=== PATIENT | female | born 1950 | race Caucasian/White ===

== ENCOUNTER 2018-12-19 16:59 | Inpatient (IN) | payer MEDICARE, OTHER ==
[~2018-12-19] VITALS: Ht 152.4 cm; Wt 93.9 kg
[~2018-12-19 16:59] MED LIST: DIGOXIN; DIGOXIN250 MCG PO; FUROSEMIDE; FUROSEMIDE40 MG PO; GLIPIZIDE; GLIPIZIDE ER2.5 MG PO; GLUCOPHAGE; LEVEMIR100 UNIT/1 SQ; METFORMIN HCL500 MG PO; PAROXETINE; PAROXETINE HCL20 MG PO; PROTONIX; SIMVASTATIN; SIMVASTATIN40 MG PO; TOPROL; VERAPAMIL; VERAPAMIL ER120 MG PO
[2018-12-19] MEDS ORDERED: VECURONIUM BROMIDE FOR INJ 20 MG VIAL ONE (17:02)
[2018-12-19] MEDS ORDERED: WATER STERILE 10 ML VIAL ONE (17:02)
[2018-12-19] MEDS ORDERED: ETOMIDATE 2 MG/ML 10 ML INJ IV ONE (17:02)
--- OUTSIDE RECORDS SUMMARY | 2018-12-19 17:04 | XMS REPORT | Summary of Care ---
Author Author [facility] Organization [facility] Address Unknown Phone Unavailable Encounter HQ Derik(JOSHUA) [id number] Date(s): 11/08/16 - 11/26/16 [facility] [address] [place] [address]- [phone] Discharge Disposition: Home or Self Care Attending Physician: Ministerio Howell DO Admitting Physician: Ministerio Howell DO Vital Signs 1 2 3 Most recent to oldest [Reference Range]: 157.48 cm (11/08/16 5:46 PM) 152.4 cm (11/08/16 12:36 PM) Height 94.176 kg (11/21/16 4:56 AM) 99.091 kg (11/20/16 5:08 AM) 98.636 kg (11/18/16 6:14 AM) Current Weight 98.2 DegF (11/26/16 4:11 PM) 98.7 DegF (11/26/16 11:20 AM) 98.5 DegF (11/26/16 8:43 AM) Temperature Oral [96.4-99.1 DegF] 152/75 mmHg *HI* (11/26/16 4:11 PM) 132/64 mmHg (11/26/16 11:20 AM) 165/78 mmHg 1 *HI* (11/26/16 8:43 AM) Blood Pressure [90-140/60-90 mmHg] 18 BRMIN (11/26/16 4:11 PM) 18 BRMIN (11/26/16 11:20 AM) 18 BRMIN (11/26/16 8:43 AM) Respiratory Rate [14-20 BRMIN] 81 bpm (11/26/16 4:11 PM) 80 bpm (11/26/16 11:20 AM) 69 bpm (11/26/16 8:43 AM) Peripheral Pulse Rate [60-100 bpm] 95 kg (11/08/16 5:46 PM) 95.455 kg (11/08/16 12:36 PM) Weight 38.31 m2 (11/08/16 5:46 PM) 41.1 m2 (11/08/16 12:36 PM) Body Mass Index 1Result Comment: notified nurse Problem List Condition Effective Dates Status Health Status Informant CHF - Congestive Resolved heart failure(Confirmed) COPD(Confirmed) Active Diabetes Active mellitus(Confirmed) Diabetes(Confirmed) Resolved HTN Resolved (hypertension)(Confi rmed) Hypertension(Confirm Active ed) MRSA(Confirmed)1, 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 Allergies, Adverse Reactions, Alerts Substance Reaction Severity Status nkda Active Medications albuterol-ipratropium 2.5-0.5 mg inhalation solution 3 mL, Route: NEB, Drug Form: SOLN, Dosing Weight 95.455, kg, ONCE, STAT, Start d ate: 11/08/16 13:33:00 CDT, Stop date: 11/08/16 13:33:00 CDT Start Date: 11/08/16 Stop Date: 11/08/16 Status: Completed albuterol-ipratropium 2.5-0.5 mg inhalation solution 3 ml, Route: NEB, Dosing Weight 95, kg, PRN, PRN Respiratory Protocol, Start robb e: 11/08/16 17:51:00 CDT, Duration: 30 day, Stop date: 12/08/16 17:50:00 CDT Start Date: 11/08/16 Stop Date: 11/08/16 Status: Deleted Benadryl 25 mg, 1 tab, Route: PO, Drug form: TAB, QID, Dosing Weight 95, kg, PRN Allergic reaction, Start date: 11/22/16 15:39:00 CDT, Duration: 30 day, Stop date: 12/22 15:38:00 CDT Start Date: 11/22/16 Stop Date: 11/26/16 Status: Discontinued budesonide 0.5 mg, 2 mL, Route: NEB, Drug form: SUSP, RBID, Dosing Weight 95.455, kg, Start date: 11/08/16 17:40:00 CDT, Duration: 30 day, Stop date: 12/08/16 8:00:00 CDT Notes: (Same As: Pulmicort) Start Date: 11/08/16 Stop Date: 11/26/16 Status: Discontinued budesonide 0.5 mg/2 mL inhalation suspension 0.5 mg=2 mL, NEB, RBID, # 120 mL, 0 Refill(s) Start Date: 11/26/16 Status: Ordered cefTRIAXone + sodium chloride 0.9% INJ 100 mL 2 gm, Route: IVPB, [id number], Dosing Weight 95, kg, Start date: 11/10/16 14:00:00 CDT, Duration: 30 day, Stop date: 12/09/16 14:00:00 CDT Notes: (Same As: Rocephin).Use with 100 mL NS and infuse over 30 min MEDICA TION WASTE Product Size: 2000 mgProduct Wasted: ___ mg Start Date: 11/10/16 Stop Date: 11/18/16 Status: Discontinued cefTRIAXone + sodium chloride 0.9% INJ 100 mL 1 gm, Route: IVPB, ONCE, Dosing Weight 95.455, kg, Priority: STAT, Start date: 0 11/08/16 15:42:00 CDT, Stop date: 11/08/16 15:42:00 CDT Notes: (Same As: Rocephin).Use with 100 mL NS and infuse over 30 min MEDICA TION WASTE Product Size: 1000 mgProduct Wasted: ___ mg Start Date: 11/08/16 Stop Date: 11/08/16 Status: Deleted cefTRIAXone + sodium chloride 0.9% INJ 100 mL 1 gm, Route: IVPB, [id number], Dosing Weight 95.455, kg, Start date: 11/08/16 18:00 :00 CDT, Duration: 30 day, Stop date: 12/07/16 18:00:00 CDT Notes: (Same As: Rocephin).Use with 100 mL NS and infuse over 30 min MEDICA TION WASTE Product Size: 1000 mgProduct Wasted: ___ mg Start Date: 11/08/16 Stop Date: 11/10/16 Status: Discontinued Compazine 5 mg, 1 tab, Route: PO, Drug form: TAB, TID, Dosing Weight 95, kg, PRN Hiccups, Start date: 11/16/16 11:27:00 CDT, Duration: 30 day, Stop date: 12/16/16 11:26:0 0 CDT Notes: (Same as: Compazine) Start Date: 11/16/16 Stop Date: 11/26/16 Status: Discontinued d50 syringe 1 amp, Route: IV, Dosing Weight 95.455, kg, ONCE, Start date: 11/08/16 14:29:00 CDT, Stop date: 11/08/16 14:29:00 CDT Start Date: 11/08/16 Stop Date: 11/08/16 Status: Completed D5NS 1,000 mL 1,000 mL, Rate: 75 ml/hr, Infuse over: 13.3 hr, Route: IV, Dosing Weight 95.455 kg, Total Volume: 1,000, Start date: 11/08/16 14:37:00 CDT, Duration: 30 day, St op date: 12/08/16 14:36:00 CDT Start Date: 11/08/16 Stop Date: 11/09/16 Status: Discontinued Dextrose 50% Syringe 12.5 gm, 25 mL, Route: IVP, Drug Form: INJ, Dosing Weight 95, kg, PRN, PRN Blood Glucose Results, Start date: 11/09/16 9:17:00 CDT, Duration: 30 day, Stop date: 12/09/16 9:16:00 CDT Start Date: 11/09/16 Stop Date: 11/26/16 Status: Discontinued Dextrose 50% Syringe 25 gm, 50 mL, Route: IVP, Drug Form: INJ, Dosing Weight 95, kg, PRN, PRN Blood G lucose Results, Start date: 11/09/16 9:17:00 CDT, Duration: 30 day, Stop date: 0 12/09/16 9:16:00 CDT Start Date: 11/09/16 Stop Date: 11/26/16 Status: Discontinued Dextrose 50% Syringe 12.5 gm, 25 mL, Route: IVP, Drug Form: INJ, Dosing Weight 95.455, kg, PRN, PRN B lood Glucose Results, Start date: 11/08/16 17:25:00 CDT, Duration: 30 day, Stop date: 12/08/16 17:24:00 CDT Start Date: 11/08/16 Stop Date: 11/09/16 Status: Discontinued Dextrose 50% Syringe 25 gm, 50 mL, Route: IVP, Drug Form: INJ, Dosing Weight 95.455, kg, PRN, PRN Blo od Glucose Results, Start date: 11/08/16 17:25:00 CDT, Duration: 30 day, Stop da te: 12/08/16 17:24:00 CDT Start Date: 11/08/16 Stop Date: 11/09/16 Status: Discontinued digoxin immune HELADIO 2,000 microgram, Route: IVPB, ONCE, Dosing Weight 95.455, kg, Start date: 15:27:00 CDT, Stop date: 11/08/16 15:27:00 CDT Start Date: 11/08/16 Stop Date: 11/08/16 Status: Discontinued digoxin immune HELADIO + sodium chloride 0.9% INJ 200 mL 200 mg, Route: IVPB, Drug form: INJ, ONCE, Dosing Weight 95.455, kg, Start date: 11/08/16 15:33:00 CDT, Stop date: 11/08/16 15:33:00 CDT Notes: (Same as:Digifab) Start Date: 11/08/16 Stop Date: 11/08/16 Status: Completed docusate sodium 100 mg oral capsule 100 mg, 1 cap, Route: PO, Drug form: CAP, BID, Dosing Weight 95, kg, Start date: 11/19/16 9:00:00 CDT, Duration: 30 day, Stop date: 12/18/16 17:00:00 CDT Notes: (Same as: Colace) (Do Not Crush) Start Date: 11/19/16 Stop Date: 11/26/16 Status: Discontinued Dulcolax Laxative 10 mg, 1 supp, Route: FL, Drug form: SUPP, ONCE, Dosing Weight 95, kg, PRN as ne eded for constipation, Start date: 11/24/16 14:05:00 CDT Notes: (Same As: Dulcolax, Bisco-Lax) Start Date: 11/24/16 Stop Date: 11/26/16 Status: Discontinued DuoNeb inhalation solution 3 ml, Route: NEB, Drug Form: SOLN, Dosing Weight 95.455, kg, PRN, PRN Respirator y Protocol, Start date: 11/08/16 17:40:00 CDT, Duration: 30 day, Stop date: 11/19 17:39:00 CDT Notes: (Same as: Duoneb) Start Date: 11/08/16 Stop Date: 11/26/16 Status: Discontinued famotidine 20 mg, 1 tab, Route: PO, Drug form: TAB, Daily, Dosing Weight 95, kg, PRN Heartb urn, Start date: 11/09/16 10:55:00 CDT, Duration: 30 day, Stop date: 12/09/16 10 :54:00 CDT Notes: (Same as: Pepcid) Start Date: 11/09/16 Stop Date: 11/26/16 Status: Discontinued fentaNYL (ANES) Route: IV, Drug form: INJ, ONCE, Stop date: 11/22/16 8:52:00 CDT Start Date: 11/22/16 Stop Date: 11/22/16 Status: Completed glucagon 1 mg, Route: IM, Drug form: PDR/INJ, PRN, Dosing Weight 95, kg, PRN Blood Glucos e Results, Start date: 11/09/16 9:17:00 CDT, Duration: 30 day, Stop date: 9:16:00 CDT Start Date: 11/09/16 Stop Date: 11/26/16 Status: Discontinued glucagon 1 mg, Route: IM, Drug form: PDR/INJ, PRN, Dosing Weight 95.455, kg, PRN Blood Gl ucose Results, Start date: 11/08/16 17:25:00 CDT, Duration: 30 day, Stop date: 0 12/08/16 17:24:00 CDT Start Date: 11/08/16 Stop Date: 11/09/16 Status: Discontinued GoLYTELY 4,000 ml, Route: PO, Drug Form: PDR/REC, Dosing Weight 95, kg, ONCE, Start date: 11/24/16 14:05:00 CDT, Duration: 1 doses or times, Stop date: 11/24/16 14:05:00 CDT Notes: (polyethylene glycol electrolyte solution 4 Liter bottle) (Same as: Christophe العراقي) Start Date: 11/24/16 Stop Date: 11/24/16 Status: Completed heparin 5,000 unit, 1 mL, Route: SUB-Q, Drug form: INJ, Q8H, Dosing Weight 95.455, kg, S tart date: 11/09/16 0:00:00 CDT, Duration: 30 day, Stop date: 12/08/16 16:00:00 CDT Notes: porcine heparin Start Date: 11/09/16 Stop Date: 11/10/16 Status: Discontinued insulin aspart 4 unit, 0.04 mL, Route: SUB-Q, Drug form: SOLN, Bedtime, Dosing Weight 95, kg, P RN Blood Glucose Results, Start date: 11/09/16 9:17:00 CDT, Duration: 30 day, St op date: 12/09/16 9:16:00 CDT Notes: Roll in palms of hands gently; Do not shake vigorously. (Same as: Arnaud Peñaloza)"single patient use only"WASTE: F/P - Black; E - Municipal Trash Bin Stable f or 28 days at room temperature.Expires in days from Date Start Date: 11/09/16 Stop Date: 11/26/16 Status: Discontinued insulin aspart 2 unit, 0.02 mL, Route: SUB-Q, Drug form: SOLN, TID-Before Meals, Dosing Weight 95, kg, PRN Blood Glucose Results, Start date: 11/09/16 9:17:00 CDT, Duration: 3 0 day, Stop date: 12/09/16 9:16:00 CDT Notes: Roll in palms of hands gently; Do not shake vigorously. (Same as: Arnaud Peñaloza)"single patient use only"WASTE: F/P - Black; E - Municipal Trash Bin Stable f or 28 days at room temperature.Expires in days from Date Start Date: 11/09/16 Stop Date: 11/13/16 Status: Discontinued insulin aspart 4 unit, 0.04 mL, Route: SUB-Q, Drug form: SOLN, TID-Before Meals, Dosing Weight 95, kg, PRN Blood Glucose Results, Start date: 11/09/16 9:17:00 CDT, Duration: 3 0 day, Stop date: 12/09/16 9:16:00 CDT Notes: Roll in palms of hands gently; Do not shake vigorously. (Same as: NovoBENIGNO Peñaloza)"single patient use only"WASTE: F/P - Black; E - Municipal Trash Bin Stable f or 28 days at room temperature.Expires in days from Date Start Date: 11/09/16 Stop Date: 11/13/16 Status: Discontinued insulin aspart 6 unit, 0.06 mL, Route: SUB-Q, Drug form: SOLN, TID-Before Meals, Dosing Weight 95, kg, PRN Blood Glucose Results, Start date: 11/09/16 9:17:00 CDT, Duration: 3 0 day, Stop date: 12/09/16 9:16:00 CDT Notes: Roll in palms of hands gently; Do not shake vigorously. (Same as: NovoBENIGNO Peñaloza)"single patient use only"WASTE: F/P - Black; E - Municipal Trash Bin Stable f or 28 days at room temperature.Expires in days from Date Start Date: 11/09/16 Stop Date: 11/13/16 Status: Discontinued insulin aspart 8 unit, 0.08 mL, Route: SUB-Q, Drug form: SOLN, TID-Before Meals, Dosing Weight 95, kg, PRN Blood Glucose Results, Start date: 11/09/16 9:17:00 CDT, Duration: 3 0 day, Stop date: 12/09/16 9:16:00 CDT Notes: Roll in palms of hands gently; Do not shake vigorously. (Same as: Arnaud Peñaloza)"single patient use only"WASTE: F/P - Black; E - Municipal Trash Bin Stable f or 28 days at room temperature.Expires in days from Date Start Date: 11/09/16 Stop Date: 11/13/16 Status: Discontinued insulin aspart 10 unit, 0.1 mL, Route: SUB-Q, Drug form: SOLN, TID-Before Meals, Dosing Weight 95, kg, PRN Blood Glucose Results, Start date: 11/09/16 9:17:00 CDT, Duration: 3 0 day, Stop date: 12/09/16 9:16:00 CDT Notes: Roll in palms of hands gently; Do not shake vigorously. (Same as: Arnaud Peñaloza)"single patient use only"WASTE: F/P - Black; E - Municipal Trash Bin Stable f or 28 days at room temperature.Expires in days from Date Start Date: 11/09/16 Stop Date: 11/13/16 Status: Discontinued insulin aspart 1 unit, 0.01 mL, Route: SUB-Q, Drug form: SOLN, Bedtime, Dosing Weight 95, kg, P RN Blood Glucose Results, Start date: 11/09/16 9:17:00 CDT, Duration: 30 day, St op date: 12/09/16 9:16:00 CDT Notes: Roll in palms of hands gently; Do not shake vigorously. (Same as: Arnaud Peñaloza)"single patient use only"WASTE: F/P - Black; E - Municipal Trash Bin Stable f or 28 days at room temperature.Expires in days from Date Start Date: 11/09/16 Stop Date: 11/26/16 Status: Discontinued insulin aspart 2 unit, 0.02 mL, Route: SUB-Q, Drug form: SOLN, Bedtime, Dosing Weight 95, kg, P RN Blood Glucose Results, Start date: 11/09/16 9:17:00 CDT, Duration: 30 day, St op date: 12/09/16 9:16:00 CDT Notes: Roll in palms of hands gently; Do not shake vigorously. (Same as: Arnaud Peñaloza)"single patient use only"WASTE: F/P - Black; E - Municipal Trash Bin Stable f or 28 days at room temperature.Expires in days from Date Start Date: 11/09/16 Stop Date: 11/26/16 Status: Discontinued insulin aspart 3 unit, 0.03 mL, Route: SUB-Q, Drug form: SOLN, Bedtime, Dosing Weight 95, kg, P RN Blood Glucose Results, Start date: 11/09/16 9:17:00 CDT, Duration: 30 day, St op date: 12/09/16 9:16:00 CDT Notes: Roll in palms of hands gently; Do not shake vigorously. (Same as: Arnaud Peñaloza)"single patient use only"WASTE: F/P - Black; E - Municipal Trash Bin Stable f or 28 days at room temperature.Expires in days from Date Start Date: 11/09/16 Stop Date: 11/26/16 Status: Discontinued insulin aspart 2 unit, 0.02 mL, Route: SUB-Q, Drug form: SOLN, TID-Before Meals, Dosing Weight 95.455, kg, PRN Blood Glucose Results, Start date: 11/08/16 17:25:00 CDT, Durati on: 30 day, Stop date: 12/08/16 17:24:00 CDT Notes: Roll in palms of hands gently; Do not shake vigorously. (Same as: Arnaud Peñaloza)"single patient use only"WASTE: F/P - Black; E - Municipal Trash Bin Stable f or 28 days at room temperature.Expires in days from Date Start Date: 11/08/16 Stop Date: 11/09/16 Status: Discontinued insulin aspart 5 unit, 0.05 mL, Route: SUB-Q, Drug form: SOLN, TID-Before Meals, Dosing Weight 95.455, kg, PRN Blood Glucose Results, Start date: 11/08/16 17:25:00 CDT, Durati on: 30 day, Stop date: 12/08/16 17:24:00 CDT Notes: Roll in palms of hands gently; Do not shake vigorously. (Same as: Arnaud Peñaloza)"single patient use only"WASTE: F/P - Black; E - Municipal Trash Bin Stable f or 28 days at room temperature.Expires in days from Date Start Date: 11/08/16 Stop Date: 11/09/16 Status: Discontinued insulin aspart 4 unit, 0.04 mL, Route: SUB-Q, Drug form: SOLN, TID-Before Meals, Dosing Weight 95.455, kg, PRN Blood Glucose Results, Start date: 11/08/16 17:25:00 CDT, Durati on: 30 day, Stop date: 12/08/16 17:24:00 CDT Notes: Roll in palms of hands gently; Do not shake vigorously. (Same as: Arnaud Peñaloza)"single patient use only"WASTE: F/P - Black; E - Municipal Trash Bin Stable f or 28 days at room temperature.Expires in days from Date Start Date: 11/08/16 Stop Date: 11/09/16 Status: Discontinued insulin aspart 3 unit, 0.03 mL, Route: SUB-Q, Drug form: SOLN, TID-Before Meals, Dosing Weight 95.455, kg, PRN Blood Glucose Results, Start date: 11/08/16 17:25:00 CDT, Durati on: 30 day, Stop date: 12/08/16 17:24:00 CDT Notes: Roll in palms of hands gently; Do not shake vigorously. (Same as: Arnaud Peñaloza)"single patient use only"WASTE: F/P - Black; E - Municipal Trash Bin Stable f or 28 days at room temperature.Expires in days from Date Start Date: 11/08/16 Stop Date: 11/09/16 Status: Discontinued insulin aspart 1 unit, 0.01 mL, Route: SUB-Q, Drug form: SOLN, TID-Before Meals, Dosing Weight 95.455, kg, PRN Blood Glucose Results, Start date: 11/08/16 17:25:00 CDT, Durati on: 30 day, Stop date: 12/08/16 17:24:00 CDT Notes: Roll in palms of hands gently; Do not shake vigorously. (Same as: Arnaud Peñaloza)"single patient use only"WASTE: F/P - Black; E - Municipal Trash Bin Stable f or 28 days at room temperature.Expires in days from Date Start Date: 11/08/16 Stop Date: 11/09/16 Status: Discontinued insulin aspart 20 unit, 0.2 mL, Route: SUB-Q, Drug form: SOLN, ONCE, Dosing Weight 95, kg, Star t date: 11/09/16 14:15:00 CDT, Stop date: 11/09/16 14:15:00 CDT Notes: Roll in palms of hands gently; Do not shake vigorously. (Same as: Arnaud Peñaloza)"single patient use only"WASTE: F/P - Black; E - Municipal Trash Bin Stable f or 28 days at room temperature.Expires in days from Date Start Date: 11/09/16 Stop Date: 11/09/16 Status: Completed insulin aspart 15 unit, 0.15 mL, Route: SUB-Q, Drug form: SOLN, TID-Before Meals, Dosing Weight 95, kg, PRN Blood Glucose Results, Start date: 11/13/16 10:57:00 CDT, Duration: 30 day, Stop date: 12/13/16 10:56:00 CDT Notes: Roll in palms of hands gently; Do not shake vigorously. (Same as: Arnaud Peñaloza)"single patient use only"WASTE: F/P - Black; E - Municipal Trash Bin Stable f or 28 days at room temperature.Expires in days from Date Start Date: 11/13/16 Stop Date: 11/26/16 Status: Discontinued insulin aspart 12 unit, 0.12 mL, Route: SUB-Q, Drug form: SOLN, TID-Before Meals, Dosing Weight 95, kg, PRN Blood Glucose Results, Start date: 11/13/16 10:57:00 CDT, Duration: 30 day, Stop date: 12/13/16 10:56:00 CDT Notes: Roll in palms of hands gently; Do not shake vigorously. (Same as: NovoBENIGNO Peñaloaz)"single patient use only"WASTE: F/P - Black; E - Municipal Trash Bin Stable f or 28 days at room temperature.Expires in days from Date Start Date: 11/13/16 Stop Date: 11/26/16 Status: Discontinued insulin aspart 3 unit, 0.03 mL, Route: SUB-Q, Drug form: SOLN, TID-Before Meals, Dosing Weight 95, kg, PRN Blood Glucose Results, Start date: 11/13/16 10:57:00 CDT, Duration: 30 day, Stop date: 12/13/16 10:56:00 CDT Notes: Roll in palms of hands gently; Do not shake vigorously. (Same as: NovoBENIGNO Peñaloza)"single patient use only"WASTE: F/P - Black; E - Municipal Trash Bin Stable f or 28 days at room temperature.Expires in days from Date Start Date: 11/13/16 Stop Date: 11/26/16 Status: Discontinued insulin aspart 9 unit, 0.09 mL, Route: SUB-Q, Drug form: SOLN, TID-Before Meals, Dosing Weight 95, kg, PRN Blood Glucose Results, Start date: 11/13/16 10:57:00 CDT, Duration: 30 day, Stop date: 12/13/16 10:56:00 CDT Notes: Roll in palms of hands gently; Do not shake vigorously. (Same as: NovoBENIGNO G)"single patient use only"WASTE: F/P - Black; E - Municipal Trash Bin Stable f or 28 days at room temperature.Expires in days from Date Start Date: 11/13/16 Stop Date: 11/26/16 Status: Discontinued insulin aspart 6 unit, 0.06 mL, Route: SUB-Q, Drug form: SOLN, TID-Before Meals, Dosing Weight 95, kg, PRN Blood Glucose Results, Start date: 11/13/16 10:57:00 CDT, Duration: 30 day, Stop date: 12/13/16 10:56:00 CDT Notes: Roll in palms of hands gently; Do not shake vigorously. (Same as: Arnaud Peñaloza)"single patient use only"WASTE: F/P - Black; E - Municipal Trash Bin Stable f or 28 days at room temperature.Expires in days from Date Start Date: 11/13/16 Stop Date: 11/26/16 Status: Discontinued insulin detemir 10 unit, Route: SUB-Q, Daily, Dosing Weight 95, kg, Start date: 11/09/16 10:48:0 0 CDT, Duration: 30 day, Stop date: 12/09/16 9:00:00 CDT Start Date: 11/09/16 Stop Date: 11/09/16 Status: Discontinued lactulose 10 g/15 mL oral syrup 20 gm, 30 ml, Route: PO, Drug form: SYRP, ONCE, Dosing Weight 95, kg, Start date : 11/19/16 12:23:00 CDT, Stop date: 11/19/16 12:23:00 CDT Notes: (Same as:Chronulac) Start Date: 11/19/16 Stop Date: 11/19/16 Status: Completed Levemir 5 unit, 0.05 mL, Route: SUB-Q, Drug form: SOLN, BID, Dosing Weight 95, kg, Start date: 11/13/16 21:00:00 CDT, Duration: 30 day, Stop date: 12/13/16 9:00:00 CDT Notes: Same as LevemirDo not hold insulin without contacting prescriberWASTE: F/ P - Black; E - Municipal Trash Bin "single patient use only" Start Date: 11/13/16 Stop Date: 11/26/16 Status: Discontinued Levemir 10 unit, 0.1 mL, Route: SUB-Q, Drug form: SOLN, Daily, Dosing Weight 95, kg, Andra ority: NOW, Start date: 11/10/16 11:46:00 CDT, Duration: 30 day, Stop date: 01/19 9:00:00 CDT Notes: Same as LevemirDo not hold insulin without contacting prescriberWASTE: F/ P - Black; E - Municipal Trash Bin "single patient use only" Start Date: 11/10/16 Stop Date: 11/11/16 Status: Discontinued Levemir 6 unit, 0.06 mL, Route: SUB-Q, Drug form: SOLN, Daily, Dosing Weight 95, kg, Sta rt date: 11/12/16 9:00:00 CDT, Duration: 30 day, Stop date: 12/11/16 9:00:00 CDT Notes: Same as LevemirDo not hold insulin without contacting prescriberWASTE: F/ P - Black; E - Municipal Trash Bin "single patient use only" Start Date: 11/12/16 Stop Date: 11/13/16 Status: Discontinued levofloxacin 750 mg, 150 mL, Route: IVPB, Drug form: SOLN, [id number], Dosing Weight 95, kg, For CrCl=20 -49ml/min, Start date: 11/22/16 16:00:00 CDT, Duration: 7 day, Stop robb e: 11/28/16 16:00:00 CDT, ABX Indication: Urinary Tract Infection Notes: (Same as:Levaquin) Start Date: 11/22/16 Stop Date: 11/25/16 Status: Discontinued levofloxacin 750 mg, Route: IVPB, Drug form: SOLN, [id number], Dosing Weight 95, kg, For CrCl=20 -49ml/min, Start date: 11/25/16 12:00:00 CDT, Duration: 7 day, Stop date: 12/01 12:00:00 CDT, ABX Indication: Urinary Tract Infection Start Date: 11/25/16 Stop Date: 11/25/16 Status: Discontinued levofloxacin 750 mg, 3 tab, Route: PO, Drug form: TAB, [id number], Dosing Weight 95, kg, Start d ate: 11/25/16 12:00:00 CDT, Duration: 5 day, Stop date: 11/29/16 12:00:00 CDT, A BX Indication: Urinary Tract Infection Notes: Do not give w/antacids, dairy pdt & minerals Take 1 hr before or 2 hr after dairy pdt (Same as:Levaquin) Start Date: 11/25/16 Stop Date: 11/26/16 Status: Discontinued levofloxacin 750 mg oral tablet 750 mg=1 tab, PO, Q24H, X 3 day, # 3 tab, 0 Refill(s) Start Date: 11/26/16 Stop Date: 11/29/16 Status: Ordered Levsin SL 0.125 mg, 1 tab, Route: SL, Drug form: TAB, Q6H, Dosing Weight 95, kg, PRN Bladd er Spasm, Start date: 11/22/16 9:49:00 CDT, Duration: 30 day, Stop date: 7 9:48:00 CDT Notes: (Same as: Levsin) Take 30 min before meal Start Date: 11/22/16 Stop Date: 11/26/16 Status: Discontinued lidocaine (ANES) Route: IV, Drug form: INJ, ONCE, Stop date: 11/22/16 8:52:00 CDT Start Date: 11/22/16 Stop Date: 11/22/16 Status: Completed LR 1000 mL INJ (ANES) Route: IV, Total Volume: 1,000, Start date: 11/22/16 7:55:00 CDT, Stop date: 8:55:00 CDT Start Date: 11/22/16 Stop Date: 11/22/16 Status: Completed methylPREDNISolone SODium SUCCinate 125 mg, 2 mL, Route: IVP, Drug form: INJ, ONCE, Dosing Weight 95.455, kg, Priori ty: STAT, Start date: 11/08/16 15:42:00 CDT, Stop date: 11/08/16 15:42:00 CDT Notes: (Same as:Solu-MEDROL, A-Methapred) Start Date: 11/08/16 Stop Date: 11/08/16 Status: Completed MiraLax 17 gm, 1 pkt, Route: PO, Drug form: PWDR, ONCE, Dosing Weight 95, kg, Start date : 11/19/16 8:56:00 CDT, Duration: 1 doses or times, Stop date: 11/19/16 8:56:00 CDT Notes: Dissolve in 8 oz of water or juice.(Same as: Miralax) Start Date: 11/19/16 Stop Date: 11/19/16 Status: Completed [place] 5/325 oral tablet 1 tab, Route: PO, Drug Form: TAB, Dosing Weight 95, kg, Q6H, PRN Pain Score 7-10 , Start date: 11/14/16 11:41:00 CDT, Duration: 30 day, Stop date: 12/14/16 11:40 :00 CDT Notes: (Same as: [place] 325/5) Do not exceed 4gm/day of acetaminophen. Start Date: 11/14/16 Stop Date: 11/26/16 Status: Discontinued NS (Bolus) IV 500 mL, 500 ml/hr, Infuse Over: 1 hr, Route: IV, 500, Drug form: INJ, ONCE, Prio rity: STAT, Dosing Weight 95.455 kg, Start date: 11/08/16 13:36:00 CDT, Duration : 1 doses or times, Stop date: 11/08/16 13:36:00 CDT Start Date: 11/08/16 Stop Date: 11/08/16 Status: Completed nystatin topical 100,000 units/g powder 1 appl, Route: TOP, PRN, Drug form: PWDR, PRN For Fungal Prophylaxis, Start date : 11/08/16 17:51:00 CDT, Duration: 30 day, Stop date: 12/08/16 17:50:00 CDT Notes: (Same as:Mycostatin, Nilstat) For external use only. Start Date: 11/08/16 Stop Date: 11/26/16 Status: Discontinued ondansetron (ANES) Route: IV, Drug form: INJ, ONCE, Stop date: 11/22/16 8:52:00 CDT Start Date: 11/22/16 Stop Date: 11/22/16 Status: Completed pantoprazole 40 mg, 1 tab, Route: PO, Drug form: ECTAB, Before Dinner, Dosing Weight 95, kg, Start date: 11/16/16 16:30:00 CDT, Duration: 30 day, Stop date: 12/15/16 16:30:0 0 CDT Notes: Tablet should not be chewed or crushed.(Same as: Protonix) Start Date: 11/16/16 Stop Date: 11/26/16 Status: Discontinued PARoxetine 20 mg, 2 tab, Route: PO, Drug form: TAB, Daily, Dosing Weight 95, kg, Start date : 11/09/16 9:00:00 CDT, Stop date: 12/08/16 9:00:00 CDT Notes: (Same as: Paxil) Start Date: 11/09/16 Stop Date: 11/26/16 Status: Discontinued phenylephrine (ANES) Route: IV, Drug form: INJ, ONCE, Stop date: 11/22/16 8:52:00 CDT Start Date: 11/22/16 Stop Date: 11/22/16 Status: Completed propofol (ANES) Route: IV, Drug form: INJ, ONCE, Stop date: 11/22/16 8:52:00 CDT Start Date: 11/22/16 Stop Date: 11/22/16 Status: Completed Saline Flush 0.9% 10 mL, Route: IVP, Drug Form: INJ, Dosing Weight 95.455, kg, PRN, PRN Line Flush , Start date: 11/08/16 13:33:00 CDT, Duration: 30 day, Stop date: 12/08/16 13:32 :00 CDT Notes: (Same as: BD Posiflush) Start Date: 11/08/16 Stop Date: 11/26/16 Status: Discontinued Saline Flush 0.9% 10 ml, Route: IVP, Drug Form: INJ, Dosing Weight 95, kg, PRN, PRN Line Flush, St art date: 11/08/16 17:51:00 CDT, Duration: 30 day, Stop date: 12/08/16 17:50:00 CDT Start Date: 11/08/16 Stop Date: 11/08/16 Status: Deleted Saline Flush 0.9% 10 ml, Route: IVP, Drug Form: INJ, Dosing Weight 95, kg, Q12H, Start date: 11/08 21:00:00 CDT, Duration: 30 day, Stop date: 12/08/16 9:00:00 CDT Notes: Same as: BD Posiflush Sterile Start Date: 11/08/16 Stop Date: 11/26/16 Status: Discontinued simvastatin 40 mg, 1 tab, Route: PO, Drug form: TAB, Bedtime, Dosing Weight 95, kg, Start da te: 11/17/16 21:00:00 CDT, Duration: 30 day, Stop date: 12/16/16 21:00:00 CDT Notes: (Same as: Zocor) Start Date: 11/17/16 Stop Date: 11/26/16 Status: Discontinued sodium bicarbonate 8.4% 50 mEq, 50 ml, Route: IVP, Drug Form: INJ, Dosing Weight 95, kg, ONCE, Start robb e: 11/09/16 9:17:00 CDT, Stop date: 11/09/16 9:17:00 CDT Notes: (sodium bicarb 8.4% (1 mEq/ml) 50 ml syringe) Start Date: 11/09/16 Stop Date: 11/09/16 Status: Completed sodium bicarbonate 8.4% additive 150 mEq + water for injection, sterile 1,000 mL 1,000 mL, Rate: 70 ml/hr, Infuse over: 16.4 hr, Dosing Weight 95, kg, Route: IV, Total Volume: 1,150, Start Date: 11/09/16 9:15:00 CDT, Duration: 30 day, Stop d ate: 12/09/16 9:14:00 CDT, Replace Every: 16.4 hr Notes: (sodium bicarb 8.4% (1 mEq/ml) 50 ml VL) Start Date: 11/09/16 Stop Date: 11/10/16 Status: Discontinued sodium bicarbonate 8.4% additive 150 mEq + water for injection, sterile 1,000 mL 1,000 mL, Rate: 40 ml/hr, Infuse over: 28.8 hr, Dosing Weight 95, kg, Route: IV, Total Volume: 1,150, Start Date: 11/10/16 17:28:00 CDT, Duration: 30 day, Stop date: 12/10/16 17:27:00 CDT, Replace Every: 24 hr Notes: (sodium bicarb 8.4% (1 mEq/ml) 50 ml VL) Start Date: 11/10/16 Stop Date: 11/12/16 Status: Discontinued sodium chloride 0.9% 1000 ml INJ 1,000 mL 1,000 mL, Rate: 25 ml/hr, Infuse over: 40 hr, Route: IV, Dosing Weight 95 kg, To veroniac Volume: 1,000, Start date: 11/25/16 13:52:00 CDT, Duration: 30 day, Stop robb e: 12/25/16 13:51:00 CDT Start Date: 11/25/16 Stop Date: 11/25/16 Status: Discontinued tobramycin + sodium chloride 0.9% INJ 93.75 mL 250 mg, 6.25 mL, Route: IV, ONCE, Dosing Weight 95, kg, Start date: 11/11/16 18: 16:00 CDT, Stop date: 11/11/16 18:16:00 CDT Notes: TIME CRITICAL MEDICATION(Same As: Nebcin) Start Date: 11/11/16 Stop Date: 11/11/16 Status: Completed tramadol 50 mg, 1 tab, Route: PO, Drug form: TAB, Q6H, Dosing Weight 95, kg, PRN Pain Sco re 4-6, Start date: 11/08/16 18:56:00 CDT, Stop date: 12/08/16 18:55:00 CDT Notes: Not to exceed 200mg/day. (Same As: Ultram) Start Date: 11/08/16 Stop Date: 11/26/16 Status: Discontinued Tylenol 650 mg, 2 tab, Route: PO, Drug form: TAB, Q6H, Dosing Weight 95, kg, PRN Pain 1- 3/Temp > 100.4 F, Start date: 11/08/16 18:56:00 CDT, Duration: 30 day, Stop date: 12/08/16 18:55:00 CDT Notes: Do not exceed 4 gm/day. (Same as: Tylenol) Start Date: 11/08/16 Stop Date: 11/26/16 Status: Discontinued verapamil 120 mg/24 hours oral capsule, extended release 120 mg=1 cap, PO, Daily, 0 Refill(s) Start Date: 11/08/16 Stop Date: 11/26/16 Status: Discontinued Zofran 4 mg, 2 mL, Route: IV, Drug form: INJ, Q6H, Dosing Weight 95, kg, PRN Nausea, St art date: 11/08/16 18:56:00 CDT, Duration: 30 day, Stop date: 12/08/16 18:55:00 CDT Notes: (Same as: Zofran) MEDICATION WASTE Product Size: 4 mgProduct Was winnie: ___ mg Start Date: 11/08/16 Stop Date: 11/26/16 Status: Discontinued Zosyn + sodium chloride 0.9% INJ 100 mL 3.375 gm, Route: IVPB, ABXQ8H, Dosing Weight 95, kg, CrCl >=20 ml/min infuse over 4 hours, Priority: NOW, Start date: 11/18/16 22:48:00 CDT, Duration: 30 day, Stop date: 12/18/16 14:48:00 CDT Notes: (Same as: Zosyn)Dosing based on Piperacillin component MEDICATION [place] JUAN FRANCISCO Product Size: 3375 mgProduct Wasted: ___ mg Start Date: 11/18/16 Stop Date: 11/22/16 Status: Discontinued Results ELECTROLYTES 1 2 3 Most recent to oldest [Reference Range]: 143 mEq/L (11/25/16 7:30 AM) 145 mEq/L (11/24/16 6:15 AM) 143 mEq/L (11/23/16 3:53 AM) Sodium Lvl [135-145 mEq/L] 3.6 mEq/L (11/25/16 7:30 AM) 4.2 mEq/L (11/24/16 6:15 AM) 3.8 mEq/L (11/23/16 3:53 AM) Potassium Lvl [3.5-5.1 mEq/L] 109 mEq/L (11/25/16 7:30 AM) 108 mEq/L (11/24/16 6:15 AM) 109 mEq/L (11/23/16 3:53 AM) Chloride Lvl [95-109 mEq/L] 28 mEq/L (11/25/16 7:30 AM) 24 mEq/L (11/24/16 6:15 AM) 28 mEq/L (11/23/16 3:53 AM) CO2 [24-32 mEq/L] 9.6 mEq/L *LOW* (11/25/16 7:30 AM) 17.2 mEq/L (11/24/16 6:15 AM) 9.8 mEq/L *LOW* (11/23/16 3:53 AM) AGAP [10.0-20.0 mEq/L] CHEM PANEL 1 2 3 Most recent to oldest [Reference Range]: 1.00 mg/dL (11/25/16 7:30 AM) 1.40 mg/dL (11/24/16 6:15 AM) 1.50 mg/dL *HI* (11/23/16 3:53 AM) Creatinine Lvl [0.50-1.40 mg/dL] 59 mL/min/1.73m2 1 *NA* (11/25/16 7:30 AM) 39 mL/min/1.73m2 2 *NA* (11/24/16 6:15 AM) 36 mL/min/1.73m2 3 *NA* (11/23/16 3:53 AM) eGFR 10 mg/dL (11/25/16 7:30 AM) 15 mg/dL (11/24/16 6:15 AM) 18 mg/dL (11/23/16 3:53 AM) BUN [7-22 mg/dL] 22 (11/16/16 10:05 AM) 15 (11/08/16 1:46 PM) B/C Ratio [6-25] 181 mg/dL *HI* (11/25/16 7:30 AM) 169 mg/dL *HI* (11/24/16 6:15 AM) 117 mg/dL *HI* (11/23/16 3:53 AM) Glucose Lvl [70-99 mg/dL] 6.8 g/dL (11/16/16 10:05 AM) 6.9 g/dL (11/08/16 1:46 PM) Total Protein [6.4-8.4 g/dL] 1.9 g/dL *LOW* (11/16/16 10:05 AM) 2.4 g/dL *LOW* (11/08/16 1:46 PM) Albumin Lvl [3.5-5.0 g/dL] 4.9 g/dL *HI* (11/16/16 10:05 AM) 4.5 g/dL *HI* (11/08/16 1:46 PM) Globulin [2.7-4.2 g/dL] 0.4 *LOW* (11/16/16 10:05 AM) 0.5 *LOW* (11/08/16 1:46 PM) A/G Ratio [0.7-1.6] 8.2 mg/dL *LOW* (11/25/16 7:30 AM) 8.0 mg/dL *LOW* (11/24/16 6:15 AM) 7.9 mg/dL *LOW* (11/23/16 3:53 AM) Calcium Lvl [8.5-10.5 mg/dL] 5.0 mg/dL *HI* (11/13/16 6:08 AM) 5.6 mg/dL *HI* (11/10/16 2:56 AM) Phosphorus [2.5-4.5 mg/dL] 2.0 mg/dL (11/13/16 6:08 AM) 1.6 mg/dL *LOW* (11/10/16 2:56 AM) Magnesium Lvl [1.8-2.4 mg/dL] 9 unit/L (11/16/16 10:05 AM) 10 unit/L (11/08/16 1:46 PM) ALT [0-65 unit/L] 8 unit/L (11/16/16 10:05 AM) 16 unit/L (11/08/16 1:46 PM) AST [0-37 unit/L] 134 unit/L (11/16/16 10:05 AM) 126 unit/L (11/08/16 1:46 PM) Alk Phos [39-136 unit/L] 0.4 mg/dL (11/16/16 10:05 AM) 0.5 mg/dL (11/08/16 1:46 PM) Bili Total [0.2-1.3 mg/dL] 3.6 mMol/L *HI* (11/09/16 2:36 AM) 3.8 mMol/L *HI* (11/08/16 11:17 PM) 3.4 mMol/L *HI* (11/08/16 7:39 PM) Lactic Acid Lvl [0.5-2.2 mMol/L] 314 mOsm/kg *HI* (11/08/16 4:50 PM) Osmolality [280-300 mOsm/kg] 1Result Comment: The eGFR is calculated using the CKD-EPI formula. In most young, healthy individuals the eGFR will be >90 mL/min/1.73m2. The eGFR declines with age. An eGFR of 60-89 may be normal in some populations, particularly the elderly, for whom the CKD-EPI formula has not been extensively validated. Use of the eGFR is not recommended in the following populations: Individuals with unstable creatinine concentrations, including patients and those with serious co-morbid conditions. Patients with extremes in muscle mass or diet. The data above are obtained from the National Kid[employer] Disease Education Program ( [employer]) which additionally recommends that when the eGFR is used in patients with extremes of body mass index for purposes of drug dosing, the eGFR should be mul tiplied by the estimated BMI. 2Result Comment: The eGFR is calculated using the CKD-EPI formula. In most young, healthy individuals the eGFR will be >90 mL/min/1.73m2. The eGFR declines with age. An eGFR of 60-89 may be normal in some populations, particularly the elderly, for whom the CKD-EPI formula has not been extensively validated. Use of the eGFR is not recommended in the following populations: Individuals with unstable creatinine concentrations, including patients and those with serious co-morbid conditions. Patients with extremes in muscle mass or diet. The data above are obtained from the National Kid[employer] Disease Education Program ( [employer]) which additionally recommends that when the eGFR is used in patients with extremes of body mass index for purposes of drug dosing, the eGFR should be mul tiplied by the estimated BMI. 3Result Comment: The eGFR is calculated using the CKD-EPI formula. In most young, healthy individuals the eGFR will be >90 mL/min/1.73m2. The eGFR declines with age. An eGFR of 60-89 may be normal in some populations, particularly the elderly, for whom the CKD-EPI formula has not been extensively validated. Use of the eGFR is not recommended in the following populations: Individuals with unstable creatinine concentrations, including patients and those with serious co-morbid conditions. Patients with extremes in muscle mass or diet. The data above are obtained from the National Kidney Disease Education Program ( [employer]) which additionally recommends that when the eGFR is used in patients with extremes of body mass index for purposes of drug dosing, the eGFR should be mul tiplied by the estimated BMI. CARDIAC ENZYMES 1 2 3 Most recent to oldest [Reference Range]: 54 unit/L (11/08/16 11:17 PM) 54 unit/L (11/08/16 7:39 PM) Total CK [12-191 unit/L] 0.05 ng/mL (11/08/16 11:17 PM) 0.06 ng/mL (11/08/16 7:39 PM) 0.07 ng/mL (11/08/16 1:46 PM) Troponin-I [0.00-0.40 ng/mL] 179 pg/mL *HI* (11/08/16 1:46 PM) BNP [<=100 pg/mL] TOXICOLOGY 1 2 3 Most recent to oldest [Reference Range]: 1.9 ng/mL (11/17/16 7:37 AM) 2.7 ng/mL 1 *CRIT* (11/15/16 6:20 AM) 6.2 ng/mL 2 *CRIT* (11/11/16 3:34 AM) Digoxin Lvl [0.8-2.0 ng/mL] 1Result Comment: Critical Result(s) called to Angelita Wheeler at 11/15/2016 07:33 by. Read back OK. 2Result Comment: Critical Result(s) called to shaila francois at 11/11/2016 06:18 by hp. Read back OK. URINE CHEM 1 2 3 Most recent to oldest [Reference Range]: 110.00 mg/dL *NA* (11/09/16 5:22 PM) U Creatinine 214.0 mg/dL *NA* (11/09/16 5:22 PM) U Protein 51 mEq/L *NA* (11/09/16 5:22 PM) 60 mEq/L *NA* (11/08/16 3:50 PM) U Sodium 20.1 mEq/L *NA* (11/08/16 3:50 PM) U Potassium 56 mEq/L *NA* (11/08/16 3:50 PM) U Chloride URINE AND STOOL 1 2 3 Most recent to oldest [Reference Range]: Marked *ABN* (11/22/16 10:00 PM) Marked *ABN* (11/09/16 5:22 PM) Marked *ABN* (11/08/16 10:15 PM) UA Turbidity [Clear] Red *NA* (11/22/16 10:00 PM) Zehra *NA* (11/09/16 5:22 PM) UA Color Yellow *NA* (11/08/16 10:15 PM) UA Color [Yellow] 6.0 (11/22/16 10:00 PM) 5.0 (11/09/16 5:22 PM) 5.0 (11/08/16 10:15 PM) UA pH [5.0-8.0] 1.011 (11/22/16 10:00 PM) 1.015 (11/09/16 5:22 PM) 1.013 (11/08/16 10:15 PM) UA Spec Grav [<=1.030] 50 mg/dL *ABN* (11/22/16 10:00 PM) 150 mg/dL *ABN* (11/09/16 5:22 PM) Negative mg/dL *NA* (11/08/16 10:15 PM) UA Glucose [Negative mg/dL] Large *ABN* (11/22/16 10:00 PM) Large *ABN* (11/09/16 5:22 PM) Large *ABN* (11/08/16 10:15 PM) UA Blood [Negative] Negative mg/dL *NA* (11/22/16 10:00 PM) Negative mg/dL *NA* (11/09/16 5:22 PM) Negative mg/dL *NA* (11/08/16 10:15 PM) UA Ketones [Negative mg/dL] 100 mg/dL *ABN* (11/22/16 10:00 PM) 100 mg/dL *ABN* (11/09/16 5:22 PM) 100 mg/dL *ABN* (11/08/16 10:15 PM) UA Protein [Negative mg/dL] <=1.0 mg/dL *NA* (11/22/16 10:00 PM) <=1.0 mg/dL *NA* (11/09/16 5:22 PM) <=1.0 mg/dL *NA* (11/08/16 10:15 PM) UA Urobilinogen [0.1-1.0 mg/dL] Negative *NA* (11/22/16 10:00 PM) Negative *NA* (11/09/16 5:22 PM) Negative *NA* (11/08/16 10:15 PM) UA Bili [Negative] Large *ABN* (11/22/16 10:00 PM) Large *ABN* (11/09/16 5:22 PM) Small *ABN* (11/08/16 10:15 PM) UA Leuk Est [Negative] Negative (11/22/16 10:00 PM) Negative (11/09/16 5:22 PM) Negative (11/08/16 10:15 PM) UA Nitrite [Negative] >182 /HPF *HI* (11/22/16 10:00 PM) 142 /HPF *HI* (11/09/16 5:22 PM) 6 /HPF *HI* (11/08/16 10:15 PM) UA WBC [0-5 /HPF] >182 /HPF *HI* (11/22/16 10:00 PM) 106 /HPF *HI* (11/09/16 5:22 PM) 127 /HPF *HI* (11/08/16 10:15 PM) UA RBC [0-2 /HPF] Occasional /HPF *NA* (11/22/16 10:00 PM) Many /HPF *ABN* (11/09/16 5:22 PM) Many /HPF *ABN* (11/08/16 10:15 PM) UA Bacteria [None Seen /HPF] Moderate /LPF *ABN* (11/22/16 10:00 PM) Occasional /LPF *NA* (11/09/16 5:22 PM) UA Sq Epi [Few /LPF] None Seen *NA* (11/08/16 10:15 PM) UA Sq Epi Few /HPF *NA* (11/22/16 10:00 PM) Few /HPF *NA* (11/09/16 5:22 PM) Occasional /HPF *NA* (11/08/16 10:15 PM) UA Amorph Bridget [None Seen /HPF] 7 /LPF *HI* (11/22/16 10:00 PM) 24 /LPF *HI* (11/09/16 5:22 PM) UA Renal Epi [<=0 /LPF] Few /LPF *NA* (11/22/16 10:00 PM) Few /LPF *NA* (11/09/16 5:22 PM) UA Mucus [None Seen /LPF] 4 /LPF *NA* (11/09/16 5:22 PM) UA Gran Cast IMMUNOLOGY 1 2 3 Most recent to oldest [Reference Range]: Negative *NA* (11/10/16 6:00 PM) Hep Bs Ag [Negative] HEMATOLOGY 1 2 3 Most recent to oldest [Reference Range]: 10.8 K/CMM *HI* (11/25/16 7:30 AM) 13.0 K/CMM *HI* (11/24/16 6:15 AM) 18.7 K/CMM *HI* (11/21/16 3:37 AM) WBC [3.7-10.4 K/CMM] 2.78 M/CMM *LOW* (11/25/16 7:30 AM) 2.87 M/CMM *LOW* (11/24/16 6:15 AM) 2.88 M/CMM *LOW* (11/21/16 3:37 AM) RBC [4.20-5.40 M/CMM] 8.4 g/dL *LOW* (11/25/16 7:30 AM) 8.5 g/dL *LOW* (11/24/16 6:15 AM) 8.6 g/dL *LOW* (11/21/16 3:37 AM) Hgb [12.0-16.0 g/dL] 25.1 % *LOW* (11/25/16 7:30 AM) 26.1 % *LOW* (11/24/16 6:15 AM) 26.9 % *LOW* (11/21/16 3:37 AM) Hct [36.0-48.0 %] 90.4 fL (11/25/16 7:30 AM) 91.1 fL (11/24/16 6:15 AM) 93.3 fL (11/21/16 3:37 AM) MCV [80.0-98.0 fL] 30.1 pg (11/25/16 7:30 AM) 29.7 pg (11/24/16 6:15 AM) 29.9 pg (11/21/16 3:37 AM) MCH [27.0-31.0 pg] 33.3 g/dL (11/25/16 7:30 AM) 32.6 g/dL (11/24/16 6:15 AM) 32.1 g/dL (11/21/16 3:37 AM) MCHC [32.0-36.0 g/dL] 14.5 % (11/25/16 7:30 AM) 14.8 % *HI* (11/24/16 6:15 AM) 14.5 % (11/21/16 3:37 AM) RDW [11.5-14.5 %] 334 K/CMM (11/25/16 7:30 AM) 321 K/CMM (11/24/16 6:15 AM) 275 K/CMM (11/21/16 3:37 AM) Platelet [133-450 K/CMM] 8.4 fL (11/25/16 7:30 AM) 8.7 fL (11/24/16 6:15 AM) 8.4 fL (11/21/16 3:37 AM) MPV [7.4-10.4 fL] 67.8 % (11/25/16 7:30 AM) 72.7 % (11/24/16 6:15 AM) 84.0 % *HI* (11/21/16 3:37 AM) Segs [45.0-75.0 %] 32.0 % *HI* (11/10/16 2:56 AM) 32.0 % *HI* (11/09/16 2:36 AM) 8.0 % (11/08/16 1:46 PM) Bands [0.0-11.0 %] 18.6 % *LOW* (11/25/16 7:30 AM) 15.4 % *LOW* (11/24/16 6:15 AM) 6.5 % *LOW* (11/21/16 3:37 AM) Lymphocytes [20.0-40.0 %] 0.0 % (11/10/16 2:56 AM) 0.0 % (11/09/16 2:36 AM) 0.0 % (11/08/16 1:46 PM) Atypical Lymphs [<=0.0 %] 9.7 % (11/25/16 7:30 AM) 8.8 % (11/24/16 6:15 AM) 7.4 % (11/21/16 3:37 AM) Monocytes [2.0-12.0 %] 3.4 % (11/25/16 7:30 AM) 2.8 % (11/24/16 6:15 AM) 1.6 % (11/21/16 3:37 AM) Eosinophils [0.0-4.0 %] 0.5 % (11/25/16 7:30 AM) 0.3 % (11/24/16 6:15 AM) 0.5 % (11/21/16 3:37 AM) Basophils [0.0-1.0 %] 7.3 K/CMM (11/25/16 7:30 AM) 9.5 K/CMM *HI* (11/24/16 6:15 AM) 15.7 K/CMM *HI* (11/21/16 3:37 AM) Segs-Bands # [1.5-8.1 K/CMM] 2.0 K/CMM (11/25/16 7:30 AM) 2.0 K/CMM (11/24/16 6:15 AM) 1.2 K/CMM (11/21/16 3:37 AM) Lymphocytes # [1.0-5.5 K/CMM] 1.0 K/CMM *HI* (11/25/16 7:30 AM) 1.1 K/CMM *HI* (11/24/16 6:15 AM) 1.4 K/CMM *HI* (11/21/16 3:37 AM) Monocytes # [0.0-0.8 K/CMM] 0.4 K/CMM (11/25/16 7:30 AM) 0.4 K/CMM (11/24/16 6:15 AM) 0.3 K/CMM (11/21/16 3:37 AM) Eosinophils # [0.0-0.5 K/CMM] 0.1 K/CMM (11/25/16 7:30 AM) 0.1 K/CMM (11/21/16 3:37 AM) 0.1 K/CMM (11/20/16 9:23 AM) Basophils # [0.0-0.2 K/CMM] 100 *NA* (11/09/16 2:36 AM) Tot Cell Ct Normal (11/10/16 2:56 AM) Normal (11/09/16 2:36 AM) Normal (11/08/16 1:46 PM) RBC Morph Normal (11/10/16 2:56 AM) Normal (11/09/16 2:36 AM) Normal (11/08/16 1:46 PM) Plt Morph 15.2 seconds *HI* (11/08/16 1:46 PM) PT [12.0-14.7 seconds] 1.18 *HI* (11/08/16 1:46 PM) INR [0.85-1.17] 26.9 seconds (11/08/16 1:46 PM) PTT [22.9-35.8 seconds] BACTERIAL - SEROLOGY 1 2 3 Most recent to oldest [Reference Range]: Positive 1 *ABN* (11/11/16 5:47 PM) Positive 2 *ABN* (11/08/16 10:15 PM) MRSA by PCR 1Result Comment: "Significant Findings called to Bull Oscar_at 11/12/2016 05:58 by CO.Read Back OK." 2Result Comment: "Significant Findings called to Adrianne Jo_at 610pm___by _FG__.Read Back OK." Immunizations Given and Recorded Vaccine Date Status Refusal Reason pneumococcal 23-valent vaccine 10/04/11 Given Procedures Procedure Date Related Diagnosis Body Site Brain operations 1960 section Social History Social History Type Response Alcohol Never Smoking Status Never smoker; Exposure to Tobacco Smoke None; Cigarette Smoking Last 365 Days No; Reg Smoking Cessation Counseling No Assessment and Plan Extracted from: Title: Clinical Document Author: Yg Patterson MD Date: 11/26/16 Progress Note - Daily [facility] Completed: Saturday, NOVEMBER 26, 2016, 14:34 by Yg Patterson MD RM: 138 - 1P, SE [id number] BOND [id number] (: 1950) F Attending: Ministerio Howell: Service: Internal Medicine Reason for Admission: ACUTE RENAL FAILURE, DIABETIC HYPOGLYCEMIA,LEUKOCYTOSIS Working DRG: Septicemia or severe sepsis w/o MV 96+ hours w [facility] Code status: Full Code [Ordered]Current diet: Isolation: Contact [Ordered] Allergies: nkda SUBJECTIVE Tolerating PO OBJECTIVE 24hr Labs 11/26 1043 Glucose [id number] H 11/26 0627 Glucose BMP619 H 11/25 2116 Glucose ZSN913 H 11/25 1613 Glucose [id number] H Flynn still necessary (Yes/No): Line still necessary (Yes/No): VitalsTmp(F)[id number] 11/26 11:2098.050222/[id number]--- 11/26 08:4398.738084/754342--- 11/26 07:40 1695 3.0L/m 11/26 04:[id number]--- 11/26 01:00-------149/84-------- 24 Hr Tmax: 99.4F (37.44c) at 11/25 20:00Vital Signs are the last 5 in the past 48 hours. DateWt(kg)Wt(lb)Ht(cm)Ht(in)Method 11/21 94.18 207.19Measured 11/20 99.09 218.00Measured 11/18 98.64 217.00Measured 11/17 97.73 215.00Measured 11/16 96.82 213.00Measured 11/08 (initial) 95.45 210.00Estimated 11/08152.40 60.00Stated I&ORecordInOutBal 11/2423hr Tot 10 0 10 11/2323hr Tot 120 0 120 Medications (31) Active Scheduled Meds (8): 11/09/16 PARoxetine 20 mg PO Daily 11/08/16 budesonide 0.5 mg NEB RBID 11/19/16 docusate (docusate sodium 100 mg oral capsule) 100 mg PO BID 11/13/16 insulin detemir (Levemir) 5 unit SUB-Q BID 0 ml/hr 11/25/16 levofloxacin 750 mg PO [id number] 11/16/16 pantoprazole 40 mg PO Before Dinner 11/17/16 simvastatin 40 mg PO Bedtime 11/08/16 sodium chloride (Saline Flush 0.9%) 10 ml IVP Q12H Unscheduled Meds: None PRN Meds (23): 11/09/16 Dextrose 50% in Water IV (Dextrose 50% Syringe) 12.5 gm IVP PRN 11/09/16 Dextrose 50% in Water IV (Dextrose 50% Syringe) 25 gm IVP PRN 11/14/16 acetaminophen-hydrocodone ([place] 5/325 oral tablet) 1 tab PO Q6H 11/08/16 acetaminophen (Tylenol) 650 mg PO Q6H 11/08/16 albuterol-ipratropium (DuoNeb inhalation solution) 3 ml NEB PRN 11/22/16 diphenhydrAMINE (Benadryl) 25 mg PO QID 11/09/16 famotidine 20 mg PO Daily 11/09/16 glucagon 1 mg IM PRN 11/22/16 hyoscyamine (Levsin SL) 0.125 mg SL Q6H 11/09/16 insulin aspart 1 unit SUB-Q Bedtime 11/09/16 insulin aspart 2 unit SUB-Q Bedtime 11/09/16 insulin aspart 3 unit SUB-Q Bedtime 11/09/16 insulin aspart 4 unit SUB-Q Bedtime 11/13/16 insulin aspart 3 unit SUB-Q TID-Before Meals 11/13/16 insulin aspart 6 unit SUB-Q TID-Before Meals 11/13/16 insulin aspart 9 unit SUB-Q TID-Before Meals 11/13/16 insulin aspart 12 unit SUB-Q TID-Before Meals 11/13/16 insulin aspart 15 unit SUB-Q TID-Before Meals 11/08/16 nystatin topical (nystatin topical 100,000 units/g powder) 1 appl TOP PRN 11/08/16 ondansetron (Zofran) 4 mg IV Q6H 11/16/16 prochlorperazine (Compazine) 5 mg PO TID 11/08/16 sodium chloride (Saline Flush 0.9%) 10 mL IVP PRN 11/08/16 tramadol 50 mg PO Q6H One Time Meds: None Continuous Infusions: None EXAM HEENT: EOM intact, No scleral icterus NECK: Supple CHEST: CTA B/L, No retractions, CVS: S1 and S2 WNL ABDOMEN: soft, BS +, no rebound, No guarding, No tenderness EXT: No edema, SKIN: No jaundice NEURO: AAO x 3 ASSESSMENT 1. Respiratory Distress - On Oxygen 2. Uro-sepsis 3. Digoxin toxicity, resolved. 4. Thrombocytopenia - Possible from sepsis 5. Hiccups: improved 6. Leukocytosis 7. Abnormal CT scan: Thickening for the esophagus and rectum 8. Gastritis, duodenitis. 9. Diverticulosis, hemorrhoids. Poor colon prep. RECOMMENDATIONS 1. Cont PPI 2. Antbiotics 3. Ambulation. 4. OKay for DC or Home or NH. 5. Bx noted Extracted from: Title: Urology Author: Zelalem Chavira MD Date: 11/21/16 Patient: SAGRARIO SINGLETON Age: 66 years Sex: Female : 1950 Associated Diagnoses: None Author: Zelalem Chavira MD Basic Information Source of history: Self, Medical record. Present at bedside: Medical personnel. Referral source: Ministerio Howell DO. History limitation: None. Chief Complaint right ureteral stone History of Present Illness 66 year old female with mulitple medical co-morbities who was admitted on 11/08/16 with MARIS, elevated WBC, positive U/A and blood and urine cultures and presumed sepsis, on admission she admits to having right flank pain. She has had persistent elevated WBC and CT scan was done to evaluate for other sources of infection and CT scan revealed multiple right renal stones and a 8mm distal right ureteral stone and hydronephrosis. She has been clinically stable over the last several days afebrile with no tachycardia and normotensive. Denies any chest pain today, some SOB. Review of Systems Constitutional: No fever, No chills. Eye: No recent visual problem. Ear/Nose/Mouth/Throat: No decreased hearing. Respiratory: Shortness of breath, No sputum production. Cardiovascular: No chest pain. Gastrointestinal: No nausea, No vomiting. Genitourinary: No dysuria, No hematuria. Hematology/Lymphatics: No bruising tendency. Endocrine: No excessive thirst. Immunologic: Not immunocompromised. Musculoskeletal: No back pain. Neurologic: Alert and oriented X4. Psychiatric: No anxiety. Health Status Allergies: Allergic Reactions (All) Severity Not Documented Nkda- No reactions were documented., Allergies (1) ActiveReaction nkdaNone Documented Current medications: (Selected) Inpatient Medications Ordered Compazine: 5 mg, 1 tab, PO, TID, PRN: Hiccups Dextrose 50% Syringe: 12.5 gm, 25 mL, IVP, PRN, PRN: Blood Glucose Results Dextrose 50% Syringe: 25 gm, 50 mL, IVP, PRN, PRN: Blood Glucose Results DuoNeb inhalation solution: 3 ml, NEB, PRN, PRN: Respiratory Protocol Levemir: 5 unit, 0.05 mL, 0 ml/hr, SUB-Q, BID [place] 5/325 oral tablet: 1 tab, PO, Q6H, PRN: Pain Score 7-10 PARoxetine: 20 mg, 2 tab, PO, Daily Saline Flush 0.9%: 10 mL, IVP, PRN, PRN: Line Flush Saline Flush 0.9%: 10 ml, IVP, Q12H Tylenol: 650 mg, 2 tab, PO, Q6H, PRN: Pain 1-3/Temp > 100.4 F Zofran: 4 mg, 2 mL, IV, Q6H, PRN: Nausea Zosyn + sodium chloride 0.9% INJ 100 mL: 3.375 gm, 25 ml/hr, IVPB, [id number] budesonide: 0.5 mg, 2 mL, NEB, RBID docusate sodium 100 mg oral capsule: 100 mg, 1 cap, PO, BID famotidine: 20 mg, 1 tab, PO, Daily, PRN: Heartburn glucagon: 1 mg, IM, PRN, PRN: Blood Glucose Results insulin aspart: 1 unit, 0.01 mL, SUB-Q, Bedtime, PRN: Blood Glucose Results insulin aspart: 12 unit, 0.12 mL, SUB-Q, TID-Before Meals, PRN: Blood Glucose Results insulin aspart: 15 unit, 0.15 mL, SUB-Q, TID-Before Meals, PRN: Blood Glucose Results insulin aspart: 2 unit, 0.02 mL, SUB-Q, Bedtime, PRN: Blood Glucose Results insulin aspart: 3 unit, 0.03 mL, SUB-Q, Bedtime, PRN: Blood Glucose Results insulin aspart: 3 unit, 0.03 mL, SUB-Q, TID-Before Meals, PRN: Blood Glucose Results insulin aspart: 4 unit, 0.04 mL, SUB-Q, Bedtime, PRN: Blood Glucose Results insulin aspart: 6 unit, 0.06 mL, SUB-Q, TID-Before Meals, PRN: Blood Glucose Results insulin aspart: 9 unit, 0.09 mL, SUB-Q, TID-Before Meals, PRN: Blood Glucose Results nystatin topical 100,000 units/g powder: 1 appl, TOP, PRN, PRN: For Fungal Prophylaxis pantoprazole: 40 mg, 1 tab, PO, Before Dinner simvastatin: 40 mg, 1 tab, PO, Bedtime tramadol: 50 mg, 1 tab, PO, Q12H, PRN: Pain Score 4-6 Documented Medications Suspended GlipiZIDE XL 2.5 mg oral tablet, extended release: 2.5 mg, 1 tab, PO, BID ProAir HFA 90 mcg/inh inhalation aerosol with adapter: 2 puff, INHALER, Q4H, PRN: for wheezing, 8.5 gm, 0 Refill(s) digoxin 250 mcg (0.25 mg) oral tablet: 0.25 mg, 1 tab, PO, Daily, 30 tab furosemide 40 mg oral tablet: 40 mg, 1 tab, PO, Daily, 30 tab metFORmin 500 mg oral tablet: 1,000 mg, 2 tab, PO, BID, bedtime paroxetine 20 mg oral tablet: 20 mg, 1 tab, PO, Daily, 30 tab simvastatin 40 mg oral tablet: 40 mg, 1 tab, PO, Daily, 30 tab verapamil 120 mg/24 hours oral capsule, extended release: 120 mg, 1 cap, PO, Daily, 0 Refill(s) Problem list: All Problems MRSA / SNOMED CT [id number] / Confirmed Problem added by Discern Expert. nasal swab (PCR+), 11/11/2016 Hypertension / SNOMED CT 60801173 / Confirmed Diabetes mellitus / SNOMED CT 912693714 / Confirmed COPD / SNOMED CT 67882378 / Confirmed Histories Past Medical History: Resolved HTN (hypertension) ([id number]): Resolved. CHF - Congestive heart failure (701069901): Resolved. Pneumonia ([id number]): Resolved. Diabetes ([id number]): Resolved. Family History: Heart disease Mother Procedure history: Brain operations ([id number]) in 1960 at 10 Years. section ([id number]). Physical Examination VS/Measurements Measurements from flowsheet : Measurements 11/21/2016 04:56 Weight Collection Method Measured Current Weight 94.176 kg Weight Difference Percent -4.96 % 11/20/2016 05:08 Weight Collection Method Measured Current Weight 99.091 kg Weight Difference Percent 0.461 % , Vital Signs (last 24 hrs) Last Charted Temp Oral98.6 DegF (NOVEMBER 21 10:46) Heart Rate Gybivsyezh03 bpm (NOVEMBER 21 10:46) Resp Rate 16 BRMIN (NOVEMBER 21 10:46) SBPH 142mmHg (NOVEMBER 21 10:46) DBPL 53mmHg (NOVEMBER 21 10:46) SpO2L 93% (NOVEMBER 21 10:46) General: Alert and oriented. Eye: Extraocular movements are intact. HENT: Normocephalic. Neck: Supple. Respiratory: Respirations are non-labored. Cardiovascular: Normal rate, Regular rhythm. Gastrointestinal: Soft, Non-tender, Non-distended, Normal bowel sounds. Genitourinary: No costovertebral angle tenderness. Integumentary: Warm. Neurologic: Alert, Oriented, No focal deficits. Cognition and Speech: Oriented, Speech clear and coherent. Psychiatric: Cooperative, Appropriate mood & affect. Review / Management Results review: Labs (Last four charted values) WBC H 18.7(NOVEMBER 21)H 18.6(NOVEMBER 20)H 19.2(NOVEMBER 19)H 19.7(NOVEMBER 18) Hgb L 8.6(NOVEMBER 21)L 9.0(NOVEMBER 20)L 8.6(NOVEMBER 19)L 9.2(NOVEMBER 18) Hct L 26.9(NOVEMBER 21)L 28.0(NOVEMBER 20)L 26.9(NOVEMBER 19)L 28.7(NOVEMBER 18) Plt 275(NOVEMBER 21)243(NOVEMBER 20)217(NOVEMBER 19)190(NOVEMBER 18) Na 141(NOVEMBER 21)139(NOVEMBER 20)142(NOVEMBER 19)140(NOVEMBER 18) K 3.7(NOVEMBER 21)4.2(NOVEMBER 20)4.5(NOVEMBER 19)4.5(NOVEMBER 18) CO2 27(NOVEMBER 21)27(NOVEMBER 20)30(NOVEMBER 19)29(NOVEMBER 18) Cl 107(NOVEMBER 21)105(NOVEMBER 20)103(NOVEMBER 19)103(NOVEMBER 18) Cr H 2.10(NOVEMBER 21)H 2.20(NOVEMBER 20)H 2.40(NOVEMBER 19)H 2.40(NOVEMBER 18) BUN H 27(NOVEMBER 21)H 33(NOVEMBER 20)H 42(NOVEMBER 19)H 47(NOVEMBER 18) Glucose Random H 129(NOVEMBER 21)H 220(NOVEMBER 20)H 172(NOVEMBER 19)H 212(NOVEMBER 18) Mg 2.0(NOVEMBER 13)L 1.6(NOVEMBER 10) Phos H 5.0(NOVEMBER 13)H 5.6(NOVEMBER 10) Ca L 8.2(NOVEMBER 21)L 8.0(NOVEMBER 20)L 7.9(NOVEMBER 19)L 8.4(NOVEMBER 18) PT H 15.2(NOVEMBER 08) INR H 1.18(NOVEMBER 08) PTT 26.9(NOVEMBER 08) Troponin 0.05(NOVEMBER 08)0.06(NOVEMBER 08)0.07(NOVEMBER 08) Total CK 54(NOVEMBER 08)54(NOVEMBER 08). Patient Name: SAGRARIO SINGLETON : 1950; Age: 66 years Female MR: [id number] Study: Abdomen/Pelvis wo IV contrast CT 11/19/2016 10:24 PM CDT Clinical Indication: - pyelonephritis , persistent leukocytosis. COMPARISON: Renal ultrasound 11/09/2016. TECHNIQUE: Helical imaging was performed diaphragm through the symphysis with multiplanar reformations obtained without IV contrast. FINDINGS: LOWER CHEST: Bibasilar groundglass infiltrates. Small left pleural effusion. Cardiomegaly with coronary artery calcifications. Minimal pericardial effusion. Hiatal hernia with distal esophageal mucosal thickening. ABDOMEN: No free air. Umbilical fat-containing hernia measures 2.4 cm in diameter. More inferior ventral abdominal fat-containing hernia measures 4.4 cm in diameter. LIVER: Hepatomegaly. BILIARY TREE: Normal. GALLBLADDER: Normal. PANCREAS: Normal. SPLEEN: Normal. ADRENALS: Normal. KIDNEYS: Punctate left lower pole renal stone. At least 3 right-sided renal stones. The largest in the interpole measures 1.8 cm, 473 Hounsfield units. There is severe right hydronephrosis secondary to a distal right ureteral stone measuring 7-8 mm, 376 Hounsfield units. PELVIS: The bladder is normally distended. BOWEL: No small bowel obstruction. Presacral inflammation and fluid with perirectal inflammation. Mild sigmoid diverticulosis. The appendix is not well seen. PERITONEUM: No free intraperitoneal fluid. RETROPERITONEUM: Atheromatous aortic calcification. MUSCULOSKELETAL: Severe right femoral acetabular joint osteoarthritic change. Thoracic and lumbar spurring. Lumbar spinal stenosis incompletely evaluated. IMPRESSION: 1. Distal right ureteral stone resulting in right hydronephrosis. 2. Bilateral nephrolithiasis. 3. Presacral inflammation and fluid with perirectal inflammation, proctitis is not excluded. 4. Distal esophageal wall thickening with a hiatal hernia. This may be seen with esophagitis, varices, an infiltrating mucosal process. 5. Hepatomegaly. 6. Cardiomegaly with coronary artery calcifications. Minimal pericardial effusion. 7. Bibasilar groundglass infiltrates. 8. Small left pleural effusion. 9. Umbilical/ventral fat-containing hernia. 10. Lumbar spinal stenosis incompletely evaluated. Impression and Plan 66 year old female with right ureteral stone, elevated WBC and positive blood cultures and clinically stable at this time 1) Discussed with her the need to place ureteral stent to unobstruct her right kidney, given her clinically stability at this time, will plan to place stent tomorrow @730AM tomorrow, discussed that she would need definitive treatment of her stones after resolution of the infection and that the stent was temporary. i discussed the risks and benefits of surgery and she agrees to proceed. 2) NPO p MN tonight for surgery tomorrow 3) Cont Abx per ID Zelalem Chavira MD Addendum Patient seen and examined, agree with H&P, plan as per Dr. Chavira by -B renal stones, largest R 1.8cm- no current intervention Roxane -Peter distal 8mm stone with obstruction and infection - to OR for cysto, R RPG, R stent Judah Gilmore -Will treat calculi once infection resolves. on I personally reveiwed the patient's labs and imaging reports, looked at the images 11/22/2016 themselves, and contacted the consulting physician to discuss the above plan. 07:53 Judah Betts MD [facility] Office: [phone]
--- OUTSIDE RECORDS SUMMARY | 2018-12-19 17:04 | XMS REPORT | Summary of Care ---
Author Author [facility] Organization [facility] Address Unknown Phone Unavailable Encounter HQ Derik([place]) [id number] Date(s): 01/23/17 - 01/23/17 [facility] [address] [place] [address]- Discharge Disposition: Home or Self Care Attending Physician: Judah Betts MD Vital Signs No data available for this section Problem List Condition Effective Dates Status Health Status Informant CHF - Congestive Resolved heart failure(Confirmed) COPD(Confirmed) Active Diabetes Active mellitus(Confirmed) Diabetes(Confirmed) Resolved HTN Resolved (hypertension)(Confi rmed) Hypertension(Confirm Active ed) MRSA(Confirmed)1, 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 Allergies, Adverse Reactions, Alerts Substance Reaction Severity Status nkda Active Medications No data available for this section Results No data available for this section Immunizations Given and Recorded Vaccine Date Status Refusal Reason pneumococcal 23-valent vaccine 10/04/11 Given Procedures Procedure Date Related Diagnosis Body Site Brain operations 1960 section Social History Social History Type Response Alcohol Never Smoking Status Never smoker; Exposure to Tobacco Smoke None; Cigarette Smoking Last 365 Days No; Reg Smoking Cessation Counseling No Assessment and Plan No data available for this section
--- OUTSIDE RECORDS SUMMARY | 2018-12-19 17:04 | XMS REPORT | Continuity of Care Document ---
Author Author 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 [facility] ACUTE RENAL FAILURE, DIABETIC HYPOGLYCEM Active 11/08/2016 [facility] SOB Active 11/08/2016 [facility] CHF, PULMONARY FIBROSIS Active 05/16/2015 [facility] CHF, PULMONARY FIBROSIS Active 05/16/2015 [facility] ACUTE SEVERE LOW BACK PAIN - POSSIBLE SCIATICA Active 09/29/2011 [facility] CHF - Congestive heart failure Resolved Problem 06/26/2017 [facility] COPD Active Problem 06/26/2017 [facility] Diabetes Active Problem 06/26/2017 [facility] Diabetes mellitus Active Problem 06/26/2017 [facility] HTN (<span ID="[id number]">Confirmed</span>) Resolved Problem 06/26/2017 [facility] Hypertension Active Problem 06/26/2017 [facility] Pneumonia Resolved Problem 06/26/2017 [facility] COPD Active Problem 10/09/2011 [facility] Diabetes mellitus Active Problem 10/09/2011 [facility] Hypertension Active Problem 10/09/2011 [facility] Right ureteral stone Active Problem 06/26/2017 [facility] COPD (<span ID="[id number]">Confirmed</span>) Active Problem 06/26/2017 [facility] Interstitial lung disease Active Problem 06/26/2017 [facility] Sleep apnea Active Problem 06/26/2017 [facility] Bacteremia due to Klebsiella pneumoniae Active Diagnosis 12/26/2016 [id number]. Severe sepsis without septic shock Active Diagnosis 12/26/2016 [id number].. Acute pyelonephritis Active Diagnosis 12/26/2016 [id number] Other Gram-negative sepsis Active Diagnosis 12/26/2016 [id number] Right ureteral stone Active Diagnosis 12/26/2016 [id number] BACKACHE NOS Active [facility] XRAY Active [facility] LUMBOSACRAL NEURITIS NOS Active [facility] OTHER PULMONARY EMBOLISM WITHOUT ACUTE C Active [facility] HEART FAILURE, UNSPECIFIED Active [facility] ACUTE KIDNEY FAILURE, UNSPECIFIED Active [facility] TYPE 2 DIABETES MELLITUS WITH HYPOGLYCEM Active [facility] ELEVATED WHITE BLOOD CELL COUNT, UNSPECI Active [facility] CALCULUS OF KIDNEY Active [facility] Medications Medication Details Route Status Patient Instructions Ordering Provider Order Date Source Diphenhydramine 12.5 mg, Route: IVP, Drug form: INJ, Q6H, Dosing Weight 90, kg, PRN Itching, Start date: 06/23/17 12:00:00 [employer], Duration: 30 day, Stop date: 07/23/17 11:59:00 [employer] Inactive 06/23/2017 [facility] Ondansetron 4 mg, Route: IVP, ONCE, Dosing Weight 90, kg, PRN Nausea & Vomiting, Start date: 06/23/17 12:00:00 [employer] Inactive 06/23/2017 [facility] Fentanyl 25 microgram, Route: IVP, Q5Min, Dosing Weight 90, kg, PRN Pain Score 4-6, Priority: Routine, Start date: 06/23/17 12:00:00 [employer], Duration: 4 doses or times, Stop date: Limited # of times Inactive 06/23/2017 [facility] Acetaminophen 1,000 mg, Route: PO, Drug form: TAB, ONCE, Dosing Weight 90, kg, PRN Pain Score 1-3, Start date: 06/23/17 12:00:00 [employer] Inactive 06/23/2017 [facility] Hydromorphone 0.5 mg, Route: IVP, Q5Min, Dosing Weight 90, kg, PRN Pain Score 7-10, Start date: 06/23/17 12:00:00 [employer], Duration: 4 doses or times, Stop date: Limited # of times Inactive 06/23/2017 [facility] Albuterol 0.83 MG/ML Inhalant Solution 2.49 mg, Route: NEB, Q20Min, Dosing Weight 90, kg, PRN Wheezing, Priority: STAT, Start date: 06/23/17 12:00:00 AT [employer], Duration: 30 day, Stop date: 07/23/17 11:59:00 [employer] Inactive 06/23/2017 [facility] Naloxone 0.4 mg, Route: IVP, Q2MIN, Dosing Weight 90, kg, PRN Narcotic Reversal, Start date: 06/23/17 12:00:00 AT [employer], Duration: 8 doses or times, Stop date: Limited # of times Inactive 06/23/2017 [facility] Flumazenil 0.2 mg, Route: IVP, PRN, Dosing Weight 90, kg, PRN Benzodiazepine Reversal, Initial dose, Start date: 06/23/17 12:00:00 AT [employer], Duration: 30 day, Stop date: 07/23/17 11:59:00 [employer] Inactive 06/23/2017 [facility] Labetalol 10 mg, Route: IVP, Q5Min, Dosing Weight 90, kg, PRN Elevated BP, Start date: 06/23/17 12:00:00 AT [employer], Duration: 5 doses or times, Stop date: Limited # of times Inactive 06/23/2017 [facility] Hydralazine 10 mg, Route: IVP, Q20Min, Dosing Weight 90, kg, PRN Elevated BP, Start date: 06/23/17 12:00:00 AT [employer], Duration: 2 doses or times, Stop date: Limited # of times Inactive 06/23/2017 [facility] Ketorolac 30 mg, 1 mL, Route: IVP, Drug form: INJ, ONCE, Dosing Weight 90, kg, Start date: 06/23/17 12:00:00 AT [employer], Stop date: 06/23/17 12:00:00 CSTNotes: (Same as:Toradol) IV bolus must be given >15 seconds. Give IM administration slowly and deeply into the muscle. Not for use > 4 days MEDICATION WASTE Product Size: 30 mg Product Wasted: ___ mg Inactive 06/23/2017 [facility] ondansetron (ANES) Route: IV, Drug form: INJ, ONCE, Stop date: 06/23/17 11:31:00 [employer] Inactive 06/23/2017 [facility] famotidine (ANES) Route: IV, Drug form: INJ, ONCE, Stop date: 06/23/17 11:31:00 AT [employer] Inactive 06/23/2017 [facility] fentaNYL (ANES) Route: IV, Drug form: INJ, ONCE, Stop date: 06/23/17 11:26:00 AT [employer] Inactive 06/23/2017 [facility] ciprofloxacin (ANES) Route: IV, Drug form: INJ, ONCE, Stop date: 06/23/17 11:26:00 AT [employer] Inactive 06/23/2017 [facility] lidocaine (ANES) Route: IV, Drug form: INJ, ONCE, Stop date: 06/23/17 11:26:00 AT [employer] Inactive 06/23/2017 [facility] midazolam (ANES) Route: IV, Drug form: SOLN, ONCE, Stop date: 06/23/17 11:26:00 AT [employer] Inactive 06/23/2017 [facility] propofol (ANES) Route: IV, Drug form: INJ, ONCE, Stop date: 06/23/17 11:26:00 AT [employer] Inactive 06/23/2017 [facility] Lactated Ringers Injection IV (ANES) 1000 mL Route: IV, Total Volume: 1,000, Start date: 06/23/17 10:36:00 AT R[employer]K PAR[employer]ROFESSIONAL, Stop date: 06/23/17 11:36:00 AT [employer] Inactive 06/23/2017 [facility] oxybutynin 5 mg oral tablet 5 mg=1 tab, PO, TID, PRN Bladder Spasm, # 30 tab, 1 Refill(s) Active 06/23/2017 [facility] tramadol hydrochloride 50 MG Oral Tablet 50 mg=1 tab, PO, Q8H, PRN Pain, X 20 day, # 30 tab, 0 Refill(s) Active 06/23/2017 [facility] Ciprofloxacin 500 MG Oral Tablet [Cipro] 500 mg=1 tab, PO, Q12H, for UTI, X 3 day, # 6 tab, 0 Refill(s) Active 06/23/2017 [facility] Calcium Chloride 0.0014 MEQ/ML / Potassium Chloride 0.004 MEQ/ML / Sodium Chloride 0.103 MEQ/ML / Sodium Lactate 0.028 MEQ/ML Injectable Solution 1,000 mL, Rate: 25 ml/hr, Infuse over: 40 hr, Route: IV, Dosing Weight 90 kg, Total Volume: 1,000, Start date: 06/23/17 8:23:00 AT [employer], Duration: 30 day, Stop date: 07/23/17 8:22:00 AT [employer], 1.99, m2 Inactive 06/23/2017 [facility] Furosemide Daily, 0 Refill(s) Active 06/15/2017 [facility] Digoxin Daily, 0 Refill(s) Active 06/15/2017 [facility] Ofirmev 1,000 mg, Route: IV, Drug form: INJ, ONCE, Dosing Weight 90, kg, PRN Pain Score 1-3, for > or=50 kg, Start date: 05/21/17 15:42:00 AT [employer] Inactive 05/21/2017 [facility] Meperidine 12.5 mg, Route: IVP, Q30Min, Dosing Weight 90, kg, PRN Other -See Comment, For shivering, Start date: 05/21/17 15:40:00 AT [employer], Duration: 2 doses or times, Stop date: Limited # of times No Longer Active 05/21/2017 [facility] Ondansetron 4 mg, Route: IVP, ONCE, Dosing Weight 90, kg, PRN Nausea & Vomiting, Start date: 05/21/17 15:40:00 AT [employer] No Longer Active 05/21/2017 [facility] Naloxone 0.1 mg, Route: SUB-Q, Q6H, Dosing Weight 90, kg, PRN Itching, Start date: 05/21/17 15:40:00 AT R[employer] PARAPR[employer], Duration: 30 day, Stop date: 06/20/17 15:39:00 AT [employer] PAR[employer]ESSIONAL No Longer Active 05/21/2017 [facility] Hydromorphone 0.5 mg, Route: IVP, Q5Min, Dosing Weight 90, kg, PRN Pain Score 7-10, Start date: 05/21/17 15:40:00 AT [employer], Duration: 4 doses or times, Stop date: Limited # of times No Longer Active 05/21/2017 [facility] Oxycodone 10 mg, Route: NG, Drug form: LIQ, Q4H, Dosing Weight 90, kg, PRN Pain Score 7-10, Start date: 05/21/17 15:40:00 AT R[employer]K PAR[employer], Duration: 30 day, Stop date: 06/20/17 15:39:00 AT [employer] PARAPROFESSIONAL No Longer Active 05/21/2017 [facility] Fentanyl 25 microgram, Route: IVP, Q5Min, Dosing Weight 90, kg, PRN Pain Score 4-6, Priority: Routine, Start date: 05/21/17 15:40:00 AT [employer] PAR[employer]ESSIONAL, Duration: 4 doses or times, Stop date: Limited # of times No Longer Active 05/21/2017 [facility] Morphine 2 mg, Route: IVP, Q5Min, Dosing Weight 90, kg, PRN Pain Score 4-6, Start date: 05/21/17 15:40:00 AT [employer] PAR[employer], Duration: 5 doses or times, Stop date: Limited # of times No Longer Active 05/21/2017 [facility] Albuterol 0.83 MG/ML Inhalant Solution 2.49 mg, Route: NEB, Q20Min, Dosing Weight 90, kg, PRN Wheezing, Priority: STAT, Start date: 05/21/17 15:40:00 AT R[employer] PARAPROFESSIONAL, Duration: 30 day, Stop date: 06/20/17 15:39:00 AT [employer] PARAPROFESSIONAL No Longer Active 05/21/2017 [facility] Diphenhydramine 12.5 mg, Route: IVP, Drug form: INJ, Q6H, Dosing Weight 90, kg, PRN Itching, Start date: 05/21/17 15:40:00 AT RISK PARAPROFESSIONAL, Duration: 30 day, Stop date: 06/20/17 15:39:00 AT [employer] PARAPROFESSIONAL No Longer Active 05/21/2017 [facility] Flumazenil 0.2 mg, Route: IVP, PRN, Dosing Weight 90, kg, PRN Benzodiazepine Reversal, Initial dose, Start date: 05/21/17 15:40:00 AT RISK PARAPROFESSIONAL, Duration: 30 day, Stop date: 06/20/17 15:39:00 AT [employer] PARAPROFESSIONAL No Longer Active 05/21/2017 [facility] Acetaminophen 1,000 mg, Route: IVPB, Drug form: INJ, ONCE, Dosing Weight 90, kg, PRN Pain Score 1-3, Start date: 05/21/17 15:40:00 AT R[employer] PARAPR[employer]ESSIONAL No Longer Active 05/21/2017 [facility] Ketorolac 30 mg, Route: IVP, ONCE, Dosing Weight 90, kg, Start date: 05/21/17 15:40:00 AT RISK PARAPROFESSIONAL, Stop date: 05/21/17 15:40:00 AT [employer] PARAPROFESSIONAL Inactive 05/21/2017 [facility] Hydralazine 10 mg, Route: IVP, Q20Min, Dosing Weight 90, kg, PRN Elevated BP, Start date: 05/21/17 15:40:00 AT [employer] PARAPR[employer]ESSIONAL, Duration: 2 doses or times, Stop date: Limited # of times No Longer Active 05/21/2017 [facility] esmolol 10 mg, Route: IVP, Q5Min, Dosing Weight 90, kg, PRN Other -See Comment, Start date: 05/21/17 15:40:00 AT [employer] PARAPROFESSIONAL, Duration: 5 doses or times, Stop date: Limited # of times No Longer Active 05/21/2017 [facility] Labetalol 10 mg, Route: IVP, Q5Min, Dosing Weight 90, kg, PRN Elevated BP, Start date: 05/21/17 15:40:00 AT [employer] PARAPR[employer]ESSIONAL, Duration: 5 doses or times, Stop date: Limited # of times No Longer Active 05/21/2017 [facility] ePHEDrine (ANES) Route: IV, Drug form: INJ, ONCE, Stop date: 05/21/17 15:03:00 AT [employer] Inactive 05/21/2017 [facility] ondansetron (ANES) Route: IV, Drug form: INJ, ONCE, Stop date: 05/21/17 14:53:00 AT [employer] PARAPR[employer]AL Inactive 05/21/2017 [facility] fentaNYL (ANES) Route: IV, Drug form: INJ, ONCE, Stop date: 05/21/17 14:53:00 AT [employer] PAR[employer]AL Inactive 05/21/2017 [facility] lidocaine (ANES) Route: IV, Drug form: INJ, ONCE, Stop date: 05/21/17 14:53:00 AT [employer] PAR[employer]ESSIONAL Inactive 05/21/2017 [facility] propofol (ANES) Route: IV, Drug form: INJ, ONCE, Stop date: 05/21/17 14:53:00 AT [employer] PARAPR[employer]ESSIONAL Inactive 05/21/2017 [facility] famotidine (ANES) Route: IV, Drug form: INJ, ONCE, Stop date: 05/21/17 14:48:00 AT [employer]AL Inactive 05/21/2017 [facility] midazolam (ANES) Route: IV, Drug form: SOLN, ONCE, Stop date: 05/21/17 14:43:00 AT RIS[employer] PARAPROFESSIONAL Inactive 05/21/2017 [facility] Lactated Ringers Injection IV (ANES) 1000 mL Route: IV, Total Volume: 1,000, Start date: 05/21/17 14:02:00 AT RISK PARAPROFESSIONAL, Stop date: 05/21/17 15:02:00 AT R[employer] PARAPROFESSIONAL Inactive 05/21/2017 [facility] ciprofloxacin (ANES) 2 mg Route: IV, Drug form: INJ, Start date: 05/21/17 14:02:00 AT RISK PARAPROFESSIONAL, Stop date: 05/21/17 15:02:00 AT RISK PARAPROFESSIONAL Inactive 05/21/2017 [facility] Calcium Chloride 0.0014 MEQ/ML / Potassium Chloride 0.004 MEQ/ML / Sodium Chloride 0.103 MEQ/ML / Sodium Lactate 0.028 MEQ/ML Injectable Solution 1,000 mL, Rate: 25 ml/hr, Infuse over: 40 hr, Route: IV, Dosing Weight 90 kg, Total Volume: 1,000, Start date: 05/21/17 13:45:00 AT RIS[employer] PARAPROFESSIONAL, Duration: 30 day, Stop date: 06/20/17 13:44:00 AT [employer] PARAPROFESSION[employer], 1.99, m2 Inactive 05/21/2017 [facility] oxybutynin 5 mg oral tablet 5 mg=1 tab, PO, TID, PRN Bladder Spasm, # 30 tab, 0 Refill(s) Active 05/21/2017 [facility] tramadol hydrochloride 50 MG Oral Tablet 50 mg=1 tab, PO, Q8H, PRN Pain, X 10 day, # 30 tab, 0 Refill(s) Active 05/21/2017 [facility] Ciprofloxacin 500 MG Oral Tablet [Cipro] 500 mg=1 tab, PO, Q12H, for UTI, X 3 day, # 6 tab, 0 Refill(s) Active 05/21/2017 [facility] Fentanyl 50 microgram, Route: IVP, ONCE, Dosing Weight 87.273, kg, Start date: 02/26/17 13:49:00 CDT, Stop date: 02/26/17 13:49:00 CDT Inactive 02/26/2017 [facility] lidocaine (ANES) Route: IV, Drug form: INJ, ONCE, Stop date: 02/26/17 13:04:00 CDT Inactive 02/26/2017 [facility] ondansetron (ANES) Route: IV, Drug form: INJ, ONCE, Stop date: 02/26/17 13:04:00 CDT Inactive 02/26/2017 [facility] fentaNYL (ANES) Route: IV, Drug form: INJ, ONCE, Stop date: 02/26/17 12:59:00 CDT Inactive 02/26/2017 [facility] metoclopramide (ANES) Route: IV, Drug form: INJ, ONCE, Stop date: 02/26/17 12:59:00 CDT Inactive 02/26/2017 [facility] propofol (ANES) Route: IV, Drug form: INJ, ONCE, Stop date: 02/26/17 12:59:00 CDT Inactive 02/26/2017 [facility] ciprofloxacin (ANES) Route: IV, Drug form: INJ, ONCE, Stop date: 02/26/17 12:59:00 CDT Inactive 02/26/2017 [facility] midazolam (ANES) Route: IV, Drug form: SOLN, ONCE, Stop date: 02/26/17 12:59:00 CDT Inactive 02/26/2017 [facility] LR 1000 mL INJ (ANES) Route: IV, Total Volume: 1,000, Start date: 02/26/17 12:17:00 CDT, Stop date: 02/26/17 13:17:00 CDT Inactive 02/26/2017 [facility] tramadol hydrochloride 50 MG Oral Tablet 50 mg=1 tab, PO, Q8H, PRN Pain, X 10 day, # 20 tab, 0 Refill(s) Active 02/26/2017 [facility] oxybutynin 5 mg oral tablet 5 mg=1 tab, PO, TID, PRN Bladder Spasm, # 30 tab, 0 Refill(s) Active 02/26/2017 [facility] Lactated Ringers Injection IV 1000 mL 1,000 mL, Rate: 25 ml/hr, Infuse over: 40 hr, Route: IV, Dosing Weight 87.273 kg, Total Volume: 1,000, Start date: 02/26/17 10:32:00 CDT, Duration: 30 day, Stop date: 03/28/17 10:31:00 CDT Inactive 02/26/2017 [facility] verapamil 120 mg/24 hours oral capsule, extended release 0 Refill(s) Active 02/02/2017 [facility] 3 ML insulin detemir 100 UNT/ML Prefilled Syringe [Levemir] 68 units, SUB-Q, Bedtime, # 3 mL, 3 Refill(s) Active 02/02/2017 [facility] Budesonide 0.25 MG/ML Inhalant Solution 0.5 mg=2 mL, NEB, RBID, # 120 mL, 0 Refill(s) Active 11/26/2016 [facility] levofloxacin 750 mg oral tablet 750 mg=1 tab, PO, Q24H, X 3 day, # 3 tab, 0 Refill(s) Active 11/26/2016 [facility] Sodium Chloride 0.154 MEQ/ML Injectable Solution 1,000 mL, Rate: 25 ml/hr, Infuse over: 40 hr, Route: IV, Dosing Weight 95 kg, Total Volume: 1,000, Start date: 11/25/16 13:52:00 CDT, Duration: 30 day, Stop date: 12/25/16 13:51:00 CDT Inactive 11/25/2016 [facility] Levofloxacin 750 mg, Route: IVPB, Drug form: SOLN, [id number], Dosing Weight 95, kg, For CrCl=20 -49ml/min, Start date: 11/25/16 12:00:00 CDT, Duration: 7 day, Stop date: 12/01/16 12:00:00 CDT, ABX Indication: Urinary Tract Infection Inactive 11/25/2016 [facility] Dulcolax Laxative 10 mg, 1 supp, Route: W[place], Drug form: SUPP, ONCE, Dosing Weight 95, kg, PRN as needed for constipation, Start date: 11/24/16 14:05:00 CDTNotes: (Same As: Dulcolax, Bisco-Lax) No Longer Active 11/24/2016 [facility] Golytely 4,000 ml, Route: PO, Drug Form: PDR/REC, Dosing Weight 95, kg, ONCE, Start date: 11/24/16 14:05:00 CDT, Duration: 1 doses or times, Stop date: 11/24/16 14:05:00 CDTNotes: (polyethylene glycol electrolyte solution 4 Liter bottle) (Same as: Golytely, Colyte) Inactive 11/24/2016 [facility] Levofloxacin 750 mg, 150 mL, Route: IVPB, Drug form: SOLN, [id number], Dosing Weight 95, kg, For CrCl=20 -49ml/min, Start date: 11/22/16 16:00:00 CDT, Duration: 7 day, Stop date: 11/28/16 16:00:00 CDT, ABX Indication: Urinary Tract InfectionNotes: (Same as:Levaquin) No Longer Active 11/22/2016 [facility] Benadryl 25 mg, 1 tab, Route: PO, Drug form: TAB, QID, Dosing Weight 95, kg, PRN Allergic reaction, Start date: 11/22/16 15:39:00 CDT, Duration: 30 day, Stop date: 12/22/16 15:38:00 CDT No Longer Active 11/22/2016 [facility] Levsin SL 0.125 mg, 1 tab, Route: SL, Drug form: TAB, Q6H, Dosing Weight 95, kg, PRN Bladder Spasm, Start date: 11/22/16 9:49:00 CDT, Duration: 30 day, Stop date: 12/22/16 9:48:00 CDTNotes: (Same as: Levsin) Take 30 min before meal No Longer Active 11/22/2016 [facility] propofol (ANES) Route: IV, Drug form: INJ, ONCE, Stop date: 11/22/16 8:52:00 CDT Inactive 11/22/2016 [facility] fentaNYL (ANES) Route: IV, Drug form: INJ, ONCE, Stop date: 11/22/16 8:52:00 CDT Inactive 11/22/2016 [facility] lidocaine (ANES) Route: IV, Drug form: INJ, ONCE, Stop date: 11/22/16 8:52:00 CDT Inactive 11/22/2016 [facility] phenylephrine (ANES) Route: IV, Drug form: INJ, ONCE, Stop date: 11/22/16 8:52:00 CDT Inactive 11/22/2016 [facility] ondansetron (ANES) Route: IV, Drug form: INJ, ONCE, Stop date: 11/22/16 8:52:00 CDT Inactive 11/22/2016 [facility] LR 1000 mL INJ (ANES) Route: IV, Total Volume: 1,000, Start date: 11/22/16 7:55:00 CDT, Stop date: 11/22/16 8:55:00 CDT Inactive 11/22/2016 [facility] Lactulose 667 MG/ML Oral Solution 20 gm, 30 ml, Route: PO, Drug form: SYRP, ONCE, Dosing Weight 95, kg, Start date: 11/19/16 12:23:00 CDT, Stop date: 11/19/16 12:23:00 CDTNotes: (Same as:Chronulac) Inactive 11/19/2016 [facility] Docusate Sodium 100 MG Oral Capsule 100 mg, 1 cap, Route: PO, Drug form: CAP, BID, Dosing Weight 95, kg, Start date: 11/19/16 9:00:00 CDT, Duration: 30 day, Stop date: 12/18/16 17:00:00 CDTNotes: (Same as: Colace) (Do Not Crush) No Longer Active 11/19/2016 [facility] Miralax 17 gm, 1 pkt, Route: PO, Drug form: PWDR, ONCE, Dosing Weight 95, kg, Start date: 11/19/16 8:56:00 CDT, Duration: 1 doses or times, Stop date: 11/19/16 8:56:00 CDTNotes: Dissolve in 8 oz of water or juice. (Same as: Miralax) Inactive 11/19/2016 [facility] Zosyn 3.375 gm, Route: IVPB, [id number], Dosing Weight 95, kg, CrCl >=20 ml/min infuse over 4 hours, Priority: NOW, Start date: 11/18/16 22:48:00 CDT, Duration: 30 day, Stop date: 12/18/16 14:48:00 CDTNotes: (Same as: Zosyn) Dosing based on Piperacillin component MEDICATION WASTE Product Size: 3375 mg Product Wasted: ___ mg No Longer Active 11/19/2016 [facility] Simvastatin 40 mg, 1 tab, Route: PO, Drug form: TAB, Bedtime, Dosing Weight 95, kg, Start date: 11/17/16 21:00:00 CDT, Duration: 30 day, Stop date: 12/16/16 21:00:00 CDTNotes: (Same as: Zocor) No Longer Active 11/18/2016 [facility] pantoprazole 40 mg, 1 tab, Route: PO, Drug form: ECTAB, Before Dinner, Dosing Weight 95, kg, Start date: 11/16/16 16:30:00 CDT, Duration: 30 day, Stop date: 12/15/16 16:30:00 CDTNotes: Tablet should not be chewed or crushed. (Same as: Protonix) No Longer Active 11/16/2016 [facility] Compazine 5 mg, 1 tab, Route: PO, Drug form: TAB, TID, Dosing Weight 95, kg, PRN Hiccups, Start date: 11/16/16 11:27:00 CDT, Duration: 30 day, Stop date: 12/16/16 11:26:00 CDTNotes: (Same as: Compazine) No Longer Active 11/16/2016 [facility] Acetaminophen 325 MG / Hydrocodone Bitartrate 5 MG Oral Tablet [[place] 5/325] 1 tab, Route: PO, Drug Form: TAB, Dosing Weight 95, kg, Q6H, PRN Pain Score 7-10, Start date: 11/14/16 11:41:00 CDT, Duration: 30 day, Stop date: 12/14/16 11:40:00 CDTNotes: (Same as: [place] 325/5) Do not exceed 4gm/day of acetaminophen. No Longer Active 11/14/2016 [facility] Levemir 5 unit, 0.05 mL, Route: SUB-Q, Drug form: SOLN, BID, Dosing Weight 95, kg, Start date: 11/13/16 21:00:00 CDT, Duration: 30 day, Stop date: 12/13/16 9:00:00 CDTNotes: Same as Levemir Do not hold insulin without contacting prescriber WASTE: F/P - Black; E - Municipal Trash Bin "single patient use only" No Longer Active 11/14/2016 [facility] Insulin, Aspart, Human 15 unit, 0.15 mL, Route: SUB-Q, Drug form: SOLN, TID-Before Meals, Dosing Weight 95, kg, PRN Blood Glucose Results, Start date: 11/13/16 10:57:00 CDT, Duration: 30 day, Stop date: 12/13/16 10:56:00 CDTNotes: Roll in palms of hands gently; Do not shake vigorously. (Same as: NovoLOG) "single patient use only" WASTE: F/P - Black; E - Municipal Trash Bin Stable for 28 days at room temperature. Expires in days from Date No Longer Active 11/13/2016 [facility] Levemir 6 unit, 0.06 mL, Route: SUB-Q, Drug form: SOLN, Daily, Dosing Weight 95, kg, Start date: 11/12/16 9:00:00 CDT, Duration: 30 day, Stop date: 12/11/16 9:00:00 CDTNotes: Same as Levemir Do not hold insulin without contacting prescriber WASTE: F/P - Black; E - [employer] Trash Bin "single patient use only" No Longer Active 11/12/2016 [facility] Tobramycin 250 mg, 6.25 mL, Route: IV, ONCE, Dosing Weight 95, kg, Start date: 11/11/16 18:16:00 CDT, Stop date: 11/11/16 18:16:00 CDTNotes: TIME CRITICAL MEDICATION (Same As: Nebcin) Inactive 11/11/2016 [facility] Water 1,000 mL, Rate: 40 ml/hr, Infuse over: 28.8 hr, Dosing Weight 95, kg, Route: IV, Total Volume: 1,150, Start Date: 11/10/16 17:28:00 CDT, Duration: 30 day, Stop date: 12/10/16 17:27:00 CDT, Replace Every: 24 hrNotes: (sodium bicarb 8.4% (1 mEq/ml) 50 ml VL) No Longer Active 11/10/2016 [facility] Ceftriaxone 2 gm, Route: IVPB, [id number], Dosing Weight 95, kg, Start date: 11/10/16 14:00:00 CDT, Duration: 30 day, Stop date: 12/09/16 14:00:00 CDTNotes: (Same As: Rocephin). Use with 100 mL NS and infuse over 30 min MEDICATION WASTE Product Size: 2000 mg Product Wasted: ___ mg No Longer Active 11/10/2016 [facility] Levemir 10 unit, 0.1 mL, Route: SUB-Q, Drug form: SOLN, Daily, Dosing Weight 95, kg, Priority: NOW, Start date: 11/10/16 11:46:00 CDT, Duration: 30 day, Stop date: 12/10/16 9:00:00 CDTNotes: Same as Levemir Do not hold insulin without contacting prescriber WASTE: F/P - Black; E - [employer] Trash Bin "single patient use only" No Longer Active 11/10/2016 [facility] Insulin, Aspart, Human 20 unit, 0.2 mL, Route: SUB-Q, Drug form: SOLN, ONCE, Dosing Weight 95, kg, Start date: 11/09/16 14:15:00 CDT, Stop date: 11/09/16 14:15:00 CDTNotes: Roll in palms of hands gently; Do not shake vigorously. (Same as: NovoLOG) "single patient use only" WASTE: F/P - Black; E - [facility] Trash [facility] Stable for 28 days at room temperature. Expires in days from Date Inactive 11/09/2016 [facility] Famotidine 20 mg, 1 tab, Route: PO, Drug form: TAB, Daily, Dosing Weight 95, kg, PRN Heartburn, Start date: 11/09/16 10:55:00 CDT, Duration: 30 day, Stop date: 12/09/16 10:54:00 CDTNotes: (Same as: Pepcid) No Longer Active 11/09/2016 [facility] insulin detemir 10 unit, Route: SUB-Q, Daily, Dosing Weight 95, kg, Start date: 11/09/16 10:48:00 CDT, Duration: 30 day, Stop date: 12/09/16 9:00:00 CDT Inactive 11/09/2016 [facility] Dextrose 50% Syringe 12.5 gm, 25 mL, Route: IVP, Drug Form: INJ, Dosing Weight 95, kg, PRN, PRN Blood Glucose Results, Start date: 11/09/16 9:17:00 CDT, Duration: 30 day, Stop date: 12/09/16 9:16:00 CDT No Longer Active 11/09/2016 [facility] Glucagon 1 mg, Route: IM, Drug form: PDR/INJ, PRN, Dosing Weight 95, kg, PRN Blood Glucose Results, Start date: 11/09/16 9:17:00 CDT, Duration: 30 day, Stop date: 12/09/16 9:16:00 CDT No Longer Active 11/09/2016 [facility] Insulin, Aspart, Human 4 unit, 0.04 mL, Route: SUB-Q, Drug form: SOLN, Bedtime, Dosing Weight 95, kg, PRN Blood Glucose Results, Start date: 11/09/16 9:17:00 CDT, Duration: 30 day, Stop date: 12/09/16 9:16:00 CDTNotes: Roll in palms of hands gently; Do not shake vigorously. (Same as: NovoLOG) "single patient use only" WASTE: F/P - Black; E - Municipal Trash Bin Stable for 28 days at room temperature. Expires in days from Date No Longer Active 11/09/2016 [facility] sodium bicarbonate 8.4% 50 mEq, 50 ml, Route: IVP, Drug Form: INJ, Dosing Weight 95, kg, ONCE, Start date: 11/09/16 9:17:00 CDT, Stop date: 11/09/16 9:17:00 CDTNotes: (sodium bicarb 8.4% (1 mEq/ml) 50 ml syringe) Inactive 11/09/2016 [facility] Water 1,000 mL, Rate: 70 ml/hr, Infuse over: 16.4 hr, Dosing Weight 95, kg, Route: IV, Total Volume: 1,150, Start Date: 11/09/16 9:15:00 CDT, Duration: 30 day, Stop date: 12/09/16 9:14:00 CDT, Replace Every: 16.4 hrNotes: (sodium bicarb 8.4% (1 mEq/ml) 50 ml VL) No Longer Active 11/09/2016 [facility] Paroxetine 20 mg, 2 tab, Route: PO, Drug form: TAB, Daily, Dosing Weight 95, kg, Start date: 11/09/16 9:00:00 CDT, Stop date: 12/08/16 9:00:00 CDTNotes: (Same as: Paxil) No Longer Active 11/09/2016 [facility] heparin 5,000 unit, 1 mL, Route: SUB-Q, Drug form: INJ, Q8H, Dosing Weight 95.455, kg, Start date: 11/09/16 0:00:00 CDT, Duration: 30 day, Stop date: 12/08/16 16:00:00 CDTNotes: porcine heparin No Longer Active 11/09/2016 [facility] Saline Flush 0.9% 10 ml, Route: IVP, Drug Form: INJ, Dosing Weight 95, kg, Q12H, Start date: 11/08/16 21:00:00 CDT, Duration: 30 day, Stop date: 12/08/16 9:00:00 CDTNotes: Same as: BD Posiflush Sterile No Longer Active 11/09/2016 [facility] Tylenol 650 mg, 2 tab, Route: PO, Drug form: TAB, Q6H, Dosing Weight 95, kg, PRN Pain 1-3/Temp > 100.4 F, Start date: 11/08/16 18:56:00 CDT, Duration: 30 day, Stop date: 12/08/16 18:55:00 CDTNotes: Do not exceed 4 gm/day. (Same as: Tylenol) No Longer Active 11/08/2016 [facility] Tramadol 50 mg, 1 tab, Route: PO, Drug form: TAB, Q6H, Dosing Weight 95, kg, PRN Pain Score 4-6, Start date: 11/08/16 18:56:00 CDT, Stop date: 12/08/16 18:55:00 CDTNotes: Not to exceed 200mg/day. (Same As: Ul tram) No Longer Active 11/08/2016 [facility] Zofran 4 mg, 2 mL, Route: IV, Drug form: INJ, Q6H, Dosing Weight 95, kg, PRN Nausea, Start date: 11/08/16 18:56:00 CDT, Duration: 30 day, Stop date: 12/08/16 18:55:00 CDTNotes: (Same as: Zofran) MEDICATION WASTE Product Size: 4 mg Product Wasted: ___ mg No Longer Active 11/08/2016 [facility] Ceftriaxone 1 gm, Route: IVPB, [id number], Dosing Weight 95.455, kg, Start date: 11/08/16 18:00:00 CDT, Duration: 30 day, Stop date: 12/07/16 18:00:00 CDTNotes: (Same As: Rocephin). Use with 100 mL NS and infuse over 30 min MEDICATION WASTE Product Size: 1000 mg Product Wasted: ___ mg No Longer Active 11/08/2016 [facility] Saline Flush 0.9% 10 ml, Route: IVP, Drug Form: INJ, Dosing Weight 95, kg, PRN, PRN Line Flush, Start date: 11/08/16 17:51:00 CDT, Duration: 30 day, Stop date: 12/08/16 17:50:00 CDT Inactive 11/08/2016 [facility] Albuterol 0.833 MG/ML / Ipratropium [place] 0.167 MG/ML Inhalant Solution 3 ml, Route: NEB, Dosing Weight 95, kg, PRN, PRN Respiratory Protocol, Start date: 11/08/16 17:51:00 CDT, Duration: 30 day, Stop date: 12/08/16 17:50:00 CDT Inactive 11/08/2016 [facility] Nystatin 100 UNT/MG Topical Powder 1 appl, Route: TOP, PRN, Drug form: PWDR, PRN For Fungal Prophylaxis, Start date: 11/08/16 17:51:00 CDT, Duration: 30 day, Stop date: 12/08/16 17:50:00 CDTNotes: (Same as:Mycostatin, Nilstat) For external use only. No Longer Active 11/08/2016 [facility] Budesonide 0.5 mg, 2 mL, Route: NEB, Drug form: SUSP, RBID, Dosing Weight 95.455, kg, Start date: 11/08/16 17:40:00 CDT, Duration: 30 day, Stop date: 12/08/16 8:00:00 CDTNotes: (Same As: Pulmicort) No Longer Active 11/08/2016 [facility] Albuterol 0.833 MG/ML / Ipratropium [place] 0.167 MG/ML Inhalant Solution [DuoNeb] 3 ml, Route: NEB, Drug Form: SOLN, Dosing Weight 95.455, kg, PRN, PRN Respiratory Protocol, Start date: 11/08/16 17:40:00 CDT, Duration: 30 day, Stop date: 12/08/16 17:39:00 CDTNotes: (Same as: Duoneb) No Longer Active 11/08/2016 [facility] Insulin, Aspart, Human 2 unit, 0.02 mL, Route: SUB-Q, Drug form: SOLN, TID-Before Meals, Dosing Weight 95.455, kg, PRN Blood Glucose Results, Start date: 11/08/16 17:25:00 CDT, Duration: 30 day, Stop date: 12/08/16 17:24:00 CDTNotes: Roll in palms of hands gently; Do not shake vigorously. (Same as: NovoLOG) "single patient use only" WASTE: F/P - Black; E - Municipal Trash Bin Stable for 28 days at room temperature. Expires in days from Date No Longer Active 11/08/2016 [facility] Dextrose 50% Syringe 12.5 gm, 25 mL, Route: IVP, Drug Form: INJ, Dosing Weight 95.455, kg, PRN, PRN Blood Glucose Results, Start date: 11/08/16 17:25:00 CDT, Duration: 30 day, Stop date: 12/08/16 17:24:00 CDT No Longer Active 11/08/2016 [facility] Glucagon 1 mg, Route: IM, Drug form: PDR/INJ, PRN, Dosing Weight 95.455, kg, PRN Blood Glucose Results, Start date: 11/08/16 17:25:00 CDT, Duration: 30 day, Stop date: 12/08/16 17:24:00 CDT No Longer Active 11/08/2016 [facility] verapamil 120 mg/24 hours oral capsule, extended release 120 mg=1 cap, PO, Daily, 0 Refill(s) No Longer Active 11/08/2016 [facility] Ceftriaxone 1 gm, Route: IVPB, ONCE, Dosing Weight 95.455, kg, Priority: STAT, Start date: 11/08/16 15:42:00 CDT, Stop date: 11/08/16 15:42:00 CDTNotes: (Same As: Rocephin). Use with 100 mL NS and infuse over 30 m in MEDICATION WASTE Product Size: 1000 mg Product Wasted: ___ mg Inactive 11/08/2016 [facility] methylPREDNISolone SODium SUCCinate 125 mg, 2 mL, Route: IVP, Drug form: INJ, ONCE, Dosing Weight 95.455, kg, Priority: STAT, Start date: 11/08/16 15:42:00 CDT, Stop date: 11/08/16 15:42:00 CDTNotes: (Same as:Solu-MEDROL, A-Methapred) Inactive 11/08/2016 [facility] digoxin antibodies Jamey fragments 200 mg, Route: IVPB, Drug form: INJ, ONCE, Dosing Weight 95.455, kg, Start date: 11/08/16 15:33:00 CDT, Stop date: 11/08/16 15:33:00 CDTNotes: (Same as:Digifab) Inactive 11/08/2016 [facility] digoxin antibodies Jamey fragments 2,000 microgram, Route: IVPB, ONCE, Dosing Weight 95.455, kg, Start date: 11/08/16 15:27:00 CDT, Stop date: 11/08/16 15:27:00 CDT Inactive 11/08/2016 [facility] D5NS 1,000 mL 1,000 mL, Rate: 75 ml/hr, Infuse over: 13.3 hr, Route: IV, Dosing Weight 95.455 kg, Total Volume: 1,000, Start date: 11/08/16 14:37:00 CDT, Duration: 30 day, Stop date: 12/08/16 14:36:00 CDT No Longer Active 11/08/2016 [facility] d50 syringe 1 amp, Route: IV, Dosing Weight 95.455, kg, ONCE, Start date: 11/08/16 14:29:00 CDT, Stop date: 11/08/16 14:29:00 CDT Inactive 11/08/2016 [facility] Sodium Chloride 0.154 MEQ/ML Injectable Solution 500 mL, 500 ml/hr, Infuse Over: 1 hr, Route: IV, 500, Drug form: INJ, ONCE, Priority: STAT, Dosing Weight 95.455 kg, Start date: 11/08/16 13:36:00 CDT, Duration: 1 doses or times, Stop date: 11/08/16 13:36:00 CDT Inactive 11/08/2016 [facility] Albuterol 0.833 MG/ML / Ipratropium [place] 0.167 MG/ML Inhalant Solution 3 mL, Route: NEB, Drug Form: SOLN, Dosing Weight 95.455, kg, ONCE, STAT, Start date: 11/08/16 13:33:00 CDT, Stop date: 11/08/16 13:33:00 CDT Inactive 11/08/2016 [facility] Saline Flush 0.9% 10 mL, Route: IVP, Drug Form: INJ, Dosing Weight 95.455, kg, PRN, PRN Line Flush, Start date: 11/08/16 13:33:00 CDT, Duration: 30 day, Stop date: 12/08/16 13:32:00 CDTNotes: (Same as: BD Posiflush) No Longer Active 11/08/2016 [facility] Cipro 500 mg, 1 tab, Route: PO, Drug form: TAB, [id number], Dosing Weight 108.008, kg, Start date: 05/22/15 14:00:00, Duration: 30 day, Stop date: 06/21/15 2:00:00Notes: May interfere w/enteral feedings - Take 1 hr before or 2 hrs after antacids, dairy pdt & minerals. On empty stomach. No Longer Active 05/22/2015 [facility] Lasix 40 mg, 4 mL, Route: IVP, Drug form: INJ, Daily, Dosing Weight 95.568, kg, Start date: 05/20/15 9:00:00, Duration: 30 day, Stop date: 06/18/15 9:00:00Notes: (Same as: Lasix) MEDICATION WASTE Product Size: 40 mg Product Wasted: ___ mg No Longer Active 05/20/2015 [facility] Lasix 40 mg, 4 mL, Route: IVP, Drug form: INJ, ONCE, Dosing Weight 95.568, kg, Start date: 05/19/15 12:38:00, Stop date: 05/19/15 12:38:00Notes: (Same as: Lasix) MEDICATION WASTE Product Size: 40 mg Product Wasted: ___ mg Inactive 05/19/2015 [facility] Lovenox 40 mg, 0.4 mL, Route: SUB-Q, Drug form: INJ, Daily, Dosing Weight 95.568, kg, Start date: 05/18/15 20:00:00, Duration: 30 day, Stop date: 06/16/15 20:00:00Notes: (Same as: Lovenox) No Longer Active 05/19/2015 [facility] Glucagon 1 mg, Route: IM, Drug form: PDR/INJ, PRN, Dosing Weight 95.568, kg, PRN Blood Glucose Results, Start date: 05/17/15 18:42:00, Duration: 30 day, Stop date: 06/16/15 18:41:00 No Longer Active 05/18/2015 [facility] Dextrose 50% Syringe 12.5 gm, 25 mL, Route: IVP, Drug Form: INJ, Dosing Weight 95.568, kg, PRN, PRN Blood Glucose Results, Start date: 05/17/15 18:42:00, Duration: 30 day, Stop date: 06/16/15 18:41:00 No Longer Active 05/18/2015 [facility] Insulin, Aspart, Human 3 unit, 0.03 mL, Route: SUB-Q, Drug form: SOLN, Bedtime, Dosing Weight 95.568, kg, PRN Blood Glucose Results, Start date: 05/17/15 18:42:00, Duration: 30 day, Stop date: 06/16/15 18:41:00Notes: Roll in palms of hands gently; Do not shake vigorously. (Same as: NovoLOG) "single patient use only" Stable for 28 days at room temperature. Expires in days from Date No Longer Active 05/18/2015 [facility] Acetaminophen 650 mg, 2 tab, Route: PO, Drug form: TAB, Q6H, Dosing Weight 95.568, kg, PRN Pain 1-3/Temp > 100.4 F, Start date: 05/17/15 18:41:00, Duration: 30 day, Stop date: 06/16/15 18:40:00Notes: Do not exceed 4 gm/day. (Same as: Tylenol) No Longer Active 05/18/2015 [facility] Nitroglycerin 0.4 mg, 1 tab, Route: SL, Drug form: TAB, Q5Min, Dosing Weight 95.568, kg, PRN Chest Pain, Start date: 05/17/15 14:10:00, Duration: 3 doses or times, Stop date: Limited # of timesNotes: (Same as:Nitr oquick, Nitrostat) "Do Not Crush" Sublingual tablet No Longer Active 05/17/2015 [facility] digoxin 250 mcg (0.25 mg) oral tablet 0.25 mg, 1 tab, Route: PO, Drug form: TAB, Daily, Dosing Weight 95.568, kg, Start date: 05/17/15 9:00:00, Duration: 30 day, Stop date: 06/15/15 9:00:00Notes: Take on an Empty Stomach (Same as: Lanoxin) No Longer Active 05/17/2015 [facility] Lasix 40 mg, Route: IVP, Drug form: INJ, Daily, Dosing Weight 95.568, kg, Start date: 05/17/15 9:00:00, Duration: 30 day, Stop date: 06/15/15 9:00:00 No Longer Active 05/17/2015 [facility] Verapamil 120 mg, 1 tab, Route: PO, Drug form: ERTAB, Daily, Dosing Weight 95.568, kg, Start date: 05/17/15 9:00:00, Duration: 30 day, Stop date: 06/15/15 9:00:00Notes: Do not crush or chew. (Same As: Calan SR, Isoptin SR) "Avoid grapefruit and grapefruit juice" No Longer Active 05/17/2015 [facility] GlipiZIDE XL 2.5 mg oral tablet, extended release 2.5 mg, 1 tab, Route: PO, Drug form: ERTAB, BID, Dosing Weight 95.568, kg, Start date: 05/17/15 9:00:00, Duration: 30 day, Stop date: 06/15/15 17:00:00Notes: (Same as: Glucotrol XL) "Do Not Crush" 30 min before meals. No Longer Active 05/17/2015 [facility] Atropine 0.5 mg, 5 mL, Route: IVP, Drug form: INJ, ONCE, Dosing Weight 95.568, kg, PRN Bradycardia, Start date: 05/17/15 7:52:00, symptomatic bradycardia of No Longer Active 05/17/2015 [facility] Nitroglycerin 0.4 MG Sublingual Tablet 0.4 mg, 1 tab, Route: SL, Drug form: TAB, Q5Min, Dosing Weight 95.568, kg, PRN Chest Pain, Start date: 05/17/15 7:52:00, Duration: 30 day, Stop date: 06/16/15 7:51:00Notes: (Same as:Nitroquick, Nitrostat) "Do Not Crush" Sublingual tablet No Longer Active 05/17/2015 [facility] albuterol 1.25 mg, 3 mL, Route: NEB, Drug form: SOLN, RQ6H, Start date: 05/17/15 2:00:00, Duration: 30 day, Stop date: 06/15/15 20:00:00Notes: SEE RT DOCUMENTATION (Same as: Proventil) No Longer Active 05/17/2015 [facility] Xopenex 0.63 mg, Route: NEB, Q6H, Dosing Weight 95.568, kg, Start date: 05/17/15 0:00:00, Duration: 30 day, Stop date: 06/15/15 18:00:00 No Longer Active 05/17/2015 [facility] Enoxaparin 40 mg, 0.4 mL, Route: SUB-Q, Drug form: INJ, [id number], Dosing Weight 95.568, kg, Start date: 05/16/15 22:00:00, Duration: 30 day, Stop date: 06/14/15 22:00:00Notes: (Same as: Lovenox) No Longer Active 05/17/2015 [facility] Verapamil 120 mg, 1 tab, Route: PO, Drug form: TAB, Q8H, Dosing Weight 95.568, kg, Start date: 05/16/15 21:46:00, Duration: 30 day, Stop date: 06/15/15 16:00:00Notes: (Same As: Alison Isoppaula) "Avoid grapefruit and grapefruit juice" No Longer Active 05/17/2015 [facility] Simvastatin 40 mg, 1 tab, Route: PO, Drug form: TAB, Bedtime, Dosing Weight 95.568, kg, Start date: 05/16/15 21:00:00, Duration: 30 day, Stop date: 06/14/15 21:00:00Notes: (Same as: Zocor) No Longer Active 05/17/2015 [facility] Ambien 5 mg, 1 tab, Route: PO, Drug form: TAB, Bedtime, Dosing Weight 95.568, kg, PRN as needed for sleep, Start date: 05/16/15 20:50:00, Duration: 30 day, Stop date: 06/15/15 20:49:00Notes: (Same As: Ambien) No Longer Active 05/17/2015 [facility] 200 ACTUAT Albuterol 0.09 MG/ACTUAT Metered Dose Inhaler [ProAir HFA] 180 microgram, Route: INHALER, Drug Form: AERO/A, Dosing Weight 95.568, kg, Q4H, PRN Wheezing, Start date: 05/16/15 20:44:00, Duration: 30 day, Stop date: 06/15/15 20:43:00Notes: Albuterol 90 microgram/inh 8gm HFA Same as: Ventolin, Proventil No Longer Active 05/17/2015 [facility] 200 ACTUAT Albuterol 0.09 MG/ACTUAT Metered Dose Inhaler [ProAir HFA] 2 puff, INHALER, Q4H, PRN for wheezing, # 8.5 gm, 0 Refill(s) Active 05/17/2015 [facility] Paroxetine 20 mg, 1 tab, Route: PO, Drug form: TAB, Daily, Dosing Weight 95.568, kg, Start date: 05/16/15 20:30:00, Duration: 30 day, Stop date: 06/15/15 9:00:00Notes: (Same as: Paxil) No Longer Active 05/17/2015 [facility] Insulin, Aspart, Human 4 unit, 0.04 mL, Route: SUB-Q, Drug form: SOLN, Bedtime, Dosing Weight 95.568, kg, PRN Blood Glucose Results, Start date: 05/16/15 19:00:00, Duration: 30 day, Stop date: 06/15/15 18:59:00Notes: Roll in palms of hands gently; Do not shake vigorously. (Same as: NovoLOG) "single patient use only" Stable for 28 days at room temperature. Expires in days from Date No Longer Active 05/17/2015 [facility] Dextrose 50% Syringe 12.5 gm, 25 mL, Route: IVP, Drug Form: INJ, Dosing Weight 95.568, kg, PRN, PRN Blood Glucose Results, Start date: 05/16/15 19:00:00, Duration: 30 day, Stop date: 06/15/15 18:59:00 No Longer Active 05/17/2015 [facility] Glucagon 1 mg, Route: IM, Drug form: PDR/INJ, PRN, Dosing Weight 95.568, kg, PRN Blood Glucose Results, Start date: 05/16/15 19:00:00, Duration: 30 day, Stop date: 06/15/15 18:59:00 No Longer Active 05/17/2015 [facility] Lisinopril 20 mg, 1 tab, Route: PO, Drug form: TAB, Daily, Dosing Weight 95.568, kg, Start date: 05/16/15 18:32:00, Duration: 30 day, Stop date: 06/15/15 17:00:00Notes: (Same as: Prinivil, Zestril) No Longer Active 05/17/2015 [facility] methylPREDNISolone SODium SUCCinate 40 mg, 1 mL, Route: IVP, Drug form: INJ, Q8H, Dosing Weight 95.568, kg, Start date: 05/16/15 16:00:00, Duration: 30 day, Stop date: 06/15/15 2:00:00Notes: (Same as:Solu- MEDROL, A-Methapred) No Longer Active 05/16/2015 [facility] Lasix 40 mg, 4 mL, Route: IVP, Drug form: INJ, Q8H, Dosing Weight 95.568, kg, Priority: STAT, Start date: 05/16/15 15:45:00, Duration: 3 doses or times, Stop date: 05/17/15 2:00:00Notes: (Same as: Lasix) MEDICATION WASTE Product Size: 40 mg Product Wasted: ___ mg No Longer Active 05/16/2015 [facility] predniSONE 10 mg oral tablet 10 mg, 1 tab, PO, Daily, 10 tab, Substitution Allowed, 2 tabs daily for 5 days, 1 tab daily for 5 days, then stop, TAB2 tabs daily for 5 days, 1 tab daily for 5 days, then stop PO Active [facility] 10/07/2011 [facility] Neurontin 300 mg oral capsule 300 mg, 1 cap, PO, TID, 90 cap, Substitution Allowed PO Active [facility] 10/07/2011 [facility] Ultram 50 mg oral tablet 50 mg, 1 tab, PO, TID, PRN, 90 tab, pain, Substitution Allowed PO Active [facility] 10/07/2011 [facility] Vitamin D 50,000 IntlUnit, 1 cap, Route: PO, Drug form: CAP, qWeek, Start date: 10/06/11 22:30:00, Duration: 4 doses or times, Stop date: 10/27/11 9:00:00 PO No Longer Active [facility] 10/07/2011 [facility] predniSONE 20 mg, 1 tab, Route: PO, Drug form: TAB, ONCE, Start date: 10/06/11 16:00:00, Stop date: 10/06/11 16:00:00 PO No Longer Active [facility] 10/06/2011 [facility] insulin detemir 5 unit, 0.05 mL, Route: SUB-Q, Drug form: INJ, ONCE, Start date: 10/04/11 10:01:00, Stop date: 10/04/11 10:01:00 SUB-Q No Longer Active [facility] 10/04/2011 [facility] pneumococcal 23-valent vaccine 0.5 ml, Route: IM, Drug Form: INJ, Start date: 10/04/11 9:00:00, Stop date: 10/04/11 9:00:00 IM No Longer Active [facility] 10/04/2011 [facility] Lactated Ringers IV 1,000 mL 1,000 mL, Rate: 25 ml/hr, Infuse over: 40 hr, Route: IV, Dosing Weight 125 kg, Total Volume: 1,000, Start date: 10/02/11 11:46:00, Duration: 30 day, Stop date: 11/01/11 11:45:00 IV No Longer Active [facility] 10/02/2011 [facility] Levemir FlexPen 15 unit, 0.15 mL, Route: SUB-Q, Drug form: INJ, Daily, Start date: 10/02/11 10:00:00, Stop date: 11/01/11 9:00:00 SUB-Q No Longer Active [facility] 10/02/2011 [facility] Vitamin D3 5000 intl units oral capsule 5,000 IntlUnit, 5 tab, Route: PO, Drug form: TAB, Daily, Start date: 10/02/11 9:00:00, Duration: 30 day, Stop date: 10/31/11 9:00:00 PO No Longer Active [facility] 10/02/2011 [facility] Lantus 10 unit, Route: SUB-Q, Drug form: SOLN, Daily, Start date: 10/02/11 9:00:00, Duration: 30 day, Stop date: 10/31/11 9:00:00 SUB-Q No Longer Active [facility] 10/02/2011 [facility] Lovenox 40 mg, 0.4 mL, Route: SUB-Q, Drug form: INJ, [id number], Start date: 10/01/11 15:00:00, Duration: 30 day, Stop date: 10/30/11 15:00:00 SUB-Q No Longer Active [facility] 10/01/2011 [facility] NovoLog FlexPen 12 unit, 0.12 mL, Route: SUB-Q, Drug form: SOLN, Sliding Scale, PRN Blood Glucose Results, Start date: 09/30/11 17:21:00, Duration: 30 day, Stop date: 10/30/11 17:20:00 SUB-Q No Longer Active [facility] 09/30/2011 [facility] NovoLog FlexPen 4 unit, 0.04 mL, Route: SUB-Q, Drug form: SOLN, Sliding Scale, PRN Blood Glucose Results, Start date: 09/30/11 17:20:00, Duration: 30 day, Stop date: 10/30/11 17:19:00 SUB-Q No Longer Active [facility] 09/30/2011 [facility] Ativan 1 mg, 0.5 mL, Route: IVP, Drug form: INJ, ONCALL, Start date: 09/30/11 15:00:00, Duration: 1 doses or times IVP No Longer Active [facility] 09/30/2011 [facility] Robaxin 750 mg, 1 tab, Route: PO, Drug form: TAB, TID, Start date: 09/30/11 9:00:00, Duration: 30 day, Stop date: 10/29/11 17:00:00 PO No Longer Active [facility] 09/30/2011 [facility] metFORmin 1000 mg oral tablet 1,000 mg, 2 tab, Route: PO, Drug form: TAB, BID-Meals, Start date: 09/30/11 8:00:00, Duration: 30 day, Stop date: 10/29/11 17:00:00 PO No Longer Active [facility] 09/30/2011 [facility] Valium 5 mg, 1 tab, Route: PO, Drug form: TAB, Q8H, Start date: 09/30/11 0:00:00, Duration: 30 day, Stop date: 10/29/11 16:00:00 PO No Longer Active [facility] 09/30/2011 [facility] NovoLog FlexPen 4 unit, 0.04 mL, Route: SUB-Q, Drug form: SOLN, Bedtime, PRN Blood Glucose Results, Start date: 09/29/11 21:59:00, Duration: 30 day, Stop date: 10/29/11 21:58:00 SUB-Q No Longer Active [facility] 09/30/2011 [facility] NovoLog FlexPen 5 unit, 0.05 mL, Route: SUB-Q, Drug form: SOLN, Sliding Scale, PRN Blood Glucose Results, Start date: 09/29/11 21:58:00, Duration: 30 day, Stop date: 10/29/11 21:57:00 SUB-Q No Longer Active [facility] 09/30/2011 [facility] temazepam 15 mg, 1 cap, Route: PO, Drug form: CAP, Bedtime, PRN Insomnia, Start date: 09/29/11 21:11:00, Duration: 30 day, Stop date: 10/29/11 21:10:00 PO No Longer Active [facility] 09/30/2011 [facility] acetaminophen 650 mg, 2 tab, Route: PO, Drug form: TAB, Q4H, PRN Pain/Fever, Start date: 09/29/11 21:11:00, Duration: 30 day, Stop date: 10/29/11 21:10:00 PO No Longer Active [facility] 09/30/2011 [facility] docusate 100 mg, 1 cap, Route: PO, Drug form: CAP, BID, PRN Constipation, Start date: 09/29/11 21:11:00, Duration: 30 day, Stop date: 10/29/11 21:10:00 PO No Longer Active [facility] 09/30/2011 [facility] Saline Flush 0.9% 5 ml, Route: IVP, Drug Form: INJ, PRN, PRN Line Flush, Start date: 09/29/11 21:11:00, Duration: 30 day, Stop date: 10/29/11 21:10:00 IVP No Longer Active [facility] 09/30/2011 [facility] NS + KCL 20mEq/L 1000ml (Premix) 1,000 mL 1,000 mL 1,000 mL, Rate: 100 ml/hr, Infuse over: 10 hr, Route: IV, Dosing Weight 125 kg, Total Volume: 1,000, Start date: 09/29/11 21:11:00, Duration: 30 day, Stop date: 10/29/11 21:10:00 IV No Longer Active [facility] 09/30/2011 [facility] Celebrex 200 mg, 1 cap, Route: PO, Drug form: CAP, Q12H, Start date: 09/29/11 21:00:00, Duration: 30 day, Stop date: 10/29/11 9:00:00 PO No Longer Active [facility] 09/30/2011 [facility] metoprolol tartrate 50 mg, 1 tab, Route: PO, Drug form: TAB, Q12H, Start date: 09/29/11 21:00:00, Stop date: 10/29/11 9:00:00 PO No Longer Active [facility] 09/30/2011 [facility] methylPREDNISolone 40 mg, 1 mL, Route: IV, Drug form: INJ, Q8H, Start date: 09/29/11 19:00:00, Duration: 30 day, Stop date: 10/29/11 11:00:00 IV [facility] [place] 10/325 oral tablet 1 tab, Route: PO, Drug Form: TAB, Q4H, PRN Pain, Start date: 09/29/11 18:36:00, Duration: 30 day, Stop date: 10/29/11 18:35:00 PO No Longer Active [facility] 09/29/2011 [facility] Dilaudid 2 mg, 1 mL, Route: IVP, Drug form: INJ, Q4H, PRN Pain, Start date: 09/29/11 18:25:00, Duration: 30 day, Stop date: 10/29/11 18:24:00 IVP No Longer Active [facility] 09/29/2011 [facility] paroxetine 20 mg oral tablet 20 mg, 1 tab, PO, Daily, 30 tab, Substitution Allowed, TAB PO Active 09/29/2011 [facility] simvastatin 40 mg oral tablet 40 mg, 1 tab, PO, Daily, 30 tab, Substitution Allowed, TAB PO Active 09/29/2011 [facility] furosemide 40 mg oral tablet 40 mg, 1 tab, PO, Daily, 30 tab, Substitution Allowed, TAB PO Active 09/29/2011 [facility] verapamil 120 mg oral tablet See Instructions, Substitution Allowed, 1 tab PO Daily, TAB1 tab PO Daily Active 09/29/2011 [facility] digoxin 250 mcg (0.25 mg) oral tablet 0.25 mg, 1 tab, PO, Daily, 30 tab, Substitution Allowed, TAB PO Active 09/29/2011 [facility] metoprolol 50 mg oral tablet 50 mg, 1 tab, PO, Daily, Substitution Allowed, TAB PO No Longer Active 09/29/2011 [facility] GlipiZIDE XL 2.5 mg oral tablet, extended release 2.5 mg, 1 tab, PO, BID, Substitution Allowed, TAB PO Active 09/29/2011 [facility] metoprolol 50 mg oral tablet 50 mg, 1 tab, PO, Daily, Substitution Allowed, TAB PO Active 09/29/2011 [facility] metFORmin 500 mg oral tablet 1,000 mg, 2 tab, PO, Substitution Allowed, bedtime, TABbedtime PO Active 09/29/2011 [facility] Dextrose 50% Syringe 25 mL, Route: IVP, PRN, PRN Blood Glucose Results, Start date: 09/29/11 17:31:00, Duration: 30 day, Stop date: 10/29/11 17:30:00 IVP No Longer Active [facility] 09/29/2011 [facility] glucagon 1 mg, Route: IM, PRN, PRN Blood Glucose Results, Start date: 09/29/11 17:31:00, Duration: 30 day, Stop date: 10/29/11 17:30:00 IM No Longer Active [facility] 09/29/2011 [facility] glucagon 1 mg, Route: IM, PRN, PRN Blood Glucose Results, Start date: 09/29/11 17:30:00, Duration: 30 day, Stop date: 10/29/11 17:29:00 IM No Longer Active [facility] 09/29/2011 [facility] Dextrose 50% Syringe 50 mL, Route: IVP, PRN, PRN Blood Glucose Results, Start date: 09/29/11 17:30:00, Duration: 30 day, Stop date: 10/29/11 17:29:00 IVP No Longer Active [facility] 09/29/2011 [facility] NS + KCL 20mEq/L 1000ml (Premix) 1,000 mL 1,000 mL, Rate: 75 ml/hr, Infuse over: 13.3 hr, Route: IV, Dosing Weight 125 kg, Total Volume: 1,000, Start date: 09/29/11 17:28:00, Duration: 30 day, Stop date: 10/29/11 17:27:00 IV No Longer Active [facility] 09/29/2011 [facility] Dextrose 50% Syringe 12.5 gm, 25 mL, Route: IVP, Drug Form: INJ, PRN, PRN Blood Glucose Results, Start date: 09/29/11 17:28:00, Duration: 30 day, Stop date: 10/29/11 17:27:00 IVP No Longer Active [facility] 09/29/2011 [facility] glucagon 1 mg, Route: IM, Drug form: PDR/INJ, PRN, PRN Blood Glucose Results, Start date: 09/29/11 17:28:00, Duration: 30 day, Stop date: 10/29/11 17:27:00 IM No Longer Active [facility] 09/29/2011 [facility] temazepam 30 mg, 2 cap, Route: PO, Drug form: CAP, Bedtime, PRN Sleep, Start date: 09/29/11 17:27:00, Duration: 30 day, Stop date: 10/29/11 17:26:00 PO No Longer Active [facility] 09/29/2011 [facility] Docusate Sodium 1 capsule as needed Orally Active 100 MG Orally Once a day [place] [id number] Levofloxacin 1 tablet Orally Active 750 MG Orally Once a day [place] [id number] Simvastatin 1 tablet in the evening Orally Active 40 MG Orally Once a day [place] [id number] Pantoprazole Sodium 1 tablet Orally Active 40 MG Orally Once a day [place] [id number] paroxetine 20 mg Tab not defined NA Active [place] [id number] Allergies, Adverse Reactions, Alerts Substance Category Reaction Severity Reaction type Status Date Reported Comments Source N.K.D.A. Adverse Reaction Info Not Available Adverse Reaction Active 12/23/2016 [id number] Immunizations Immunization Date Given Site Status Last Updated Comments Source pneumococcal 23-valent vaccine 10/04/2011 Right deltoid completed [facility] pneumococcal 23-valent vaccine 10/04/2011 completed [facility] Results Order Name Results Value Reference Range Date Interpretation Comments Source CHEM PANEL eGFR 59 mL/min/1.73m2 06/15/2017 Result Comment: The eGFR is calculated using the [...] from the National Kidney Disease Education Program (NKDEP) which additionally recommends that when the eGFR is used in patients with extremes of body mass index for purposes of drug dosing, the eGFR should be multiplied by the estimated BMI. [facility] CHEM PANEL Glucose Lvl 181 mg/dL 70 - 99 06/15/2017 [facility] CHEM PANEL CO2 27 meq/L 24 - 32 06/15/2017 [facility] CHEM PANEL Calcium Lvl 8.8 mg/dL 8.5 - 10.5 06/15/2017 [facility] CHEM PANEL BUN 17 mg/dL 7 - 22 06/15/2017 [facility] CHEM PANEL Creatinine Lvl 0.99 mg/dL 0.50 - 1.40 06/15/2017 [facility] CHEM PANEL Sodium Lvl 139 meq/L 135 - 145 06/15/2017 [facility] CHEM PANEL Potassium Lvl 4.8 meq/L 3.5 - 5.1 06/15/2017 [facility] CHEM PANEL Chloride Lvl 103 meq/L 95 - 109 06/15/2017 [facility] CHEM PANEL AGAP 13.8 meq/L 10.0 - 20.0 06/15/2017 [facility] HEMATOLOGY Segs-Bands # 11.5 K/CMM 1.5 - 8.1 06/15/2017 [facility] HEMATOLOGY Lymphocytes # 2.2 K/CMM 1.0 - 5.5 06/15/2017 [facility] HEMATOLOGY Lymphocytes 14.2 % 20.0 - 40.0 06/15/2017 [facility] HEMATOLOGY Basophils 0.7 % 0.0 - 1.0 06/15/2017 [facility] HEMATOLOGY Monocytes 7.9 % 2.0 - 12.0 06/15/2017 [facility] HEMATOLOGY Eosinophils 2.2 % 0.0 - 4.0 06/15/2017 [facility] HEMATOLOGY Eosinophils # 0.3 K/CMM 0.0 - 0.5 06/15/2017 [facility] HEMATOLOGY Monocytes # 1.2 K/CMM 0.0 - 0.8 06/15/2017 [facility] HEMATOLOGY Basophils # 0.1 K/CMM 0.0 - 0.2 06/15/2017 [facility] HEMATOLOGY Segs 75.0 % 45.0 - 75.0 06/15/2017 [facility] HEMATOLOGY MPV 9.4 fL 7.4 - 10.4 06/15/2017 [facility] HEMATOLOGY Platelet 228 K/CMM 133 - 450 06/15/2017 [facility] HEMATOLOGY MCV 93.6 fL 80.0 - 98.0 06/15/2017 [facility] HEMATOLOGY RDW 15.6 % 11.5 - 14.5 06/15/2017 [facility] MCHC 32.5 g/dL 32.0 - 36.0 06/15/2017 [facility] HEMATOLOGY Hct 37.2 % 36.0 - 48.0 06/15/2017 [facility] MCH 30.4 pg 27.0 - 31.0 06/15/2017 [facility] HEMATOLOGY WBC 15.3 K/CMM 3.7 - 10.4 06/15/2017 [facility] HEMATOLOGY RBC 3.98 M/CMM 4.20 - 5.40 06/15/2017 [facility] HEMATOLOGY Hgb 12.1 g/dL 12.0 - 16.0 06/15/2017 [facility] URINE AND STOOL UA Color Ltyellow 06/15/2017 [facility] URINE AND STOOL UA Urobilinogen <=1.0 mg/dL 0.1 - 1.0 06/15/2017 [facility] URINE AND STOOL UA Sq Epi Few /LPF Few /LPF 06/15/2017 [facility] URINE AND STOOL UA Leuk Est Small *ABN* (06/15/17 3:15 PM) Negative 06/15/2017 [facility] URINE AND STOOL UA RBC 50 /HPF 0 - 2 06/15/2017 [facility] URINE AND STOOL UA WBC 20 /HPF 0 - 5 06/15/2017 [facility] URINE AND STOOL UA Bacteria Occasional /HPF None Seen /HPF 06/15/2017 [facility] URINE AND STOOL UA Mucus Few /LPF None Seen /LPF 06/15/2017 [facility] URINE AND STOOL UA Glucose Negative mg/dL Negative mg/dL 06/15/2017 [facility] URINE AND STOOL UA Bili Negative *NA* (06/15/17 3:15 PM) Negative 06/15/2017 [facility] URINE AND STOOL UA Ketones Negative mg/dL Negative mg/dL 06/15/2017 [facility] URINE AND STOOL UA Nitrite Negative (06/15/17 3:15 PM) Negative 06/15/2017 [facility] URINE AND STOOL UA Blood Moderate *ABN* (06/15/17 3:15 PM) Negative 06/15/2017 [facility] URINE AND STOOL UA pH 5.0 5.0 - 8.0 06/15/2017 [facility] URINE AND STOOL UA Spec Grav 1.019 <=1.030 06/15/2017 [facility] URINE AND STOOL UA Protein 30 mg/dL Negative mg/dL 06/15/2017 [facility] URINE AND STOOL UA Turbidity Clear (06/15/17 3:15 PM) Clear 06/15/[address] [facility] [address] Renal Stone CT CT ABDOMEN PELVIS WITHOUT CONTRAST (RENAL STONE): HISTORY: Right renal calculi post lithotripsy 2 weeks ago, follow-up. TECHNIQUE: Multislice axial acquisition of the abdomen and pelvis targeted to the urinary tract was done without contrast. Sagittal and coronal reconstructions were also done. FINDINGS: A right ureteral stent is seen in good position with interval resolution of right hydronephrosis since the CT on 11/20/2016. The distal right ureteral calculus demonstrated on the previous CT is no longer present. The larger right renal calculi demonstrated on the previous exam have been removed, with a residual 9 mm calyceal stone in the upper pole. There are no other urinary tract calculi. The right kidney is rotated on its horizontal axis. There is no evidence of left hydronephrosis. There are no other significant renal abnormalities. The urinary bladder is otherwise unremarkable. The liver, spleen, pancreas and adrenal glands show no significant abnormalities. There are possible small calcified lucent stones in the gallbladder. The gallbladder is otherwise unremarkable. There is no evidence of biliary dilatation. The uterus and adnexal regions are unremarkable. There is moderate diverticulosis of the sigmoid colon without evidence of diverticulitis. There are no other significant gastrointestinal tract abnormalities. There is no intra-abdominal mass or free fluid. Periumbilical hernias containing omental fat are noted without significant change from previous exam. There is mild atherosclerotic calcification in the aortoiliac segment without other significant retroperitoneal abnormalities. There are no acute osseous abnormalities. Degenerative changes in the lumbar spine are noted. IMPRESSION: 1. Interval removal of the distal right ureteral calculus and near complete resolution of right renal calculi since 11/20/2016, with a residual 9 mm calyceal stone in the upper pole of the right kidney. 2. Interval resolution of right hydronephrosis with satisfactory position of the right renal stent. 3. Possible cholelithiasis. 4. No other acute CT abnormalities in the abdomen or pelvis. [id number] 06/03/2017 - - Read by: Irineo Simpson MD Dictated Date/time: 06/03/17 14:43 Electronically Signed by: Irineo Simpson MD 06/03/17 14:55 FINAL REPORT [facility] Abdomen AP DX Abdomen AP DX Patient Name: SAGRARIO SINGLETON : 1950; Age: 67 years Female MR: [id number] Study: Abdomen AP DX 05/21/2017 5:00 AM AT [facility]ICAL INDICATION: Flank Pain COMPARISON: [facility]UB on 04/02/2017 FINDINGS: Nonspecific bowel gas pattern without evidence of dilatation, pneumatosis, or pneumoperitoneum. Stable position of the right ureteral stent. No definitive urinary calculus. Multiple pelvic phleboliths. Degenerative changes of the right hip and lumbar spine. IMPRESSION: Stable position of the right ureteral stent. No definitive urinary calculus. : [id number] 05/21/2017 - - Read by: Racheal Mukherjee MD Dictated Date/time: 05/21/17 12:33 Electronically Signed by: Racheal Mukherjee MD 05/21/17 12:35 FINAL REPORT [facility] URINE AND STOOL UA Urobilinogen <=1.0 mg/dL 0.1 - 1.0 05/11/2017 [facility] URINE AND STOOL UA WBC 63 /HPF 0 - 5 05/11/2017 [facility] URINE AND STOOL UA Sq Epi Few /LPF Few /LPF 05/11/2017 [facility] URINE AND STOOL UA RBC null 0 - 2 05/11/2017 [facility] URINE AND STOOL UA Bacteria Occasional /HPF None Seen /HPF 05/11/2017 [facility] URINE AND STOOL UA Mucus Few /LPF None Seen /LPF 05/11/2017 [facility] URINE AND STOOL UA Blood Large *ABN* (05/11/17 3:43 PM) Negative 05/11/2017 [facility] URINE AND STOOL UA Bili Negative *NA* (05/11/17 3:43 PM) Negative 05/11/2017 [facility] URINE AND STOOL UA Leuk Est Large *ABN* (05/11/17 3:43 PM) Negative 05/11/2017 [facility] URINE AND STOOL UA Nitrite Negative (05/11/17 3:43 PM) Negative 05/11/2017 [facility] URINE AND STOOL UA Color Yellow *NA* (05/11/17 3:43 PM) Yellow 05/11/2017 [facility] URINE AND STOOL UA Turbidity Slight *ABN* (05/11/17 3:43 PM) Clear 05/11/2017 [facility] URINE AND STOOL UA pH 5.0 5.0 - 8.0 05/11/2017 [facility] URINE AND STOOL UA Spec Grav 1.026 <=1.030 05/11/2017 [facility] URINE AND STOOL UA Ketones Negative mg/dL Negative mg/dL 05/11/2017 [facility] URINE AND STOOL UA Glucose Negative mg/dL Negative mg/dL 05/11/2017 [facility] URINE AND STOOL UA Protein 100 mg/dL Negative mg/dL 05/11/2017 [facility] CHEM PANEL eGFR 47 mL/min/1.73m2 05/11/2017 Result Comment: The eGFR is calculated using the [...] from the National Kidney Disease Education Program (NKDEP) which additionally recommends that when the eGFR is used in patients with extremes of body mass index for purposes of drug dosing, the eGFR should be multiplied by the estimated BMI. [facility] CHEM PANEL CO2 28 meq/L 24 - 32 05/11/2017 [facility] CHEM PANEL Calcium Lvl 9.4 mg/dL 8.5 - 10.5 05/11/2017 [facility] CHEM PANEL Chloride Lvl 105 meq/L 95 - 109 05/11/2017 [facility] CHEM PANEL Sodium Lvl 141 meq/L 135 - 145 05/11/2017 [facility] CHEM PANEL Potassium Lvl 4.9 meq/L 3.5 - 5.1 05/11/2017 [facility] CHEM PANEL Glucose Lvl 211 mg/dL 70 - 99 05/11/2017 [facility] CHEM PANEL BUN 18 mg/dL 7 - 22 05/11/2017 [facility] CHEM PANEL Creatinine Lvl 1.20 mg/dL 0.50 - 1.40 05/11/2017 [facility] CHEM PANEL AGAP 12.9 meq/L 10.0 - 20.0 05/11/2017 [facility] HEMATOLOGY Lymphocytes # 2.5 K/CMM 1.0 - 5.5 05/11/2017 [facility] HEMATOLOGY Monocytes # 1.4 K/CMM 0.0 - 0.8 05/11/2017 [facility] HEMATOLOGY Eosinophils # 0.4 K/CMM 0.0 - 0.5 05/11/2017 [facility] HEMATOLOGY Basophils # 0.1 K/CMM 0.0 - 0.2 05/11/2017 [facility] HEMATOLOGY Basophils 0.7 % 0.0 - 1.0 05/11/2017 [facility] HEMATOLOGY Segs-Bands # 12.8 K/CMM 1.5 - 8.1 05/11/2017 [facility] HEMATOLOGY Eosinophils 2.2 % 0.0 - 4.0 05/11/2017 [facility] HEMATOLOGY Segs 74.5 % 45.0 - 75.0 05/11/2017 [facility] Lymphocytes 14.4 % 20.0 - 40.0 05/11/2017 [facility] Monocytes 8.2 % 2.0 - 12.0 05/11/2017 [facility] INR 0.99 0.85 - 1.17 05/11/2017 [facility] PTT 22.6 s 22.9 - 35.8 05/11/2017 [facility] PT 13.1 s 12.0 - 14.7 05/11/2017 [facility] MPV 9.3 fL 7.4 - 10.4 05/11/2017 [facility] RDW 17.6 % 11.5 - 14.5 05/11/2017 [facility] MCHC 32.3 g/dL 32.0 - 36.0 05/11/2017 [facility] Platelet 268 K/CMM 133 - 450 05/11/2017 [facility] Hgb 12.0 g/dL 12.0 - 16.0 05/11/2017 [facility] Hct 37.0 % 36.0 - 48.0 05/11/2017 [facility] MCV 94.1 fL 80.0 - 98.0 05/11/2017 [facility] MCH 30.4 pg 27.0 - 31.0 05/11/2017 [facility] WBC 17.2 K/CMM 3.7 - 10.4 05/11/2017 [facility] RBC 3.93 M/CMM 4.20 - 5.40 05/11/2017 [facility] Abdomen AP DX Abdomen AP DX KUB: The right ureteral stent is in satisfactory position. There is no visible urinary tract calculus. Small phleboliths are seen in the pelvis. The abdominal gas pattern is normal. Extensive degenerative changes in lumbar spine are noted. There is no other significant change compared to 01/23/2017. [id number] 04/02/2017 - - Read by: Irineo Simpson MD Dictated Date/time: 04/02/17 10:37 Electronically Signed by: Irineo Simpson MD 04/02/17 10:37 FINAL REPORT [facility] ELECTROLYTES Potassium Lvl 5.1 meq/L 3.5 - 5.1 02/02/2017 [facility] ELECTROLYTES Chloride Lvl 107 meq/L 95 - 109 02/02/2017 [facility] ELECTROLYTES CO2 28 meq/L 24 - 32 02/02/2017 [facility] ELECTROLYTES Calcium Lvl 9.1 mg/dL 8.5 - 10.5 02/02/2017 [facility] ELECTROLYTES Sodium Lvl 142 meq/L 135 - 145 02/02/2017 [facility] ELECTROLYTES AGAP 12.1 meq/L 10.0 - 20.0 02/02/2017 [facility] ELECTROLYTES eGFR 52 mL/min/1.73m2 02/02/2017 Result Comment: The eGFR is calculated using the [...] from the National Kidney Disease Education Program (NKDEP) which additionally recommends that when the eGFR is used in patients with extremes of body mass index for purposes of drug dosing, the eGFR should be multiplied by the estimated BMI. [facility] ELECTROLYTES Glucose Lvl 208 mg/dL 70 - 99 02/02/2017 [facility] ELECTROLYTES BUN 26 mg/dL 7 - 22 02/02/2017 [facility] ELECTROLYTES Creatinine Lvl 1.10 mg/dL 0.50 - 1.40 02/02/2017 [facility] HEMATOLOGY Monocytes 9.5 % 2.0 - 12.0 02/02/2017 [facility] HEMATOLOGY Segs 67.3 % 45.0 - 75.0 02/02/2017 [facility] Lymphocytes 19.9 % 20.0 - 40.0 02/02/2017 [facility] HEMATOLOGY Basophils 1.1 % 0.0 - 1.0 02/02/2017 [facility] HEMATOLOGY Eosinophils 2.2 % 0.0 - 4.0 02/02/2017 [facility] HEMATOLOGY Basophils # 0.1 K/CMM 0.0 - 0.2 02/02/2017 [facility] HEMATOLOGY Eosinophils # 0.3 K/CMM 0.0 - 0.5 02/02/2017 [facility] HEMATOLOGY Monocytes # 1.3 K/CMM 0.0 - 0.8 02/02/2017 [facility] Lymphocytes # 2.7 K/CMM 1.0 - 5.5 02/02/2017 [facility] Segs-Bands # 9.1 K/CMM 1.5 - 8.1 02/02/2017 [facility] HEMATOLOGY RBC 3.45 M/CMM 4.20 - 5.40 02/02/2017 [facility] HEMATOLOGY MPV 8.9 fL 7.4 - 10.4 02/02/2017 [facility] HEMATOLOGY Hgb 10.8 g/dL 12.0 - 16.0 02/02/2017 [facility] HEMATOLOGY Hct 33.4 % 36.0 - 48.0 02/02/2017 [facility] HEMATOLOGY Platelet 327 K/CMM 133 - 450 02/02/2017 [facility] HEMATOLOGY RDW 15.2 % 11.5 - 14.5 02/02/2017 [facility] MCHC 32.3 g/dL 32.0 - 36.0 02/02/2017 [facility] MCV 96.7 fL 80.0 - 98.0 02/02/2017 [facility] MCH 31.2 pg 27.0 - 31.0 02/02/2017 [facility] WBC 13.5 K/CMM 3.7 - 10.4 02/02/2017 [facility] URINE AND STOOL UA Urobilinogen <=1.0 mg/dL 0.1 - 1.0 02/02/2017 [facility] URINE AND STOOL UA Leuk Est Large *ABN* (02/02/17 3:49 PM) Negative 02/02/2017 [facility] URINE AND STOOL UA Protein 100 mg/dL Negative mg/dL 02/02/2017 [facility] URINE AND STOOL UA pH 5.0 5.0 - 8.0 02/02/2017 [facility] URINE AND STOOL UA WBC null 0 - 5 02/02/2017 [facility] URINE AND STOOL UA Sq Epi Occasional /LPF Few /LPF 02/02/2017 [facility] URINE AND STOOL UA Nitrite Negative (02/02/17 3:49 PM) Negative 02/02/2017 [facility] URINE AND STOOL UA Blood Large *ABN* (02/02/17 3:49 PM) Negative 02/02/2017 [facility] URINE AND STOOL UA Mucus Few /LPF None Seen /LPF 02/02/2017 [facility] URINE AND STOOL UA Bacteria Many /HPF None Seen /HPF 02/02/2017 [facility] URINE AND STOOL UA RBC 77 /HPF 0 - 2 02/02/2017 [facility] URINE AND STOOL UA Turbidity Marked *ABN* (02/02/17 3:49 PM) Clear 02/02/2017 [facility] URINE AND STOOL UA Spec Grav 1.018 <=1.030 02/02/2017 [facility] URINE AND STOOL UA Color Yellow *NA* (02/02/17 3:49 PM) Yellow 02/02/2017 [facility] URINE AND STOOL UA Glucose Negative mg/dL Negative mg/dL 02/02/2017 [facility] URINE AND STOOL UA Bili Negative *NA* (02/02/17 3:49 PM) Negative 02/02/2017 [facility] URINE AND STOOL UA Ketones Negative mg/dL Negative mg/dL 02/02/2017 [facility] Abdomen AP DX Abdomen AP DX KUB: The right ureteral stent is in satisfactory position. A small stone fragment along the distal stent at the UVJ could not be excluded. There is no other other definite urinary tract calculus. Multiple phleboliths are noted in the pelvis. The abdominal gas pattern is normal. Degenerative changes in the lumbar spine and right hip are noted. [id number] 01/23/2017 - - Read by: Irineo Simpson MD Dictated Date/time: 01/23/17 17:10 Electronically Signed by: Irineo Simpson MD 01/23/17 17:12 FINAL REPORT [facility] ELECTROLYTES AGAP 9.6 meq/L 10.0 - 20.0 11/25/2016 [facility] ELECTROLYTES eGFR 59 mL/min/1.73m2 11/25/2016 Result Comment: The eGFR is calculated using the [...] from the National Kidney Disease Education Program (NKDEP) which additionally recommends that when the eGFR is used in patients with extremes of body mass index for purposes of drug dosing, the eGFR should be multiplied by the estimated BMI. [facility] ELECTROLYTES Calcium Lvl 8.2 mg/dL 8.5 - 10.5 11/25/2016 [facility] ELECTROLYTES CO2 28 meq/L 24 - 32 11/25/2016 [facility] ELECTROLYTES BUN 10 mg/dL 7 - 22 11/25/2016 [facility] ELECTROLYTES Glucose Lvl 181 mg/dL 70 - 99 11/25/2016 [facility] ELECTROLYTES Chloride Lvl 109 meq/L 95 - 109 11/25/2016 [facility] ELECTROLYTES Sodium Lvl 143 meq/L 135 - 145 11/25/2016 [facility] ELECTROLYTES Potassium Lvl 3.6 meq/L 3.5 - 5.1 11/25/2016 [facility] ELECTROLYTES Creatinine Lvl 1.00 mg/dL 0.50 - 1.40 11/25/2016 [facility] HEMATOLOGY RDW 14.5 % 11.5 - 14.5 11/25/2016 [facility] MCHC 33.3 g/dL 32.0 - 36.0 11/25/2016 [facility] MPV 8.4 fL 7.4 - 10.4 11/25/2016 [facility] Platelet 334 K/CMM 133 - 450 11/25/2016 [facility] MCH 30.1 pg 27.0 - 31.0 11/25/2016 [facility] Hgb 8.4 g/dL 12.0 - 16.0 11/25/2016 [facility] HEMATOLOGY MCV 90.4 fL 80.0 - 98.0 11/25/2016 [facility] Hct 25.1 % 36.0 - 48.0 11/25/2016 [facility] HEMATOLOGY RBC 2.78 M/CMM 4.20 - 5.40 11/25/2016 [facility] HEMATOLOGY WBC 10.8 K/CMM 3.7 - 10.4 11/25/2016 [facility] HEMATOLOGY Segs-Bands # 7.3 K/CMM 1.5 - 8.1 11/25/2016 [facility] HEMATOLOGY Eosinophils 3.4 % 0.0 - 4.0 11/25/2016 [facility] HEMATOLOGY Basophils 0.5 % 0.0 - 1.0 11/25/2016 [facility] HEMATOLOGY Lymphocytes # 2.0 K/CMM 1.0 - 5.5 11/25/2016 [facility] HEMATOLOGY Monocytes # 1.0 K/CMM 0.0 - 0.8 11/25/2016 [facility] HEMATOLOGY Monocytes 9.7 % 2.0 - 12.0 11/25/2016 [facility] HEMATOLOGY Segs 67.8 % 45.0 - 75.0 11/25/2016 [facility] HEMATOLOGY Lymphocytes 18.6 % 20.0 - 40.0 11/25/2016 [facility] HEMATOLOGY Eosinophils # 0.4 K/CMM 0.0 - 0.5 11/25/2016 [facility] HEMATOLOGY Basophils # 0.1 K/CMM 0.0 - 0.2 11/25/2016 [facility] CHEM PANEL BUN 15 mg/dL 7 - 22 11/24/2016 [facility] CHEM PANEL Creatinine Lvl 1.40 mg/dL 0.50 - 1.40 11/24/2016 [facility] CHEM PANEL Glucose Lvl 169 mg/dL 70 - 99 11/24/2016 [facility] CHEM PANEL eGFR 39 mL/min/1.73m2 11/24/2016 Result Comment: The eGFR is calculated using the [...] from the National Kidney Disease Education Program (NKDEP) which additionally recommends that when the eGFR is used in patients with extremes of body mass index for purposes of drug dosing, the eGFR should be multiplied by the estimated BMI. [facility] CHEM PANEL CO2 24 meq/L 24 - 32 11/24/2016 [facility] CHEM PANEL Potassium Lvl 4.2 meq/L 3.5 - 5.1 11/24/2016 [facility] CHEM PANEL Calcium Lvl 8.0 mg/dL 8.5 - 10.5 11/24/2016 [facility] CHEM PANEL Chloride Lvl 108 meq/L 95 - 109 11/24/2016 [facility] CHEM PANEL Sodium Lvl 145 meq/L 135 - 145 11/24/2016 [facility] CHEM PANEL AGAP 17.2 meq/L 10.0 - 20.0 11/24/2016 [facility] HEMATOLOGY Eosinophils 2.8 % 0.0 - 4.0 11/24/2016 [facility] HEMATOLOGY Lymphocytes # 2.0 K/CMM 1.0 - 5.5 11/24/2016 [facility] HEMATOLOGY Monocytes # 1.1 K/CMM 0.0 - 0.8 11/24/2016 [facility] HEMATOLOGY Basophils 0.3 % 0.0 - 1.0 11/24/2016 [facility] HEMATOLOGY Segs-Bands # 9.5 K/CMM 1.5 - 8.1 11/24/2016 [facility] HEMATOLOGY Eosinophils # 0.4 K/CMM 0.0 - 0.5 11/24/2016 [facility] HEMATOLOGY Segs 72.7 % 45.0 - 75.0 11/24/2016 [facility] Lymphocytes 15.4 % 20.0 - 40.0 11/24/2016 [facility] Monocytes 8.8 % 2.0 - 12.0 11/24/2016 [facility] WBC 13.0 K/CMM 3.7 - 10.4 11/24/2016 [facility] MPV 8.7 fL 7.4 - 10.4 11/24/2016 [facility] Platelet 321 K/CMM 133 - 450 11/24/2016 [facility] RDW 14.8 % 11.5 - 14.5 11/24/2016 [facility] MCHC 32.6 g/dL 32.0 - 36.0 11/24/2016 [facility] MCH 29.7 pg 27.0 - 31.0 11/24/2016 [facility] MCV 91.1 fL 80.0 - 98.0 11/24/2016 [facility] Hct 26.1 % 36.0 - 48.0 11/24/2016 [facility] Hgb 8.5 g/dL 12.0 - 16.0 11/24/2016 [facility] RBC 2.87 M/CMM 4.20 - 5.40 11/24/2016 [facility] ELECTROLYTES AGAP 9.8 meq/L 10.0 - 20.0 11/23/2016 [facility] ELECTROLYTES Calcium Lvl 7.9 mg/dL 8.5 - 10.5 11/23/2016 [facility] ELECTROLYTES CO2 28 meq/L 24 - 32 11/23/2016 [facility] ELECTROLYTES Chloride Lvl 109 meq/L 95 - 109 11/23/2016 [facility] ELECTROLYTES eGFR 36 mL/min/1.73m2 11/23/2016 Result Comment: The eGFR is calculated using the [...] from the National Kidney Disease Education Program (NKDEP) which additionally recommends that when the eGFR is used in patients with extremes of body mass index for purposes of drug dosing, the eGFR should be multiplied by the estimated BMI. [facility] ELECTROLYTES Potassium Lvl 3.8 meq/L 3.5 - 5.1 11/23/2016 [facility] ELECTROLYTES Sodium Lvl 143 meq/L 135 - 145 11/23/2016 [facility] ELECTROLYTES Creatinine Lvl 1.50 mg/dL 0.50 - 1.40 11/23/2016 [facility] ELECTROLYTES BUN 18 mg/dL 7 - 22 11/23/2016 [facility] ELECTROLYTES Glucose Lvl 117 mg/dL 70 - 99 11/23/2016 [facility] URINE AND STOOL UA Color Red 11/23/2016 [facility] URINE AND STOOL UA Urobilinogen <=1.0 mg/dL 0.1 - 1.0 11/23/2016 [facility] URINE AND STOOL UA Renal Epi 7 /LPF <=0 /LPF 11/23/2016 [facility] URINE AND STOOL UA Amorph Bridget Few /HPF None Seen /HPF 11/23/2016 [facility] URINE AND STOOL UA Glucose 50 mg/dL Negative mg/dL 11/23/2016 [facility] URINE AND STOOL UA Blood Large *ABN* (11/22/16 10:00 PM) Negative 11/23/2016 [facility] URINE AND STOOL UA Bili Negative *NA* (11/22/16 10:00 PM) Negative 11/23/2016 [facility] URINE AND STOOL UA Mucus Few /LPF None Seen /LPF 11/23/2016 [facility] URINE AND STOOL UA Sq Epi Moderate /LPF Few /LPF 11/23/2016 [facility] URINE AND STOOL UA WBC null 0 - 5 11/23/2016 [facility] URINE AND STOOL UA RBC null 0 - 2 11/23/2016 [facility] URINE AND STOOL UA Bacteria Occasional /HPF None Seen /HPF 11/23/2016 [facility] URINE AND STOOL UA Leuk Est Large *ABN* (11/22/16 10:00 PM) Negative 11/23/2016 [facility] URINE AND STOOL UA Nitrite Negative (11/22/16 10:00 PM) Negative 11/23/2016 [facility] URINE AND STOOL UA Spec Grav 1.011 <=1.030 11/23/2016 [facility] URINE AND STOOL UA Protein 100 mg/dL Negative mg/dL 11/23/2016 [facility] URINE AND STOOL UA pH 6.0 5.0 - 8.0 11/23/2016 [facility] URINE AND STOOL UA Ketones Negative mg/dL Negative mg/dL 11/23/2016 [facility] URINE AND STOOL UA Turbidity Marked *ABN* (11/22/16 10:00 PM) Clear 11/23/2016 [facility] Renal pyelogram retrograde DX Renal pyelogram retrograde DX Patient Name: SAGRARIO SINGLETON : 1950; Age: 66 years Female MR: [id number] Study: Renal pyelogram retrograde DX 11/22/2016 8:00 AM CDT Clinical Indication: - ST 0750;ET ;FT ;DOSE ;TECH: Bull LOGAN. COMPARISON: None FINDINGS: 1 image is submitted which demonstrates partial distention of the mid right ureter. Catheter/stent device traverses the right ureter. There is thoracic and lumbar spondylosis. SL: [id number] 11/22/2016 - - Read by: Tomy Torres MD Dictated Date/time: 11/22/16 10:12 Electronically Signed by: Tomy Torres MD 11/22/16 10:14 FINAL REPORT [facility] HEMATOLOGY Segs 84.0 % 45.0 - 75.0 11/21/2016 [facility] Lymphocytes 6.5 % 20.0 - 40.0 11/21/2016 [facility] Monocytes 7.4 % 2.0 - 12.0 11/21/2016 [facility] HEMATOLOGY Eosinophils 1.6 % 0.0 - 4.0 11/21/2016 [facility] Basophils 0.5 % 0.0 - 1.0 11/21/2016 [facility] Segs-Bands # 15.7 K/CMM 1.5 - 8.1 11/21/2016 [facility] HEMATOLOGY Lymphocytes # 1.2 K/CMM 1.0 - 5.5 11/21/2016 [facility] Monocytes # 1.4 K/CMM 0.0 - 0.8 11/21/2016 [facility] Basophils # 0.1 K/CMM 0.0 - 0.2 11/21/2016 [facility] Eosinophils # 0.3 K/CMM 0.0 - 0.5 11/21/2016 [facility] MPV 8.4 fL 7.4 - 10.4 11/21/2016 [facility] Platelet 275 K/CMM 133 - 450 11/21/2016 [facility] MCHC 32.1 g/dL 32.0 - 36.0 11/21/2016 [facility] RDW 14.5 % 11.5 - 14.5 11/21/2016 [facility] MCV 93.3 fL 80.0 - 98.0 11/21/2016 [facility] MCH 29.9 pg 27.0 - 31.0 11/21/2016 [facility] Hct 26.9 % 36.0 - 48.0 11/21/2016 [facility] Hgb 8.6 g/dL 12.0 - 16.0 11/21/2016 [facility] WBC 18.7 K/CMM 3.7 - 10.4 11/21/2016 [facility] RBC 2.88 M/CMM 4.20 - 5.40 11/21/2016 [facility] Abdomen/Pelvis wo IV contrast CT Abdomen/Pelvis wo IV contrast CT Patient Name: SGARARIO SINGLETON : 1950; Age: 66 years Female MR: [id number] Study: Abdomen/Pelvis wo IV contrast CT 11/19/2016 [...] hernia. 10. Lumbar spinal stenosis incompletely evaluated. SL: ANDREINA 11/21/2016 - - Read by: Tomy Torres MD Dictated Date/time: 11/20/16 19:58 Electronically Signed by: Tomy Torres MD 11/20/16 20:07 FINAL REPORT [facility] HEMATOLOGY Basophils # 0.1 K/CMM 0.0 - 0.2 11/20/2016 [facility] TOXICOLOGY Digoxin Lvl 1.9 ng/mL 0.8 - 2.0 11/17/2016 [facility] CHEM PANEL ALT 9 unit/L 0 - 65 11/16/2016 [facility] CHEM PANEL Albumin Lvl 1.9 g/dL 3.5 - 5.0 11/16/2016 [facility] CHEM PANEL Total Protein 6.8 g/dL 6.4 - 8.4 11/16/2016 [facility] CHEM PANEL Bili Total 0.4 mg/dL 0.2 - 1.3 11/16/2016 [facility] CHEM PANEL Alk Phos 134 unit/L 39 - 136 11/16/2016 [facility] CHEM PANEL AST 8 unit/L 0 - 37 11/16/2016 [facility] CHEM PANEL A/G Ratio 0.4 0.7 - 1.6 11/16/2016 [facility] CHEM PANEL Globulin 4.9 g/dL 2.7 - 4.2 11/16/2016 [facility] CHEM PANEL B/C Ratio 22 6 - 25 11/16/2016 [facility] TOXICOLOGY Digoxin Lvl 2.7 ng/mL 0.8 - 2.0 11/15/2016 Result Comment: Critical Result(s) called to Angelita Wheeler at 11/15/2016 07:33 byHA. Read back OK. [facility] Chest 1view DX Chest 1view DX Patient Name: SAGRARIO SINGLETON : 1950; Age: 66 years y/o Female MR: [id number] * CHEST, portable, 1 view 11/11/2016 @ 11:33 HISTORY: Status post temporary dialysis catheter placement. COMPARISON: 11/13/2016. A study of 11/11/2016 was also reviewed. IMPRESSION: 1. No significant change from yesterday. 2. Residual findings of congestive failure with mild cardiomegaly and mild pulmonary vascular congestion. There is been significant improvement from 11/11/2016. There are no new abnormalities. 3. Right IJ temporary dialysis catheter in mid superior vena cava. 4. There are mild scattered degenerative changes involving the thoracic spine. There are degenerative changes involving both shoulders. The regional skeleton is otherwise unremarkable. SL: [id number] 11/15/2016 - - Read by: Jose Wray MD Dictated Date/time: 11/15/16 09:20 Electronically Signed by: Jose Wray MD 11/15/16 09:22 FINAL REPORT [facility] Ext Lower Venous Doppler Unilat US Ext Lower Venous Doppler Unilat US Patient Name: SAGRARIO SINGLETON : 1950; Age: 66 years y/o Female MR: [id number] Study: Ext Lower Venous Doppler Unilat US 11/14/2016 4:59 PM CDT Ordering Physician: Rj Nguyễn MD Comparison: None Clinical Indication: Pain, Limb; right lower extremity There is good augmentation, compression and respiratory phasicity of the deep venous structures of the right lower extremity. A complex multilocular cystic structure is noted at the right popliteal fossa without color flow measuring 4.8 x 1.7 x 1.3 cm likely representing a Arroyo's cyst. IMPRESSION: No deep venous thrombosis noted at the right lower extremity. 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 SL: [id number] 11/14/2016 - - Read by: Valdo Hart MD Dictated Date/time: 11/14/16 18:32 Electronically Signed by: Valdo Hart MD 11/14/16 18:33 FINAL REPORT [facility] CHEM PANEL Phosphorus 5.0 mg/dL 2.5 - 4.5 11/13/2016 [facility] CHEM PANEL Magnesium Lvl 2.0 mg/dL 1.8 - 2.4 11/13/2016 [facility] Chest 1view DX Chest 1view DX Portable chest: The right jugular dialysis tempcath is in satisfactory position. The cardiac silhouette is mildly enlarged. There is improving pulmonary venous congestion and edema compared to the exam on 11/11/2016. There is no significant effusion. There is no other change. [id number] 11/13/2016 - - Read by: Irineo Simpson MD Dictated Date/time: 11/13/16 07:41 Electronically Signed by: Irineo Simpson MD 11/13/16 07:42 FINAL REPORT [facility] BACTERIAL - SEROLOGY MRSA by PCR Positive 1 *ABN* (11/11/16 5:47 PM) 11/11/2016 Result Comment: "Significant Findings called to Bull Jamisonat 11/12/2016 05:58 by CO.Read Back OK." [facility] Chest 1 v for Placement DX Chest 1 v for Placement DX Patient Name: SAGRARIO SINGLETON : 1950; Age: 66 years y/o Female MR: [id number] * CHEST, portable, 1 view 11/11/2016 @ 11:33 HISTORY: Status post temporary dialysis catheter placement. COMPARISON: 11/08/2016 IMPRESSION: 1. There has been placement of a right IJ temporary dialysis catheter which extends into the lower superior vena cava. 2. There is no evidence of pneumothorax or other complication following placement. 3. Worsening appearance the chest consistent with congestive failure and pulmonary edema. There is cardiomegaly, pulmonary vascular congestion, development of bilateral perihilar hazy opacities probably representing edema. 4. There are mild scattered degenerative changes involving the thoracic spine. The regional skeleton is otherwise unremarkable. : [id number] 11/11/2016 - - Read by: Jose Wray MD Dictated Date/time: 11/11/16 13:28 Electronically Signed by: Jose Wray MD 11/11/16 13:31 FINAL REPORT [facility] CVC insert non-tunnel age 5+ yrs VR CVC insert non-tunnel age 5+ yrs VR Patient Name: SAGRARIO SINGLETON : 1950; Age: 66 years y/o Female MR: [id number] Study: CVC insert non-tunnel age 5+ yrs VR 11/10/2016 3:41 PM CDT Ordering Physician: Clinical Indication: Other- See Reason for Consult; needs venous access for hemodialysis. Comparison: None Procedure: Placement of temporary dialysis catheter. Timeout was performed prior to procedure. Procedure was performed utilizing maximal sterile barrier technique. Sonographically guided vein puncture with hard copy documentation. Right internal jugular vein was shown to be patent, compressible suitable for access. Hard copy sonographic image of venous access recorded in PACS. Utilizing Seldinger technique a 15 cm, 13-Bulgarian temporary dialysis catheter was placed into the SVC. The catheter demonstrated good flow dynamics and was flushed and saline locked. An appropriate dressing was applied. Procedure well-tolerated clinically. SL: [id number] 11/11/2016 - - Read by: Feliciano Rose MD Dictated Date/time: 11/11/16 11:38 Electronically Signed by: Feliciano Rose MD 11/11/16 11:39 FINAL REPORT [facility] TOXICOLOGY Digoxin Lvl 6.2 ng/mL 0.8 - 2.0 11/11/2016 Result Comment: Critical Result(s) called to shaila francois at 11/11/2016 06:18 by . Read back OK. [facility] IMMUNOLOGY Hep Bs Ag Negative *NA* (11/10/16 6:00 PM) Negative 11/10/2016 [facility] CHEM PANEL Magnesium Lvl 1.6 mg/dL 1.8 - 2.4 11/10/2016 [facility] CHEM PANEL Phosphorus 5.6 mg/dL 2.5 - 4.5 11/10/2016 [facility] HEMATOLOGY Plt Morph Normal (11/10/16 2:56 AM) 11/10/2016 [facility] HEMATOLOGY RBC Morph Normal (11/10/16 2:56 AM) 11/10/2016 [facility] HEMATOLOGY Atypical Lymphs 0.0 % <=0.0 % 11/10/2016 [facility] HEMATOLOGY Bands 32.0 % 0.0 - 11.0 11/10/2016 [facility] URINE AND STOOL UA Protein 100 mg/dL Negative mg/dL 11/09/2016 [facility] URINE AND STOOL UA Ketones Negative mg/dL Negative mg/dL 11/09/2016 [facility] URINE AND STOOL UA Bili Negative *NA* (11/09/16 5:22 PM) Negative 11/09/2016 [facility] URINE AND STOOL UA RBC 106 /HPF 0 - 2 11/09/2016 [facility] URINE AND STOOL UA Blood Large *ABN* (11/09/16 5:22 PM) Negative 11/09/2016 [facility] URINE AND STOOL UA WBC 142 /HPF 0 - 5 11/09/2016 [facility] URINE AND STOOL UA Nitrite Negative (11/09/16 5:22 PM) Negative 11/09/2016 [facility] URINE AND STOOL UA Turbidity Marked *ABN* (11/09/16 5:22 PM) Clear 11/09/2016 [facility] URINE AND STOOL UA Spec Grav 1.015 <=1.030 11/09/2016 [facility] URINE AND STOOL UA pH 5.0 5.0 - 8.0 11/09/2016 [facility] URINE AND STOOL UA Glucose 150 mg/dL Negative mg/dL 11/09/2016 [facility] URINE AND STOOL UA Urobilinogen <=1.0 mg/dL 0.1 - 1.0 11/09/2016 [facility] URINE AND STOOL UA Gran Cast 4 /LPF 11/09/2016 [facility] URINE AND STOOL UA Leuk Est Large *ABN* (11/09/16 5:22 PM) Negative 11/09/2016 [facility] URINE AND STOOL UA Sq Epi Occasional /LPF Few /LPF 11/09/2016 [facility] URINE AND STOOL UA Color Zehra 11/09/2016 [facility] URINE AND STOOL UA Amorph Bridget Few /HPF None Seen /HPF 11/09/2016 [facility] URINE AND STOOL UA Bacteria Many /HPF None Seen /HPF 11/09/2016 [facility] URINE AND STOOL UA Mucus Few /LPF None Seen /LPF 11/09/2016 [facility] URINE AND STOOL UA Renal Epi 24 /LPF <=0 /LPF 11/09/2016 [facility] URINE CHEM U Protein 214.0 mg/dL 11/09/2016 [facility] URINE CHEM U Creatinine 110.00 mg/dL 11/09/2016 [facility] URINE CHEM U Sodium 51 meq/L 11/09/2016 [facility] Retroperitoneal Complete US Retroperitoneal Complete US Patient Name: SAGRARIO SINGLETON : 1950; Age: 66 years Female MR: [id number] Study: Retroperitoneal Complete US 11/09/2016 8:18 PM CDT CLINICAL INDICATION: renal insuff. ADDITIONAL HISTORY: None COMPARISON: None TECHNIQUE: Grayscale and color sonographic evaluation of the kidneys was performed using standard technique. FINDINGS: The right kidney measures 10.2 cm in length. The left kidney measures 11.1 cm in length. Normal renal echogenicity. Mild right hydronephrosis. Flynn catheter within a decompressed bladder. IMPRESSION: Mild right hydronephrosis. SL: [id number] 11/09/2016 - - Read by: Racheal Mukherjee MD Dictated Date/time: 11/09/16 20:58 Electronically Signed by: Racheal Mukherjee MD 11/09/16 21:00 FINAL REPORT [facility] CHEM PANEL Lactic Acid Lvl 3.6 mMol/L 0.5 - 2.2 11/09/2016 [facility] HEMATOLOGY Atypical Lymphs 0.0 % <=0.0 % 11/09/2016 [facility] HEMATOLOGY Plt Morph Normal (11/09/16 2:36 AM) 11/09/2016 [facility] RBC Morph Normal (11/09/16 2:36 AM) 11/09/2016 [facility] Tot Cell Ct 100 11/09/2016 [facility] HEMATOLOGY Bands 32.0 % 0.0 - 11.0 11/09/2016 [facility] CARDIAC ENZYMES Troponin-I 0.05 ng/mL 0.00 - 0.40 11/09/2016 [facility] CARDIAC ENZYMES Total CK 54 unit/L 12 - 191 11/09/2016 [facility] CHEM PANEL Lactic Acid Lvl 3.8 mMol/L 0.5 - 2.2 11/09/2016 [facility] BACTERIAL - SEROLOGY MRSA by PCR Positive 2 *ABN* (11/08/16 10:15 PM) 11/09/2016 Result Comment: "Significant Findings called to Adrianne Jo_at 610pm___by _FG__.Read Back OK." [facility] URINE AND STOOL UA Sq Epi None Seen 11/09/2016 [facility] URINE AND STOOL UA Urobilinogen <=1.0 mg/dL 0.1 - 1.0 11/09/2016 [facility] URINE AND STOOL UA Nitrite Negative (11/08/16 10:15 PM) Negative 11/09/2016 [facility] URINE AND STOOL UA Blood Large *ABN* (11/08/16 10:15 PM) Negative 11/09/2016 [facility] URINE AND STOOL UA Leuk Est Small *ABN* (11/08/16 10:15 PM) Negative 11/09/2016 [facility] URINE AND STOOL UA Bili Negative *NA* (11/08/16 10:15 PM) Negative 11/09/2016 [facility] URINE AND STOOL UA Amorph Bridget Occasional /HPF None Seen /HPF 11/09/2016 [facility] URINE AND STOOL UA RBC 127 /HPF 0 - 2 11/09/2016 [facility] URINE AND STOOL UA Bacteria Many /HPF None Seen /HPF 11/09/2016 [facility] URINE AND STOOL UA Ketones Negative mg/dL Negative mg/dL 11/09/2016 [facility] URINE AND STOOL UA Glucose Negative mg/dL Negative mg/dL 11/09/2016 [facility] URINE AND STOOL UA pH 5.0 5.0 - 8.0 11/09/2016 [facility] URINE AND STOOL UA Turbidity Marked *ABN* (11/08/16 10:15 PM) Clear 11/09/2016 [facility] URINE AND STOOL UA Spec Grav 1.013 <=1.030 11/09/2016 [facility] URINE AND STOOL UA Protein 100 mg/dL Negative mg/dL 11/09/2016 [facility] URINE AND STOOL UA WBC 6 /HPF 0 - 5 11/09/2016 [facility] URINE AND STOOL UA Color Yellow *NA* (11/08/16 10:15 PM) Yellow 11/09/2016 [facility] CARDIAC ENZYMES Troponin-I 0.06 ng/mL 0.00 - 0.40 11/09/2016 [facility] CARDIAC ENZYMES Total CK 54 unit/L 12 - 191 11/09/2016 [facility] CHEM PANEL Lactic Acid Lvl 3.4 mMol/L 0.5 - 2.2 11/09/2016 [facility] CHEM PANEL Osmolality 314 mOsm/kg 280 - 300 11/08/2016 [facility] URINE CHEM U Chloride 56 meq/L 11/08/2016 [facility] URINE CHEM U Sodium 60 meq/L 11/08/2016 [facility] URINE CHEM U Potassium 20.1 meq/L 11/08/2016 [facility] Chest US Chest US Chest US TECHNIQUE: Grayscale and color Doppler images of the lower chest were performed with a curvilinear transducer. Static images are submitted for review. CLINICAL HX: Absent of breath sounds - evaluate for pleural effusions; COMPARISON: Chest one view 11/08/2016 FINDINGS/IMPRESSION: No large effusion is present in the lower chest on either side on the submitted images. SL: [id number] 11/08/2016 - - Read by: Silviano Hernandez MD Dictated Date/time: 11/09/16 11:49 Electronically Signed by: Silviano Hernandez MD 11/09/16 11:51 FINAL REPORT [facility] CARDIAC ENZYMES Troponin-I 0.07 ng/mL 0.00 - 0.40 11/08/2016 [facility] CARDIAC ENZYMES BNP 179 pg/mL <=100 pg/mL 11/08/2016 [facility] CHEM PANEL ALT 10 unit/L 0 - 65 11/08/2016 [facility] CHEM PANEL A/G Ratio 0.5 0.7 - 1.6 11/08/2016 [facility] CHEM PANEL Globulin 4.5 g/dL 2.7 - 4.2 11/08/2016 [facility] CHEM PANEL AST 16 unit/L 0 - 37 11/08/2016 [facility] CHEM PANEL Alk Phos 126 unit/L 39 - 136 11/08/2016 [facility] CHEM PANEL Bili Total 0.5 mg/dL 0.2 - 1.3 11/08/2016 [facility] CHEM PANEL Albumin Lvl 2.4 g/dL 3.5 - 5.0 11/08/2016 [facility] CHEM PANEL Total Protein 6.9 g/dL 6.4 - 8.4 11/08/2016 [facility] CHEM PANEL B/C Ratio 15 6 - 25 11/08/2016 [facility] HEMATOLOGY Bands 8.0 % 0.0 - 11.0 11/08/2016 [facility] HEMATOLOGY Plt Morph Normal (11/08/16 1:46 PM) 11/08/2016 [facility] RBC Morph Normal (11/08/16 1:46 PM) 11/08/2016 [facility] HEMATOLOGY Atypical Lymphs 0.0 % <=0.0 % 11/08/2016 [facility] HEMATOLOGY INR 1.18 0.85 - 1.17 11/08/2016 [facility] HEMATOLOGY PT 15.2 s 12.0 - 14.7 11/08/2016 [facility] HEMATOLOGY PTT 26.9 s 22.9 - 35.8 11/08/2016 [facility] Chest 1view DX Chest 1view DX Chest 1view DX CLINICAL HISTORY:Shortness of Breath COMPARISON: 11/08/2016, 1633 hours FINDINGS/IMPRESSION: Limited AP portable study. Support Lines/Devices: none Lungs: Patchy infiltrate in the right lower lobe persists without significant interval change. Cardiomediastinum: Cardiomediastinal silhouette is stable. Bone and Soft Tissues: No significant abnormality is evident. Multiple EKG leads and other wires project over the patient's chest. SL: MOHIT 11/08/2016 - - Read by: Silviano Hernandez MD Dictated Date/time: 11/08/16 18:07 Electronically Signed by: Silviano Hernandez MD 11/08/16 18:10 FINAL REPORT [facility] Chest 1view DX Chest 1view DX Study: Chest 1view DX portable 11/08/2016 1633 hours Clinical Indication: hypoxia Comparison: Chest 1358 hours FINDINGS: Image quality is compromised by the large patient size. The cardiac silhouette is top normal in size. The lungs are incompletely inflated. Ill-defined right infrahilar infiltrate has developed suggesting pneumonitis. No vascular congestion or significant pleural effusion is seen. SL: RASHEL 11/08/2016 - - Read by: Peter Owens MD Dictated Date/time: 11/08/16 17:01 Electronically Signed by: Peter Owens MD 11/08/16 17:02 FINAL REPORT [facility] Chest 1view DX Chest 1view DX Chest 1view DX CLINICAL HISTORY:Dyspnea - copd COMPARISON: 05/29/2015 FINDINGS/IMPRESSION: Limited AP portable study. Support Lines/Devices: none Lungs: No consolidation, effusion or any significant pulmonary edema. Cardiomediastinum: Mild stable cardiac silhouette enlargement. Bone and Soft Tissues: No significant abnormality is evident. Multiple EKG leads and other wires project over the patient's chest. SL: MOHIT 11/08/2016 - - Read by: Silviano Hernandez MD Dictated Date/time: 11/08/16 14:22 Electronically Signed by: Silviano Hernandez MD 11/08/16 14:23 FINAL REPORT [facility] CHEM PANEL Magnesium Lvl 1.9 mg/dL 1.8 - 2.4 05/20/2015 [facility] ELECTROLYTES Sodium Lvl 139 meq/L 135 - 145 05/20/2015 [facility] ELECTROLYTES AGAP 10.8 meq/L 10.0 - 20.0 05/20/2015 [facility] ELECTROLYTES CO2 36 meq/L 24 - 32 05/20/2015 [facility] ELECTROLYTES Chloride Lvl 96 meq/L 95 - 109 05/20/2015 [facility] ELECTROLYTES Potassium Lvl 3.8 meq/L 3.5 - 5.1 05/20/2015 [facility] ELECTROLYTES BUN 24 mg/dL 7 - 22 05/20/2015 [facility] ELECTROLYTES Calcium Lvl 8.4 mg/dL 8.5 - 10.5 05/20/2015 [facility] ELECTROLYTES Glucose Lvl 323 mg/dL 70 - 99 05/20/2015 [facility] ELECTROLYTES Creatinine Lvl 0.92 mg/dL 0.50 - 1.40 05/20/2015 [facility] ELECTROLYTES eGFR 66 mL/min/1.73m2 05/20/2015 Result Comment: The eGFR is calculated using the [...] from the National Kidney Disease Education Program (NKDEP) which additionally recommends that when the eGFR is used in patients with extremes of body mass index for purposes of drug dosing, the eGFR should be multiplied by the estimated BMI. [facility] Chest 2 views DX Chest 2 views DX PROCEDURE: Chest 2 views REASON FOR EXAM: See Clinic Indication CLINICAL INDICATION: Absent of breath sounds COMPARISON: 09/30/2011. FINDINGS: Mildly enlarged cardiac silhouette. Mild vascular congestive change and pulmonary edema. Small bilateral pleural effusions are present. Moderate to severe thoracic spondylosis. SL: 12 05/19/2015 - - Read by: Dayne Haywood MD Dictated Date/time: 05/19/15 12:08 Electronically Signed by: Dayne Haywood MD 05/19/15 12:19 FINAL REPORT [facility] ELECTROLYTES Chloride Lvl 97 meq/L 95 - 109 05/18/2015 [facility] Potassium Lvl 3.6 meq/L 3.5 - 5.1 05/18/2015 [facility] eGFR 45 mL/min/1.73m2 05/18/2015 Result Comment: The eGFR is calculated using the [...] from the National Kidney Disease Education Program (NKDEP) which additionally recommends that when the eGFR is used in patients with extremes of body mass index for purposes of drug dosing, the eGFR should be multiplied by the estimated BMI. [facility] ELECTROLYTES Calcium Lvl 8.5 mg/dL 8.5 - 10.5 05/18/2015 [facility] ELECTROLYTES AGAP 13.6 meq/L 10.0 - 20.0 05/18/2015 [facility] ELECTROLYTES CO2 31 meq/L 24 - 32 05/18/2015 [facility] ELECTROLYTES Sodium Lvl 138 meq/L 135 - 145 05/18/2015 [facility] ELECTROLYTES Creatinine Lvl 1.25 mg/dL 0.50 - 1.40 05/18/2015 [facility] ELECTROLYTES BUN 26 mg/dL 7 - 22 05/18/2015 [facility] ELECTROLYTES Glucose Lvl 315 mg/dL 70 - 99 05/18/2015 [facility] CARDIAC ENZYMES CK MB Index 1.7 0.0 - 2.5 05/17/2015 [facility] CARDIAC ENZYMES BNP 163 pg/mL <=100 pg/mL 05/17/2015 [facility] CARDIAC ENZYMES CK MB 0.6 ng/mL 0.5 - 3.6 05/17/2015 [facility] CARDIAC ENZYMES Total CK 36 unit/L 12 - 191 05/17/2015 [facility] CARDIAC ENZYMES Troponin-I null 0.00 - 0.40 05/17/2015 [facility] CHEM PANEL Albumin Lvl 3.5 g/dL 3.5 - 5.0 05/17/2015 [facility] CHEM PANEL Total Protein 6.8 g/dL 6.4 - 8.4 05/17/2015 [facility] CHEM PANEL A/G Ratio 1.1 0.7 - 1.6 05/17/2015 [facility] CHEM PANEL Globulin 3.3 g/dL 2.0 - 4.0 05/17/2015 [facility] CHEM PANEL B/C Ratio 18 6 - 25 05/17/2015 [facility] CHEM PANEL Calcium Lvl 8.8 mg/dL 8.5 - 10.5 05/17/2015 [facility] CHEM PANEL Alk Phos 52 unit/L 39 - 136 05/17/2015 [facility] CHEM PANEL AST 7 unit/L 0 - 37 05/17/2015 [facility] CHEM PANEL Bili Total 0.9 mg/dL 0.2 - 1.3 05/17/2015 [facility] CHEM PANEL ALT 18 unit/L 0 - 65 05/17/2015 [facility] CHEM PANEL eGFR 81 mL/min/1.73m2 05/17/2015 Result Comment: The eGFR is calculated using the [...] from the National Kidney Disease Education Program (NKDEP) which additionally recommends that when the eGFR is used in patients with extremes of body mass index for purposes of drug dosing, the eGFR should be multiplied by the estimated BMI. [facility] CHEM PANEL AGAP 14.6 meq/L 10.0 - 20.0 05/17/2015 [facility] CHEM PANEL CO2 29 meq/L 24 - 32 05/17/2015 [facility] CHEM PANEL Glucose Lvl 349 mg/dL 70 - 99 05/17/2015 [facility] CHEM PANEL Creatinine Lvl 0.77 mg/dL 0.50 - 1.40 05/17/2015 [facility] CHEM PANEL BUN 14 mg/dL 7 - 22 05/17/2015 [facility] CHEM PANEL Chloride Lvl 98 meq/L 95 - 109 05/17/2015 [facility] [facility] Potassium Lvl 3.6 meq/L 3.5 - 5.1 05/17/2015 [facility] CHEM PANEL Sodium Lvl 138 meq/L 135 - 145 05/17/2015 [facility] CHEM PANEL Procalcitonin Lvl <0.05 ng/mL 0.00 - 0.10 05/17/2015 [facility] CHEM PANEL Magnesium Lvl 1.8 mg/dL 1.8 - 2.4 05/17/2015 [facility] HEMATOLOGY Lymphocytes # 0.8 K/CMM 1.0 - 5.5 05/17/2015 [facility] HEMATOLOGY Monocytes # 0.3 K/CMM 0.0 - 0.8 05/17/2015 [facility] HEMATOLOGY Basophils # 0.1 K/CMM 0.0 - 0.2 05/17/2015 [facility] HEMATOLOGY Segs-Bands # 12.8 K/CMM 1.5 - 8.1 05/17/2015 [facility] HEMATOLOGY Basophils 0.9 % 0.0 - 1.0 05/17/2015 [facility] HEMATOLOGY Segs 91.4 % 45.0 - 75.0 05/17/2015 [facility] HEMATOLOGY Monocytes 2.1 % 2.0 - 12.0 05/17/2015 [facility] HEMATOLOGY Lymphocytes 5.6 % 20.0 - 40.0 05/17/2015 [facility] HEMATOLOGY MCHC 31.5 g/dL 32.0 - 36.0 05/17/2015 [facility] HEMATOLOGY Platelet 217 K/CMM 133 - 450 05/17/2015 [facility] HEMATOLOGY RDW 16.0 % 11.5 - 14.5 05/17/2015 [facility] HEMATOLOGY MPV 9.8 fL 7.4 - 10.4 05/17/2015 [facility] HEMATOLOGY MCH 29.7 pg 27.0 - 31.0 05/17/2015 [facility] HEMATOLOGY RBC 3.93 M/CMM 4.20 - 5.40 05/17/2015 [facility] HEMATOLOGY Hct 37.1 % 36.0 - 48.0 05/17/2015 [facility] HEMATOLOGY Hgb 11.7 g/dL 12.0 - 16.0 05/17/2015 [facility] HEMATOLOGY MCV 94.5 fL 80.0 - 98.0 05/17/2015 [facility] HEMATOLOGY WBC 14.0 K/CMM 3.7 - 10.4 05/17/2015 [facility] HEMATOLOGY D-Dimer 1.07 ug/mL FEU 05/17/2015 [facility] HEMATOLOGY PT 14.4 s 12.0 - 14.7 05/17/2015 [facility] HEMATOLOGY PTT 26.4 s 22.9 - 35.8 05/17/2015 [facility] HEMATOLOGY INR 1.09 0.85 - 1.17 05/17/2015 [facility] LIPIDS VLDL 28 05/17/2015 [facility] LIPIDS LDL (Calculated) 102 mg/dL <=99 mg/dL 05/17/2015 [facility] LIPIDS HDL 43 mg/dL >=61 mg/dL 05/17/2015 [facility] LIPIDS Chol 173 mg/dL <=199 mg/dL 05/17/2015 [facility] LIPIDS Trig 140 mg/dL <=149 mg/dL 05/17/2015 [facility] LIPIDS CHD Risk 4.02 3.90 - 5.80 05/17/2015 [facility] TOXICOLOGY Digoxin Lvl 1.1 ng/mL 0.8 - 2.0 05/17/2015 [facility] CARDIAC ENZYMES BNP 110 pg/mL <=100 pg/mL 05/16/2015 [facility] CHEM PANEL Total Protein 6.8 g/dL 6.4 - 8.4 05/16/2015 [facility] CHEM PANEL Albumin Lvl 3.8 g/dL 3.5 - 5.0 05/16/2015 [facility] CHEM PANEL Alk Phos 52 unit/L 39 - 136 05/16/2015 [facility] CHEM PANEL ALT 18 unit/L 0 - 65 05/16/2015 [facility] CHEM PANEL AST 16 unit/L 0 - 37 05/16/2015 [facility] CHEM PANEL Bili Total 1.0 mg/dL 0.2 - 1.3 05/16/2015 [facility] CHEM PANEL B/C Ratio 22 6 - 25 05/16/2015 [facility] CHEM PANEL Globulin 3.0 g/dL 2.0 - 4.0 05/16/2015 [facility] CHEM PANEL A/G Ratio 1.3 0.7 - 1.6 05/16/2015 [facility] HEMATOLOGY Lymphocytes # 2.0 K/CMM 1.0 - 5.5 05/16/2015 [facility] HEMATOLOGY Monocytes # 1.0 K/CMM 0.0 - 0.8 05/16/2015 [facility] HEMATOLOGY Eosinophils # 0.2 K/CMM 0.0 - 0.5 05/16/2015 [facility] HEMATOLOGY Basophils 0.2 % 0.0 - 1.0 05/16/2015 [facility] HEMATOLOGY Segs-Bands # 8.8 K/CMM 1.5 - 8.1 05/16/2015 [facility] HEMATOLOGY Segs 73.3 % 45.0 - 75.0 05/16/2015 [facility] HEMATOLOGY Lymphocytes 16.8 % 20.0 - 40.0 05/16/2015 [facility] HEMATOLOGY Monocytes 8.5 % 2.0 - 12.0 05/16/2015 [facility] HEMATOLOGY Eosinophils 1.2 % 0.0 - 4.0 05/16/2015 [facility] Plt Morph Normal (05/16/15 4:20 PM) 05/16/2015 [facility] RBC Morph Normal (05/16/15 4:20 PM) 05/16/2015 [facility] MCH 29.1 pg 27.0 - 31.0 05/16/2015 [facility] Hct 37.7 % 36.0 - 48.0 05/16/2015 [facility] MCV 95.4 fL 80.0 - 98.0 05/16/2015 [facility] MPV 10.6 fL 7.4 - 10.4 05/16/2015 [facility] RDW 16.4 % 11.5 - 14.5 05/16/2015 [facility] Platelet 215 K/CMM 133 - 450 05/16/2015 [facility] MCHC 30.6 g/dL 32.0 - 36.0 05/16/2015 [facility] Hgb 11.5 g/dL 12.0 - 16.0 05/16/2015 [facility] WBC 12.1 K/CMM 3.7 - 10.4 05/16/2015 [facility] RBC 3.95 M/CMM 4.20 - 5.40 05/16/2015 [facility] CHEM PANEL eGFR 96 mL/min/1.73m2 05/16/2015 Result Comment: The eGFR is calculated using the [...] from the National Kidney Disease Education Program (NKDEP) which additionally recommends that when the eGFR is used in patients with extremes of body mass index for purposes of drug dosing, the eGFR should be multiplied by the estimated BMI. [facility] CHEM PANEL POC Creatinine 0.6 mg/dL 0.5 - 1.4 05/16/2015 [facility] Chest CTA Chest CTA EXAM: CTA pulmonary arteries and routine CT chest HISTORY: Shortness of breath, possible pulmonary embolism. COMPARISON: Chest radiograph 09/30/2011. TECHNIQUE: Thin collimation axial images obtained through the pulmonary arteries with sagittal and coronal reformats and 3D volume rendered images; routine CT chest then performed. IV contrast given. DLP: mGy cm FINDINGS: No pulmonary artery embolism is seen. The lungs are well-inflated. Groundglass opacities throughout both lungs may reflect pulmonary edema or pneumonia in the proper clinical setting. Subsegmental atelectasis or mild pneumonia right middle lobe. Small to moderate pleural effusion on the right and small pleural effusion on the left with mild compressive atelectasis of the lung bases. Cardiomegaly, coronary artery calcifications. Mildly enlarged lower paratracheal lymph node is nonspecific. Spondylosis thoracolumbar spine. Degenerative changes of the shoulders, left greater than right. IMPRESSION: 1. No pulmonary artery embolism is seen. 2. Findings suggest heart failure. SL:13 05/16/2015 - - Read by: Yohan Soria MD Dictated Date/time: 05/16/15 14:19 Electronically Signed by: Yohan Soria MD 05/16/15 14:49 FINAL REPORT [facility] Spine lumbar minimum 4 views Spine lumbar minimum 4 views HISTORY: Back pain. Lumbar spine 5 views. Scoliosis convex to the left. Multilevel disc space degenerative change with disc space narrowing, endplate sclerosis and osteophytes. There is mild anterolisthesis of L4 upon L5. Facet degenerative changes L4-L5 and L5-S1 bilaterally. Chronic degenerative changes are noted in the right acetabulum. IMPRESSION: Lumbar spine degenerative changes. Mild levoscoliosis SL:13 10/28/2013 - - Read by: Feliciano Rose MD Dictated Date/time: 10/28/13 14:06 Electronically Signed by: Feliciano Rose 10/28/13 14:07 FINAL REPORT [facility] BEDSIDE GLUCOSE TESTING Gluc POC Lifscn 216 mg/dL 70 - 99 10/07/2011 HI 1Interpretive Data: Upper Reportable Limit: 200 mg/dL. [facility] BEDSIDE GLUCOSE TESTING Comment1 Notify DARLING 10/07/2011 NA [facility] BEDSIDE GLUCOSE TESTING Comment1 Notify DARLING 10/07/2011 NA [facility] BEDSIDE GLUCOSE TESTING Gluc POC Lifscn 173 mg/dL 70 - 99 10/07/2011 HI 2Interpretive Data: Upper Reportable Limit: 200 mg/dL. [facility] BEDSIDE GLUCOSE TESTING Gluc POC Lifscn 195 mg/dL 70 - 99 10/07/2011 HI 3Interpretive Data: Upper Reportable Limit: 200 mg/dL. [facility] BEDSIDE GLUCOSE TESTING Comment1 Notify RN/ 10/07/2011 NA [facility] CHEMISTRY Glucose Lvl 329 mg/dL 70 - 99 10/01/2011 HI 6Interpretive Data: Adult reference range values reflect the clinical guidelinesof the [place] [employer]. [facility] CHEMISTRY Chloride Lvl 106 meq/L 95 - 109 10/01/2011 Normal [facility] CHEMISTRY BUN 23 mg/dL 7 - 22 10/01/2011 HI [facility] CHEMISTRY Sodium Lvl 141 meq/L 135 - 145 10/01/2011 Normal [facility] CHEMISTRY Creatinine Lvl 0.9 mg/dL 0.5 - 1.4 10/01/2011 Normal [facility] CHEMISTRY eGFR null 10/01/2011 NA 4Result Comment: Expected eGFR for >20 yr. age group: >=60 ml/min/1.73 sq m The eGFR calculation is not valid in or for persons < 18 years of age. From National Kidney Disease Education Program (NKDEP) [facility] CHEMISTRY Calcium Lvl 8.9 mg/dL 8.5 - 10.5 10/01/2011 Normal [facility] CHEMISTRY CO2 23 meq/L 24 - 32 10/01/2011 LOW [facility] CHEMISTRY AGAP 17.1 meq/L 10.0 - 20.0 10/01/2011 Normal [facility] CHEMISTRY Potassium Lvl 5.1 meq/L 3.5 - 5.1 10/01/2011 Normal [facility] URINALYSIS UA Leuk Est Negative (09/30/2011 03:00:00) Negative 09/30/2011 Normal [facility] URINALYSIS UA Urobilinogen 0.2 EU/dL 0.1 - 1.0 09/30/2011 Normal [facility] URINALYSIS UA Nitrite Negative (09/30/2011 03:00:00) Negative 09/30/2011 Normal [facility] URINALYSIS UA Bili Negative *NA* (09/30/2011 03:00:00) Negative 09/30/2011 NA [facility] URINALYSIS UA Protein Negative (09/30/2011 03:00:00) Negative 09/30/2011 Normal [facility] URINALYSIS UA Glucose >=1000 mg/dL *ABN* (09/30/2011 03:00:00) Negative 09/30/2011 ABN [facility] URINALYSIS UA Ketones 40 mg/dL *ABN* (09/30/2011 03:00:00) Negative 09/30/2011 ABN [facility] URINALYSIS UA Blood Moderate *ABN* (09/30/2011 03:00:00) Negative 09/30/2011 ABN [facility] URINALYSIS UA Color Yellow *NA* (09/30/2011 03:00:00) Yellow 09/30/2011 NA [facility] URINALYSIS UA Turbidity Clear (09/30/2011 03:00:00) Clear 09/30/2011 Normal [facility] URINALYSIS UA Spec Grav 1.025 <=1.030 09/30/2011 Normal [facility] URINALYSIS UA pH 5.5 5.0 - 8.0 09/30/2011 Normal [facility] CHEMISTRY Alk Phos 39 U/L 39 - 136 09/30/2011 Normal [facility] CHEMISTRY Bili Total 0.3 mg/dL 0.2 - 1.3 09/30/2011 Normal [facility] CHEMISTRY AST 5 U/L 0 - 37 09/30/2011 Normal [facility] CHEMISTRY ALT 19 U/L 0 - 65 09/30/2011 Normal [facility] CHEMISTRY Albumin Lvl 3.3 g/dL 3.5 - 5.0 09/30/2011 LOW [facility] CHEMISTRY BUN 23 mg/dL 7 - 22 09/30/2011 HI [facility] CHEMISTRY Creatinine Lvl 0.9 mg/dL 0.5 - 1.4 09/30/2011 Normal [facility] CHEMISTRY Total Protein 5.9 g/dL 6.4 - 8.4 09/30/2011 LOW [facility] CHEMISTRY Sodium Lvl 142 meq/L 135 - 145 09/30/2011 Normal [facility] CHEMISTRY Chloride Lvl 103 meq/L 95 - 109 09/30/2011 Normal [facility] CHEMISTRY Potassium Lvl 4.4 meq/L 3.5 - 5.1 09/30/2011 Normal [facility] CHEMISTRY CO2 30 meq/L 24 - 32 09/30/2011 Normal [facility] CHEMISTRY Calcium Lvl 8.7 mg/dL 8.5 - 10.5 09/30/2011 Normal [facility] CHEMISTRY Glucose Lvl 235 mg/dL 70 - 99 09/30/2011 HI 7Interpretive Data: Adult reference range values reflect the clinical guidelinesof the [place] [employer]. [facility] CHEMISTRY B/C Ratio 26 6 - 25 09/30/2011 [facility] CHEMISTRY AGAP 13.4 meq/L 10.0 - 20.0 09/30/2011 Normal [facility] CHEMISTRY Globulin 2.6 g/dL 2.0 - 4.0 09/30/2011 Normal [facility] CHEMISTRY A/G Ratio 1.3 0.7 - 1.6 09/30/2011 Normal [facility] HEMATOLOGY RDW 14.2 % 11.5 - 14.5 09/30/2011 Normal [facility] HEMATOLOGY MPV 10.7 fL 7.4 - 10.4 09/30/2011 [facility] HEMATOLOGY Platelet 164 K/CMM 133 - 450 09/30/2011 Normal [facility] HEMATOLOGY RBC 3.92 M/CMM 4.20 - 5.40 09/30/2011 LOW [facility] HEMATOLOGY Hct 37.7 % 36.0 - 48.0 09/30/2011 Normal [facility] HEMATOLOGY Hgb 12.4 g/dL 12.0 - 16.0 09/30/2011 Normal [facility] HEMATOLOGY MCH 31.6 pg 27.0 - 31.0 09/30/2011 [facility] HEMATOLOGY MCV 96.1 fL 81.0 - 99.0 09/30/2011 Normal [facility] HEMATOLOGY WBC 10.4 K/CMM 3.7 - 10.4 09/30/2011 Normal [facility] HEMATOLOGY MCHC 32.9 g/dL 32.0 - 36.0 09/30/2011 Normal [facility] HEMATOLOGY Monocytes 7.7 % 2.0 - 12.0 09/30/2011 Normal [facility] HEMATOLOGY Basophils # 0.1 K/CMM 0.0 - 0.2 09/30/2011 Normal [facility] HEMATOLOGY Eosinophils # 0.2 K/CMM 0.0 - 0.5 09/30/2011 Normal [facility] HEMATOLOGY Monocytes # 0.8 K/CMM 0.0 - 0.8 09/30/2011 Normal [facility] HEMATOLOGY Segs-Bands # 7.3 K/CMM 1.5 - 8.1 09/30/2011 Normal [facility] HEMATOLOGY Lymphocytes # 2.0 K/CMM 1.0 - 5.5 09/30/2011 Normal [facility] HEMATOLOGY Basophils 0.9 % 0.0 - 1.0 09/30/2011 Normal [facility] HEMATOLOGY Eosinophils 2.2 % 0.0 - 4.0 09/30/2011 Normal [facility] HEMATOLOGY Segs 70.3 % 45.0 - 75.0 09/30/2011 Normal [facility] HEMATOLOGY Lymphocytes 18.9 % 20.0 - 40.0 09/30/2011 LOW [facility] CHEMISTRY Vitamin D2 1,25 (OH)2 null 09/30/2011 NA 11Result Comment: Reference ranges are established for total1,25-dihydroxy vitamin D. Values for subcomponentsD2 (derived from plant or fungal sources) and D3(derived from human or animal sources) areprovided for informational purposes only. This test was developed and its performancecharacteristics have been determined by [facility]. Performance characteristics refer tothe analytical performance of the test.Test Performed at:[facility] [place] [address] Bull Enriquez MD, PhD [facility] Vitamin D3 1,25 (OH)2 70 09/30/2011 NA [facility] Vitamin D 1,25 (OH)2 Total 70 pg/mL 18 - 72 09/30/2011 NA [facility] Vitamin D, 25-OH, Total 18 ng/mL 30 - 100 09/30/2011 LOW 9Result Comment: 25-OHD3 indicates both endogenous production andsupplementation. 25-OHD2 is an indicator ofexogenous sources such as diet or supplementation.Therapy is based on measurement of Total 25-OHD,with levels <20 ng/mL indicative of Vitamin Ddeficiency, while levels between 20 ng/mL and 30ng/mL suggest insufficiency. Optimal levels are>=30 ng/mL. [facility] Vitamin D3 25-OH 18 ng/mL 09/30/2011 NA [facility] Vitamin D2 25-OH null 09/30/2011 NA 10Result Comment: Test Performed at:[facility] [place] [address] Bull Erniquez MD, PhD [facility] CHEMISTRY eGFR null 09/29/2011 NA 5Result Comment: Expected eGFR for >20 yr. age group: >=60 ml/min/1.73 sq m The eGFR calculation is not valid in or for persons < 18 years of age. From National Kidney Disease Education Program (NKDEP) [facility] CHEMISTRY Creatinine Lvl 0.9 mg/dL 0.5 - 1.4 09/29/2011 Normal [facility] CHEMISTRY BUN 22 mg/dL 7 - 22 09/29/2011 Normal [facility] CHEMISTRY ALT 20 U/L 0 - 65 09/29/2011 Normal [facility] CHEMISTRY Sodium Lvl 144 meq/L 135 - 145 09/29/2011 Normal [facility] CHEMISTRY Chloride Lvl 105 meq/L 95 - 109 09/29/2011 Normal [facility] CHEMISTRY Potassium Lvl 4.0 meq/L 3.5 - 5.1 09/29/2011 Normal [facility] CHEMISTRY Glucose Lvl 214 mg/dL 70 - 99 09/29/2011 HI 8Interpretive Data: Adult reference range values reflect the clinical guidelinesof the [place] [employer]. [facility] CHEMISTRY AGAP 15.0 meq/L 10.0 - 20.0 09/29/2011 Normal [facility] CHEMISTRY AST 6 U/L 0 - 37 09/29/2011 Normal [facility] CHEMISTRY Bili Total 0.4 mg/dL 0.2 - 1.3 09/29/2011 Normal [facility] CHEMISTRY Alk Phos 39 U/L 39 - 136 09/29/2011 Normal [facility] CHEMISTRY Globulin 3.1 g/dL 2.0 - 4.0 09/29/2011 Normal [facility] CHEMISTRY B/C Ratio 24 6 - 25 09/29/2011 Normal [facility] CHEMISTRY A/G Ratio 1.3 0.7 - 1.6 09/29/2011 Normal [facility] CHEMISTRY Total Protein 7.0 g/dL 6.4 - 8.4 09/29/2011 Normal [facility] CHEMISTRY Calcium Lvl 9.1 mg/dL 8.5 - 10.5 09/29/2011 Normal [facility] CHEMISTRY CO2 28 meq/L 24 - 32 09/29/2011 Normal [facility] CHEMISTRY Albumin Lvl 3.9 g/dL 3.5 - 5.0 09/29/2011 Normal [facility] HEMATOLOGY MPV 11.5 fL 7.4 - 10.4 09/29/2011 HI [facility] HEMATOLOGY Platelet 187 K/CMM 133 - 450 09/29/2011 Normal [facility] HEMATOLOGY RDW 14.1 % 11.5 - 14.5 09/29/2011 Normal [facility] HEMATOLOGY WBC 11.4 K/CMM 3.7 - 10.4 09/29/2011 HI [facility] HEMATOLOGY RBC 4.27 M/CMM 4.20 - 5.40 09/29/2011 Normal [facility] HEMATOLOGY MCHC 32.8 g/dL 32.0 - 36.0 09/29/2011 [facility] HEMATOLOGY MCH 31.4 pg 27.0 - 31.0 09/29/2011 [facility] HEMATOLOGY Hgb 13.4 g/dL 12.0 - 16.0 09/29/2011 Normal [facility] HEMATOLOGY MCV 95.6 fL 81.0 - 99.0 09/29/2011 [facility] HEMATOLOGY Hct 40.8 % 36.0 - 48.0 09/29/2011 [facility] HEMATOLOGY Monocytes 9.2 % 2.0 - 12.0 09/29/2011 [facility] HEMATOLOGY Lymphocytes 19.2 % 20.0 - 40.0 09/29/2011 LOW [facility] HEMATOLOGY Segs-Bands # 7.9 K/CMM 1.5 - 8.1 09/29/2011 [facility] HEMATOLOGY Eosinophils 1.9 % 0.0 - 4.0 09/29/2011 [facility] HEMATOLOGY Monocytes # 1.0 K/CMM 0.0 - 0.8 09/29/2011 [facility] HEMATOLOGY Basophils # 0.0 K/CMM 0.0 - 0.2 09/29/2011 [facility] HEMATOLOGY Basophils 0.4 % 0.0 - 1.0 09/29/2011 [facility] HEMATOLOGY Lymphocytes # 2.2 K/CMM 1.0 - 5.5 09/29/2011 Normal [facility] HEMATOLOGY Eosinophils # 0.2 K/CMM 0.0 - 0.5 09/29/2011 Normal [facility] HEMATOLOGY Segs 69.3 % 45.0 - 75.0 09/29/2011 Normal [facility] Vital Signs Vital Sign Value Date Comments Source Respitory Rate 16 06/23/2017 [facility] Heart Rate 72 06/23/2017 [facility] Systolic (mm Hg) 140 06/23/2017 [facility] Diastolic (mm Hg) 68 06/23/2017 [facility] Respitory Rate 14 06/23/2017 [facility] Heart Rate 70 06/23/2017 [facility] Systolic (mm Hg) 156 06/23/2017 [facility] Diastolic (mm Hg) 70 06/23/2017 [facility] Systolic (mm Hg) 156 06/23/2017 [facility] Diastolic (mm Hg) 70 06/23/2017 [facility] Respitory Rate 13 06/23/2017 [facility] Heart Rate 75 06/15/2017 [facility] Temperature Oral (F) 97.7 F 06/15/2017 [facility] Height 152.4 cm 06/15/2017 [facility] Weight 90 06/15/2017 [facility] BMI Calculated 38.75 06/15/2017 [facility] Heart Rate 64 05/21/2017 [facility] Systolic (mm Hg) 125 05/21/2017 [facility] Diastolic (mm Hg) 81 05/21/2017 [facility] Systolic (mm Hg) 144 05/21/2017 [facility] Diastolic (mm Hg) 64 05/21/2017 [facility] Heart Rate 64 05/21/2017 [facility] Systolic (mm Hg) 143 05/21/2017 [facility] Diastolic (mm Hg) 64 05/21/2017 [facility] Respitory Rate 12 05/21/2017 [facility] Heart Rate 66 05/21/2017 [facility] Respitory Rate 12 05/21/2017 [facility] Temperature Oral (F) 98.4 F 05/11/2017 [facility] BMI Calculated 38.75 05/11/2017 [facility] Weight 90 05/11/2017 [facility] Height 152.4 cm 05/11/2017 [facility] Systolic (mm Hg) 102 02/26/2017 [facility] Diastolic (mm Hg) 48 02/26/2017 [facility] Systolic (mm Hg) 115 02/26/2017 [facility] Diastolic (mm Hg) 45 02/26/2017 [facility] Respitory Rate 16 02/26/2017 [facility] Systolic (mm Hg) 128 02/26/2017 [facility] Diastolic (mm Hg) 70 02/26/2017 [facility] Respitory Rate 14 02/26/2017 [facility] Respitory Rate 16 02/26/2017 [facility] Heart Rate 63 02/26/2017 [facility] Temperature Oral (F) 97.7 F 02/02/2017 [facility] Heart Rate 72 02/02/2017 [facility] Weight 87.273 02/02/2017 [facility] BMI Calculated 37.58 02/02/2017 [facility] Height 152.4 cm 02/02/2017 [facility] Weight 196 12/23/2016 [id number] Height 60 12/23/2016 [id number] Temperature Oral (F) 98.2 F 12/23/2016 [id number] Systolic (mm Hg) 152 11/26/2016 [facility] Diastolic (mm Hg) 75 11/26/2016 [facility] Heart Rate 81 11/26/2016 [facility] Temperature Oral (F) 98.2 F 11/26/2016 [facility] Respitory Rate 18 11/26/2016 [facility] Systolic (mm Hg) 132 11/26/2016 [facility] Diastolic (mm Hg) 64 11/26/2016 [facility] Heart Rate 80 11/26/2016 [facility] Respitory Rate 18 11/26/2016 [facility] Temperature Oral (F) 98.7 F 11/26/2016 [facility] Heart Rate 69 11/26/2016 [facility] Temperature Oral (F) 98.5 F 11/26/2016 [facility] Respitory Rate 18 11/26/2016 [facility] Systolic (mm Hg) 165 11/26/2016 [facility] Diastolic (mm Hg) 78 11/26/2016 [facility] Height 157.48 cm 11/08/2016 [facility] BMI Calculated 38.31 11/08/2016 [facility] Weight 95 11/08/2016 [facility] Weight 95.455 11/08/2016 [facility] BMI Calculated 41.1 11/08/2016 [facility] Height 152.4 cm 11/08/2016 [facility] Systolic (mm Hg) 144 05/23/2015 [facility] Diastolic (mm Hg) 83 05/23/2015 [facility] Respitory Rate 18 05/23/2015 [facility] Heart Rate 69 05/23/2015 [facility] Temperature Oral (F) 97.6 F 05/23/2015 [facility] Systolic (mm Hg) 166 05/23/2015 [facility] Diastolic (mm Hg) 94 05/23/2015 [facility] Respitory Rate 19 05/23/2015 [facility] Heart Rate 76 05/23/2015 [facility] Temperature Oral (F) 97.3 F 05/23/2015 [facility] Respitory Rate 16 05/23/2015 [facility] Temperature Oral (F) 98.5 F 05/23/2015 [facility] Systolic (mm Hg) 126 05/23/2015 [facility] Diastolic (mm Hg) 76 05/23/2015 [facility] Heart Rate 72 05/23/2015 [facility] Weight 108.008 05/22/2015 [facility] Weight 101.8 05/22/2015 [facility] Weight 95.568 05/16/2015 [facility] Height 152.4 cm 05/16/2015 [facility] BMI Calculated 41.15 05/16/2015 [facility] Systolic (mm Hg) 132 10/07/2011 [facility] Respitory Rate 20 10/07/2011 [facility] Heart Rate 67 10/07/2011 [facility] Diastolic (mm Hg) 81 10/07/2011 [facility] Temperature Oral (F) 98.8 F 10/07/2011 [facility] Systolic (mm Hg) 154 10/07/2011 [facility] Respitory Rate 20 10/07/2011 [facility] Diastolic (mm Hg) 79 10/07/2011 [facility] Temperature Oral (F) 97.6 F 10/07/2011 [facility] Heart Rate 63 10/07/2011 [facility] Respitory Rate 20 10/07/2011 [facility] Temperature Oral (F) 97.5 F 10/07/2011 [facility] Heart Rate 60 10/07/2011 [facility] Systolic (mm Hg) 174 10/07/2011 [facility] Diastolic (mm Hg) 98 10/07/2011 [facility] Weight 125.000 09/29/2011 [facility] Height 152.40 cm 09/29/2011 [facility] Weight 125.000 09/29/2011 [facility] Height 152.40 cm 09/29/2011 [facility] Encounters Location Location Details Encounter Type Encounter Number Reason For Visit Attending Provider ADM Date DC Date Status Source [facility] Inpatient [id number] ACUTE SEVERE LOW BACK PAIN - POSSIBLE SCIATICA ENCARLOS FRANCOM 09/29/2011 10/07/2011 Active [id number]/29[facility]2013 [facility] Outpatient [id number] Gumaro Young 05/16/2015 05/16/2015 [facility] Inpatient [id number] Gumaro Young 05/19/2015 05/23/2015 [facility] Inpatient [id number] Ministerio Howell 11/08/2016 11/26/2016 [facility] Outpatient [id number] Judah Betts 01/23/2017 01/24/2017 [facility] Day Surgery [id number] Judah Betts 02/26/2017 02/26/2017 [facility] Outpatient [id number] Judah Betts 04/02/2017 04/03/2017 [facility] Day Surgery [id number] Judah Betts 05/21/2017 05/21/2017 [facility] Outpatient [id number] [facility] 06/03/2017 06/04/2017 [facility] Day Surgery [id number] [facility] 06/23/2017 06/23/2017 [facility] Procedures Procedure Code Date Perfomer Comments Source Brain operations [id number] 07/06/1959 [facility] section [id number] [facility] Catheterization of left heart [id number] [facility] Cystoscopy<sup>1</sup> [id number] w/stent 11/2016 [facility] ESWL of kidney<sup>2</sup> [id number] 2009 [facility]
--- OUTSIDE RECORDS SUMMARY | 2018-12-19 17:04 | XMS REPORT | Summary of Care ---
Author Author [facility] Organization [facility] Address Unknown Phone Unavailable Encounter FERNANDEZ More(JOSHUA) [id number] Date(s): 02/26/17 - 02/26/17 [facility] [address] [place] [address]- Discharge Disposition: Home or Self Care Attending Physician: Judah Betts MD Referring Physician: Judah Betts MD Vital Signs 1 2 3 Most recent to oldest [Reference Range]: 152.4 cm (02/02/17 3:15 PM) Height 97.7 DegF (02/02/17 3:43 PM) Temperature Oral [96.4-99.1 DegF] 102/48 mmHg (02/26/17 3:30 PM) 115/45 mmHg (02/26/17 2:45 PM) 128/70 mmHg (02/26/17 2:30 PM) Blood Pressure [90-140/60-90 mmHg] 16 BRMIN (02/26/17 2:30 PM) 14 BRMIN (02/26/17 2:15 PM) 16 BRMIN (02/26/17 2:00 PM) Respiratory Rate [14-20 BRMIN] 63 bpm (02/26/17 10:15 AM) 72 bpm (02/02/17 3:43 PM) Peripheral Pulse Rate [60-100 bpm] 87.273 kg (02/02/17 3:15 PM) Weight 37.58 m2 (02/02/17 3:15 PM) Body Mass Index Problem List Condition Effective Dates Status Health Status Informant Right ureteral Active stone(Confirmed) CHF - Congestive Resolved heart failure(Confirmed) COPD (chronic Active obstructive pulmonary disease)(Confirmed) COPD(Confirmed) Active Diabetes(Confirmed) Active Diabetes Active mellitus(Confirmed) Diabetes(Confirmed) Resolved Interstitial lung Active disease(Confirmed) HTN Resolved (hypertension)(Confi rmed) Hypertension(Confirm Active ed) Hypertension(Confirm Active ed) MRSA(Confirmed)1, 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 Allergies, Adverse Reactions, Alerts Substance Reaction Severity Status NKDA Active Medications ciprofloxacin (ANES) Route: IV, Drug form: INJ, ONCE, Stop date: 02/26/17 12:59:00 CDT Start Date: 02/26/17 Stop Date: 02/26/17 Status: Completed fentaNYL 50 microgram, Route: IVP, ONCE, Dosing Weight 87.273, kg, Start date: 02/26/17 1 3:49:00 CDT, Stop date: 02/26/17 13:49:00 CDT Start Date: 02/26/17 Stop Date: 02/26/17 Status: Completed fentaNYL 50 microgram, Route: IVP, ONCE, Dosing Weight 87.273, kg, Start date: 02/26/17 1 3:49:00 CDT, Stop date: 02/26/17 13:49:00 CDT Start Date: 02/26/17 Stop Date: 02/26/17 Status: Completed fentaNYL (ANES) Route: IV, Drug form: INJ, ONCE, Stop date: 02/26/17 12:59:00 CDT Start Date: 02/26/17 Stop Date: 02/26/17 Status: Completed Lactated Ringers Injection IV 1000 mL 1,000 mL, Rate: 25 ml/hr, Infuse over: 40 hr, Route: IV, Dosing Weight 87.273 kg , Total Volume: 1,000, Start date: 02/26/17 10:32:00 CDT, Duration: 30 day, Stop date: 03/28/17 10:31:00 CDT Start Date: 02/26/17 Stop Date: 02/26/17 Status: Discontinued Levemir FlexTouch 100 units/mL subcutaneous solution 68 units, SUB-Q, Bedtime, # 3 mL, 3 Refill(s) Start Date: 02/02/17 Status: Ordered lidocaine (ANES) Route: IV, Drug form: INJ, ONCE, Stop date: 02/26/17 13:04:00 CDT Start Date: 02/26/17 Stop Date: 02/26/17 Status: Completed LR 1000 mL INJ (ANES) Route: IV, Total Volume: 1,000, Start date: 02/26/17 12:17:00 CDT, Stop date: 13:17:00 CDT Start Date: 02/26/17 Stop Date: 02/26/17 Status: Completed metoclopramide (ANES) Route: IV, Drug form: INJ, ONCE, Stop date: 02/26/17 12:59:00 CDT Start Date: 02/26/17 Stop Date: 02/26/17 Status: Completed midazolam (ANES) Route: IV, Drug form: SOLN, ONCE, Stop date: 02/26/17 12:59:00 CDT Start Date: 02/26/17 Stop Date: 02/26/17 Status: Completed ondansetron (ANES) Route: IV, Drug form: INJ, ONCE, Stop date: 02/26/17 13:04:00 CDT Start Date: 02/26/17 Stop Date: 02/26/17 Status: Completed oxybutynin 5 mg oral tablet 5 mg=1 tab, PO, TID, PRN Bladder Spasm, # 30 tab, 0 Refill(s) Start Date: 02/26/17 Status: Ordered propofol (ANES) Route: IV, Drug form: INJ, ONCE, Stop date: 02/26/17 12:59:00 CDT Start Date: 02/26/17 Stop Date: 02/26/17 Status: Completed tramadol 50 mg oral tablet 50 mg=1 tab, PO, Q8H, PRN Pain, X 10 day, # 20 tab, 0 Refill(s) Start Date: 02/26/17 Stop Date: 03/08/17 Status: Ordered verapamil 120 mg/24 hours oral capsule, extended release 0 Refill(s) Start Date: 02/02/17 Status: Ordered Results ELECTROLYTES Most recent to 1 oldest [Reference Range]: Sodium Lvl [135-145 142 mEq/L mEq/L] (02/02/17 3:49 PM) Potassium Lvl 5.1 mEq/L [3.5-5.1 mEq/L] (02/02/17 3:49 PM) Chloride Lvl [95-109 107 mEq/L mEq/L] (02/02/17 3:49 PM) CO2 [24-32 mEq/L] 28 mEq/L (02/02/17 3:49 PM) AGAP [10.0-20.0 12.1 mEq/L mEq/L] (02/02/17 3:49 PM) CHEM PANEL Most recent to 1 oldest [Reference Range]: Creatinine Lvl 1.10 mg/dL [0.50-1.40 mg/dL] (02/02/17 3:49 PM) eGFR 52 mL/min/1.73m2 1 *NA* (02/02/17 3:49 PM) BUN [7-22 mg/dL] 26 mg/dL *HI* (02/02/17 3:49 PM) Glucose Lvl [70-99 208 mg/dL mg/dL] *HI* (02/02/17 3:49 PM) Calcium Lvl 9.1 mg/dL [8.5-10.5 mg/dL] (02/02/17 3:49 PM) 1Result Comment: The eGFR is calculated using [...] be mul tiplied by the estimated BMI. URINE AND STOOL Most recent to 1 oldest [Reference Range]: UA Turbidity [Clear] Marked *ABN* (02/02/17 3:49 PM) UA Color [Yellow] Yellow *NA* (02/02/17 3:49 PM) UA pH [5.0-8.0] 5.0 (02/02/17 3:49 PM) UA Spec Grav 1.018 [<=1.030] (02/02/17 3:49 PM) UA Glucose [Negative Negative mg/dL mg/dL] *NA* (02/02/17 3:49 PM) UA Blood [Negative] Large *ABN* (02/02/17 3:49 PM) UA Ketones [Negative Negative mg/dL mg/dL] *NA* (02/02/17 3:49 PM) UA Protein [Negative 100 mg/dL mg/dL] *ABN* (02/02/17 3:49 PM) UA Urobilinogen <=1.0 mg/dL [0.1-1.0 mg/dL] *NA* (02/02/17 3:49 PM) UA Bili [Negative] Negative *NA* (02/02/17 3:49 PM) UA Leuk Est Large [Negative] *ABN* (02/02/17 3:49 PM) UA Nitrite Negative [Negative] (02/02/17 3:49 PM) UA WBC [0-5 /HPF] >182 /HPF *HI* (02/02/17 3:49 PM) UA RBC [0-2 /HPF] 77 /HPF *HI* (02/02/17 3:49 PM) UA Bacteria [None Many /HPF Seen /HPF] *ABN* (02/02/17 3:49 PM) UA Sq Epi [Few /LPF] Occasional /LPF *NA* (02/02/17 3:49 PM) UA Mucus [None Seen Few /LPF /LPF] *NA* (02/02/17 3:49 PM) HEMATOLOGY Most recent to 1 oldest [Reference Range]: WBC [3.7-10.4 K/CMM] 13.5 K/CMM *HI* (02/02/17 3:49 PM) RBC [4.20-5.40 3.45 M/CMM M/CMM] *LOW* (02/02/17 3:49 PM) Hgb [12.0-16.0 g/dL] 10.8 g/dL *LOW* (02/02/17 3:49 PM) Hct [36.0-48.0 %] 33.4 % *LOW* (02/02/17 3:49 PM) MCV [80.0-98.0 fL] 96.7 fL (02/02/17 3:49 PM) MCH [27.0-31.0 pg] 31.2 pg *HI* (02/02/17 3:49 PM) MCHC [32.0-36.0 32.3 g/dL g/dL] (02/02/17 3:49 PM) RDW [11.5-14.5 %] 15.2 % *HI* (02/02/17 3:49 PM) Platelet [133-450 327 K/CMM K/CMM] (02/02/17 3:49 PM) MPV [7.4-10.4 fL] 8.9 fL (02/02/17 3:49 PM) Segs [45.0-75.0 %] 67.3 % (02/02/17 3:49 PM) Lymphocytes 19.9 % [20.0-40.0 %] *LOW* (02/02/17 3:49 PM) Monocytes [2.0-12.0 9.5 % %] (02/02/17 3:49 PM) Eosinophils [0.0-4.0 2.2 % %] (02/02/17 3:49 PM) Basophils [0.0-1.0 1.1 % %] *HI* (02/02/17 3:49 PM) Segs-Bands # 9.1 K/CMM [1.5-8.1 K/CMM] *HI* (02/02/17 3:49 PM) Lymphocytes # 2.7 K/CMM [1.0-5.5 K/CMM] (02/02/17 3:49 PM) Monocytes # [0.0-0.8 1.3 K/CMM K/CMM] *HI* (02/02/17 3:49 PM) Eosinophils # 0.3 K/CMM [0.0-0.5 K/CMM] (02/02/17 3:49 PM) Basophils # [0.0-0.2 0.1 K/CMM K/CMM] (02/02/17 3:49 PM) Immunizations Given and Recorded Vaccine Date Status Refusal Reason pneumococcal 23-valent vaccine 10/04/11 Given Procedures Procedure Date Related Diagnosis Body Site Brain operations 1960 Catheterization of left heart section Cystoscopy1 ESWL of kidney2 1w/11/201610 Social History Social History Type Response Alcohol Never Smoking Status Never smoker; Exposure to Tobacco Smoke None; Cigarette Smoking Last 365 Days No; Reg Smoking Cessation Counseling No Assessment and Plan No data available for this section
--- OUTSIDE RECORDS SUMMARY | 2018-12-19 17:05 | XMS REPORT | Summary of Care ---
Author Author [facility] Organization [facility] Address Unknown Phone Unavailable Encounter FERNANDEZ More(JOSHUA) [id number] Date(s): 05/21/17 - 05/21/17 [facility] [address] [place] [address]- Discharge Disposition: Home or Self Care Attending Physician: Judah Betts MD Referring Physician: Judah Betts MD Vital Signs 1 2 3 Most recent to oldest [Reference Range]: 152.4 cm (05/11/17 2:47 PM) Height 98.4 DegF (05/11/17 2:57 PM) Temperature Oral [96.4-99.1 DegF] 125/81 mmHg (05/21/17 5:00 PM) 144/64 mmHg *HI* (05/21/17 4:15 PM) 143/64 mmHg *HI* (05/21/17 4:00 PM) Blood Pressure [90-140/60-90 mmHg] 12 BRMIN *LOW* (05/21/17 3:30 PM) 12 BRMIN *LOW* (05/21/17 1:38 PM) Respiratory Rate [14-20 BRMIN] 64 bpm (05/21/17 5:00 PM) 64 bpm (05/21/17 4:15 PM) 66 bpm (05/21/17 3:30 PM) Peripheral Pulse Rate [60-100 bpm] 90 kg (05/11/17 2:47 PM) Weight 38.75 m2 (05/11/17 2:47 PM) Body Mass Index Problem List Condition [...] Substance Reaction Severity Status NKDA Active Medications ANES acetaminophen 1,000 mg, Route: IVPB, Drug form: INJ, ONCE, Dosing Weight 90, kg, PRN Pain Scor e 1-3, Start date: 05/21/17 15:40:00 SWING RIDE OPERATOR Start Date: 05/21/17 Stop Date: 05/22/17 Status: Discontinued ANES albuterol 0.083% inhalation solution 2.49 mg, Route: NEB, Q20Min, Dosing Weight 90, kg, PRN Wheezing, Priority: STAT, Start date: 05/21/17 15:40:00 SWING RIDE OPERATOR, Duration: 30 day, Stop date: 06/20/17 15:39: 00 SWING RIDE OPERATOR Start Date: 05/21/17 Stop Date: 05/22/17 Status: Discontinued ANES diphenhydrAMINE 12.5 mg, Route: IVP, Drug form: INJ, Q6H, Dosing Weight 90, kg, PRN Itching, Sta rt date: 05/21/17 15:40:00 SWING RIDE OPERATOR, Duration: 30 day, Stop date: 06/20/17 15:39:[address] Start Date: 05/21/17 Stop Date: 05/22/17 Status: Discontinued ANES esmolol 10 mg, Route: IVP, Q5Min, Dosing Weight 90, kg, PRN Other -See Comment, Start da te: 05/21/17 15:40:00 SWING RIDE OPERATOR, Duration: 5 doses or times, Stop date: Limited # of t imes Start Date: 05/21/17 Stop Date: 05/22/17 Status: Discontinued ANES fentaNYL 25 microgram, Route: IVP, Q5Min, Dosing Weight 90, kg, PRN Pain Score 4-6, Prior ity: Routine, Start date: 05/21/17 15:40:00 SWING RIDE OPERATOR, Duration: 4 doses or times, Sto p date: Limited # of times Start Date: 05/21/17 Stop Date: 05/22/17 Status: Discontinued ANES fentaNYL 50 microgram, Route: IVP, Q5Min, Dosing Weight 90, kg, PRN Pain Score 7-10, Prio rity: Routine, Start date: 05/21/17 15:40:00 SWING RIDE OPERATOR, Duration: 2 doses or times, St op date: Limited # of times Start Date: 05/21/17 Stop Date: 05/22/17 Status: Discontinued ANES flumazenil 0.2 mg, Route: IVP, PRN, Dosing Weight 90, kg, PRN Benzodiazepine Reversal, Init ial dose, Start date: 05/21/17 15:40:00 SWING RIDE OPERATOR, Duration: 30 day, Stop date: 15:39:00 SWING RIDE OPERATOR Start Date: 05/21/17 Stop Date: 05/22/17 Status: Discontinued ANES hydrALAZINE 10 mg, Route: IVP, Q20Min, Dosing Weight 90, kg, PRN Elevated BP, Start date: 15:40:00 SWING RIDE OPERATOR, Duration: 2 doses or times, Stop date: Limited # of times Start Date: 05/21/17 Stop Date: 05/22/17 Status: Discontinued ANES HYDROmorphone 0.5 mg, Route: IVP, Q5Min, Dosing Weight 90, kg, PRN Pain Score 7-10, Start date : 05/21/17 15:40:00 SWING RIDE OPERATOR, Duration: 4 doses or times, Stop date: Limited # of david es Start Date: 05/21/17 Stop Date: 05/22/17 Status: Discontinued ANES ketOROLAC 30 mg, Route: IVP, ONCE, Dosing Weight 90, kg, Start date: 05/21/17 15:40:00 SWING RIDE OPERATOR , Stop date: 05/21/17 15:40:00 SWING RIDE OPERATOR Start Date: 05/21/17 Stop Date: 05/21/17 Status: Ordered ANES labetalol 10 mg, Route: IVP, Q5Min, Dosing Weight 90, kg, PRN Elevated BP, Start date: 15:40:00 SWING RIDE OPERATOR, Duration: 5 doses or times, Stop date: Limited # of times Start Date: 05/21/17 Stop Date: 05/22/17 Status: Discontinued ANES meperidine 12.5 mg, Route: IVP, Q30Min, Dosing Weight 90, kg, PRN Other -See Comment, For s hivering, Start date: 05/21/17 15:40:00 SWING RIDE OPERATOR, Duration: 2 doses or times, Stop da te: Limited # of times Start Date: 05/21/17 Stop Date: 05/22/17 Status: Discontinued ANES morphine Sulfate 2 mg, Route: IVP, Q5Min, Dosing Weight 90, kg, PRN Pain Score 4-6, Start date: 1 07/21/16 15:40:00 SWING RIDE OPERATOR, Duration: 5 doses or times, Stop date: Limited # of times Start Date: 05/21/17 Stop Date: 05/22/17 Status: Discontinued ANES morphine Sulfate 4 mg, Route: IVP, Q5Min, Dosing Weight 90, kg, PRN Pain Score 7-10, Start date: 05/21/17 15:40:00 SWING RIDE OPERATOR, Duration: 3 doses or times, Stop date: Limited # of times Start Date: 05/21/17 Stop Date: 05/22/17 Status: Discontinued ANES naloxone 0.1 mg, Route: SUB-Q, Q6H, Dosing Weight 90, kg, PRN Itching, Start date: 15:40:00 SWING RIDE OPERATOR, Duration: 30 day, Stop date: 06/20/17 15:39:00 SWING RIDE OPERATOR Start Date: 05/21/17 Stop Date: 05/22/17 Status: Discontinued ANES naloxone 0.4 mg, Route: IVP, Q2MIN, Dosing Weight 90, kg, PRN Narcotic Reversal, Start da te: 05/21/17 15:40:00 SWING RIDE OPERATOR, Duration: 8 doses or times, Stop date: Limited # of t imes Start Date: 05/21/17 Stop Date: 05/22/17 Status: Discontinued ANES ondansetron 4 mg, Route: IVP, ONCE, Dosing Weight 90, kg, PRN Nausea & Vomiting, Start date: 05/21/17 15:40:00 SWING RIDE OPERATOR Start Date: 05/21/17 Stop Date: 05/22/17 Status: Discontinued ANES oxyCODONE 10 mg, Route: NG, Drug form: LIQ, Q4H, Dosing Weight 90, kg, PRN Pain Score 7-10 , Start date: 05/21/17 15:40:00 SWING RIDE OPERATOR, Duration: 30 day, Stop date: 06/20/17 15:39 :00 SWING RIDE OPERATOR Start Date: 05/21/17 Stop Date: 05/22/17 Status: Discontinued ANES oxyCODONE 5 mg, Route: PO, Drug form: TAB, Q4H, Dosing Weight 90, kg, PRN Pain Score 4-6, Start date: 05/21/17 15:40:00 SWING RIDE OPERATOR, Duration: 30 day, Stop date: 06/20/17 15:39:0 0 SWING RIDE OPERATOR Start Date: 05/21/17 Stop Date: 05/22/17 Status: Discontinued Cipro 500 mg oral tablet 500 mg=1 tab, PO, Q12H, for UTI, X 3 day, # 6 tab, 0 Refill(s) Start Date: 05/21/17 Stop Date: 05/24/17 Status: Ordered ciprofloxacin (ANES) 2 mg Route: IV, Drug form: INJ, Start date: 05/21/17 14:02:00 SWING RIDE OPERATOR, Stop date: 7 15:02:00 SWING RIDE OPERATOR Start Date: 05/21/17 Stop Date: 05/21/17 Status: Completed ePHEDrine (ANES) Route: IV, Drug form: INJ, ONCE, Stop date: 05/21/17 15:03:00 SWING RIDE OPERATOR Start Date: 05/21/17 Stop Date: 05/21/17 Status: Completed famotidine (ANES) Route: IV, Drug form: INJ, ONCE, Stop date: 05/21/17 14:48:00 SWING RIDE OPERATOR Start Date: 05/21/17 Stop Date: 05/21/17 Status: Completed fentaNYL (ANES) Route: IV, Drug form: INJ, ONCE, Stop date: 05/21/17 14:53:00 SWING RIDE OPERATOR Start Date: 05/21/17 Stop Date: 05/21/17 Status: Completed Lactated Ringers Injection IV (ANES) 1000 mL Route: IV, Total Volume: 1,000, Start date: 05/21/17 14:02:00 SWING RIDE OPERATOR, Stop date: 15:02:00 SWING RIDE OPERATOR Start Date: 05/21/17 Stop Date: 05/21/17 Status: Completed Lactated Ringers Injection IV 1000 mL 1,000 mL, Rate: 25 ml/hr, Infuse over: 40 hr, Route: IV, Dosing Weight 90 kg, To veronica Volume: 1,000, Start date: 05/21/17 13:45:00 SWING RIDE OPERATOR, Duration: 30 day, Stop robb e: 06/20/17 13:44:00 SWING RIDE OPERATOR, 1.99, m2 Start Date: 05/21/17 Stop Date: 05/21/17 Status: Discontinued lidocaine (ANES) Route: IV, Drug form: INJ, ONCE, Stop date: 05/21/17 14:53:00 SWING RIDE OPERATOR Start Date: 05/21/17 Stop Date: 05/21/17 Status: Completed midazolam (ANES) Route: IV, Drug form: SOLN, ONCE, Stop date: 05/21/17 14:43:00 SWING RIDE OPERATOR Start Date: 05/21/17 Stop Date: 05/21/17 Status: Completed Ofirmev 1,000 mg, Route: IV, Drug form: INJ, ONCE, Dosing Weight 90, kg, PRN Pain Score 1-3, for > or=50 kg, Start date: 05/21/17 15:42:00 SWING RIDE OPERATOR Start Date: 05/21/17 Stop Date: 05/21/17 Status: Completed ondansetron (ANES) Route: IV, Drug form: INJ, ONCE, Stop date: 05/21/17 14:53:00 SWING RIDE OPERATOR Start Date: 05/21/17 Stop Date: 05/21/17 Status: Completed oxybutynin 5 mg oral tablet 5 mg=1 tab, PO, TID, PRN Bladder Spasm, # 30 tab, 0 Refill(s) Start Date: 05/21/17 Status: Ordered propofol (ANES) Route: IV, Drug form: INJ, ONCE, Stop date: 05/21/17 14:53:00 SWING RIDE OPERATOR Start Date: 05/21/17 Stop Date: 05/21/17 Status: Completed tramadol 50 mg oral tablet 50 mg=1 tab, PO, Q8H, PRN Pain, X 10 day, # 30 tab, 0 Refill(s) Start Date: 05/21/17 Stop Date: 05/31/17 Status: Ordered Results ELECTROLYTES Most recent to 1 oldest [Reference Range]: Sodium Lvl [135-145 141 mEq/L mEq/L] (05/11/17 3:32 PM) Potassium Lvl 4.9 mEq/L [3.5-5.1 mEq/L] (05/11/17 3:32 PM) Chloride Lvl [95-109 105 mEq/L mEq/L] (05/11/17 3:32 PM) CO2 [24-32 mEq/L] 28 mEq/L (05/11/17 3:32 PM) AGAP [10.0-20.0 12.9 mEq/L mEq/L] (05/11/17 3:32 PM) CHEM PANEL Most recent to 1 oldest [Reference Range]: Creatinine Lvl 1.20 mg/dL [0.50-1.40 mg/dL] (05/11/17 3:32 PM) eGFR 47 mL/min/1.73m2 1 *NA* (05/11/17 3:32 PM) BUN [7-22 mg/dL] 18 mg/dL (05/11/17 3:32 PM) Glucose Lvl [70-99 211 mg/dL mg/dL] *HI* (05/11/17 3:32 PM) Calcium Lvl 9.4 mg/dL [8.5-10.5 mg/dL] (05/11/17 3:32 PM) 1Result Comment: The eGFR is calculated [...] 1 oldest [Reference Range]: UA Turbidity [Clear] Slight *ABN* (05/11/17 3:43 PM) UA Color [Yellow] Yellow *NA* (05/11/17 3:43 PM) UA pH [5.0-8.0] 5.0 (05/11/17 3:43 PM) UA Spec Grav 1.026 [<=1.030] (05/11/17 3:43 PM) UA Glucose [Negative Negative mg/dL mg/dL] *NA* (05/11/17 3:43 PM) UA Blood [Negative] Large *ABN* (05/11/17 3:43 PM) UA Ketones [Negative Negative mg/dL mg/dL] *NA* (05/11/17 3:43 PM) UA Protein [Negative 100 mg/dL mg/dL] *ABN* (05/11/17 3:43 PM) UA Urobilinogen <=1.0 mg/dL [0.1-1.0 mg/dL] *NA* (05/11/17 3:43 PM) UA Bili [Negative] Negative *NA* (05/11/17 3:43 PM) UA Leuk Est Large [Negative] *ABN* (05/11/17 3:43 PM) UA Nitrite Negative [Negative] (05/11/17 3:43 PM) UA WBC [0-5 /HPF] 63 /HPF *HI* (05/11/17 3:43 PM) UA RBC [0-2 /HPF] >182 /HPF *HI* (05/11/17 3:43 PM) UA Bacteria [None Occasional /HPF Seen /HPF] *NA* (05/11/17 3:43 PM) UA Sq Epi [Few /LPF] Few /LPF *NA* (05/11/17 3:43 PM) UA Mucus [None Seen Few /LPF /LPF] *NA* (05/11/17 3:43 PM) HEMATOLOGY Most recent to 1 oldest [Reference Range]: WBC [3.7-10.4 K/CMM] 17.2 K/CMM *HI* (05/11/17 3:32 PM) RBC [4.20-5.40 3.93 M/CMM M/CMM] *LOW* (05/11/17 3:32 PM) Hgb [12.0-16.0 g/dL] 12.0 g/dL (05/11/17 3:32 PM) Hct [36.0-48.0 %] 37.0 % (05/11/17 3:32 PM) MCV [80.0-98.0 fL] 94.1 fL (05/11/17 3:32 PM) MCH [27.0-31.0 pg] 30.4 pg (05/11/17 3:32 PM) MCHC [32.0-36.0 32.3 g/dL g/dL] (05/11/17 3:32 PM) RDW [11.5-14.5 %] 17.6 % *HI* (05/11/17 3:32 PM) Platelet [133-450 268 K/CMM K/CMM] (05/11/17 3:32 PM) MPV [7.4-10.4 fL] 9.3 fL (05/11/17 3:32 PM) Segs [45.0-75.0 %] 74.5 % (05/11/17 3:32 PM) Lymphocytes 14.4 % [20.0-40.0 %] *LOW* (05/11/17 3:32 PM) Monocytes [2.0-12.0 8.2 % %] (05/11/17 3:32 PM) Eosinophils [0.0-4.0 2.2 % %] (05/11/17 3:32 PM) Basophils [0.0-1.0 0.7 % %] (05/11/17 3:32 PM) Segs-Bands # 12.8 K/CMM [1.5-8.1 K/CMM] *HI* (05/11/17 3:32 PM) Lymphocytes # 2.5 K/CMM [1.0-5.5 K/CMM] (05/11/17 3:32 PM) Monocytes # [0.0-0.8 1.4 K/CMM K/CMM] *HI* (05/11/17 3:32 PM) Eosinophils # 0.4 K/CMM [0.0-0.5 K/CMM] (05/11/17 3:32 PM) Basophils # [0.0-0.2 0.1 K/CMM K/CMM] (05/11/17 3:32 PM) PT [12.0-14.7 13.1 seconds seconds] (05/11/17 3:32 PM) INR [0.85-1.17] 0.99 (05/11/17 3:32 PM) PTT [22.9-35.8 22.6 seconds seconds] *LOW* (05/11/17 3:32 PM) Immunizations Given and Recorded Vaccine Date Status Refusal Reason pneumococcal 23-valent vaccine 10/04/11 Given Procedures Procedure Date Related Diagnosis Body Site Brain operations 1960 Catheterization of left heart section Cystoscopy1 ESWL of kidney2 1w/stent 11/2016 44995 Social History Social History Type Response Substance Abuse Use: None. Alcohol Never Smoking Status Never smoker; Exposure to Tobacco Smoke None; Cigarette Smoking Last 365 Days No; Reg Smoking Cessation Counseling No Assessment and Plan No data available for this section
--- OUTSIDE RECORDS SUMMARY | 2018-12-19 17:05 | XMS REPORT | Summary of Care ---
Author Author [facility] Organization [facility] Address Unknown Phone Unavailable Encounter FERNANDEZ More(JOSHUA) [id number] Date(s): 06/23/17 - 06/23/17 [facility] [address] [place] [address]- Discharge Disposition: Home or Self Care Attending Physician: Judah Betts MD Referring Physician: Judah Betts MD Vital Signs 1 2 3 Most recent to oldest [Reference Range]: 152.4 cm (06/15/17 2:53 PM) Height 97.7 DegF (06/15/17 2:54 PM) Temperature Oral [96.4-99.1 DegF] 140/68 mmHg (06/23/17 1:30 PM) 156/70 mmHg *HI* (06/23/17 12:45 PM) 156/70 mmHg *HI* (06/23/17 12:30 PM) Blood Pressure [90-140/60-90 mmHg] 16 BRMIN (06/23/17 1:30 PM) 14 BRMIN (06/23/17 12:45 PM) 13 BRMIN *LOW* (06/23/17 12:30 PM) Respiratory Rate [14-20 BRMIN] 72 bpm (06/23/17 1:30 PM) 70 bpm (06/23/17 12:45 PM) 75 bpm (06/15/17 2:54 PM) Peripheral Pulse Rate [60-100 bpm] 90 kg (06/15/17 2:53 PM) Weight 38.75 m2 (06/15/17 2:53 PM) Body Mass Index Problem List Condition [...] Active Medications ANES acetaminophen 1,000 mg, Route: PO, Drug form: TAB, ONCE, Dosing Weight 90, kg, PRN Pain Score 1-3, Start date: 06/23/17 12:00:00 TRAIN BRAKE OPERATOR Start Date: 06/23/17 Stop Date: 06/23/17 Status: Discontinued ANES albuterol 0.083% inhalation solution 2.49 mg, Route: NEB, Q20Min, Dosing Weight 90, kg, PRN Wheezing, Priority: STAT, Start date: 06/23/17 12:00:00 TRAIN BRAKE OPERATOR, Duration: 30 day, Stop date: 07/23/17 11:59: 00 TRAIN BRAKE OPERATOR Start Date: 06/23/17 Stop Date: 06/23/17 Status: Discontinued ANES diphenhydrAMINE 12.5 mg, Route: IVP, Drug form: INJ, Q6H, Dosing Weight 90, kg, PRN Itching, Sta rt date: 06/23/17 12:00:00 TRAIN BRAKE OPERATOR, Duration: 30 day, Stop date: 07/23/17 11:59:[address] Start Date: 06/23/17 Stop Date: 06/23/17 Status: Discontinued ANES fentaNYL 25 microgram, Route: IVP, Q5Min, Dosing Weight 90, kg, PRN Pain Score 4-6, Prior ity: Routine, Start date: 06/23/17 12:00:00 TRAIN BRAKE OPERATOR, Duration: 4 doses or times, Sto p date: Limited # of times Start Date: 06/23/17 Stop Date: 06/23/17 Status: Discontinued ANES flumazenil 0.2 mg, Route: IVP, PRN, Dosing Weight 90, kg, PRN Benzodiazepine Reversal, Init ial dose, Start date: 06/23/17 12:00:00 TRAIN BRAKE OPERATOR, Duration: 30 day, Stop date: 11:59:00 TRAIN BRAKE OPERATOR Start Date: 06/23/17 Stop Date: 06/23/17 Status: Discontinued ANES hydrALAZINE 10 mg, Route: IVP, Q20Min, Dosing Weight 90, kg, PRN Elevated BP, Start date: 12:00:00 TRAIN BRAKE OPERATOR, Duration: 2 doses or times, Stop date: Limited # of times Start Date: 06/23/17 Stop Date: 06/23/17 Status: Discontinued ANES HYDROmorphone 0.5 mg, Route: IVP, Q5Min, Dosing Weight 90, kg, PRN Pain Score 7-10, Start date : 06/23/17 12:00:00 TRAIN BRAKE OPERATOR, Duration: 4 doses or times, Stop date: Limited # of david es Start Date: 06/23/17 Stop Date: 06/23/17 Status: Discontinued ANES ketOROLAC 30 mg, 1 mL, Route: IVP, Drug form: INJ, ONCE, Dosing Weight 90, kg, Start date: 06/23/17 12:00:00 TRAIN BRAKE OPERATOR, Stop date: 06/23/17 12:00:00 TRAIN BRAKE OPERATOR Notes: (Same as:Toradol) IV bolus must be given >15 seconds. Give IM administration slowly and deeply into the muscle.Not for use > 4 days MEDICATION WASTE Product Size: 30 mgProduct Wasted: ___ mg Start Date: 06/23/17 Stop Date: 06/23/17 Status: Ordered ANES labetalol 10 mg, Route: IVP, Q5Min, Dosing Weight 90, kg, PRN Elevated BP, Start date: 12:00:00 TRAIN BRAKE OPERATOR, Duration: 5 doses or times, Stop date: Limited # of times Start Date: 06/23/17 Stop Date: 06/23/17 Status: Discontinued ANES naloxone 0.4 mg, Route: IVP, Q2MIN, Dosing Weight 90, kg, PRN Narcotic Reversal, Start da te: 06/23/17 12:00:00 TRAIN BRAKE OPERATOR, Duration: 8 doses or times, Stop date: Limited # of t imes Start Date: 06/23/17 Stop Date: 06/23/17 Status: Discontinued ANES ondansetron 4 mg, Route: IVP, ONCE, Dosing Weight 90, kg, PRN Nausea & Vomiting, Start date: 06/23/17 12:00:00 TRAIN BRAKE OPERATOR Start Date: 06/23/17 Stop Date: 06/23/17 Status: Discontinued Cipro 500 mg oral tablet 500 mg=1 tab, PO, Q12H, for UTI, X 3 day, # 6 tab, 0 Refill(s) Start Date: 06/23/17 Stop Date: 06/26/17 Status: Ordered ciprofloxacin (ANES) Route: IV, Drug form: INJ, ONCE, Stop date: 06/23/17 11:26:00 TRAIN BRAKE OPERATOR Start Date: 06/23/17 Stop Date: 06/23/17 Status: Completed digoxin Daily, 0 Refill(s) Start Date: 06/15/17 Status: Ordered famotidine (ANES) Route: IV, Drug form: INJ, ONCE, Stop date: 06/23/17 11:31:00 TRAIN BRAKE OPERATOR Start Date: 06/23/17 Stop Date: 06/23/17 Status: Completed fentaNYL (ANES) Route: IV, Drug form: INJ, ONCE, Stop date: 06/23/17 11:26:00 TRAIN BRAKE OPERATOR Start Date: 06/23/17 Stop Date: 06/23/17 Status: Completed furosemide Daily, 0 Refill(s) Start Date: 06/15/17 Status: Ordered Lactated Ringers Injection IV (ANES) 1000 mL Route: IV, Total Volume: 1,000, Start date: 06/23/17 10:36:00 TRAIN BRAKE OPERATOR, Stop date: 11:36:00 TRAIN BRAKE OPERATOR Start Date: 06/23/17 Stop Date: 06/23/17 Status: Completed Lactated Ringers Injection IV 1000 mL 1,000 mL, Rate: 25 ml/hr, Infuse over: 40 hr, Route: IV, Dosing Weight 90 kg, To veronica Volume: 1,000, Start date: 06/23/17 8:23:00 TRAIN BRAKE OPERATOR, Duration: 30 day, Stop date : 07/23/17 8:22:00 TRAIN BRAKE OPERATOR, 1.99, m2 Start Date: 06/23/17 Stop Date: 06/23/17 Status: Discontinued lidocaine (ANES) Route: IV, Drug form: INJ, ONCE, Stop date: 06/23/17 11:26:00 TRAIN BRAKE OPERATOR Start Date: 06/23/17 Stop Date: 06/23/17 Status: Completed midazolam (ANES) Route: IV, Drug form: SOLN, ONCE, Stop date: 06/23/17 11:26:00 TRAIN BRAKE OPERATOR Start Date: 06/23/17 Stop Date: 06/23/17 Status: Completed ondansetron (ANES) Route: IV, Drug form: INJ, ONCE, Stop date: 06/23/17 11:31:00 TRAIN BRAKE OPERATOR Start Date: 06/23/17 Stop Date: 06/23/17 Status: Completed oxybutynin 5 mg oral tablet 5 mg=1 tab, PO, TID, PRN Bladder Spasm, # 30 tab, 1 Refill(s) Start Date: 06/23/17 Status: Ordered propofol (ANES) Route: IV, Drug form: INJ, ONCE, Stop date: 06/23/17 11:26:00 TRAIN BRAKE OPERATOR Start Date: 06/23/17 Stop Date: 06/23/17 Status: Completed tramadol 50 mg oral tablet 50 mg=1 tab, PO, Q8H, PRN Pain, X 20 day, # 30 tab, 0 Refill(s) Start Date: 06/23/17 Stop Date: 07/13/17 Status: Ordered Results ELECTROLYTES Most recent to 1 oldest [Reference Range]: Sodium Lvl [135-145 139 mEq/L mEq/L] (06/15/17 3:15 PM) Potassium Lvl 4.8 mEq/L [3.5-5.1 mEq/L] (06/15/17 3:15 PM) Chloride Lvl [95-109 103 mEq/L mEq/L] (06/15/17 3:15 PM) CO2 [24-32 mEq/L] 27 mEq/L (06/15/17 3:15 PM) AGAP [10.0-20.0 13.8 mEq/L mEq/L] (06/15/17 3:15 PM) CHEM PANEL Most recent to 1 oldest [Reference Range]: Creatinine Lvl 0.99 mg/dL [0.50-1.40 mg/dL] (06/15/17 3:15 PM) eGFR 59 mL/min/1.73m2 1 *NA* (06/15/17 3:15 PM) BUN [7-22 mg/dL] 17 mg/dL (06/15/17 3:15 PM) Glucose Lvl [70-99 181 mg/dL mg/dL] *HI* (06/15/17 3:15 PM) Calcium Lvl 8.8 mg/dL [8.5-10.5 mg/dL] (06/15/17 3:15 PM) 1Result Comment: The eGFR is calculated [...] 1 oldest [Reference Range]: UA Turbidity [Clear] Clear (06/15/17 3:15 PM) UA Color Ltyellow *NA* (06/15/17 3:15 PM) UA pH [5.0-8.0] 5.0 (06/15/17 3:15 PM) UA Spec Grav 1.019 [<=1.030] (06/15/17 3:15 PM) UA Glucose [Negative Negative mg/dL mg/dL] *NA* (06/15/17 3:15 PM) UA Blood [Negative] Moderate *ABN* (06/15/17 3:15 PM) UA Ketones [Negative Negative mg/dL mg/dL] *NA* (06/15/17 3:15 PM) UA Protein [Negative 30 mg/dL mg/dL] *ABN* (06/15/17 3:15 PM) UA Urobilinogen <=1.0 mg/dL [0.1-1.0 mg/dL] *NA* (06/15/17 3:15 PM) UA Bili [Negative] Negative *NA* (06/15/17 3:15 PM) UA Leuk Est Small [Negative] *ABN* (06/15/17 3:15 PM) UA Nitrite Negative [Negative] (06/15/17 3:15 PM) UA WBC [0-5 /HPF] 20 /HPF *HI* (06/15/17 3:15 PM) UA RBC [0-2 /HPF] 50 /HPF *HI* (06/15/17 3:15 PM) UA Bacteria [None Occasional /HPF Seen /HPF] *NA* (06/15/17 3:15 PM) UA Sq Epi [Few /LPF] Few /LPF *NA* (06/15/17 3:15 PM) UA Mucus [None Seen Few /LPF /LPF] *NA* (06/15/17 3:15 PM) HEMATOLOGY Most recent to 1 oldest [Reference Range]: WBC [3.7-10.4 K/CMM] 15.3 K/CMM *HI* (06/15/17 3:15 PM) RBC [4.20-5.40 3.98 M/CMM M/CMM] *LOW* (06/15/17 3:15 PM) Hgb [12.0-16.0 g/dL] 12.1 g/dL (06/15/17 3:15 PM) Hct [36.0-48.0 %] 37.2 % (06/15/17 3:15 PM) MCV [80.0-98.0 fL] 93.6 fL (06/15/17 3:15 PM) MCH [27.0-31.0 pg] 30.4 pg (06/15/17 3:15 PM) MCHC [32.0-36.0 32.5 g/dL g/dL] (06/15/17 3:15 PM) RDW [11.5-14.5 %] 15.6 % *HI* (06/15/17 3:15 PM) Platelet [133-450 228 K/CMM K/CMM] (06/15/17 3:15 PM) MPV [7.4-10.4 fL] 9.4 fL (06/15/17 3:15 PM) Segs [45.0-75.0 %] 75.0 % (06/15/17 3:15 PM) Lymphocytes 14.2 % [20.0-40.0 %] *LOW* (06/15/17 3:15 PM) Monocytes [2.0-12.0 7.9 % %] (06/15/17 3:15 PM) Eosinophils [0.0-4.0 2.2 % %] (06/15/17 3:15 PM) Basophils [0.0-1.0 0.7 % %] (06/15/17 3:15 PM) Segs-Bands # 11.5 K/CMM [1.5-8.1 K/CMM] *HI* (06/15/17 3:15 PM) Lymphocytes # 2.2 K/CMM [1.0-5.5 K/CMM] (06/15/17 3:15 PM) Monocytes # [0.0-0.8 1.2 K/CMM K/CMM] *HI* (06/15/17 3:15 PM) Eosinophils # 0.3 K/CMM [0.0-0.5 K/CMM] (06/15/17 3:15 PM) Basophils # [0.0-0.2 0.1 K/CMM K/CMM] (06/15/17 3:15 PM) Immunizations Given and Recorded Vaccine Date Status Refusal Reason pneumococcal 23-valent vaccine 10/04/11 Given Procedures Procedure Date Related Diagnosis Body Site Brain operations 1960 Catheterization of left heart section Cystoscopy1 ESWL of kidney2 1w/stent 11/2016 [id number] Social History Social History Type Response Substance Abuse Use: None. Alcohol Never Smoking Status Never smoker; Exposure to Tobacco Smoke None; Cigarette Smoking Last 365 Days No; Reg Smoking Cessation Counseling No Assessment and Plan No data available for this section
--- OUTSIDE RECORDS SUMMARY | 2018-12-19 17:05 | XMS REPORT | Summary of Care ---
Author Author [facility] Organization [facility] Address Unknown Phone Unavailable Encounter HQ Trevor_tess(FIN) [id number] Date(s): 06/03/17 - 06/03/17 [facility] [address] [place] [address]- Discharge Disposition: Home or Self Care Attending Physician: Judah Betts MD Referring Physician: Judah Betts MD Vital Signs No [...] Substance Reaction Severity Status NKDA Active Medications No data available for this section Results No data available for this section Immunizations Given and Recorded Vaccine Date Status Refusal Reason pneumococcal 23-valent vaccine 10/04/11 Given Procedures Procedure Date Related Diagnosis Body Site Brain operations 1960 Catheterization of left heart section Cystoscopy1 ESWL of kidney2 1w/stent 11/2016 Social History Social History Type Response Substance Abuse Use: None. Alcohol Never Smoking Status Never smoker; Exposure to Tobacco Smoke None; Cigarette Smoking Last 365 Days No; Reg Smoking Cessation Counseling No Assessment and Plan No data available for this section
--- OUTSIDE RECORDS SUMMARY | 2018-12-19 17:05 | XMS REPORT | Summary of Care ---
Author Organization Unknown Address Unknown Phone Unavailable Encounter HQ Encntr_tess([facility]) [id number] Date(s): 10/28/13 - 10/28/13 [facility] [address] Discharge Disposition: Home Physician Attending: Shanna Ramachandran MD Physician Admitting: Shanna Ramachandran MD Reason for Visit XRAY Problem List Condition Effective Dates Status Health Status Informant COPD(Confirmed) Active Diabetes Active mellitus(Confirmed) Hypertension(Confirm Active ed) Allergies, Adverse Reactions, Alerts Substance Reaction Severity Status nkda Active Medications No data available for this section Medications Administered During Your Visit No data available for this section Immunizations Vaccine Date Refusal Reason pneumococcal 23-valent vaccine 10/04/11
--- OUTSIDE RECORDS SUMMARY | 2018-12-19 17:05 | XMS REPORT | Summary of Care ---
Author Author [facility] Organization [facility] Address Unknown Phone Unavailable Encounter FERNANDEZ More(JOSHUA) [id number] Date(s): 05/19/15 - 05/23/15 [facility] [address] [place] [address]- Discharge Disposition: Home Attending Physician: Gumaro Young MD Admitting Physician: Gumaro Young MD Vital Signs 1 2 3 Most recent to oldest [Reference Range]: 152.4 cm (05/16/15 3:24 PM) Height 102.003 kg (05/23/15 5:16 AM) 108.008 kg (05/22/15 6:32 AM) 103.5 kg (05/21/15 6:19 AM) Current Weight 97.6 DegF (05/23/15 12:00 PM) 97.3 DegF (05/23/15 8:00 AM) 98.5 DegF (05/23/15 4:00 AM) Temperature Oral [96.4-99.1 DegF] 144/83 mmHg *HI* (05/23/15 12:00 PM) 166/94 mmHg *HI* (05/23/15 8:00 AM) 126/76 mmHg (05/23/15 4:00 AM) Blood Pressure [90-140/60-90 mmHg] 18 BRMIN (05/23/15 12:00 PM) 19 BRMIN (05/23/15 8:00 AM) 16 BRMIN (05/23/15 7:01 AM) Respiratory Rate [14-20 BRMIN] 69 bpm (05/23/15 12:00 PM) 76 bpm (05/23/15 8:00 AM) 72 bpm (05/23/15 4:00 AM) Peripheral Pulse Rate [60-100 bpm] 108.008 kg (05/22/15 6:31 AM) 101.8 kg (05/22/15 6:10 AM) 95.568 kg (05/16/15 3:24 PM) Weight 41.15 m2 (05/16/15 3:24 PM) Body Mass Index Problem List Condition Effective Dates Status Health Status Informant CHF - Congestive Resolved heart failure(Confirmed) COPD(Confirmed) Active Diabetes(Confirmed) Resolved Diabetes Active mellitus(Confirmed) HTN Resolved (hypertension)(Confi rmed) Hypertension(Confirm Active ed) Pneumonia(Confirmed) Resolved Allergies, Adverse Reactions, Alerts Substance Reaction Severity Status [id number] Active Medications acetaminophen 650 mg, 2 tab, Route: PO, Drug form: TAB, Q6H, Dosing Weight 95.568, kg, PRN Maritza n 1-3/Temp > 100.4 F, Start date: 05/17/15 18:41:00, Duration: 30 day, Stop date: 06/16/15 18:40:00 Notes: Do not exceed 4 gm/day. (Same as: Tylenol) Start Date: 05/17/15 Stop Date: 05/23/15 Status: Discontinued albuterol 1.25 mg, 3 mL, Route: NEB, Drug form: SOLN, RQ6H, Start date: 05/17/15 2:00:00, Duration: 30 day, Stop date: 06/15/15 20:00:00 Notes: SEE RT DOCUMENTATION (Same as: Proventil) Start Date: 05/17/15 Stop Date: 05/23/15 Status: Discontinued Ambien 5 mg, 1 tab, Route: PO, Drug form: TAB, Bedtime, Dosing Weight 95.568, kg, PRN a s needed for sleep, Start date: 05/16/15 20:50:00, Duration: 30 day, Stop date: 06/15/15 20:49:00 Notes: (Same As: Ambien) Start Date: 05/16/15 Stop Date: 05/23/15 Status: Discontinued atropine 0.5 mg, 5 mL, Route: IVP, Drug form: INJ, ONCE, Dosing Weight 95.568, kg, PRN Br adycardia, Start date: 05/17/15 7:52:00, symptomatic bradycardia of <44BPM Start Date: 05/17/15 Stop Date: 05/23/15 Status: Discontinued Cipro 500 mg, 1 tab, Route: PO, Drug form: TAB, [id number], Dosing Weight 108.008, kg, St art date: 05/22/15 14:00:00, Duration: 30 day, Stop date: 06/21/15 2:00:00 Notes: May interfere w/enteral feedings - Take 1 hr before or 2 hrs after anta cids, dairy pdt & minerals. On empty stomach. Start Date: 05/22/15 Stop Date: 05/23/15 Status: Discontinued Dextrose 50% Syringe 12.5 gm, 25 mL, Route: IVP, Drug Form: INJ, Dosing Weight 95.568, kg, PRN, PRN B lood Glucose Results, Start date: 05/16/15 19:00:00, Duration: 30 day, Stop date : 06/15/15 18:59:00 Start Date: 05/16/15 Stop Date: 05/17/15 Status: Discontinued Dextrose 50% Syringe 25 gm, 50 mL, Route: IVP, Drug Form: INJ, Dosing Weight 95.568, kg, PRN, PRN Blo od Glucose Results, Start date: 05/16/15 19:00:00, Duration: 30 day, Stop date: 06/15/15 18:59:00 Start Date: 05/16/15 Stop Date: 05/17/15 Status: Discontinued Dextrose 50% Syringe 12.5 gm, 25 mL, Route: IVP, Drug Form: INJ, Dosing Weight 95.568, kg, PRN, PRN B lood Glucose Results, Start date: 05/17/15 18:42:00, Duration: 30 day, Stop date : 06/16/15 18:41:00 Start Date: 05/17/15 Stop Date: 05/23/15 Status: Discontinued Dextrose 50% Syringe 25 gm, 50 mL, Route: IVP, Drug Form: INJ, Dosing Weight 95.568, kg, PRN, PRN Blo od Glucose Results, Start date: 05/17/15 18:42:00, Duration: 30 day, Stop date: 06/16/15 18:41:00 Start Date: 05/17/15 Stop Date: 05/23/15 Status: Discontinued digoxin 250 mcg (0.25 mg) oral tablet 0.25 mg, 1 tab, Route: PO, Drug form: TAB, Daily, Dosing Weight 95.568, kg, Star t date: 05/17/15 9:00:00, Duration: 30 day, Stop date: 06/15/15 9:00:00 Notes: Take on an Empty Stomach (Same as: Lanoxin) Start Date: 05/17/15 Stop Date: 05/23/15 Status: Discontinued enoxaparin 40 mg, 0.4 mL, Route: SUB-Q, Drug form: INJ, [id number], Dosing Weight 95.568, kg, Start date: 05/16/15 22:00:00, Duration: 30 day, Stop date: 06/14/15 22:00:00 Notes: (Same as: Lovenox) Start Date: 05/16/15 Stop Date: 05/18/15 Status: Discontinued GlipiZIDE XL 2.5 mg oral tablet, extended release 2.5 mg, 1 tab, Route: PO, Drug form: ERTAB, BID, Dosing Weight 95.568, kg, Start date: 05/17/15 9:00:00, Duration: 30 day, Stop date: 06/15/15 17:00:00 Notes: (Same as: Glucotrol XL)"Do Not Crush" 30 min before meals. Start Date: 05/17/15 Stop Date: 05/23/15 Status: Discontinued glucagon 1 mg, Route: IM, Drug form: PDR/INJ, PRN, Dosing Weight 95.568, kg, PRN Blood Gl ucose Results, Start date: 05/16/15 19:00:00, Duration: 30 day, Stop date: 06/15 18:59:00 Start Date: 05/16/15 Stop Date: 05/17/15 Status: Discontinued glucagon 1 mg, Route: IM, Drug form: PDR/INJ, PRN, Dosing Weight 95.568, kg, PRN Blood Gl ucose Results, Start date: 05/17/15 18:42:00, Duration: 30 day, Stop date: 06/16 18:41:00 Start Date: 05/17/15 Stop Date: 05/23/15 Status: Discontinued insulin aspart 4 unit, 0.04 mL, Route: SUB-Q, Drug form: SOLN, Bedtime, Dosing Weight 95.568, k g, PRN Blood Glucose Results, Start date: 05/16/15 19:00:00, Duration: 30 day, S top date: 06/15/15 18:59:00 Notes: Roll in palms of hands gently; Do not shake vigorously. (Same as: NovoLO G)"single patient use only" Stable for 28 days at room temperature.Expires in _ ____ days from Date Start Date: 05/16/15 Stop Date: 05/17/15 Status: Discontinued insulin aspart 1 unit, 0.01 mL, Route: SUB-Q, Drug form: SOLN, Bedtime, Dosing Weight 95.568, k g, PRN Blood Glucose Results, Start date: 05/16/15 19:00:00, Duration: 30 day, S top date: 06/15/15 18:59:00 Notes: Roll in palms of hands gently; Do not shake vigorously. (Same as: NovoLO G)"single patient use only" Stable for 28 days at room temperature.Expires in _ ____ days from Date Start Date: 05/16/15 Stop Date: 05/17/15 Status: Discontinued insulin aspart 3 unit, 0.03 mL, Route: SUB-Q, Drug form: SOLN, Bedtime, Dosing Weight 95.568, k g, PRN Blood Glucose Results, Start date: 05/16/15 19:00:00, Duration: 30 day, S top date: 06/15/15 18:59:00 Notes: Roll in palms of hands gently; Do not shake vigorously. (Same as: NovoLO G)"single patient use only" Stable for 28 days at room temperature.Expires in _ ____ days from Date Start Date: 05/16/15 Stop Date: 05/17/15 Status: Discontinued insulin aspart 2 unit, 0.02 mL, Route: SUB-Q, Drug form: SOLN, Bedtime, Dosing Weight 95.568, k g, PRN Blood Glucose Results, Start date: 05/16/15 19:00:00, Duration: 30 day, S top date: 06/15/15 18:59:00 Notes: Roll in palms of hands gently; Do not shake vigorously. (Same as: NovoLO G)"single patient use only" Stable for 28 days at room temperature.Expires in _ ____ days from Date Start Date: 05/16/15 Stop Date: 05/17/15 Status: Discontinued insulin aspart 2 unit, 0.02 mL, Route: SUB-Q, Drug form: SOLN, TID-Before Meals, Dosing Weight 95.568, kg, PRN Blood Glucose Results, Start date: 05/16/15 19:00:00, Duration: 30 day, Stop date: 06/15/15 18:59:00 Notes: Roll in palms of hands gently; Do not shake vigorously. (Same as: NovoLO G)"single patient use only" Stable for 28 days at room temperature.Expires in _ ____ days from Date Start Date: 05/16/15 Stop Date: 05/17/15 Status: Discontinued insulin aspart 4 unit, 0.04 mL, Route: SUB-Q, Drug form: SOLN, TID-Before Meals, Dosing Weight 95.568, kg, PRN Blood Glucose Results, Start date: 05/16/15 19:00:00, Duration: 30 day, Stop date: 06/15/15 18:59:00 Notes: Roll in palms of hands gently; Do not shake vigorously. (Same as: NovoLO G)"single patient use only" Stable for 28 days at room temperature.Expires in _ ____ days from Date Start Date: 05/16/15 Stop Date: 05/17/15 Status: Discontinued insulin aspart 1 unit, 0.01 mL, Route: SUB-Q, Drug form: SOLN, TID-Before Meals, Dosing Weight 95.568, kg, PRN Blood Glucose Results, Start date: 05/16/15 19:00:00, Duration: 30 day, Stop date: 06/15/15 18:59:00 Notes: Roll in palms of hands gently; Do not shake vigorously. (Same as: NovoLO G)"single patient use only" Stable for 28 days at room temperature.Expires in _ ____ days from Date Start Date: 05/16/15 Stop Date: 05/17/15 Status: Discontinued insulin aspart 3 unit, 0.03 mL, Route: SUB-Q, Drug form: SOLN, TID-Before Meals, Dosing Weight 95.568, kg, PRN Blood Glucose Results, Start date: 05/16/15 19:00:00, Duration: 30 day, Stop date: 06/15/15 18:59:00 Notes: Roll in palms of hands gently; Do not shake vigorously. (Same as: NovoLO G)"single patient use only" Stable for 28 days at room temperature.Expires in _ ____ days from Date Start Date: 05/16/15 Stop Date: 05/17/15 Status: Discontinued insulin aspart 5 unit, 0.05 mL, Route: SUB-Q, Drug form: SOLN, TID-Before Meals, Dosing Weight 95.568, kg, PRN Blood Glucose Results, Start date: 05/16/15 19:00:00, Duration: 30 day, Stop date: 06/15/15 18:59:00 Notes: Roll in palms of hands gently; Do not shake vigorously. (Same as: NovoLO G)"single patient use only" Stable for 28 days at room temperature.Expires in _ ____ days from Date Start Date: 05/16/15 Stop Date: 05/17/15 Status: Discontinued insulin aspart 3 unit, 0.03 mL, Route: SUB-Q, Drug form: SOLN, Bedtime, Dosing Weight 95.568, k g, PRN Blood Glucose Results, Start date: 05/17/15 18:42:00, Duration: 30 day, S top date: 06/16/15 18:41:00 Notes: Roll in palms of hands gently; Do not shake vigorously. (Same as: NovoLO G)"single patient use only" Stable for 28 days at room temperature.Expires in _ ____ days from Date Start Date: 05/17/15 Stop Date: 05/23/15 Status: Discontinued insulin aspart 4 unit, 0.04 mL, Route: SUB-Q, Drug form: SOLN, Bedtime, Dosing Weight 95.568, k g, PRN Blood Glucose Results, Start date: 05/17/15 18:42:00, Duration: 30 day, S top date: 06/16/15 18:41:00 Notes: Roll in palms of hands gently; Do not shake vigorously. (Same as: NovoLO G)"single patient use only" Stable for 28 days at room temperature.Expires in _ ____ days from Date Start Date: 05/17/15 Stop Date: 05/23/15 Status: Discontinued insulin aspart 15 unit, 0.15 mL, Route: SUB-Q, Drug form: SOLN, TID-Before Meals, Dosing Weight 95.568, kg, PRN Blood Glucose Results, Start date: 05/17/15 18:42:00, Duration: 30 day, Stop date: 06/16/15 18:41:00 Notes: Roll in palms of hands gently; Do not shake vigorously. (Same as: NovoLO G)"single patient use only" Stable for 28 days at room temperature.Expires in _ ____ days from Date Start Date: 05/17/15 Stop Date: 05/23/15 Status: Discontinued insulin aspart 1 unit, 0.01 mL, Route: SUB-Q, Drug form: SOLN, Bedtime, Dosing Weight 95.568, k g, PRN Blood Glucose Results, Start date: 05/17/15 18:42:00, Duration: 30 day, S top date: 06/16/15 18:41:00 Notes: Roll in palms of hands gently; Do not shake vigorously. (Same as: NovoLO G)"single patient use only" Stable for 28 days at room temperature.Expires in _ ____ days from Date Start Date: 05/17/15 Stop Date: 05/23/15 Status: Discontinued insulin aspart 2 unit, 0.02 mL, Route: SUB-Q, Drug form: SOLN, Bedtime, Dosing Weight 95.568, k g, PRN Blood Glucose Results, Start date: 05/17/15 18:42:00, Duration: 30 day, S top date: 06/16/15 18:41:00 Notes: Roll in palms of hands gently; Do not shake vigorously. (Same as: NovoLO G)"single patient use only" Stable for 28 days at room temperature.Expires in _ ____ days from Date Start Date: 05/17/15 Stop Date: 05/23/15 Status: Discontinued insulin aspart 3 unit, 0.03 mL, Route: SUB-Q, Drug form: SOLN, TID-Before Meals, Dosing Weight 95.568, kg, PRN Blood Glucose Results, Start date: 05/17/15 18:42:00, Duration: 30 day, Stop date: 06/16/15 18:41:00 Notes: Roll in palms of hands gently; Do not shake vigorously. (Same as: NovoLO G)"single patient use only" Stable for 28 days at room temperature.Expires in _ ____ days from Date Start Date: 05/17/15 Stop Date: 05/23/15 Status: Discontinued insulin aspart 6 unit, 0.06 mL, Route: SUB-Q, Drug form: SOLN, TID-Before Meals, Dosing Weight 95.568, kg, PRN Blood Glucose Results, Start date: 05/17/15 18:42:00, Duration: 30 day, Stop date: 06/16/15 18:41:00 Notes: Roll in palms of hands gently; Do not shake vigorously. (Same as: NovoLO G)"single patient use only" Stable for 28 days at room temperature.Expires in _ ____ days from Date Start Date: 05/17/15 Stop Date: 05/23/15 Status: Discontinued insulin aspart 9 unit, 0.09 mL, Route: SUB-Q, Drug form: SOLN, TID-Before Meals, Dosing Weight 95.568, kg, PRN Blood Glucose Results, Start date: 05/17/15 18:42:00, Duration: 30 day, Stop date: 06/16/15 18:41:00 Notes: Roll in palms of hands gently; Do not shake vigorously. (Same as: NovoLO G)"single patient use only" Stable for 28 days at room temperature.Expires in _ ____ days from Date Start Date: 05/17/15 Stop Date: 05/23/15 Status: Discontinued insulin aspart 12 unit, 0.12 mL, Route: SUB-Q, Drug form: SOLN, TID-Before Meals, Dosing Weight 95.568, kg, PRN Blood Glucose Results, Start date: 05/17/15 18:42:00, Duration: 30 day, Stop date: 06/16/15 18:41:00 Notes: Roll in palms of hands gently; Do not shake vigorously. (Same as: NovoLO G)"single patient use only" Stable for 28 days at room temperature.Expires in _ ____ days from Date Start Date: 05/17/15 Stop Date: 05/23/15 Status: Discontinued Lasix 40 mg, Route: IVP, Drug form: INJ, Daily, Dosing Weight 95.568, kg, Start date: 05/17/15 9:00:00, Duration: 30 day, Stop date: 06/15/15 9:00:00 Start Date: 05/17/15 Stop Date: 05/16/15 Status: Canceled Lasix 40 mg, 4 mL, Route: IVP, Drug form: INJ, Q8H, Dosing Weight 95.568, kg, Priority : STAT, Start date: 05/16/15 15:45:00, Duration: 3 doses or times, Stop date: 2:00:00 Notes: (Same as: Lasix) MEDICATION WASTE Product Size: 40 mgProduct Was winnie: ___ mg Start Date: 05/16/15 Stop Date: 05/17/15 Status: Completed Lasix 40 mg, 4 mL, Route: IVP, Drug form: INJ, ONCE, Dosing Weight 95.568, kg, Start d ate: 05/19/15 12:38:00, Stop date: 05/19/15 12:38:00 Notes: (Same as: Lasix) MEDICATION WASTE Product Size: 40 mgProduct Was winnie: ___ mg Start Date: 05/19/15 Stop Date: 05/19/15 Status: Completed Lasix 40 mg, 4 mL, Route: IVP, Drug form: INJ, Daily, Dosing Weight 95.568, kg, Start date: 05/20/15 9:00:00, Duration: 30 day, Stop date: 06/18/15 9:00:00 Notes: (Same as: Lasix) MEDICATION WASTE Product Size: 40 mgProduct Was winnie: ___ mg Start Date: 05/20/15 Stop Date: 05/23/15 Status: Discontinued lisinopril 20 mg, 1 tab, Route: PO, Drug form: TAB, Daily, Dosing Weight 95.568, kg, Start date: 05/16/15 18:32:00, Duration: 30 day, Stop date: 06/15/15 17:00:00 Notes: (Same as: Prinivil, Zestril) Start Date: 05/16/15 Stop Date: 05/23/15 Status: Discontinued Lovenox 40 mg, 0.4 mL, Route: SUB-Q, Drug form: INJ, Daily, Dosing Weight 95.568, kg, St art date: 05/18/15 20:00:00, Duration: 30 day, Stop date: 06/16/15 20:00:00 Notes: (Same as: Lovenox) Start Date: 05/18/15 Stop Date: 05/23/15 Status: Discontinued methylPREDNISolone SODium SUCCinate 40 mg, 1 mL, Route: IVP, Drug form: INJ, Q8H, Dosing Weight 95.568, kg, Start da te: 05/16/15 16:00:00, Duration: 30 day, Stop date: 06/15/15 2:00:00 Notes: (Same as:Solu-MEDROL, A-Methapred) Start Date: 05/16/15 Stop Date: 05/17/15 Status: Discontinued nitroglycerin 0.4 mg sublingual tablet 0.4 mg, 1 tab, Route: SL, Drug form: TAB, Q5Min, Dosing Weight 95.568, kg, PRN C hest Pain, Start date: 05/17/15 7:52:00, Duration: 30 day, Stop date: 06/16/15 7 :51:00 Notes: (Same as:Nitroquick, Nitrostat)"Do Not Crush" Sublingual tablet Start Date: 05/17/15 Stop Date: 05/23/15 Status: Discontinued nitroglycerin SL Tab 0.4 mg, 1 tab, Route: SL, Drug form: TAB, Q5Min, Dosing Weight 95.568, kg, PRN C hest Pain, Start date: 05/17/15 14:10:00, Duration: 3 doses or times, Stop date: Limited # of times Notes: (Same as:Nitroquick, Nitrostat)"Do Not Crush" Sublingual tablet Start Date: 05/17/15 Stop Date: 05/23/15 Status: Discontinued PARoxetine 20 mg, 1 tab, Route: PO, Drug form: TAB, Daily, Dosing Weight 95.568, kg, Start date: 05/16/15 20:30:00, Duration: 30 day, Stop date: 06/15/15 9:00:00 Notes: (Same as: Paxil) Start Date: 05/16/15 Stop Date: 05/23/15 Status: Discontinued ProAir HFA 90 mcg/inh inhalation aerosol with adapter 180 microgram, Route: INHALER, Drug Form: AERO/A, Dosing Weight 95.568, kg, Q4H, PRN Wheezing, Start date: 05/16/15 20:44:00, Duration: 30 day, Stop date: 06/15 20:43:00 Notes: Albuterol 90 microgram/inh 8gm HFA Same as: Ventolin, Proventil Start Date: 05/16/15 Stop Date: 05/23/15 Status: Discontinued ProAir HFA 90 mcg/inh inhalation aerosol with adapter 2 puff, INHALER, Q4H, PRN for wheezing, # 8.5 gm, 0 Refill(s) Start Date: 05/16/15 Status: Ordered simvastatin 40 mg, 1 tab, Route: PO, Drug form: TAB, Bedtime, Dosing Weight 95.568, kg, Star t date: 05/16/15 21:00:00, Duration: 30 day, Stop date: 06/14/15 21:00:00 Notes: (Same as: Zocor) Start Date: 05/16/15 Stop Date: 05/23/15 Status: Discontinued verapamil 120 mg, 1 tab, Route: PO, Drug form: TAB, Q8H, Dosing Weight 95.568, kg, Start d ate: 05/16/15 21:46:00, Duration: 30 day, Stop date: 06/15/15 16:00:00 Notes: (Same As: Calan, Isoptin) "Avoid grapefruit and grapefruit juice" Start Date: 05/16/15 Stop Date: 05/23/15 Status: Discontinued verapamil 120 mg, 1 tab, Route: PO, Drug form: ERTAB, Daily, Dosing Weight 95.568, kg, Sta rt date: 05/17/15 9:00:00, Duration: 30 day, Stop date: 06/15/15 9:00:00 Notes: Do not crush or chew.(Same As: Calan SR, Isoptin SR) "Avoid grapefruit a nd grapefruit juice" Start Date: 05/17/15 Stop Date: 05/16/15 Status: Canceled Xopenex 0.63 mg, Route: NEB, Q6H, Dosing Weight 95.568, kg, Start date: 05/17/15 0:00:00 , Duration: 30 day, Stop date: 06/15/15 18:00:00 Start Date: 05/17/15 Stop Date: 05/16/15 Status: Deleted Results ELECTROLYTES 1 2 3 Most recent to oldest [Reference Range]: 139 mEq/L (05/19/15 7:21 PM) 138 mEq/L (05/18/15 12:32 PM) 138 mEq/L (05/17/15 5:26 AM) Sodium Lvl [135-145 mEq/L] 3.8 mEq/L (05/19/15 7:21 PM) 3.6 mEq/L (05/18/15 12:32 PM) 3.6 mEq/L (05/17/15 5:26 AM) Potassium Lvl [3.5-5.1 mEq/L] 96 mEq/L (05/19/15 7:21 PM) 97 mEq/L (05/18/15 12:32 PM) 98 mEq/L (05/17/15 5:26 AM) Chloride Lvl [95-109 mEq/L] 36 mEq/L *HI* (05/19/15 7:21 PM) 31 mEq/L (05/18/15 12:32 PM) 29 mEq/L (05/17/15 5:26 AM) CO2 [24-32 mEq/L] 10.8 mEq/L (05/19/15 7:21 PM) 13.6 mEq/L (05/18/15 12:32 PM) 14.6 mEq/L (05/17/15 5:26 AM) AGAP [10.0-20.0 mEq/L] CHEM PANEL 1 2 3 Most recent to oldest [Reference Range]: 0.92 mg/dL (05/19/15 7:21 PM) 1.25 mg/dL (05/18/15 12:32 PM) 0.77 mg/dL (05/17/15 5:26 AM) Creatinine Lvl [0.50-1.40 mg/dL] 66 mL/min/1.73m2 1 *NA* (05/19/15 7:21 PM) 45 mL/min/1.73m2 2 *NA* (05/18/15 12:32 PM) 81 mL/min/1.73m2 3 *NA* (05/17/15 5:26 AM) eGFR 24 mg/dL *HI* (05/19/15 7:21 PM) 26 mg/dL *HI* (05/18/15 12:32 PM) 14 mg/dL (05/17/15 5:26 AM) BUN [7-22 mg/dL] 18 (05/17/15 5:26 AM) 22 (05/16/15 4:20 PM) B/C Ratio [6-25] 323 mg/dL *HI* (05/19/15 7:21 PM) 315 mg/dL *HI* (05/18/15 12:32 PM) 349 mg/dL *HI* (05/17/15 5:26 AM) Glucose Lvl [70-99 mg/dL] 6.8 g/dL (05/17/15 5:26 AM) 6.8 g/dL (05/16/15 4:20 PM) Total Protein [6.4-8.4 g/dL] 3.5 g/dL (05/17/15 5:26 AM) 3.8 g/dL (05/16/15 4:20 PM) Albumin Lvl [3.5-5.0 g/dL] 3.3 g/dL (05/17/15 5:26 AM) 3.0 g/dL (05/16/15 4:20 PM) Globulin [2.0-4.0 g/dL] 1.1 (05/17/15 5:26 AM) 1.3 (05/16/15 4:20 PM) A/G Ratio [0.7-1.6] 8.4 mg/dL *LOW* (05/19/15 7:21 PM) 8.5 mg/dL (05/18/15 12:32 PM) 8.8 mg/dL (05/17/15 5:26 AM) Calcium Lvl [8.5-10.5 mg/dL] 1.9 mg/dL (05/19/15 7:21 PM) 1.8 mg/dL (05/17/15 5:26 AM) Magnesium Lvl [1.8-2.4 mg/dL] 18 unit/L (05/17/15 5:26 AM) 18 unit/L (05/16/15 4:20 PM) ALT [0-65 unit/L] 7 unit/L (05/17/15 5:26 AM) 16 unit/L (05/16/15 4:20 PM) AST [0-37 unit/L] 52 unit/L (05/17/15 5:26 AM) 52 unit/L (05/16/15 4:20 PM) Alk Phos [39-136 unit/L] 0.9 mg/dL (05/17/15 5:26 AM) 1.0 mg/dL (05/16/15 4:20 PM) Bili Total [0.2-1.3 mg/dL] <0.05 ng/mL (05/17/15 5:26 AM) Procalcitonin Lvl [0.00-0.10 ng/mL] 1Result Comment: The eGFR is calculated using [...] 3 Most recent to oldest [Reference Range]: 36 unit/L (05/17/15 5:26 AM) Total CK [12-191 unit/L] 0.6 ng/mL (05/17/15 5:26 AM) CK MB [0.5-3.6 ng/mL] 1.7 (05/17/15 5:26 AM) CK MB Index [0.0-2.5] <0.02 ng/mL (05/17/15 5:26 AM) Troponin-I [0.00-0.40 ng/mL] 163 pg/mL *HI* (05/17/15 5:26 AM) 110 pg/mL *HI* (05/16/15 4:20 PM) BNP [<=100 pg/mL] LIPIDS 1 2 3 Most recent to oldest [Reference Range]: 4.02 (05/17/15 5:26 AM) CHD Risk [3.90-5.80] 173 mg/dL (05/17/15 5:26 AM) Chol [<=199 mg/dL] 140 mg/dL (05/17/15 5:26 AM) Trig [<=149 mg/dL] 43 mg/dL *LOW* (05/17/15 5:26 AM) HDL [>=61 mg/dL] 102 mg/dL *HI* (05/17/15 5:26 AM) LDL (Calculated) [<=99 mg/dL] 28 *NA* (05/17/15 5:26 AM) VLDL TOXICOLOGY 1 2 3 Most recent to oldest [Reference Range]: 1.1 ng/mL (05/16/15 7:19 PM) Digoxin Lvl [0.8-2.0 ng/mL] HEMATOLOGY 1 2 3 Most recent to oldest [Reference Range]: 14.0 K/CMM *HI* (05/17/15 5:26 AM) 12.1 K/CMM *HI* (05/16/15 4:20 PM) WBC [3.7-10.4 K/CMM] 3.93 M/CMM *LOW* (05/17/15 5:26 AM) 3.95 M/CMM *LOW* (05/16/15 4:20 PM) RBC [4.20-5.40 M/CMM] 11.7 g/dL *LOW* (05/17/15 5:26 AM) 11.5 g/dL *LOW* (05/16/15 4:20 PM) Hgb [12.0-16.0 g/dL] 37.1 % (05/17/15 5:26 AM) 37.7 % (05/16/15 4:20 PM) Hct [36.0-48.0 %] 94.5 fL (05/17/15 5:26 AM) 95.4 fL (05/16/15 4:20 PM) MCV [80.0-98.0 fL] 29.7 pg (05/17/15 5:26 AM) 29.1 pg (05/16/15 4:20 PM) MCH [27.0-31.0 pg] 31.5 g/dL *LOW* (05/17/15:26 AM) 30.6 g/dL *LOW* (05/16/15 4:20 PM) MCHC [32.0-36.0 g/dL] 16.0 % *HI* (05/17/15 5:26 AM) 16.4 % *HI* (05/16/15 4:20 PM) RDW [11.5-14.5 %] 217 K/CMM (05/17/15 5:26 AM) 215 K/CMM (05/16/15 4:20 PM) Platelet [133-450 K/CMM] 9.8 fL (05/17/15 5:26 AM) 10.6 fL *HI* (05/16/15 4:20 PM) MPV [7.4-10.4 fL] 91.4 % *HI* (05/17/15:26 AM) 73.3 % (05/16/15 4:20 PM) Segs [45.0-75.0 %] 5.6 % *LOW* (05/17/15 5:26 AM) 16.8 % *LOW* (05/16/15 4:20 PM) Lymphocytes [20.0-40.0 %] 2.1 % (05/17/15 5:26 AM) 8.5 % (05/16/15 4:20 PM) Monocytes [2.0-12.0 %] 1.2 % (05/16/15 4:20 PM) Eosinophils [0.0-4.0 %] 0.9 % (05/17/15 5:26 AM) 0.2 % (05/16/15 4:20 PM) Basophils [0.0-1.0 %] 12.8 K/CMM *HI* (05/17/15 5:26 AM) 8.8 K/CMM *HI* (05/16/15 4:20 PM) Segs-Bands # [1.5-8.1 K/CMM] 0.8 K/CMM *LOW* (05/17/15 5:26 AM) 2.0 K/CMM (05/16/15 4:20 PM) Lymphocytes # [1.0-5.5 K/CMM] 0.3 K/CMM (05/17/15 5:26 AM) 1.0 K/CMM *HI* (05/16/15 4:20 PM) Monocytes # [0.0-0.8 K/CMM] 0.2 K/CMM (05/16/15 4:20 PM) Eosinophils # [0.0-0.5 K/CMM] 0.1 K/CMM (05/17/15 5:26 AM) Basophils # [0.0-0.2 K/CMM] Normal (05/16/15 4:20 PM) RBC Morph Normal (05/16/15 4:20 PM) Plt Morph 14.4 seconds (05/17/15 5:26 AM) PT [12.0-14.7 seconds] 1.09 (05/17/15 5:26 AM) INR [0.85-1.17] 1.07 ug/mL FEU *NA* (05/17/15 5:26 AM) D-Dimer 26.4 seconds (05/17/15 5:26 AM) PTT [22.9-35.8 seconds] Immunizations Vaccine Date Refusal Reason pneumococcal 23-valent vaccine 10/04/11 Procedures Procedure Date Related Diagnosis Body Site Brain operations 1960 section Social History Social History Type Response Alcohol Never Smoking Status Never smoker; Exposure to Tobacco Smoke None; Cigarette Smoking Last 365 Days No; Reg Smoking Cessation Counseling No Assessment and Plan Extracted from: Title: Clinical Document Author: Peter Tran MD Date: 05/22/15 PM&R PROGRESS NOTE CHIEF COMPLAINT IDENTIFICATION: A 65-year-old lady being seen for ongoing rehabilitation needs in the setting of advanced debility, disuse atrophy cardiopulmonary intolerance to activity with acute systolic and diastolic congestive heart failure and COPD. INTERVAL EVENTS AND SUBJECTIVE: All interval events reviewed. She is denying fevers, chills, nausea, vomiting, headaches, or dizziness. She is continuing to have shortness of breath and chest discomfort with light ambulation (10 to 30 feet at a time). She is tolerating being out of bed easier. No new bowel or bladder complaints. Vitals and Temp: VitalsTmp(F)[id number] 05/22 11:[id number]------ 05/22 09:13 7 32% 05/22 08:45----71 05/22 07:5197.165172/7718------ 05/22 04:0997.111125/[id number]--- 24 Hr Tmax: 99.2F (37.33c) at 05/21 20:29Vital Signs are the last 5 in the past 48 hours. GENERAL: Obese, sitting at the edge of the bed, no apparent distress PSYCHIATRIC: She is alert, oriented, appropriate, pleasant and cooperative. HEENT: Pupils equal, round, reactive to light. Extraocular muscles intact. Moist mucous membranes. CARDIOVASCULAR: 2+ bilateral upper extremity pulses, regular rate and rhythm all extremities, warm, well-perfused PULMONARY: Respirations unlabored without conversational dyspnea at the sentence level. Nasal cannula in place. ABDOMEN: Doughy, nontender, nondistended. GENITOURINARY: No Flynn. SKIN: No new breakdown seen over the arms or feet. NEUROMUSCULOSKELETAL: Cranial nerves II-XII are intact. Strength unbreakable in bilateral upper extremities, 4+/5 with hip flexion, knee extension, unbreakable, ankle dorsiflexion, great toe extension. Sensation normal. No hypertonicity or clonus. LABORATORY DATA: Labs (Last four charted values) WBC H 14.0(MAY 17)H 12.1(MAY 16) Hgb L 11.7(MAY 17)L 11.5(MAY 16) Hct 37.1(MAY 17)37.7(MAY 16) Plt 217(MAY 17)215(MAY 16) Na 139(MAY 14)138(MAY 18)138(MAY 17)141(MAY 16) K 3.8(MAY 19)3.6(MAY 18)3.6(MAY 17)4.2(MAY 16) CO2 H 36(MAY 19)31(MAY 18)29(MAY 17)31(MAY 16) Cl 96(MAY 19)97(MAY 18)98(MAY 17)103(MAY 16) Cr 0.92(MAY 19)1.25(MAY 18)0.77(MAY 17)0.67(MAY 16) BUN H 24(MAY 19)H 26(MAY 18)14(MAY 17)15(MAY 16) Glucose Random H 323(MAY 19)H 315(MAY 18)H 349(MAY 17)H 175(MAY 16) Mg 1.9(MAY 19)1.8(MAY 17) Ca L 8.4(MAY 19)8.5(MAY 18)8.8(MAY 17)9.0(MAY 16) PT 14.4(MAY 17) INR 1.09(MAY 17) PTT 26.4(MAY 17) Troponin <0.02(MAY 17) CK MB 0.6(MAY 17) Total CK 36(MAY 17) DIAGNOSTIC IMAGING No new imaging. ASSESSMENT AND PLAN: 1. A 65-year-old lady with disuse atrophy involving all 4 extremities. 2. Cardiopulmonary intolerance to activity. 3. Chronic obstructive pulmonary disease with interstitial pulmonary fibrosis and reactive airways. 4. Acute systolic and diastolic congestive heart failure. 5. Cardiomyopathy. 6. Morbid obesity. 7. Alterations mobility, ADLs, IADLs. RECOMMENDATIONS: 1. Strength examination is improving, stable to improved. Cardiopulmonary endurance is improving and she is now tolerating ambulating up to 30 feet at a time, still requiring 25% supervision from the therapist due to early fatigue. We are working with the rolling walker, providing a 3-in-1 commode for energy conservation techniques. 2. I have reviewed the internal medicine notes. Dr. Bermudez clearing medically for discharge. 3. Will order a walker and 3 in 1commode. 4. Based on current level of function, from a rehabilitation perspective, she would be appropriate for home health level physical therapy and occupational therapy. Pulmonary rehabilitation would be appropriate in order to work on energy conservation techniques, generalized strengthening as well as decreasing her oxygen needs supplementally Addendum Defer to primary attending, but may be agood candidate for a "Home Cardiopulmonary Life by Program." in the setting of limited mobility, chronic but frequently decompensating BrendelJr, status, and high functional and medical risk patient. Peter Schwartz MD on 05/22/2015 15:18
--- OUTSIDE RECORDS SUMMARY | 2018-12-19 17:05 | XMS REPORT ---
Author Author Satya Thorpe Organization [employer] Address Unknown Phone Unavailable Care Team Providers Care Certified Juvenile Probation Officer Name Role Phone Satya Thorpe Unavailable Allergies, Adverse Reactions, Alerts Substance Reaction Event Type N.K.D.A. Info Not Available Non Drug Allergy Problems Problem Type Condition Code Onset Dates Condition Status Assessment Bacteremia due to Klebsiella pneumoniae R78.81 Active Assessment Severe sepsis without septic shock R65.20 Active Assessment Acute pyelonephritis N10 Active Assessment Other Gram-negative sepsis A41.59 Active Assessment Right ureteral stone N20.1 Active Medications Medication Code System Code Instructions Start Date End Date Status Dosage Docusate Sodium [facility] [address]-36 100 MG Orally Once a day Active 1 capsule as needed Levofloxacin [facility] [address]-99 750 MG Orally Once a day Active 1 tablet Simvastatin [facility] [address]-68 40 MG Orally Once a day Active 1 tablet in the evening Pantoprazole Sodium [facility] [address]-61 40 MG Orally Once a day Active 1 tablet paroxetine 20 mg Tab ND 0 Active not defined Vital Signs Date/Time: December 23, 2016 BMI 38.27 Index Weight 196 lbs Height 60 in Temperature 98.2 F Results No Known Results Summary Purpose [employer] Submission
--- OUTSIDE RECORDS SUMMARY | 2018-12-19 17:05 | XMS REPORT | CCD ---
Author Author Auto Generated Organization [facility] Address Unknown Phone Unavailable Care Team Providers Care Master Mechanic Name Role Phone Eduardo Silverio CP Gumaro Young RP Allergies, Adverse Reactions, Alerts Substance Reaction Status nkda Active Problem List Condition Effective Dates Status COPD Active Diabetes mellitus Active Hypertension Active Medications Medication Instructions Start Date End Date Status Celebrex 200 mg, 1 cap, Route: PO, Drug 09/29/2011 10/07/2011 Discontinued form: CAP, Q12H, Start date: 09/29/11 21:00:00, Duration: 30 day, Stop date: 10/29/11 9:00:00 Robaxin 750 mg, 1 tab, Route: PO, Drug 09/30/2011 10/07/2011 Discontinued form: TAB, TID, Start date: 09/30/11 9:00:00, Duration: 30 day, Stop date: 10/29/11 17:00:00 temazepam 30 mg, 2 cap, Route: PO, Drug form: 09/29/2011 09/29/2011 Discontinued CAP, Bedtime, PRN Sleep, Start date: 09/29/11 17:27:00, Duration: 30 day, Stop date: 10/29/11 17:26:00 Lovenox 40 mg, 0.4 mL, Route: SUB-Q, Drug 10/01/2011 10/07/2011 Discontinued form: INJ, [id number], Start date: 10/01/11 15:00:00, Duration: 30 day, Stop date: 10/30/11 15:00:00 metoprolol tartrate 50 mg, 1 tab, Route: PO, Drug form: 09/29/2011 10/07/2011 Discontinued TAB, Q12H, Start date: 09/29/11 21:00:00, Stop date: 10/29/11 9:00:00 Vitamin D 50,000 IntlUnit, 1 cap, Route: PO, 10/06/2011 10/07/2011 Discontinued Drug form: CAP, qWeek, Start date: 10/06/11 22:30:00, Duration: 4 doses or times, Stop date: 10/27/11 9:00:00 Ativan 1 mg, 0.5 mL, Route: IVP, Drug 09/30/2011 09/30/2011 Completed form: INJ, ONCALL, Start date: 09/30/11 15:00:00, Duration: 1 doses or times pneumococcal 0.5 ml, Route: IM, Drug Form: INJ, 10/04/2011 10/04/2011 Completed 23-valent vaccine Start date: 10/04/11 9:00:00, Stop date: 10/04/11 9:00:00 metoprolol 50 mg 50 mg, 1 tab, PO, Daily, 09/29/2011 Ordered oral tablet Substitution Allowed, TAB pneumococcal 0.5 ml, Route: IM, Drug Form: INJ, 10/04/2011 10/04/2011 Completed 23-valent vaccine Daily, Start date: 10/04/11 9:00:00, Duration: 1 doses or times, Stop date: 10/04/11 9:00:00 metFORmin 500 mg 1,000 mg, 2 tab, PO, Substitution 09/29/2011 Ordered oral tablet Allowed, bedtime, TAB bedtime NovoLog FlexPen 4 unit, 0.04 mL, Route: SUB-Q, Drug 09/29/2011 10/07/2011 Discontinued form: SOLN, Bedtime, PRN Blood Glucose Results, Start date: 09/29/11 21:59:00, Duration: 30 day, Stop date: 10/29/11 21:58:00 NovoLog FlexPen 3 unit, 0.03 mL, Route: SUB-Q, Drug 09/29/2011 10/07/2011 Discontinued form: SOLN, Bedtime, PRN Blood Glucose Results, Start date: 09/29/11 21:59:00, Duration: 30 day, Stop date: 10/29/11 21:58:00 NovoLog FlexPen 2 unit, 0.02 mL, Route: SUB-Q, Drug 09/29/2011 10/07/2011 Discontinued form: SOLN, Bedtime, PRN Blood Glucose Results, Start date: 09/29/11 21:59:00, Duration: 30 day, Stop date: 10/29/11 21:58:00 NovoLog FlexPen 1 unit, 0.01 mL, Route: SUB-Q, Drug 09/29/2011 10/07/2011 Discontinued form: SOLN, Bedtime, PRN Blood Glucose Results, Start date: 09/29/11 21:59:00, Duration: 30 day, Stop date: 10/29/11 21:58:00 NovoLog FlexPen 12 unit, 0.12 mL, Route: SUB-Q, 09/30/2011 10/07/2011 Discontinued Drug form: SOLN, Sliding Scale, PRN Blood Glucose Results, Start date: 09/30/11 17:21:00, Duration: 30 day, Stop date: 10/30/11 17:20:00 NovoLog FlexPen 10 unit, 0.1 mL, Route: SUB-Q, Drug 09/30/2011 10/07/2011 Discontinued form: SOLN, Sliding Scale, PRN Blood Glucose Results, Start date: 09/30/11 17:21:00, Duration: 30 day, Stop date: 10/30/11 17:20:00 NovoLog FlexPen 8 unit, 0.08 mL, Route: SUB-Q, Drug 09/30/2011 10/07/2011 Discontinued form: SOLN, Sliding Scale, PRN Blood Glucose Results, Start date: 09/30/11 17:21:00, Duration: 30 day, Stop date: 10/30/11 17:20:00 temazepam 15 mg, 1 cap, Route: PO, Drug form: 09/29/2011 10/07/2011 Discontinued CAP, Bedtime, PRN Insomnia, Start date: 09/29/11 21:11:00, Duration: 30 day, Stop date: 10/29/11 21:10:00 acetaminophen 650 mg, 2 tab, Route: PO, Drug 09/29/2011 10/07/2011 Discontinued form: TAB, Q4H, PRN Pain/Fever, Start date: 09/29/11 21:11:00, Duration: 30 day, Stop date: 10/29/11 21:10:00 docusate 100 mg, 1 cap, Route: PO, Drug 09/29/2011 10/07/2011 Discontinued form: CAP, BID, PRN Constipation, Start date: 09/29/11 21:11:00, Duration: 30 day, Stop date: 10/29/11 21:10:00 NovoLog FlexPen 6 unit, 0.06 mL, Route: SUB-Q, Drug 09/30/2011 10/07/2011 Discontinued form: SOLN, Sliding Scale, PRN Blood Glucose Results, Start date: 09/30/11 17:21:00, Duration: 30 day, Stop date: 10/30/11 17:20:00 Saline Flush 0.9% 5 ml, Route: IVP, Drug Form: INJ, 09/29/2011 10/07/2011 Discontinued PRN, PRN Line Flush, Start date: 09/29/11 21:11:00, Duration: 30 day, Stop date: 10/29/11 21:10:00 NS + KCL 20mEq/L 1,000 mL, Rate: 100 ml/hr, Infuse 09/29/2011 10/01/2011 Discontinued 1000ml (Premix) over: 10 hr, Route: IV, Dosing 1,000 mL 1,000 mL Weight 125 kg, Total Volume: 1,000, Start date: 09/29/11 21:11:00, Duration: 30 day, Stop date: 10/29/11 21:10:00 NovoLog FlexPen 4 unit, 0.04 mL, Route: SUB-Q, Drug 09/30/2011 10/07/2011 Discontinued form: SOLN, Sliding Scale, PRN Blood Glucose Results, Start date: 09/30/11 17:20:00, Duration: 30 day, Stop date: 10/30/11 17:19:00 NovoLog FlexPen 5 unit, 0.05 mL, Route: SUB-Q, Drug 09/29/2011 09/30/2011 Discontinued form: SOLN, Sliding Scale, PRN Blood Glucose Results, Start date: 09/29/11 21:58:00, Duration: 30 day, Stop date: 10/29/11 21:57:00 NovoLog FlexPen 6 unit, 0.06 mL, Route: SUB-Q, Drug 09/29/2011 09/30/2011 Discontinued form: SOLN, Sliding Scale, PRN Blood Glucose Results, Start date: 09/29/11 21:58:00, Duration: 30 day, Stop date: 10/29/11 21:57:00 NovoLog FlexPen 4 unit, 0.04 mL, Route: SUB-Q, Drug 09/29/2011 09/30/2011 Discontinued form: SOLN, Sliding Scale, PRN Blood Glucose Results, Start date: 09/29/11 21:58:00, Duration: 30 day, Stop date: 10/29/11 21:57:00 NovoLog FlexPen 3 unit, 0.03 mL, Route: SUB-Q, Drug 09/29/2011 09/30/2011 Discontinued form: SOLN, Sliding Scale, PRN Blood Glucose Results, Start date: 09/29/11 21:58:00, Duration: 30 day, Stop date: 10/29/11 21:57:00 NovoLog FlexPen 2 unit, 0.02 mL, Route: SUB-Q, Drug 09/29/2011 09/30/2011 Discontinued form: SOLN, Sliding Scale, PRN Blood Glucose Results, Start date: 09/29/11 21:58:00, Duration: 30 day, Stop date: 10/29/11 21:57:00 NovoLog FlexPen 1 unit, 0.01 mL, Route: SUB-Q, Drug 09/29/2011 09/30/2011 Discontinued form: SOLN, Sliding Scale, PRN Blood Glucose Results, Start date: 09/29/11 21:58:00, Duration: 30 day, Stop date: 10/29/11 21:57:00 NovoLog FlexPen 2 unit, 0.02 mL, Route: SUB-Q, Drug 09/30/2011 10/07/2011 Discontinued form: SOLN, Sliding Scale, PRN Blood Glucose Results, Start date: 09/30/11 17:20:00, Duration: 30 day, Stop date: 10/30/11 17:19:00 Dextrose 50% Syringe 25 mL, Route: IVP, PRN, PRN Blood 09/29/2011 09/29/2011 Deleted Glucose Results, Start date: 09/29/11 17:31:00, Duration: 30 day, Stop date: 10/29/11 17:30:00 glucagon 1 mg, Route: IM, PRN, PRN Blood 09/29/2011 09/29/2011 Deleted Glucose Results, Start date: 09/29/11 17:31:00, Duration: 30 day, Stop date: 10/29/11 17:30:00 Dextrose 50% Syringe 50 mL, Route: IVP, PRN, PRN Blood 09/29/2011 09/29/2011 Deleted Glucose Results, Start date: 09/29/11 17:31:00, Duration: 30 day, Stop date: 10/29/11 17:30:00 predniSONE 10 mg 10 mg, 1 tab, PO, Daily, 10 tab, 10/07/2011 10/17/2011 Ordered oral tablet Substitution Allowed, 2 tabs daily for 5 days, 1 tab daily for 5 days, then stop, TAB 2 tabs daily for 5 days, 1 tab daily for 5 days, then stop Neurontin 300 mg 300 mg, 1 cap, PO, TID, 90 cap, 10/07/2011 Ordered oral capsule Substitution Allowed glucagon 1 mg, Route: IM, PRN, PRN Blood 09/29/2011 09/29/2011 Deleted Glucose Results, Start date: 09/29/11 17:30:00, Duration: 30 day, Stop date: 10/29/11 17:29:00 Dextrose 50% Syringe 50 mL, Route: IVP, PRN, PRN Blood 09/29/2011 09/29/2011 Deleted Glucose Results, Start date: 09/29/11 17:30:00, Duration: 30 day, Stop date: 10/29/11 17:29:00 Dextrose 50% Syringe 25 mL, Route: IVP, PRN, PRN Blood 09/29/2011 09/29/2011 Deleted Glucose Results, Start date: 09/29/11 17:30:00, Duration: 30 day, Stop date: 10/29/11 17:29:00 Ultram 50 mg oral 50 mg, 1 tab, PO, TID, PRN, 90 tab, 10/07/2011 Ordered tablet pain, Substitution Allowed metFORmin 1000 mg 1,000 mg, 2 tab, Route: PO, Drug 09/30/2011 10/07/2011 Discontinued oral tablet form: TAB, BID-Meals, Start date: 09/30/11 8:00:00, Duration: 30 day, Stop date: 10/29/11 17:00:00 insulin detemir 5 unit, 0.05 mL, Route: SUB-Q, Drug 10/04/2011 10/04/2011 Completed form: INJ, ONCE, Start date: 10/04/11 10:01:00, Stop date: 10/04/11 10:01:00 Levemir FlexPen 15 unit, 0.15 mL, Route: SUB-Q, 10/02/2011 10/07/2011 Discontinued Drug form: INJ, Daily, Start date: 10/02/11 10:00:00, Stop date: 11/01/11 9:00:00 methylPREDNISolone 40 mg, 1 mL, Route: IV, Drug form: 09/29/2011 10/06/2011 Discontinued INJ, Q8H, Start date: 09/29/11 19:00:00, Duration: 30 day, Stop date: 10/29/11 11:00:00 predniSONE 20 mg, 1 tab, Route: PO, Drug form: 10/06/2011 10/06/2011 Completed TAB, ONCE, Start date: 10/06/11 16:00:00, Stop date: 10/06/11 16:00:00 Vitamin D3 5000 intl 5,000 IntlUnit, 5 tab, Route: PO, 10/02/2011 10/07/2011 Discontinued units oral capsule Drug form: TAB, Daily, Start date: 10/02/11 9:00:00, Duration: 30 day, Stop date: 10/31/11 9:00:00 Lactated Ringers IV 1,000 mL, Rate: 25 ml/hr, Infuse 10/02/2011 10/02/2011 Discontinued 1,000 mL over: 40 hr, Route: IV, Dosing Weight 125 kg, Total Volume: 1,000, Start date: 10/02/11 11:46:00, Duration: 30 day, Stop date: 11/01/11 11:45:00 Lantus 10 unit, Route: SUB-Q, Drug form: 10/02/2011 10/02/2011 Discontinued SOLN, Daily, Start date: 10/02/11 9:00:00, Duration: 30 day, Stop date: 10/31/11 9:00:00 Valium 5 mg, 1 tab, Route: PO, Drug form: 09/30/2011 10/07/2011 Discontinued TAB, Q8H, Start date: 09/30/11 0:00:00, Duration: 30 day, Stop date: 10/29/11 16:00:00 Mesa 10/325 oral 1 tab, Route: PO, Drug Form: TAB, 09/29/2011 10/07/2011 Discontinued tablet Q4H, PRN Pain, Start date: 09/29/11 18:36:00, Duration: 30 day, Stop date: 10/29/11 18:35:00 paroxetine 20 mg 20 mg, 1 tab, PO, Daily, 30 tab, 09/29/2011 Ordered oral tablet Substitution Allowed, TAB simvastatin 40 mg 40 mg, 1 tab, PO, Daily, 30 tab, 09/29/2011 Ordered oral tablet Substitution Allowed, TAB furosemide 40 mg 40 mg, 1 tab, PO, Daily, 30 tab, 09/29/2011 Ordered oral tablet Substitution Allowed, TAB verapamil 120 mg See Instructions, Substitution 09/29/2011 Ordered oral tablet Allowed, 1 tab PO Daily, TAB 1 tab PO Daily NS + KCL 20mEq/L 1,000 mL, Rate: 75 ml/hr, Infuse 09/29/2011 09/29/2011 Discontinued 1000ml (Premix) over: 13.3 hr, Route: IV, Dosing 1,000 mL Weight 125 kg, Total Volume: 1,000, Start date: 09/29/11 17:28:00, Duration: 30 day, Stop date: 10/29/11 17:27:00 digoxin 250 mcg 0.25 mg, 1 tab, PO, Daily, 30 tab, 09/29/2011 Ordered (0.25 mg) oral Substitution Allowed, TAB tablet Dilaudid 2 mg, 1 mL, Route: IVP, Drug form: 09/29/2011 10/07/2011 Discontinued INJ, Q4H, PRN Pain, Start date: 09/29/11 18:25:00, Duration: 30 day, Stop date: 10/29/11 18:24:00 Dextrose 50% Syringe 12.5 gm, 25 mL, Route: IVP, Drug 09/29/2011 10/07/2011 Discontinued Form: INJ, PRN, PRN Blood Glucose Results, Start date: 09/29/11 17:28:00, Duration: 30 day, Stop date: 10/29/11 17:27:00 Dextrose 50% Syringe 25 gm, 50 mL, Route: IVP, Drug 09/29/2011 10/07/2011 Discontinued Form: INJ, PRN, PRN Blood Glucose Results, Start date: 09/29/11 17:28:00, Duration: 30 day, Stop date: 10/29/11 17:27:00 glucagon 1 mg, Route: IM, Drug form: 09/29/2011 10/07/2011 Discontinued PDR/INJ, PRN, PRN Blood Glucose Results, Start date: 09/29/11 17:28:00, Duration: 30 day, Stop date: 10/29/11 17:27:00 metoprolol 50 mg 50 mg, 1 tab, PO, Daily, 09/29/2011 10/07/2011 Discontinued oral tablet Substitution Allowed, TAB GlipiZIDE XL 2.5 mg 2.5 mg, 1 tab, PO, BID, 09/29/2011 Ordered oral tablet, Substitution Allowed, TAB extended release Immunizations Vaccine Date Status pneumococcal 23-valent vaccine 10/04/2011 Auth (Verified) Vital Signs Most recent to oldest [Reference Range]: 1 2 3 Height 152.40 cm (09/29/2011 15:55:00) 152.40 cm (09/29/2011 15:34:00) Current Weight 113.182 kg (09/29/2011 23:36:00) Temperature Oral [96.4-99.1 DegF] 98.8 DegF (10/07/2011 12:00:00) 97.6 DegF (10/07/2011 08:00:00) 97.5 DegF (10/07/2011 04:00:00) Systolic Blood Pressure [90-140 mmHg] 132 mmHg (10/07/2011 12:00:00) 154 mmHg *HI* (10/07/2011 08:00:00) 174 mmHg *HI* (10/07/2011 04:00:00) Diastolic Blood Pressure [60-90 mmHg] 81 mmHg (10/07/2011 12:00:00) 79 mmHg (10/07/2011 08:00:00) 98 mmHg *HI* (10/07/2011 04:00:00) Respiratory Rate [14-20 BRMIN] 20 BRMIN (10/07/2011 12:00:00) 20 BRMIN (10/07/2011 08:00:00) 20 BRMIN (10/07/2011 04:00:00) Peripheral Pulse Rate [60-100 bpm] 67 bpm (10/07/2011 12:00:00) 63 bpm (10/07/2011 08:00:00) 60 bpm (10/07/2011 04:00:00) Weight 125.000 kg (09/29/2011 15:55:00) 125.000 kg (09/29/2011 15:34:00) Results BEDSIDE GLUCOSE TESTING Most recent to [facility] [Reference Range]: 1 2 3 Gluc POC Lif[place]n [70-99 mg/dL] 216 mg/dL 1 *HI* (10/07/2011 16:05:00) 173 mg/dL 2 *HI* (10/07/2011 10:44:00) 195 mg/dL 3 *HI* (10/07/2011 06:31:00) Comment1 Notify RN/MD *NA* (10/07/2011 16:05:00) Notify RN/MD *NA* (10/07/2011 10:44:00) Notify RN/MD *NA* (10/07/2011 06:31:00) 1Interpretive Data: Upper Reportable Limit: 200 mg/dL. 2Interpretive Data: Upper Reportable Limit: 200 mg/dL. 3Interpretive Data: Upper Reportable Limit: 200 mg/dL. URINALYSIS Most recent to [facility] [Reference Range]: 1 2 3 UA Turbidity [Clear] Clear (09/30/2011 03:00:00) UA Color [Yellow] Yellow *NA* (09/30/2011 03:00:00) UA pH [5.0-8.0] 5.5 (09/30/2011 03:00:00) UA Spec Grav [<=1.030] 1.025 (09/30/2011 03:00:00) UA Glucose [Negative mg/dL] >=1000 mg/dL *ABN* (09/30/2011 03:00:00) UA Blood [Negative] Moderate *ABN* (09/30/2011 03:00:00) UA Ketones [Negative mg/dL] 40 mg/dL *ABN* (09/30/2011 03:00:00) UA Protein [Negative] Negative (09/30/2011 03:00:00) UA Urobilinogen [0.1-1.0 EU/dL] 0.2 EU/dL (09/30/2011 03:00:00) UA Bili [Negative] Negative *NA* (09/30/2011 03:00:00) UA Leuk Est [Negative] Negative (09/30/2011 03:00:00) UA Nitrite [Negative] Negative (09/30/2011 03:00:00) CHEMISTRY Most recent to oldest [Reference Range]: 1 2 3 Sodium Lvl [135-145 mEq/L] 141 mEq/L (10/01/2011 05:24:00) 142 mEq/L (09/29/2011 21:56:00) 144 mEq/L (09/29/2011 15:50:00) Potassium Lvl [3.5-5.1 mEq/L] 5.1 mEq/L (10/01/2011 05:24:00) 4.4 mEq/L (09/29/2011 21:56:00) 4.0 mEq/L (09/29/2011 15:50:00) Chloride Lvl [95-109 mEq/L] 106 mEq/L (10/01/2011 05:24:00) 103 mEq/L (09/29/2011 21:56:00) 105 mEq/L (09/29/2011 15:50:00) CO2 [24-32 mEq/L] 23 mEq/L *LOW* (10/01/2011 05:24:00) 30 mEq/L (09/29/2011 21:56:00) 28 mEq/L (09/29/2011 15:50:00) AGAP [10.0-20.0 mEq/L] 17.1 mEq/L (10/01/2011 05:24:00) 13.4 mEq/L (09/29/2011 21:56:00) 15.0 mEq/L (09/29/2011 15:50:00) Creatinine Lvl [0.5-1.4 mg/dL] 0.9 mg/dL (10/01/2011 05:24:00) 0.9 mg/dL (09/29/2011 21:56:00) 0.9 mg/dL (09/29/2011 15:50:00) eGFR >60 4 *NA* (10/01/2011 05:24:00) >60 5 *NA* (09/29/2011 15:50:00) BUN [7-22 mg/dL] 23 mg/dL *HI* (10/01/2011 05:24:00) 23 mg/dL *HI* (09/29/2011 21:56:00) 22 mg/dL (09/29/2011 15:50:00) B/C Ratio [6-25] 26 *HI* (09/29/2011 21:56:00) 24 (09/29/2011 15:50:00) Glucose Lvl [70-99 mg/dL] 329 mg/dL 6 *HI* (10/01/2011 05:24:00) 235 mg/dL 7 *HI* (09/29/2011 21:56:00) 214 mg/dL 8 *HI* (09/29/2011 15:50:00) Total Protein [6.4-8.4 g/dL] 5.9 g/dL *LOW* (09/29/2011 21:56:00) 7.0 g/dL (09/29/2011 15:50:00) Albumin Lvl [3.5-5.0 g/dL] 3.3 g/dL *LOW* (09/29/2011 21:56:00) 3.9 g/dL (09/29/2011 15:50:00) Globulin [2.0-4.0 g/dL] 2.6 g/dL (09/29/2011 21:56:00) 3.1 g/dL (09/29/2011 15:50:00) A/G Ratio [0.7-1.6] 1.3 (09/29/2011 21:56:00) 1.3 (09/29/2011 15:50:00) Calcium Lvl [8.5-10.5 mg/dL] 8.9 mg/dL (10/01/2011 05:24:00) 8.7 mg/dL (09/29/2011 21:56:00) 9.1 mg/dL (09/29/2011 15:50:00) ALT [0-65 U/L] 19 U/L (09/29/2011 21:56:00) 20 U/L (09/29/2011 15:50:00) AST [0-37 U/L] 5 U/L (09/29/2011 21:56:00) 6 U/L (09/29/2011 15:50:00) Alk Phos [39-136 U/L] 39 U/L (09/29/2011 21:56:00) 39 U/L (09/29/2011 15:50:00) Bili Total [0.2-1.3 mg/dL] 0.3 mg/dL (09/29/2011 21:56:00) 0.4 mg/dL (09/29/2011 15:50:00) Vitamin D 1,25 (OH)2 Total [18-72 pg/mL] 70 pg/mL *NA* (09/29/2011 19:45:00) Vitamin D, 25-OH, Total [30-100 ng/mL] 18 ng/mL 9 *LOW* (09/29/2011 19:45:00) Vitamin D2 25-OH <4 ng/mL 10 *NA* (09/29/2011 19:45:00) Vitamin D3 25-OH 18 ng/mL *NA* (09/29/2011 19:45:00) Vitamin D2 1,25 (OH)2 <8 11 *NA* (09/29/2011 19:45:00) Vitamin D3 1,25 (OH)2 70 *NA* (09/29/2011 19:45:00) 4Result Comment: Expected eGFR for >20 yr. age group: >=60 ml/min/1.73 sq m The eGFR calculation is not valid in or for persons < 18 years of age. From National Kidney Disease Education Program (NKDEP) 5Result Comment: Expected eGFR for >20 yr. age group: >=60 ml/min/1.73 sq m The eGFR calculation is not valid in or for persons < 18 years of age. From National Kidney Disease Education Program (NKDEP) 6Interpretive Data: Adult reference range values reflect the clinical guidelinesof the [place] [employer]. 7Interpretive Data: Adult reference range values reflect the clinical guidelinesof the [place] [employer]. 8Interpretive Data: Adult reference range values reflect the clinical guidelinesof the [place] [employer]. 9Result Comment: 25-OHD3 indicates both endogenous production andsupplementation. 25-OHD2 is an indicator ofexogenous sources such as diet or supplementation.Therapy is based on measurement of Total 25-OHD,with levels <20 ng/mL indicative of Vitamin Ddeficiency, while levels between 20 ng/mL and 30 ng/mL suggest insufficiency. Optimal levels are>=30 ng/mL. 10Result Comment: Test Performed at:[facility] [place] [address] Bull Enriquez MD, PhD 11Result Comment: Reference ranges are established for total1,25-dihydroxy vitamin D. Values for subcomponentsD2 (derived from plant or fungal sources) and D3(derived from human or animal sources) areprovided for informational purposes only. This test was developed and its performancecharacteristics have been determined by [email or web address]. Performance characteristics refer tothe analytical performance of the test.Test Performed at:[facility] [place] [address] Bull Enriquez MD, PhD HEMATOLOGY Most recent to oldest [Reference Range]: 1 2 3 WBC [3.7-10.4 K/CMM] 10.4 K/CMM (09/29/2011 21:56:00) 11.4 K/CMM *HI* (09/29/2011 15:50:00) RBC [4.20-5.40 M/CMM] 3.92 M/CMM *LOW* (09/29/2011 21:56:00) 4.27 M/CMM (09/29/2011 15:50:00) Hgb [12.0-16.0 g/dL] 12.4 g/dL (09/29/2011 21:56:00) 13.4 g/dL (09/29/2011 15:50:00) Hct [36.0-48.0 %] 37.7 % (09/29/2011 21:56:00) 40.8 % (09/29/2011 15:50:00) MCV [81.0-99.0 fL] 96.1 fL (09/29/2011 21:56:00) 95.6 fL (09/29/2011 15:50:00) MCH [27.0-31.0 pg] 31.6 pg *HI* (09/29/2011 21:56:00) 31.4 pg *HI* (09/29/2011 15:50:00) MCHC [32.0-36.0 g/dL] 32.9 g/dL (09/29/2011 21:56:00) 32.8 g/dL (09/29/2011 15:50:00) RDW [11.5-14.5 %] 14.2 % (09/29/2011 21:56:00) 14.1 % (09/29/2011 15:50:00) Platelet [133-450 K/CMM] 164 K/CMM (09/29/2011 21:56:00) 187 K/CMM (09/29/2011 15:50:00) MPV [7.4-10.4 fL] 10.7 fL *HI* (09/29/2011 21:56:00) 11.5 fL *HI* (09/29/2011 15:50:00) Segs [45.0-75.0 %] 70.3 % (09/29/2011 21:56:00) 69.3 % (09/29/2011 15:50:00) Lymphocytes [20.0-40.0 %] 18.9 % *LOW* (09/29/2011 21:56:00) 19.2 % *LOW* (09/29/2011 15:50:00) Monocytes [2.0-12.0 %] 7.7 % (09/29/2011 21:56:00) 9.2 % (09/29/2011 15:50:00) Eosinophils [0.0-4.0 %] 2.2 % (09/29/2011 21:56:00) 1.9 % (09/29/2011 15:50:00) Basophils [0.0-1.0 %] 0.9 % (09/29/2011 21:56:00) 0.4 % (09/29/2011 15:50:00) Segs-Bands # [1.5-8.1 K/CMM] 7.3 K/CMM (09/29/2011 21:56:00) 7.9 K/CMM (09/29/2011 15:50:00) Lymphocytes # [1.0-5.5 K/CMM] 2.0 K/CMM (09/29/2011 21:56:00) 2.2 K/CMM (09/29/2011 15:50:00) Monocytes # [0.0-0.8 K/CMM] 0.8 K/CMM (09/29/2011 21:56:00) 1.0 K/CMM *HI* (09/29/2011 15:50:00) Eosinophils # [0.0-0.5 K/CMM] 0.2 K/CMM (09/29/2011 21:56:00) 0.2 K/CMM (09/29/2011 15:50:00) Basophils # [0.0-0.2 K/CMM] 0.1 K/CMM (09/29/2011 21:56:00) 0.0 K/CMM (09/29/2011 15:50:00)
--- OUTSIDE RECORDS SUMMARY | 2018-12-19 17:05 | XMS REPORT | Summary of Care ---
Author Author [facility] Organization [facility] Address Unknown Phone Unavailable Encounter HQ Trevor_tess(FIN) [id number] Date(s): 04/02/17 - 04/02/17 [facility] [address] [place] [address]- [phone] Discharge Disposition: Home or Self Care Attending [...] 11/2016 Social History Social History Type Response Alcohol Never Smoking Status Never smoker; Exposure to Tobacco Smoke None; Cigarette Smoking Last 365 Days No; Reg Smoking Cessation Counseling No Assessment and Plan No data available for this section
--- OUTSIDE RECORDS SUMMARY | 2018-12-19 17:05 | XMS REPORT | Summary of Care ---
Author Author [facility] Organization [facility] Address Unknown Phone Unavailable Encounter FERNANDEZ More(JOSHUA) [id number] Date(s): 05/16/15 - 05/16/[address] [facility] [address] [place] [address]- [phone] Discharge Disposition: Home Attending Physician: Gumaro Young MD Referring Physician: Gumaro Young MD Vital Signs No data available for this section Problem List Condition Effective Dates Status Health Status Informant CHF - Congestive Resolved heart failure(Confirmed) COPD(Confirmed) Active Diabetes(Confirmed) Resolved Diabetes Active mellitus(Confirmed) HTN Resolved (hypertension)(Confi rmed) Hypertension(Confirm Active ed) Pneumonia(Confirmed) Resolved Allergies, Adverse Reactions, Alerts Substance Reaction Severity Status nkda Active Medications No data available for this section Results CHEM PANEL Most recent to 1 oldest [Reference Range]: eGFR 96 mL/min/1.73m2 1 *NA* (05/16/15 2:40 PM) POC Creatinine 0.6 mg/dL [0.5-1.4 mg/dL] (05/16/15 2:40 PM) 1Result Comment: The eGFR is calculated [...] be mul tiplied by the estimated BMI. Immunizations Vaccine Date Refusal Reason pneumococcal 23-valent [...]
--- OUTSIDE RECORDS SUMMARY | 2018-12-19 17:06 | XMS REPORT ---
[facility] Address Unknown Phone Unavailable Care Team Providers Care Short Filler Bunch Machine Operator Name Role Phone Kely BRYAN Unavailable Unavailable Payers Payer Name Policy Type Policy Number Effective Date Expiration Date Problems This patient has no known problems. Allergies, Adverse Reactions, Alerts Allergy Name Allergy Type Status Severity Reaction(s) Onset Date Inactive Date Treating Clinician Comments No Known Allergies DA Active U 2018-04-12 00:00:00 No Known Allergies DA Active U 2015-03-23 00:00:00 Medications This patient has no known medications. Results Test Description Test Time Test Comments Text Results Atomic Results Result Comments GLUBED 2018-09-11 07:40:00 GLUBED (test code=GLUBED) 76 mg/dL 74-106 Performed by certified punchboard filling machine operator at [facility] [id number] 01:40:00* Test Item Value Reference Range Comments GLUBED (test code=GLUBED) 114 mg/dL 74-106 Performed by certified punchboard filling machine operator at [facility] [id number] 00:09:00* Test Item Value Reference Range Comments GLUBED (test code=GLUBED) 59 mg/dL 74-106 Performed by certified punchboard filling machine operator at [facility] [id number] 19:50:00* Test Item Value Reference Range Comments GLUBED (test code=GLUBED) 162 mg/dL 74-106 Performed by certified punchboard filling machine operator at [facility] [id number] 15:15:00* Test Item Value Reference Range Comments GLUBED (test code=GLUBED) 135 mg/dL 74-106 Performed by certified punchboard filling machine operator at [facility] [id number] 11:22:00* Test Item Value Reference Range Comments GLUBED (test code=GLUBED) 87 mg/dL 74-106 Performed by certified punchboard filling machine operator at [facility] [id number] 07:21:00* Test Item Value Reference Range Comments GLUBED (test code=GLUBED) 63 mg/dL 74-106 Performed by certified punchboard filling machine operator at [facility] [id number] 20:19:00* Test Item Value Reference Range Comments GLUBED (test code=GLUBED) 111 mg/dL 74-106 Performed by certified punchboard filling machine operator at [facility] [id number] 15:51:00* Test Item Value Reference Range Comments GLUBED (test code=GLUBED) 113 mg/dL 74-106 Performed by certified punchboard filling machine operator at [facility] CBC W/AUTO [id number] 12:23:00* Test Item Value Reference Range Comments WHITE BLOOD CELL (test code=WBC) 16.3 K/mm3 4.5-12.5 RED BLOOD CELL (test code=RBC) 3.21 mill/mm3 3.7-5.2 HEMOGLOBIN (test code=HGB) 9.3 gram/dL 11.5-15.5 HEMATOCRIT (test code=HCT) 32.0 % 36.0-46.0 MEAN CELL VOLUME (test code=MCV) 99.7 fL 80-98 MEAN CELL HGB (test code=MCH) 29.0 picogram 27.0-33.0 MEAN CELL HGB CONCETRATION (test code=MCHC) 29.1 gram/dL 33.0-36.0 RED CELL DISTRIBUTION WIDTH (test code=RDW) 16.4 % 11.6-16.2 RED CELL DISTRIBUTION WIDTH SD (test code=RDW-SD) 58.9 fL 37.0-51.0 PLATELET COUNT (test code=PLT) 295 K/mm3 150-450 MEAN PLATELET VOLUME (test code=MPV) 10.7 fL 6.7-11.0 NEUTROPHIL % (test code=NT%) 69.9 % 39.0-69.0 IMMATURE GRANULOCYTE % (test code=IG%) 0.8 % 0.0-5.0 LYMPHOCYTE % (test code=LY%) 13.1 % 25.0-55.0 MONOCYTE % (test code=MO%) 11.4 % 0.0-10.0 EOSINOPHIL % (test code=EO%) 4.2 % 0.0-5.0 BASOPHIL % (test code=BA%) 0.6 % 0.0-1.0 NUCLEATED RBC % (test code=NRBC%) 0.0 % 0-0 NEUTROPHIL # (test code=NT#) 11.40 K/mm3 1.8-7.7 IMMATURE GRANULOCYTE # (test code=IG#) 0.13 x10 3/uL 0-0.03 LYMPHOCYTE # (test code=LY#) 2.13 K/mm3 1.0-5.0 MONOCYTE # (test code=MO#) 1.86 K/mm3 0-0.8 EOSINOPHIL # (test code=EO#) 0.68 K/mm3 0.0-0.5 BASOPHIL # (test code=BA#) 0.09 K/mm3 0.0-0.2 NUCLEATED RBC # (test code=NRBC#) 0.00 K/mm3 0.0-0.1 MANUAL DIFF REQUIRED (test code=MDIFF) NO, ONLY SCAN NEEDED DIFFERENTIAL [id number] 12:23:00* Test Item Value Reference Range Comments STAIN ACCEPTABILITY (test code=STN ACCEPTABLE) STAIN ACCEPTABLE POLYCHROMASIA (test code=POLC) 1+ HYPOCHROMIA (test code=HYPO) 1+ POIKILOCYTOSIS (test code=POIK) 2+ ANISOCYTOSIS (test code=ANISO) 2+ MICROCYTOSIS (test code=MICR) 1+ ELLIPTOCYTES (test code=ELL) 2+ PLATELET ESTIMATE (test code=PLTEST) ADEQUATE PLATELET MORPHOLOGY (test code=PLTMORPH) NORMAL [id number] 11:18:00* Test Item Value Reference Range Comments GLUBED (test code=GLUBED) 122 mg/dL 74-106 Performed by certified punchboard filling machine operator at [facility] - XR CHEST 2 [id number] 08:19:00 FAX: Regla Velasquez MD [phone] [facility]: [address]: ADM FAX: Y Kit Maciel DO [phone] Name: SAGRARIO SINGLETON [facility] : 1950 Age/S: 68/F [address] [facility] Unit #: [id number] Loc: V.[address] [place] [address] Phys: Regla Marcial MD Acct: [id number] Dis Date: Status: ADM IN PHONE #: [phone] Exam Date: 09/09/2018808 FAX #: [phone] Reason: pna EXAMS: CPT CODE: [id number] XR CHEST 2 V 52842 HISTORY: Pneumonia and shortness of breath. COMPARISON: September 06, 2018. Improved patchy bilateral infiltrates and/or edema with decreased basilar effusions. Dependent changes. Cardiomegaly. IMPRESSION: Improved infiltrates and/or interstitial edema with decreasing effusions from previous exam. at 0819 Reported and signed by: Juan Bond M.D. CC: Regla Marcial MD; Kit Maciel DO Technologist: Nehemiah Gregg RT(R); STUDENT TECHNOLOGIST Trnscrd Date/Time/By: 09/09/2018 (08) : By: [email or web address] Orig Print D/T: S: 09/09/2018 (0803) PAGE 1 Signed Report CBC W/AUTO [id number] 07:42:00* Test Item Value Reference Range Comments WHITE BLOOD CELL (test code=WBC) 16.3 K/mm3 4.5-12.5 RED BLOOD CELL (test code=RBC) 3.21 mill/mm3 3.7-5.2 HEMOGLOBIN (test code=HGB) 9.3 gram/dL 11.5-15.5 HEMATOCRIT (test code=HCT) 32.0 % 36.0-46.0 MEAN CELL VOLUME (test code=MCV) 99.7 fL 80-98 MEAN CELL HGB (test code=MCH) 29.0 picogram 27.0-33.0 MEAN CELL HGB CONCETRATION (test code=MCHC) 29.1 gram/dL 33.0-36.0 RED CELL DISTRIBUTION WIDTH (test code=RDW) 16.4 % 11.6-16.2 RED CELL DISTRIBUTION WIDTH SD (test code=RDW-SD) 58.9 fL 37.0-51.0 PLATELET COUNT (test code=PLT) 295 K/mm3 150-450 MEAN PLATELET VOLUME (test code=MPV) 10.7 fL 6.7-11.0 NEUTROPHIL % (test code=NT%) 69.9 % 39.0-69.0 IMMATURE GRANULOCYTE % (test code=IG%) 0.8 % 0.0-5.0 LYMPHOCYTE % (test code=LY%) 13.1 % 25.0-55.0 MONOCYTE % (test code=MO%) 11.4 % 0.0-10.0 EOSINOPHIL % (test code=EO%) 4.2 % 0.0-5.0 BASOPHIL % (test code=BA%) 0.6 % 0.0-1.0 NUCLEATED RBC % (test code=NRBC%) 0.0 % 0-0 NEUTROPHIL # (test code=NT#) 11.40 K/mm3 1.8-7.7 IMMATURE GRANULOCYTE # (test code=IG#) 0.13 x10 3/uL 0-0.03 LYMPHOCYTE # (test code=LY#) 2.13 K/mm3 1.0-5.0 MONOCYTE # (test code=MO#) 1.86 K/mm3 0-0.8 EOSINOPHIL # (test code=EO#) 0.68 K/mm3 0.0-0.5 BASOPHIL # (test code=BA#) 0.09 K/mm3 0.0-0.2 NUCLEATED RBC # (test code=NRBC#) 0.00 K/mm3 0.0-0.1 MANUAL DIFF REQUIRED (test code=MDIFF) NO, ONLY SCAN NEEDED DIFFERENTIAL [id number] 07:42:00* Test Item Value Reference Range Comments STAIN ACCEPTABILITY (test code=STN ACCEPTABLE) CABOT RINGS (test code=CAB) MORPHOLOGY COMMENT (test code=MOC) PLATELET ESTIMATE (test code=PLTEST) PLATELET MORPHOLOGY (test code=PLTMORPH) CBC W/AUTO [id number] 07:42:00* Test Item Value Reference Range Comments WHITE BLOOD CELL (test code=WBC) 16.3 K/mm3 4.5-12.5 RED BLOOD CELL (test code=RBC) 3.21 mill/mm3 3.7-5.2 HEMOGLOBIN (test code=HGB) 9.3 gram/dL 11.5-15.5 HEMATOCRIT (test code=HCT) 32.0 % 36.0-46.0 MEAN CELL VOLUME (test code=MCV) 99.7 fL 80-98 MEAN CELL HGB (test code=MCH) 29.0 picogram 27.0-33.0 MEAN CELL HGB CONCETRATION (test code=MCHC) 29.1 gram/dL 33.0-36.0 RED CELL DISTRIBUTION WIDTH (test code=RDW) 16.4 % 11.6-16.2 RED CELL DISTRIBUTION WIDTH SD (test code=RDW-SD) 58.9 fL 37.0-51.0 PLATELET COUNT (test code=PLT) 295 K/mm3 150-450 MEAN PLATELET VOLUME (test code=MPV) 10.7 fL 6.7-11.0 NEUTROPHIL % (test code=NT%) 69.9 % 39.0-69.0 IMMATURE GRANULOCYTE % (test code=IG%) 0.8 % 0.0-5.0 LYMPHOCYTE % (test code=LY%) 13.1 % 25.0-55.0 MONOCYTE % (test code=MO%) 11.4 % 0.0-10.0 EOSINOPHIL % (test code=EO%) 4.2 % 0.0-5.0 BASOPHIL % (test code=BA%) 0.6 % 0.0-1.0 NUCLEATED RBC % (test code=NRBC%) 0.0 % 0-0 NEUTROPHIL # (test code=NT#) 11.40 K/mm3 1.8-7.7 IMMATURE GRANULOCYTE # (test code=IG#) 0.13 x10 3/uL 0-0.03 LYMPHOCYTE # (test code=LY#) 2.13 K/mm3 1.0-5.0 MONOCYTE # (test code=MO#) 1.86 K/mm3 0-0.8 EOSINOPHIL # (test code=EO#) 0.68 K/mm3 0.0-0.5 BASOPHIL # (test code=BA#) 0.09 K/mm3 0.0-0.2 NUCLEATED RBC # (test code=NRBC#) 0.00 K/mm3 0.0-0.1 MANUAL DIFF REQUIRED (test code=MDIFF) NO, ONLY SCAN NEEDED DIFFERENTIAL [id number] 07:42:00* Test Item Value Reference Range Comments STAIN ACCEPTABILITY (test code=STN ACCEPTABLE) CABOT RINGS (test code=CAB) MORPHOLOGY COMMENT (test code=MOC) PLATELET ESTIMATE (test code=PLTEST) PLATELET MORPHOLOGY (test code=PLTMORPH) CBC W/AUTO [id number] 07:42:00* Test Item Value Reference Range Comments WHITE BLOOD CELL (test code=WBC) 16.3 K/mm3 4.5-12.5 RED BLOOD CELL (test code=RBC) 3.21 mill/mm3 3.7-5.2 HEMOGLOBIN (test code=HGB) 9.3 gram/dL 11.5-15.5 HEMATOCRIT (test code=HCT) 32.0 % 36.0-46.0 MEAN CELL VOLUME (test code=MCV) 99.7 fL 80-98 MEAN CELL HGB (test code=MCH) 29.0 picogram 27.0-33.0 MEAN CELL HGB CONCETRATION (test code=MCHC) 29.1 gram/dL 33.0-36.0 RED CELL DISTRIBUTION WIDTH (test code=RDW) 16.4 % 11.6-16.2 RED CELL DISTRIBUTION WIDTH SD (test code=RDW-SD) 58.9 fL 37.0-51.0 PLATELET COUNT (test code=PLT) 295 K/mm3 150-450 MEAN PLATELET VOLUME (test code=MPV) 10.7 fL 6.7-11.0 NEUTROPHIL % (test code=NT%) 69.9 % 39.0-69.0 IMMATURE GRANULOCYTE % (test code=IG%) 0.8 % 0.0-5.0 LYMPHOCYTE % (test code=LY%) 13.1 % 25.0-55.0 MONOCYTE % (test code=MO%) 11.4 % 0.0-10.0 EOSINOPHIL % (test code=EO%) 4.2 % 0.0-5.0 BASOPHIL % (test code=BA%) 0.6 % 0.0-1.0 NUCLEATED RBC % (test code=NRBC%) 0.0 % 0-0 NEUTROPHIL # (test code=NT#) 11.40 K/mm3 1.8-7.7 IMMATURE GRANULOCYTE # (test code=IG#) 0.13 x10 3/uL 0-0.03 LYMPHOCYTE # (test code=LY#) 2.13 K/mm3 1.0-5.0 MONOCYTE # (test code=MO#) 1.86 K/mm3 0-0.8 EOSINOPHIL # (test code=EO#) 0.68 K/mm3 0.0-0.5 BASOPHIL # (test code=BA#) 0.09 K/mm3 0.0-0.2 NUCLEATED RBC # (test code=NRBC#) 0.00 K/mm3 0.0-0.1 MANUAL DIFF REQUIRED (test code=MDIFF) NO, ONLY SCAN NEEDED DIFFERENTIAL [id number] 07:42:00* Test Item Value Reference Range Comments STAIN ACCEPTABILITY (test code=STN ACCEPTABLE) MORPHOLOGY COMMENT (test code=MOC) PLATELET ESTIMATE (test code=PLTEST) PLATELET MORPHOLOGY (test code=PLTMORPH) CBC W/AUTO [id number] 07:42:00* Test Item Value Reference Range Comments WHITE BLOOD CELL (test code=WBC) 16.3 K/mm3 4.5-12.5 RED BLOOD CELL (test code=RBC) 3.21 mill/mm3 3.7-5.2 HEMOGLOBIN (test code=HGB) 9.3 gram/dL 11.5-15.5 HEMATOCRIT (test code=HCT) 32.0 % 36.0-46.0 MEAN CELL VOLUME (test code=MCV) 99.7 fL 80-98 MEAN CELL HGB (test code=MCH) 29.0 picogram 27.0-33.0 MEAN CELL HGB CONCETRATION (test code=MCHC) 29.1 gram/dL 33.0-36.0 RED CELL DISTRIBUTION WIDTH (test code=RDW) 16.4 % 11.6-16.2 RED CELL DISTRIBUTION WIDTH SD (test code=RDW-SD) 58.9 fL 37.0-51.0 PLATELET COUNT (test code=PLT) 295 K/mm3 150-450 MEAN PLATELET VOLUME (test code=MPV) 10.7 fL 6.7-11.0 NEUTROPHIL % (test code=NT%) 69.9 % 39.0-69.0 IMMATURE GRANULOCYTE % (test code=IG%) 0.8 % 0.0-5.0 LYMPHOCYTE % (test code=LY%) 13.1 % 25.0-55.0 MONOCYTE % (test code=MO%) 11.4 % 0.0-10.0 EOSINOPHIL % (test code=EO%) 4.2 % 0.0-5.0 BASOPHIL % (test code=BA%) 0.6 % 0.0-1.0 NUCLEATED RBC % (test code=NRBC%) 0.0 % 0-0 NEUTROPHIL # (test code=NT#) 11.40 K/mm3 1.8-7.7 IMMATURE GRANULOCYTE # (test code=IG#) 0.13 x10 3/uL 0-0.03 LYMPHOCYTE # (test code=LY#) 2.13 K/mm3 1.0-5.0 MONOCYTE # (test code=MO#) 1.86 K/mm3 0-0.8 EOSINOPHIL # (test code=EO#) 0.68 K/mm3 0.0-0.5 BASOPHIL # (test code=BA#) 0.09 K/mm3 0.0-0.2 NUCLEATED RBC # (test code=NRBC#) 0.00 K/mm3 0.0-0.1 MANUAL DIFF REQUIRED (test code=MDIFF) NO, ONLY SCAN NEEDED DIFFERENTIAL [id number] 07:42:00* Test Item Value Reference Range Comments STAIN ACCEPTABILITY (test code=STN ACCEPTABLE) CABOT RINGS (test code=CAB) MORPHOLOGY COMMENT (test code=MOC) PLATELET ESTIMATE (test code=PLTEST) PLATELET MORPHOLOGY (test code=PLTMORPH) BASIC METABOLIC [id number] 07:35:00* Test Item Value Reference Range Comments SODIUM (test code=NA) 143 mmol/L 136-145 POTASSIUM (test code=K) 4.7 mmol/L 3.5-5.1 CHLORIDE (test code=CL) 108.0 mmol/L 98-107 CARBON DIOXIDE (test code=CO2) 26.0 mmol/L 21-32 ANION GAP (test code=GAP) 13.7 10-20 GLUCOSE (test code=GLU) 107 mg/dL 74-106 BLOOD UREA NITROGEN (test code=BUN) 27 mg/dL 7-18 GLOMERULAR FILTRATION RATE (test code=GFR) 49 mL/min >=60 Estimated GFR by using Modified MDRD formula.Chronic kidney disease is defined as either kidney damageor GFR <60 mL/min/1.73 m2 for >3 months. CREATININE (test code=CREAT) 1.10 mg/dL 0.55-1.02 Note change in reference range due to change in reagent. BUN/CREATININE RATIO (test code=BUN/CREA) 25.5 10-20 CALCIUM (test code=CA) 8.4 mg/dL 8.5-10.1 [id number] 03:08:00* Test Item Value Reference Range Comments GLUBED (test code=GLUBED) 116 mg/dL 74-106 Performed by certified punchboard filling machine operator at [facility] [id number] 02:24:00* Test Item Value Reference Range Comments GLUBED (test code=GLUBED) 57 mg/dL 74-106 Performed by certified punchboard filling machine operator at [facility] [id number] 20:10:00* Test Item Value Reference Range Comments GLUBED (test code=GLUBED) 149 mg/dL 74-106 Performed by certified punchboard filling machine operator at [facility] [id number] 15:50:00* Test Item Value Reference Range Comments GLUBED (test code=GLUBED) 156 mg/dL 74-106 Performed by certified punchboard filling machine operator at [facility] [id number] 11:42:00* Test Item Value Reference Range Comments GLUBED (test code=GLUBED) 185 mg/dL 74-106 Performed by certified punchboard filling machine operator at [facility] CBC W/AUTO [id number] 08:03:00* Test Item Value Reference Range Comments WHITE BLOOD CELL (test code=WBC) 19.4 K/mm3 4.5-12.5 RED BLOOD CELL (test code=RBC) 3.19 mill/mm3 3.7-5.2 HEMOGLOBIN (test code=HGB) 9.2 gram/dL 11.5-15.5 HEMATOCRIT (test code=HCT) 31.1 % 36.0-46.0 MEAN CELL VOLUME (test code=MCV) 97.5 fL 80-98 MEAN CELL HGB (test code=MCH) 28.8 picogram 27.0-33.0 MEAN CELL HGB CONCETRATION (test code=MCHC) 29.6 gram/dL 33.0-36.0 RED CELL DISTRIBUTION WIDTH (test code=RDW) 16.0 % 11.6-16.2 RED CELL DISTRIBUTION WIDTH SD (test code=RDW-SD) 56.9 fL 37.0-51.0 PLATELET COUNT (test code=PLT) 299 K/mm3 150-450 MEAN PLATELET VOLUME (test code=MPV) 10.8 fL 6.7-11.0 NEUTROPHIL % (test code=NT%) 75.7 % 39.0-69.0 IMMATURE GRANULOCYTE % (test code=IG%) 0.9 % 0.0-5.0 LYMPHOCYTE % (test code=LY%) 11.7 % 25.0-55.0 MONOCYTE % (test code=MO%) 9.9 % 0.0-10.0 EOSINOPHIL % (test code=EO%) 1.3 % 0.0-5.0 BASOPHIL % (test code=BA%) 0.5 % 0.0-1.0 NUCLEATED RBC % (test code=NRBC%) 0.0 % 0-0 NEUTROPHIL # (test code=NT#) 14.71 K/mm3 1.8-7.7 IMMATURE GRANULOCYTE # (test code=IG#) 0.18 x10 3/uL 0-0.03 LYMPHOCYTE # (test code=LY#) 2.27 K/mm3 1.0-5.0 MONOCYTE # (test code=MO#) 1.92 K/mm3 0-0.8 EOSINOPHIL # (test code=EO#) 0.26 K/mm3 0.0-0.5 BASOPHIL # (test code=BA#) 0.09 K/mm3 0.0-0.2 NUCLEATED RBC # (test code=NRBC#) 0.00 K/mm3 0.0-0.1 MANUAL DIFF REQUIRED (test code=MDIFF) NO, ONLY SCAN NEEDED DIFFERENTIAL [id number] 08:03:00* Test Item Value Reference Range Comments STAIN ACCEPTABILITY (test code=STN ACCEPTABLE) STAIN ACCEPTABLE HYPOCHROMIA (test code=HYPO) 1+ ANISOCYTOSIS (test code=ANISO) 1+ PLATELET ESTIMATE (test code=PLTEST) ADEQUATE PLATELET MORPHOLOGY (test code=PLTMORPH) SIZE VARIABLE BASIC METABOLIC [id number] 06:22:00* Test Item Value Reference Range Comments SODIUM (test code=NA) 142 mmol/L 136-145 POTASSIUM (test code=K) 4.3 mmol/L 3.5-5.1 CHLORIDE (test code=CL) 107.0 mmol/L 98-107 CARBON DIOXIDE (test code=CO2) 25.0 mmol/L 21-32 ANION GAP (test code=GAP) 14.3 10-20 GLUCOSE (test code=GLU) 131 mg/dL 74-106 BLOOD UREA NITROGEN (test code=BUN) 35 mg/dL 7-18 GLOMERULAR FILTRATION RATE (test code=GFR) 45 mL/min >=60 Estimated GFR by using Modified MDRD formula.Chronic kidney disease is defined as either kidney damageor GFR <60 mL/min/1.73 m2 for >3 months. CREATININE (test code=CREAT) 1.20 mg/dL 0.55-1.02 Note change in reference range due to change in reagent. BUN/CREATININE RATIO (test code=BUN/CREA) 28.0 10-20 CALCIUM (test code=CA) 8.5 mg/dL 8.5-10.1 BASIC METABOLIC [id number] 06:15:00* Test Item Value Reference Range Comments SODIUM (test code=NA) 142 mmol/L 136-145 POTASSIUM (test code=K) 4.3 mmol/L 3.5-5.1 CHLORIDE (test code=CL) 107.0 mmol/L 98-107 CARBON DIOXIDE (test code=CO2) mmol/L 21-32 ANION GAP (test code=GAP) 10-20 GLUCOSE (test code=GLU) mg/dL 74-106 BLOOD UREA NITROGEN (test code=BUN) mg/dL 7-18 GLOMERULAR FILTRATION RATE (test code=GFR) mL/min >=60 CREATININE (test code=CREAT) mg/dL 0.55-1.02 BUN/CREATININE RATIO (test code=BUN/CREA) 10-20 CALCIUM (test code=CA) mg/dL 8.5-10.1 CBC W/AUTO [id number] 06:05:00* Test Item Value Reference Range Comments WHITE BLOOD CELL (test code=WBC) 19.4 K/mm3 4.5-12.5 RED BLOOD CELL (test code=RBC) 3.19 mill/mm3 3.7-5.2 HEMOGLOBIN (test code=HGB) 9.2 gram/dL 11.5-15.5 HEMATOCRIT (test code=HCT) 31.1 % 36.0-46.0 MEAN CELL VOLUME (test code=MCV) 97.5 fL 80-98 MEAN CELL HGB (test code=MCH) 28.8 picogram 27.0-33.0 MEAN CELL HGB CONCETRATION (test code=MCHC) 29.6 gram/dL 33.0-36.0 RED CELL DISTRIBUTION WIDTH (test code=RDW) 16.0 % 11.6-16.2 RED CELL DISTRIBUTION WIDTH SD (test code=RDW-SD) 56.9 fL 37.0-51.0 PLATELET COUNT (test code=PLT) 299 K/mm3 150-450 MEAN PLATELET VOLUME (test code=MPV) 10.8 fL 6.7-11.0 NEUTROPHIL % (test code=NT%) 75.7 % 39.0-69.0 IMMATURE GRANULOCYTE % (test code=IG%) 0.9 % 0.0-5.0 LYMPHOCYTE % (test code=LY%) 11.7 % 25.0-55.0 MONOCYTE % (test code=MO%) 9.9 % 0.0-10.0 EOSINOPHIL % (test code=EO%) 1.3 % 0.0-5.0 BASOPHIL % (test code=BA%) 0.5 % 0.0-1.0 NUCLEATED RBC % (test code=NRBC%) 0.0 % 0-0 NEUTROPHIL # (test code=NT#) 14.71 K/mm3 1.8-7.7 IMMATURE GRANULOCYTE # (test code=IG#) 0.18 x10 3/uL 0-0.03 LYMPHOCYTE # (test code=LY#) 2.27 K/mm3 1.0-5.0 MONOCYTE # (test code=MO#) 1.92 K/mm3 0-0.8 EOSINOPHIL # (test code=EO#) 0.26 K/mm3 0.0-0.5 BASOPHIL # (test code=BA#) 0.09 K/mm3 0.0-0.2 NUCLEATED RBC # (test code=NRBC#) 0.00 K/mm3 0.0-0.1 MANUAL DIFF REQUIRED (test code=MDIFF) NO, ONLY SCAN NEEDED DIFFERENTIAL [id number] 06:05:00* Test Item Value Reference Range Comments STAIN ACCEPTABILITY (test code=STN ACCEPTABLE) MORPHOLOGY COMMENT (test code=MOC) PLATELET ESTIMATE (test code=PLTEST) PLATELET MORPHOLOGY (test code=PLTMORPH) CBC W/AUTO [id number] 06:04:00* Test Item Value Reference Range Comments WHITE BLOOD CELL (test code=WBC) 19.4 K/mm3 4.5-12.5 RED BLOOD CELL (test code=RBC) 3.19 mill/mm3 3.7-5.2 HEMOGLOBIN (test code=HGB) 9.2 gram/dL 11.5-15.5 HEMATOCRIT (test code=HCT) 31.1 % 36.0-46.0 MEAN CELL VOLUME (test code=MCV) 97.5 fL 80-98 MEAN CELL HGB (test code=MCH) 28.8 picogram 27.0-33.0 MEAN CELL HGB CONCETRATION (test code=MCHC) 29.6 gram/dL 33.0-36.0 RED CELL DISTRIBUTION WIDTH (test code=RDW) 16.0 % 11.6-16.2 RED CELL DISTRIBUTION WIDTH SD (test code=RDW-SD) 56.9 fL 37.0-51.0 PLATELET COUNT (test code=PLT) 299 K/mm3 150-450 MEAN PLATELET VOLUME (test code=MPV) 10.8 fL 6.7-11.0 NEUTROPHIL % (test code=NT%) 75.7 % 39.0-69.0 IMMATURE GRANULOCYTE % (test code=IG%) 0.9 % 0.0-5.0 LYMPHOCYTE % (test code=LY%) 11.7 % 25.0-55.0 MONOCYTE % (test code=MO%) 9.9 % 0.0-10.0 EOSINOPHIL % (test code=EO%) 1.3 % 0.0-5.0 BASOPHIL % (test code=BA%) 0.5 % 0.0-1.0 NUCLEATED RBC % (test code=NRBC%) 0.0 % 0-0 NEUTROPHIL # (test code=NT#) 14.71 K/mm3 1.8-7.7 IMMATURE GRANULOCYTE # (test code=IG#) 0.18 x10 3/uL 0-0.03 LYMPHOCYTE # (test code=LY#) 2.27 K/mm3 1.0-5.0 MONOCYTE # (test code=MO#) 1.92 K/mm3 0-0.8 EOSINOPHIL # (test code=EO#) 0.26 K/mm3 0.0-0.5 BASOPHIL # (test code=BA#) 0.09 K/mm3 0.0-0.2 NUCLEATED RBC # (test code=NRBC#) 0.00 K/mm3 0.0-0.1 MANUAL DIFF REQUIRED (test code=MDIFF) NO, ONLY SCAN NEEDED DIFFERENTIAL [id number] 06:04:00* Test Item Value Reference Range Comments STAIN ACCEPTABILITY (test code=STN ACCEPTABLE) CABOT RINGS (test code=CAB) MORPHOLOGY COMMENT (test code=MOC) PLATELET ESTIMATE (test code=PLTEST) PLATELET MORPHOLOGY (test code=PLTMORPH) CBC W/AUTO [id number] 06:04:00* Test Item Value Reference Range Comments WHITE BLOOD CELL (test code=WBC) 19.4 K/mm3 4.5-12.5 RED BLOOD CELL (test code=RBC) 3.19 mill/mm3 3.7-5.2 HEMOGLOBIN (test code=HGB) 9.2 gram/dL 11.5-15.5 HEMATOCRIT (test code=HCT) 31.1 % 36.0-46.0 MEAN CELL VOLUME (test code=MCV) 97.5 fL 80-98 MEAN CELL HGB (test code=MCH) 28.8 picogram 27.0-33.0 MEAN CELL HGB CONCETRATION (test code=MCHC) 29.6 gram/dL 33.0-36.0 RED CELL DISTRIBUTION WIDTH (test code=RDW) 16.0 % 11.6-16.2 RED CELL DISTRIBUTION WIDTH SD (test code=RDW-SD) 56.9 fL 37.0-51.0 PLATELET COUNT (test code=PLT) 299 K/mm3 150-450 MEAN PLATELET VOLUME (test code=MPV) 10.8 fL 6.7-11.0 NEUTROPHIL % (test code=NT%) 75.7 % 39.0-69.0 IMMATURE GRANULOCYTE % (test code=IG%) 0.9 % 0.0-5.0 LYMPHOCYTE % (test code=LY%) 11.7 % 25.0-55.0 MONOCYTE % (test code=MO%) 9.9 % 0.0-10.0 EOSINOPHIL % (test code=EO%) 1.3 % 0.0-5.0 BASOPHIL % (test code=BA%) 0.5 % 0.0-1.0 NUCLEATED RBC % (test code=NRBC%) 0.0 % 0-0 NEUTROPHIL # (test code=NT#) 14.71 K/mm3 1.8-7.7 IMMATURE GRANULOCYTE # (test code=IG#) 0.18 x10 3/uL 0-0.03 LYMPHOCYTE # (test code=LY#) 2.27 K/mm3 1.0-5.0 MONOCYTE # (test code=MO#) 1.92 K/mm3 0-0.8 EOSINOPHIL # (test code=EO#) 0.26 K/mm3 0.0-0.5 BASOPHIL # (test code=BA#) 0.09 K/mm3 0.0-0.2 NUCLEATED RBC # (test code=NRBC#) 0.00 K/mm3 0.0-0.1 MANUAL DIFF REQUIRED (test code=MDIFF) NO, ONLY SCAN NEEDED DIFFERENTIAL [id number] 06:04:00* Test Item Value Reference Range Comments STAIN ACCEPTABILITY (test code=STN ACCEPTABLE) MORPHOLOGY COMMENT (test code=MOC) PLATELET ESTIMATE (test code=PLTEST) PLATELET MORPHOLOGY (test code=PLTMORPH) CBC W/AUTO [id number] 06:04:00* Test Item Value Reference Range Comments WHITE BLOOD CELL (test code=WBC) 19.4 K/mm3 4.5-12.5 RED BLOOD CELL (test code=RBC) 3.19 mill/mm3 3.7-5.2 HEMOGLOBIN (test code=HGB) 9.2 gram/dL 11.5-15.5 HEMATOCRIT (test code=HCT) 31.1 % 36.0-46.0 MEAN CELL VOLUME (test code=MCV) 97.5 fL 80-98 MEAN CELL HGB (test code=MCH) 28.8 picogram 27.0-33.0 MEAN CELL HGB CONCETRATION (test code=MCHC) 29.6 gram/dL 33.0-36.0 RED CELL DISTRIBUTION WIDTH (test code=RDW) 16.0 % 11.6-16.2 RED CELL DISTRIBUTION WIDTH SD (test code=RDW-SD) 56.9 fL 37.0-51.0 PLATELET COUNT (test code=PLT) 299 K/mm3 150-450 MEAN PLATELET VOLUME (test code=MPV) 10.8 fL 6.7-11.0 NEUTROPHIL % (test code=NT%) 75.7 % 39.0-69.0 IMMATURE GRANULOCYTE % (test code=IG%) 0.9 % 0.0-5.0 LYMPHOCYTE % (test code=LY%) 11.7 % 25.0-55.0 MONOCYTE % (test code=MO%) 9.9 % 0.0-10.0 EOSINOPHIL % (test code=EO%) 1.3 % 0.0-5.0 BASOPHIL % (test code=BA%) 0.5 % 0.0-1.0 NUCLEATED RBC % (test code=NRBC%) 0.0 % 0-0 NEUTROPHIL # (test code=NT#) 14.71 K/mm3 1.8-7.7 IMMATURE GRANULOCYTE # (test code=IG#) 0.18 x10 3/uL 0-0.03 LYMPHOCYTE # (test code=LY#) 2.27 K/mm3 1.0-5.0 MONOCYTE # (test code=MO#) 1.92 K/mm3 0-0.8 EOSINOPHIL # (test code=EO#) 0.26 K/mm3 0.0-0.5 BASOPHIL # (test code=BA#) 0.09 K/mm3 0.0-0.2 NUCLEATED RBC # (test code=NRBC#) 0.00 K/mm3 0.0-0.1 MANUAL DIFF REQUIRED (test code=MDIFF) NO, ONLY SCAN NEEDED DIFFERENTIAL [id number] 06:04:00* Test Item Value Reference Range Comments STAIN ACCEPTABILITY (test code=STN ACCEPTABLE) CABOT RINGS (test code=CAB) MORPHOLOGY COMMENT (test code=MOC) PLATELET ESTIMATE (test code=PLTEST) PLATELET MORPHOLOGY (test code=PLTMORPH) [id number] 19:50:00* Test Item Value Reference Range Comments GLUBED (test code=GLUBED) 239 mg/dL 74-106 Performed by certified punchboard filling machine operator at [facility] [id number] 16:55:00* Test Item Value Reference Range Comments GLUBED (test code=GLUBED) 292 mg/dL 74-106 Performed by certified punchboard filling machine operator at [facility] [id number] 12:16:00* Test Item Value Reference Range Comments GLUBED (test code=GLUBED) 258 mg/dL 74-106 Performed by certified punchboard filling machine operator at [facility] PROCALCITONIN (PCT)2018-09-07 09:33:00* Test Item Value Reference Range Comments PROCALCITONIN (PCT) (test code=PROCAL) 0.06 ng/ml Concentration Interpretation (ng/mL) <0.51 Sepsis is not likely. Local bacterial infection is possible. (LOW RISK for progression to Sepsis) 0.51 - 2.00 Sepsis is possible, but other conditions are known to elevate PCT as well. (MODERATE RISK for progression to Sepsis) > 2.00 Sepsis is likely, unless other causes are known. (HIGH RISK for progression to Severe Sepsis or Septic Shock) 10.00 High likelihood of Severe Sepsis or Septic or higher Shock. *Increased PCT levels may not always be related to systemic bacterial infection.*Low PCT levels do not automatically exclude the presence of bacterial infection.*All results should be interpreted taking into account the patients history. [id number] 07:42:00* Test Item Value Reference Range Comments GLUBED (test code=GLUBED) 278 mg/dL 74-106 Performed by certified punchboard filling machine operator at [facility] [id number] 00:39:00* Test Item Value Reference Range Comments TROPONIN-I (test code=TROPI) <0.015 ng/mL 0-0.045 COMMENTS TO DIRECTOR OF STRATEGIC SOURCING: COLLECT 3 HOURS AFTER PREVIOUS [id number] 21:37:00* Test Item Value Reference Range Comments TROPONIN-I (test code=TROPI) <0.015 ng/mL 0-0.045 COMMENTS TO DIRECTOR OF STRATEGIC SOURCING: COLLECT 3 HOURS AFTER PREVIOUS [id number] 20:18:00* Test Item Value Reference Range Comments GLUBED (test code=GLUBED) 230 mg/dL 74-106 Performed by certified punchboard filling machine operator at [facility] [id number] 16:37:00* Test Item Value Reference Range Comments GLUBED (test code=GLUBED) 65 mg/dL 74-106 Performed by certified punchboard filling machine operator at [facility] B-TYPE NATRIURETIC [id number] 13:56:00* Test Item Value Reference Range Comments B-TYPE NATRIURETIC PEPTIDE (test code=BNP) 97.89 pgram/mL 0-100 BASIC METABOLIC [id number] 13:16:00* Test Item Value Reference Range Comments SODIUM (test code=NA) 141 mmol/L 136-145 POTASSIUM (test code=K) 4.4 mmol/L 3.5-5.1 CHLORIDE (test code=CL) 107.0 mmol/L 98-107 CARBON DIOXIDE (test code=CO2) 29.0 mmol/L 21-32 ANION GAP (test code=GAP) 9.4 10-20 GLUCOSE (test code=GLU) 93 mg/dL 74-106 BLOOD UREA NITROGEN (test code=BUN) 18 mg/dL 7-18 GLOMERULAR FILTRATION RATE (test code=GFR) 55 mL/min >=60 Estimated GFR by using Modified MDRD formula.Chronic kidney disease is defined as either kidney damageor GFR <60 mL/min/1.73 m2 for >3 months. CREATININE (test code=CREAT) 1.00 mg/dL 0.55-1.02 Note change in reference range due to change in reagent. BUN/CREATININE RATIO (test code=BUN/CREA) 17.8 10-20 CALCIUM (test code=CA) 9.6 mg/dL 8.5-10.1 [id number] 13:16:00* Test Item Value Reference Range Comments TROPONIN-I (test code=TROPI) <0.015 ng/mL 0-0.045 PROTHROMBIN [id number] 13:14:00* Test Item Value Reference Range Comments PROTHROMBIN TIME PATIENT (test code=PTP) 12.9 seconds 9.0-14.0 INTERNATIONAL NORMAL RATIO (test code=INR) 1.1 0.8-1.2 The therapeutic range for oral anticoagulant therapy formost indications is an international normalized ratio (INR)of between 2.0 and 3.0. The recommended therapeutic INRrange for various clinical situations is listed below: Clinical Situation INR range Pulmonary e mbolism treatment (2.0-3.0)Venous thrombosis treatmentVenous thrombosis prophylaxis (high risk surgery)Prevention of systemic embolism from: Acute myocardial infarction Valvular heart disease Atrial fibrillation Mechanical prosthetic heart valves (2.5-3.5) IS PATIENT ON ANTICOAGULANTS? NTHROMBOPLASTIN TIME [id number] 13:14:00* Test Item Value Reference Range Comments THROMBOPLASTIN TIME PARTIAL (test code=PTT) 28.8 seconds 25.0-36.5 IS PATIENT ON ANTICOAGULANTS? N- XR CHEST 1 [id number] 13:09:00 FAX: Rupert Huerta [facility]: B St: REG FAX: Kit Esquivel [phone] Name: SAGRARIO SINGLETON [facility] : 1950 Age/S: 68/F Jayna Rod levar Unit #: [id number] [place]: [place] [address] Phys: Rupert Huerta MD Acct: [id number] Dis Date: Status: REG ER PHONE #: [phone] Exam Date: 09/06/2018 1303 FAX #: [phone] Reason: CHEST PAIN EXAMS: CPT CODE: [id number] XR CHEST 1 V 67991 HISTORY: Chest pain. COMPARISON: July 02, 2018. Patchy bilateral infiltrates with small bibasal effusions, greater on the right. Dependent changes with cardiomegaly. IMPR ESSION: Patchy bilateral infiltrates small bibasal effusions. at 1309 Reported and signed by: Juan Bond M.D. CC: Rupert Huerta MD; Kti Maciel gist: Nuvia Krishna(R) Trnscrd Date/Time/B y: 09/06/2018 (9529) : By: [email or web address] Orig Print D/T: S: 09/06/2018 (17 06) PAGE 1 Signed Report BASIC METABOLIC [id number] 13:07:00* Test Item Value Reference Range Comments SODIUM (test code=NA) 141 mmol/L 136-145 POTASSIUM (test code=K) 4.4 mmol/L 3.5-5.1 CHLORIDE (test code=CL) 107.0 mmol/L 98-107 CARBON DIOXIDE (test code=CO2) mmol/L 21-32 ANION GAP (test code=GAP) 10-20 GLUCOSE (test code=GLU) mg/dL 74-106 BLOOD UREA NITROGEN (test code=BUN) mg/dL 7-18 GLOMERULAR FILTRATION RATE (test code=GFR) mL/min >=60 CREATININE (test code=CREAT) mg/dL 0.55-1.02 BUN/CREATININE RATIO (test code=BUN/CREA) 10-20 CALCIUM (test code=CA) 9.6 mg/dL 8.5-10.1 [id number] 13:07:00* Test Item Value Reference Range Comments TROPONIN-I (test code=TROPI) ng/mL 0-0.045 CBC W/O [id number] 12:57:00* Test Item Value Reference Range Comments WHITE BLOOD CELL (test code=WBC) 20.7 K/mm3 4.5-12.5 RED BLOOD CELL (test code=RBC) 3.59 mill/mm3 3.7-5.2 HEMOGLOBIN (test code=HGB) 10.3 gram/dL 11.5-15.5 HEMATOCRIT (test code=HCT) 35.7 % 36.0-46.0 MEAN CELL VOLUME (test code=MCV) 99.4 fL 80-98 MEAN CELL HGB (test code=MCH) 28.7 picogram 27.0-33.0 MEAN CELL HGB CONCETRATION (test code=MCHC) 28.9 gram/dL 33.0-36.0 RED CELL DISTRIBUTION WIDTH (test code=RDW) 15.8 % 11.6-16.2 PLATELET COUNT (test code=PLT) 306 K/mm3 150-450 MEAN PLATELET VOLUME (test code=MPV) 10.4 fL 6.7-11.0 CT CHEST [id number] 14:35:00 [place] [address] Patient Name: SAGRARIO SINGLETON MR #: [id number] : 1950 Age/Sex: 68/F Req #: [id number] Adm Physician: Ordered by: DALLAS BRYAN MD Report #: [id number] Location: CT Room/Bed: Procedure: [id number] CT/CT CHEST WO Exam Date: 07/13/18 Exam Time: 1410 REPORT STATUS: Signed EXAM: CT C hest WITHOUT contrast 07/13/2018 1:11 PM INDICATION: [id number] 1410 ASTHMA / COPD COMPARISON: None TECHNIQUE: Chest was scanned utilizing a multidetector helical scanner from the lung apex through the level of the a drenal glands without administration of IV contrast. Absence of intravenous co ntrast decreases sensitivity for detection of lymphadenopathy and vascular pat hology. Coronal and sagittal reformations were obtained. Routine protocol was performed. IV CONTRAST: None COMPLICATIONS: None RADIATI ON DOSE: Total DLP: 443.64 mGy*cm Estimated effective dose: (DLP x 0.015 x size factor) mSv CTDIvol has been reviewed. It is below the limi ts set by the Radiation Protocol Committee (RPC). FINDINGS: LINES/ T UBES: None. LUNGS AND AIRWAYS: Diffuse bilateral mosaic attenuation of the lungs with decreased vascularity in the lucent areas, likely a combination of air trapping and pulmonary hypertension. A 7 mm solid pulmonary nodule in the peripheral left lower lobe on series 3, image 82 is indeterminate. Pleural-based consolidation/masslike in the medial basilar segment of the left lower lobe, measuring 5 x 2.1 cm and associated with mild bronchiectasis. Mild central bilateral bronchiectasis with associated peribronchial wall th ickening. Mild scarring in the right middle lobe and lingula. PLEURA: The p leural spaces are clear. HEART AND MEDIASTINUM: The thyroid gland is normal . Multiple noncalcified mildly prominent mediastinal lymph nodes with the lar gest in the subcarinal region measuring 1 cm in transverse diameter on series 2, image 55. No axillary or hilar lymphadenopathy. Cardiomegaly. Small perica rdial effusion. Severe calcifications of the mitral annulus. Mild calcificati ons of the coronary arteries. The thoracic aorta is normal in caliber and ass ociated with mild scattered atherosclerotic calcifications. The main pulmonary artery is enlarged measuring 3.3 cm in diameter. Mild diffuse wall thickening of the esophagus may relate to esophagitis. UPPER ABDOMEN: Unremarkable. BONES: Multilevel degenerative changes throughout the thoracic spine. Diff use bone demineralization. SOFT TISSUES: Unremarkable. IMPRESSION: 1. Left lower lobe pleural-based consolidation/masslike measuring up to 5-cm in length may represent pneumonia in the proper clinical setting. In absence of infection symptoms, recommend further evaluation with PET CT and/or biopsy to exclude malignancy. Otherwise, follow-up CT chest without contrast in 8 we eks. 2. Additional 7 mm left lower lobe pulmonary nodule is indeterminate. 3. Diffuse mosaic attenuation of the lungs, a combination of pulmonary hy pertension and air trapping. Signed by: Dr. Maris Verde M.D. o ramiro 07/13/2018 2:47 PM Dictated By: MARIS VERDE MD Electronicall y Signed By: MARIS VERDE MD on 07/13/181446 Transcribed By: JEANIE Fagan on 07/13/181446 COPY TO: DALLAS BRYAN MD, [facility] PLEURAL [id number] 15:58:00 RUN DATE: 04/26/18 [facility] PAGE 1 RUN TIME: 1558 Specimen Inqui ry RUN USER: INTERFACE PATIENT: SAGRARIO SINGLETON ACCT #: [id number] LOC: PAULU U #: [id number] AGE/SX: 68/F ROOM: [facility] RE04/12/18[facility] DR: Regla Marcial MD : 50 BED: A DIS: STATUS: ADM IN TLOC: SPEC #: [id number] RECD: 04/23/18 STATUS: JAYNE JOSEPH #: [id number] RAQUEL: 04/23/18- [facility] DR: Regla Marcial MD ENTERED: 04/23/18-1140 SP TYPE: PLEURAL FL OTHR DR: [facility] or Family Physician Dmitri Ross MD, Donald R DO N assif, George M MDORDERED: GROSS COPIES TO: [facility] or Family Physician Dmitri Adair MD [address] [facility] [address] [place] [address] Regla Marcial MD [address] [facility] [address] [place] [address] Kit Maciel DO [address] [place] [address] [phone] Dallas Bryan MD [address] [facility] [address] [place] [id number] PROCEDURES: GROSS (04/26/18-1554) TISSUES: PLEURAL FLUID, NOS - 35ML DARK YELLOW FLUID CLINICAL HISTORY COLLECTION DATE: 04/05 03/23 PLEURAL EFFUSION CONTINUED ON N EXT PAGE RUN DATE: 04/26/18 Flip Jane PAGE 2 RUN TIME: 1558 Sp ecimen Inquiry RUN USER: INTERFACE SPEC #: [id number] PATIENT: SAGRARIO CISNEROS #[id number] (Continued) FI NAL DIAGNOSIS Pleural fluid for cytology, left side, thoracentesis: ID SOTHELIAL CELLS, RED BLOOD CELLS, AND WHITE BLOOD CELLS NEGATIVE FOR ALE GNANCY DMW/[place] [id number], [id number] MACROSCOPIC The specime n is received fresh, identified as "left pleural fluid" and consists of 35 mL of dark yellow fluid to be concentrated and processed for cytologic evlauation . A cell block will be prepared. GROSS PERFORMED AT [facility] [address] [place] [phone] (A) MICROSCOPIC MICROSCOPIC PERFORMED AT [facility] All of the stains, including any controls performed, stain appropriately. [facility] [address] [place] [phone] (N) PERFORMING SITE Diagnosis performed at: [facility] [address] [place] [address] Signed SIGNATURE ON FILE Will isLida 04/26/18 1558 END OF REPORT
[2018-12-19] MEDS ORDERED: METFORMIN HCL500 MG PO (17:11)
[2018-12-19] MEDS ORDERED: DIGOXIN250 MCG PO (17:11)
[2018-12-19] MEDS ORDERED: VERAPAMIL ER120 MG PO (17:11)
[2018-12-19] MEDS ORDERED: SIMVASTATIN40 MG PO (17:11)
[2018-12-19] MEDS ORDERED: GLIPIZIDE ER5 MG PO (17:11)
[2018-12-19] MEDS ORDERED: FUROSEMIDE40 MG PO (17:11)
[2018-12-19] MEDS ORDERED: SODIUM CHLORIDE 0.9% 1000ML 1,000 ML IV STA ×2 (17:21→18:12)
[2018-12-19] MEDS ORDERED: PANTOPRAZOLE 40 MG 10ML VIAL IV ONE (17:21)
[2018-12-19] MEDS ORDERED: SODIUM CHLORIDE 0.9% 1000ML 2,000 ML ONE (17:25)
[2018-12-19] MEDS ORDERED: LEVALBUTEROL HCL SOLN NEBU 1.25 MG/3 ML NEB INH ONE (17:30)
[2018-12-19] MEDS ORDERED: IPRATROPIUM BROMIDE 0.02% 2.5 ML NEB NEB ONE (17:30)
[2018-12-19 17:41] LABS: BASOPHILS # (AUTO) 0.1 (0.0-0.1); BASOPHILS % 0.4 % (0.0-1.0); EOSINOPHILS # (AUTO) 0.1 (0.0-0.4); EOSINOPHILS % 0.3 % (0.0-6.0); HEMATOCRIT 32.8 % (34.2-44.1); HEMOGLOBIN 9.8 g/dL (12.0-16.0); LYMPHOCYTES # (AUTO) 1.5 (1.0-3.2); MEAN CORPUSCULAR HEMOGLOBIN 28.9 pg (28-32); MEAN CORPUSCULAR HGB CONC 29.9 g/dL (31-35); MEAN CORPUSCULAR VOLUME 96.8 fL (81-99); MONOCYTES # (AUTO) 2.4 (0.2-0.8); MONOCYTES % 8.2 % (4.4-11.3); NEUTROPHILS # (AUTO) 24.5 (2.1-6.9); NEUTROPHILS % 84.8 % (38.7-80.0); PLATELET COUNT 277 x10e3/uL (140-360); RED BLOOD COUNT 3.39 x10e6/uL (3.6-5.1); RED CELL DISTRIBUTION WIDTH 17.5 % (11.7-14.4)
[2018-12-19 17:51] LABS: INR 1.38; PROTHROMBIN TIME 17.6 seconds (11.9-14.5)
[2018-12-19 17:52] LABS: PARTIAL THROMBOPLASTIN TIME 27.9 seconds (23.8-35.5)
[2018-12-19 18:01] LABS: ABG HCO3 19 mmol/L (23-28); ABG PCO2 37 mmHg (41-51); ABG PH 7.33 (7.31-7.41); ABG PO2 51 mmHg (80-105)
--- NOTE | 2018-12-19 18:02 | Diagnostic Imaging Report ---
Examination: Single AP view of the chest. COMPARISON: None. INDICATION: Fall DISCUSSION: Lines/tubes: None. Lungs: Central pulmonary venous congestion. Pleura: No effusions. Heart and mediastinum: Heart enlarged. Bones and soft tissues: No acute bony abnormalities. IMPRESSION: 1. Cardiomegaly with central venous congestion Signed by: Dr. Mikael Sharp M.D. on 12/19/2018 5:58 PM
[2018-12-19 18:04] LABS: ALBUMIN 3.1 g/dL (3.5-5.0); ALBUMIN/GLOBULIN RATIO 0.8 (0.8-2.0); ANION GAP 22.6 mmol/L (8-16); CALCIUM 9.7 mg/dL (8.4-10.2); CREATININE, SERUM 2.2 mg/dL (0.57-1.11); MAGNESIUM 1.5 MG/DL (1.3-2.1); POTASSIUM 5.6 mmol/L (3.5-5.1)
[2018-12-19 18:11] LABS: CREATINE KINASE MB 3.7 ng/mL (0-5.0)
[2018-12-19] MEDS ORDERED: VANCOMYCIN 1GM/NS 250 ML 250 ML IV ONE (18:15)
--- NOTE | 2018-12-19 18:25 | NUR ---
DR. HELMS/Tomi AND ER STAFF AT BEDSIDE TO INTUBATE PT.
--- NOTE | 2018-12-19 18:28 | NUR ---
R.T. BAGGING PT AT THIS TIME.
--- NOTE | 2018-12-19 18:30 | NUR ---
20MG ETOMIDATE PUSHED
[2018-12-19 18:33] LABS: BAND NEUTROPHILS % (MANUAL) 9 %; LYMPHOCYTES % (MANUAL) 12 % (19-48); METAMYELOCYTES % (MANUAL) 9 % (0-0); MONOCYTES % (MANUAL) 5 % (3.4-9.0); MYELOCYTES % (MANUAL) 1 % (0-0); NEUTROPHILS % (MANUAL) 63 % (40-74)
--- NOTE | 2018-12-19 18:35 | NUR ---
24 AT THE LIP/7.5 ET TUBE. INTUBATION COMPLETE WITH NO PROBLEMS. CENTRAL LINE INSERTION TO BE STARTED.
[2018-12-19 18:36] LABS: SMUDGE CELLS FEW
[2018-12-19 18:37] LABS: PLATELET ESTIMATE ADEQUATE; PLATELET MORPHOLOGY COMMENT FEW LARGE
[2018-12-19 18:38] LABS: HYPOCHROMASIA SLIGHT
[2018-12-19] MEDS ORDERED: PROPOFOL IV EMULSION 10MG/ML 100 ML ONE (18:44)
[2018-12-19] MEDS ORDERED: PROPOFOL IV EMULSION 10 MG/ML 20 ML VIAL IV ONE (18:45)
--- NOTE | 2018-12-19 18:45 | NUR ---
CENTRAL INSERTION STARTED UNDER STERILE CONDITIONS.
[2018-12-19] MEDS: CEFEPIME 2 GM/NS 0.9% 100 ML 100 ML IV SCH (19:00)
[2018-12-19 19:01] LABS: B-TYPE NATRIURETIC PEPTIDE2 534.6 pg/mL (0-100)
--- NOTE | 2018-12-19 19:20 | NUR ---
BARNEY CATH PLACED WITH NO PROBLEMS
[2018-12-19 19:30] LABS: BILIRUBIN,URINE NEGATIVE (NEGATIVE); CLARITY,URINE CLOUDY (CLEAR); COLOR,URINE YELLOW (YELLOW); KETONES,URINE TRACE (NEGATIVE); LEUKOCYTE ESTERASE ,URINE NEGATIVE (NEGATIVE); NITRITE,URINE NEGATIVE (NEGATIVE); PROTEIN,URINE DIPSTICK 2+ (NEGATIVE); URINE UROBILINOGEN 0.2 mg/dL (0.2 - 1)
[2018-12-19 19:44] LABS: WBC,URINE (MAN) 0-5 /HPF (0-5)
[2018-12-19 19:45] LABS: AMORPHOUS SEDIMENT,URINE MODERATE (FEW); BACTERIA,URINE MODERATE /HPF; EPITHELIAL CELLS,URINE FEW /LPF
[2018-12-19] MEDS: AZITHROMYCIN 500MG/NS 250 ML 250 ML IV SCH (19:45)
[2018-12-19] MEDS ORDERED: SODIUM CHLORIDE 0.9% 1000ML 1,000 ML IV ONE (20:00)
--- NOTE | 2018-12-19 20:14 | Diagnostic Imaging Report ---
Examination: Single AP view of the chest. COMPARISON: 12/19/18 at 1745 hours INDICATION: Post intubation DISCUSSION: Lines/tubes: Interval placement of a right IJ central venous catheter with distal tip projected on the left innominate vein/SVC junction. ET tube has also been placed, with distal tip approximately 2 cm proximal to the ashley. Lungs: Central pulmonary venous congestion. Pleura: There is a left pleural effusion, and left lower lobe atelectasis versus pneumonia. No pneumothorax. Heart and mediastinum: Moderate enlargement of the cardiac silhouette. Bones and soft tissues: No acute bony abnormalities. Degenerative changes in the thoracic spine. IMPRESSION: 1. Appropriate position of ET tube and right IJ central venous catheter. 2. Otherwise no interval change in appearance of the chest. Signed by: Dr. Indira Paul M.D. on 12/19/2018 8:10 PM
[2018-12-19] MEDS: NOREPINEPHRINE INJ 4MG/4ML 8 MG in DEXTROSE 5% 250ML 250 ML IV PRN (20:56)
--- NOTE | 2018-12-19 21:21 | Diagnostic Imaging Report ---
CT BRAIN WO HISTORY: Trauma COMPARISON: None. Technique: Noncontrast axial scans were obtained from skull base to the vertex. Coronal and sagittal reconstructions obtained from the axial data. One or more of the following dose reduction techniques were used: Automated exposure control, adjustment of the mA and/or kV according to patient size, and/or utilization of iterative reconstruction technique. DISCUSSION: Scalp/Skull: Bilateral parietal calvarial mckenzie holes are present. Focal left parietal-temporal craniotomy/cranioplasty changes are present. Otherwise, no calvarial fracture is seen. Brain sulci: Mildly prominent, including the cerebellar sulci. Ventricles: Compensatory dilatation. Extra-axial spaces: No masses or fluid collections. Carotid siphon calcifications are present. Parenchyma: Areas of focal encephalomalacia along the right superior parietal lobule, left intraparietal sulcus, and inferior left occipital lobe are present. Mild bilateral deep white matter hypodensity is likely chronic microvascular ischemic change. Otherwise, no masses, hemorrhage, or large vascular territory acute infarct. Dural sinuses: No abnormal densities. Sellar/Suprasellar region: Intact. Skull base: Intact. Incidental findings: There is minimal mucosal thickening in the sphenoid sinuses. IMPRESSION: 1. No acute intracranial abnormalities. 2. Mild supratentorial chronic microvascular ischemic change. Mild generalized cerebral and cerebellar volume loss. 3. Areas of encephalomalacia along the right superior parietal lobule, left intraparietal sulcus, and inferior left occipital lobe may be from remote infarcts. 4. Bilateral parietal calvarial mckenzie holes and left frontotemporal craniotomy changes. Signed by: Dr. Roland Edmondson M.D. on 12/19/2018 9:18 PM
--- NOTE | 2018-12-19 21:27 | Diagnostic Imaging Report ---
CT CERVICAL SPINE WO HISTORY: Trauma COMPARISON: Concurrent head CT TECHNIQUE: CT of the cervical spine without contrast. Sagittal and coronal reformations were created. One or more of the following dose reduction techniques were used: Automated exposure control, adjustment of the mA and/or kV according to patient size, and/or utilization of iterative reconstruction technique. FINDINGS: Mild bone demineralization limits osseous evaluation. Cervical lordosis is straightened. There is no scoliosis. No definite acute fracture or compression deformity is seen. The craniocervical junction is intact. No gross spinal canal masses are seen. The paravertebral and paraspinal soft tissues are unremarkable. Multilevel advanced spondylotic changes and bilateral facet arthrosis are present. There is associated minimal grade 1 anterolisthesis of C3 on C4 and C4 on C5. Moderate atlantoaxial arthrosis is present as well. There is at least mild canal stenosis at C5-C6 and C6-C7 due to posterior disc osteophyte complexes. Endotracheal tube and left IJ central line are partially visualized. A small amount of fluid layers in the pharynx. A left thyroid hypodense nodule measures up to 1.2 cm. There is a small calcification in the right thyroid lobe. Mild bilateral carotid bulb calcified plaque is present. Both carotid bifurcations have a retropharyngeal course. IMPRESSION: No acute osseous abnormalities. Multilevel advanced degenerative changes. Signed by: Dr. Roland Edmondson M.D. on 12/19/2018 9:24 PM
--- NOTE | 2018-12-19 22:05 | Diagnostic Imaging Report ---
EXAM: CT Chest, Abdomen and Pelvis WITH contrast INDICATION: Trauma with fall. COMPARISON: None. TECHNIQUE: Chest, abdomen and pelvis were scanned utilizing a multidetector helical scanner from the lung apex to the pubic symphysis before and after administration of IV contrast. Coronal and sagittal reformations were obtained. Routine protocol was performed. Scan was performed when during portal venous phase. IV CONTRAST: 100 cc Isovue-300 ORAL CONTRAST: Water RADIATION DOSE: Total DLP: 2304.26 mGy*cm Estimated effective dose: (DLP x 0.015 x size factor) mSv COMPLICATIONS: None FINDINGS: LINES and TUBES: ET tube with the distal tip approximately 3.6 cm proximal to the ashley. Left neck central venous catheter with distal tip within the left innominate vein, just proximal to the SVC, which appears to extend extraluminal, however, this is likely artifactual on axial image 18. LUNGS AND AIRWAYS: There is left lower lobe consolidation with air bronchograms. There is also lingular and right lower lobe consolidation with air programs to lesser extent. Patchy ground glass densities also present in the remainder of the lungs. PLEURA: Bilateral trace pleural effusions. HEART AND MEDIASTINUM: No mediastinal, hilar or axillary lymphadenopathy. The heart is normal in size.. There is no pericardial effusion. There are mild atherosclerotic calcifications in the aorta and coronary arteries. HEPATOBILIARY: Hepatomegaly. No focal hepatic lesions. No biliary ductal dilation. GALLBLADDER: No radio-opaque stones or sludge. No wall thickening. SPLEEN: No splenomegaly. PANCREAS: No focal masses or ductal dilatation. ADRENALS: No adrenal nodules KIDNEYS/URETERS: Kidneys enhance symmetrically. No hydronephrosis. No cystic or solid mass lesions. No stones. GI TRACT: No abnormal distention, wall thickening, or evidence of bowel obstruction. There are diverticula within the colon without evidence of diverticulitis. Appendix is normal. PELVIC ORGANS/BLADDER: Flynn catheter within the decompressed urinary bladder. LYMPH NODES: No lymphadenopathy. VESSELS: There is mild atherosclerotic disease in the aorta and major arterial branches. PERITONEUM / RETROPERITONEUM: No free air or fluid. BONES: Evaluation limited due to osteopenia. There is a minimally displaced fracture of the left transverse process of L3 on image 72 series 10. No displaced rib fracture noted. Multi joint degenerative change including glenohumeral joints, right sternoclavicular joint and bilateral hip and SI joints. Degenerative changes of the visualized lower cervical and thoracolumbar spine without definite compression deformity noted. SOFT TISSUES: Small fat-containing umbilical hernia. There is subcutaneous fat stranding in the infra umbilical anterior abdominal wall, possibly related to soft tissue contusion. IMPRESSION: 1. Extensive right lower lobe and to lesser degree right lower lobe and lingula consolidation may reflect aspiration pneumonia. Trace bilateral pleural effusion. 2. Suspect the left L3 transverse process without additional displaced fracture identified. 3. Subcutaneous fat stranding in the lower anterior abdominal wall may be related to trauma, without hematoma. Signed by: Dr. Indira Paul M.D. on 12/19/2018 10:02 PM
[2018-12-19 22:43] VITALS: BP 98/82
[2018-12-19 22:55] VITALS: BP 98/82
[2018-12-19 23:00] VITALS: BP 98/82
[2018-12-19 23:03] VITALS: BP 98/82
[2018-12-19] MEDS: IPRATROPIUM BROMIDE 0.02% 2.5 ML NEB NEB SCH (23:20)
[2018-12-19] MEDS: ALBUTEROL SULF 0.083% NEB SOLN 3 ML NEB NEB SCH (23:20)
[2018-12-20] VITALS (23 sets, daily range): BP systolic 99–131; BP diastolic 42–106
[2018-12-20] MEDS ORDERED: PROPOFOL IV EMULSION 10MG/ML 100 ML ONE (00:06)
[2018-12-20] MEDS: PROPOFOL IV EMULSION 10MG/ML 100 ML IV SCH ×4 (00:15→23:00)
[2018-12-20] MEDS: NOREPINEPHRINE INJ 4MG/4ML 8 MG in DEXTROSE 5% 250ML 250 ML IV PRN ×3 (01:29→03:54)
[2018-12-20] MEDS: IPRATROPIUM BROMIDE 0.02% 2.5 ML NEB NEB SCH ×5 (02:45→19:45)
[2018-12-20] MEDS: ALBUTEROL SULF 0.083% NEB SOLN 3 ML NEB NEB SCH ×5 (02:45→19:45)
[2018-12-20] MEDS ORDERED: NOREPINEPHRINE 8 MG/D5W 250 ML 0 ML ONE (03:45)
[2018-12-20] MEDS ORDERED: NOREPINEPHRINE 8 MG/D5W 250 ML 250 ML ONE (03:48)
[2018-12-20 05:24] LABS: BASOPHILS # (AUTO) 0.1 (0.0-0.1); BASOPHILS % 0.3 % (0.0-1.0); EOSINOPHILS % 0.1 % (0.0-6.0); HEMATOCRIT 31.1 % (34.2-44.1); LYMPHOCYTES # (AUTO) 1.5 (1.0-3.2); LYMPHOCYTES % 5.2 % (18.0-39.1); MEAN CORPUSCULAR HEMOGLOBIN 29.1 pg (28-32); MEAN CORPUSCULAR HGB CONC 28.9 g/dL (31-35); MEAN CORPUSCULAR VOLUME 100.6 fL (81-99); MONOCYTES % 6.6 % (4.4-11.3); NEUTROPHILS # (AUTO) 25.1 (2.1-6.9); PLATELET COUNT 278 x10e3/uL (140-360); RED BLOOD COUNT 3.09 x10e6/uL (3.6-5.1); RED CELL DISTRIBUTION WIDTH 17.9 % (11.7-14.4)
[2018-12-20 05:52] LABS: CREATINE KINASE MB 3.1 ng/mL (0-5.0)
[2018-12-20] MEDS: CEFEPIME 2 GM/NS 0.9% 100 ML 100 ML IV SCH (06:31)
[2018-12-20 07:40] LABS: ALBUMIN 2.6 g/dL (3.5-5.0); ALBUMIN/GLOBULIN RATIO 0.7 (0.8-2.0); ANION GAP 26.1 mmol/L (8-16); CALCIUM 8.7 mg/dL (8.4-10.2); CHOL/HDL RATIO 3.1 (3.0-3.6); CREATININE, SERUM 2.51 mg/dL (0.57-1.11)
[2018-12-20 07:50] LABS: POTASSIUM 6.1 mmol/L (3.5-5.1)
[2018-12-20] MEDS ORDERED: SODIUM CHLORIDE 0.9% 1000ML 1,000 ML IV ONE ×2 (09:00→19:30)
[2018-12-20] MEDS ORDERED: SODIUM BICARBONATE 8.4% INJ 50 ML SYR IV SCH (09:15)
[2018-12-20] MEDS: SODIUM BICARBONATE 8.4% 150 ML in DEXTROSE 5% 1,000 ML IV SCH (09:22)
[2018-12-20] MEDS ORDERED: FUROSEMIDE INJ 10 MG/ML 4 ML VIAL IV SCH (09:30)
[2018-12-20] MEDS ORDERED: VANCOMYCIN HCL 1.25 GM in SODIUM CHLORIDE 0.9% 250ML 300 ML IV ONE (12:45)
[2018-12-20] MEDS ORDERED: VANCOMYCIN HCL 1.25 GM in SODIUM CHLORIDE 0.9% 250ML 250 ML IV ONE (13:30)
--- NOTE | 2018-12-20 13:31 | Consultation ---
DATE OF CONSULTATION: 12/20/2018 Cardiology Consultation REASON FOR CONSULTATION: Elevated troponin. HISTORY OF PRESENT ILLNESS: Ms. Chou is a 68-year-old female, who is currently intubated on the vent on pressors in the ICU in critical condition, unable to provide any history from her and with no context in the chart. Essentially, she, in speaking to the nursing staff, passed out at home and was down for an unknown amount of time. She had a Life alert and ended up pushing it and came in to the emergency room. She was noted to be in acute respiratory failure upon arrival to the ER and ended up getting intubated. She was initiated on pressors and noted to have severe metabolic derangements. Currently, the patient is on propofol drip, pulse in the 100s, blood pressure 110/43 on 22 of Levophed. Her labs are notable for elevated white count of 29, lactate at a level of 63 and a creatinine of 2.5, which is compatible with acute kidney injury. In this setting, a troponin was checked, which was noted to be 2.7 and downtrended to 1.57 within a relatively normal CK-MB. BNP is elevated at 534. Again, currently we are unable to corroborate any history. PAST MEDICAL HISTORY: 1. According to medication review, it seems like the patient has a history of hypertension. 2. Type 2 diabetes. 3. Hypercholesterolemia. 4. Some sort of congestive heart failure, presumably diastolic. PAST SURGICAL HISTORY: History of brain surgery in the past as evidence of previous brain CT showing bilateral parietal calvarial mckenzie holes and left frontotemporal craniotomy change. FAMILY HISTORY: Unable to obtain secondary to intubated status. SOCIAL HISTORY: Unable to obtain secondary to intubated status. ALLERGIES: NO KNOWN DRUG ALLERGIES. HOME MEDICATIONS: According to chart review, it appears that she is on, 1. Digoxin 250 mcg daily. 2. Lasix 40 mg daily. 3. Glipizide 2.5 mg b.i.d. 4. Metformin 1000 mg b.i.d. 5. Zocor 40 mg at bedtime. 6. Verapamil extended release 120 mg daily. REVIEW OF SYSTEMS: Unable to be obtained secondary to medical condition. PHYSICAL EXAMINATION: VITAL SIGNS: Height of 60 inches, weight of 220 pounds, BMI is 43. Temperature was 100.2, pulse of 100, respiratory rate of 28 on 50% FiO2 on the vent. Blood pressure most recently is 110/43 on 22 of Levophed. O2 sats 97%. GENERAL: This is a chronically ill appearing, who is in critical condition, intubated, sedated. HEENT: There are old skull surgery changes. Pupils are equal, round, and reactive to light. Oropharynx with endotracheal tube. NECK: There is a left IJ triple-lumen catheter. No carotid bruits. CARDIOVASCULAR: Tachycardic. Normal S1, S2. No gallops. A 3/6 systolic ejection murmur at the right upper sternal border. LUNGS: Show rhonchi and decreased right basilar breath sounds and some crackles. ABDOMEN: Soft, obese with hypoactive bowel sounds. There is mild discomfort to the mid epigastric region. BACK: No costovertebral angle tenderness. EXTREMITIES: Warm with 1+ pedal pulses. No edema. NEUROLOGIC: She is sedated, not moving. Remainder of physical exam negative, otherwise mentioned. LABORATORY DATA: White count of 29.5, hemoglobin 9.0, hematocrit 31.1, MCV is 101, platelets of 278. Sodium 140, potassium 6.1, chloride 108, bicarb 12, BUN of 45, creatinine of 2.51, anion gap is 26, glucose of 148. Lactic acid level is 63, calcium 8.7. AST 28, ALT 17, alkaline phosphatase 40, total protein 6.4, albumin of 2.6. Triglyceride 193, HDL of 33, LDL of 29, total cholesterol of 101, lipase of 15. INR is 1.38. ABG; 7.33, pCO2 of 37, pO2 of 51, O2 saturation 83%. UA shows 0-5 white cells. Chest x-ray reveals ET tube, IJ central catheter. Abdomen and pelvis CT shows extensive right lower lobe consolidation reflective of perhaps aspiration pneumonia with trace bilateral pleural effusions, L3 transverse process fracture, subcutaneous fat stranding in the lower abdominal wall secondary to trauma. Brain CT shows areas of encephalomalacia in the right superior parietal lobe, left intraparietal sulcus and inferior left occipital lobe maybe from remote infarcts and bilateral parietal mckenzie holes and prior craniotomy changes. Cervical C-spine reveals no acute osseous abnormalities, however, multilevel advanced DJD changes. Echo preliminarily shows preserved EF and no significant valvular abnormalities. EKG reveals sinus rhythm and nonspecific T-wave inversions in the lateral precordial leads I, aVL, V5, V6. DIAGNOSES: 1. Septic/distributive shock with multiorgan failure. 2. Acute kidney injury/acute tubular necrosis. 3. Profound anion gap lactic metabolic acidosis. 4. Elevated troponin, likely demand non-ST elevation myocardial infarction. 5. Megaloblastic anemia. 6. Acute hypoxic respiratory failure. 7. History of seemingly brain surgery and perhaps organic brain injury. PLAN/RECOMMENDATIONS: 1. From a cardiovascular standpoint, clinical presentation does not appear to be consistent with an acute coronary syndrome per se, rather suspect the patient is with multiorgan failure related to a distributive shock and has demand NSTEMI with troponin elevation due to this. 2. We will defer to Pulmonary Critical Care in management of this situation. 3. Agree with broad-spectrum antibiotics to treat aspiration pneumonia amongst other things. 4. Recommend Renal consultation in light of profound acidosis and currently the patient is initiated on bicarb drip to help correct her acid-base status. 5. Again, there is no ischemia on EKG. We will monitor her on telemetry. 6. We will continue to follow this patient. Thank you for this referral. MD JACKIE Martin/MIGDALIA /[id number]
[2018-12-20] MEDS: CEFEPIME 1GM/NS 0.9% 50 ML 50 ML IV SCH (13:55)
[2018-12-20 14:29] LABS: ABG PCO2 34 mmHg (41-51); ABG PH 7.34 (7.31-7.41); ABG PO2 75 mmHg (80-105)
[2018-12-20 14:31] LABS: ABG HCO3 19 mmol/L (23-28)
[2018-12-20 15:02] LABS: CREATINE KINASE MB 6.2 ng/mL (0-5.0)
[2018-12-20 15:24] LABS: ANION GAP 23.2 mmol/L (8-16); CALCIUM 8.7 mg/dL (8.4-10.2); CREATININE, SERUM 2.44 mg/dL (0.57-1.11); MAGNESIUM 1.4 MG/DL (1.3-2.1); POTASSIUM 5.2 mmol/L (3.5-5.1)
--- NOTE | 2018-12-20 15:56 | NUR ---
NOTIFIED DR. MARINO OF [facility] AND CARDIAC, LACTATE,ABG, BLOOD CULTURE RESULTS. NEW ORDER RECEIVED.
--- NOTE | 2018-12-20 16:07 | Consultation ---
DATE OF CONSULTATION: 12/20/2018 Pulmonary Medicine Consult REASON FOR REFERRAL: Respiratory failure HISTORY OF PRESENT ILLNESS: Ms. Chou is a pleasant 68-year-old female, well known to me from past encounters. The patient's primary care doctor is Dr. Kit Maciel. The patient with complaints of fall reported. The patient was recently in usual state of health and she became dizzy. She could not get up off the floor. She sustained a blow to the head and had loss of consciousness and was dazed. No known neck pain or seizures. The patient was sent to the emergency room. She was 95% oxygen saturation on non-rebreather. Moderate respiratory distress with accessory muscle use noted and she has some moderate tenderness to the chest. There were also wheezes bilaterally diffuse. Her white count was 29,000. Potassium 5.6, creatinine 2.2 which is not far from her baseline. Albumin 3.1. Troponin 2.7, BNP 534. ABG; 7.33/37/51/19. The patient with other tests including urinalysis, which shows 0-5 white cells, although it was cloudy. Chest x-ray with bilateral opacities. The patient progressed to CT chest demonstrating extensive right and some left-sided consolidations with trace bilateral pleural effusions. The patient was intubated due to respiratory distress. She is placed on pressors and as of now is on Levophed 18 mcg/minute. PAST MEDICAL HISTORY: Hypertension, diabetes, hyperlipidemia, asthma, history of stroke. PAST SURGICAL HISTORY: History of brain surgery. MEDICATIONS: Medication list reviewed per the chart record. ALLERGIES: NO KNOWN DRUG ALLERGIES. SOCIAL HISTORY: No smoking. No drinking. No drugs. She lives semi-independent, although she has a provider for extensive hours. FAMILY HISTORY: Noncontributory to this. REVIEW OF SYSTEMS: In general not able to get review of systems at all because the patient is intubated. PHYSICAL EXAMINATION: VITAL SIGNS: Temperature maximum of 100.2, but currently afebrile. Current vital signs stable with the patient being on Levophed 30 mcg/minute now. HEENT: Normocephalic, atraumatic. NECK: Supple. Throat midline. LUNGS: Bilateral air entry, few rhonchi. CARDIOVASCULAR: S1, S2. No murmurs, rubs, or gallops. ABDOMEN: Soft, nontender. EXTREMITIES: No clubbing, no cyanosis. There is no edema. INTEGUMENT: No rash, no purpura. Of note, the patient is under sedation so pain assessment are slightly unreliable. LABORATORY DATA: Urinalysis; 0-5 white cells, 11-20 red cells. Last potassium was 6.1, 12, bicarbonate, 25 BUN, 2.5 creatinine. 2.6 albumin. LFTs normal. Brain CT with no acute change. Cervical spine CT, no critical findings. The patient does have some advanced spondylitic changes, but only mild canal stenosis. IMPRESSION AND PLAN: 1. Acute respiratory failure, intubated. 2. Shock distributive. 3. Abnormal chest radiography, possible aspiration, gram-negative pneumonia. 4. Acute on chronic kidney failure. 5. Critical hyperkalemia. 6. Metabolic acidosis. 7. Moderate hypoalbuminemia. 8. Mild anemia, microcytic. 9. Hypertension, diabetes, hyperlipidemia, asthma, history of brain surgery. Continue intubated state. Ventilator support. Pressors as tolerated. Give more fluids. Decreasing urine output, give trial of Lasix. Follow up chest x-ray for evolution and with lot of red froth, it is unclear if this was a cardiac event or if this was related to chest trauma. Cannot rule out pneumonia. It is reasonable to give broad-spectrum antibiotics for pneumonia as well as empiric other causes. GI and DVT prophylaxis strongly indicated. Check serial ABG and BMP and lactic acid and treat the hyperkalemia. Greater than 30 minutes in direct care over the last day, multiple evaluation and coordination. Thank you very much, Dr. Maciel and Dr. Marcial for allowing me a chance to participate in the care of Ms. Chou. Please call for questions. MD NOLAN Camacho/JANEYL /[id number]
--- NOTE | 2018-12-20 16:56 | NUR ---
Nutrition Intervention Note RD Recommendation(s) for Physician: -With Levophed >5mcg/min, rec to initiate trickle feeding of Vital HP @10mL/hr -If pt remains ventilated, Levophed turned down to <5mcg/min and propofol <10mL/hr, rec to increase Vital HP to goal rate of 45mL/hr (1080kcal, 95g protein, 903mL water) -50mL water flushes q 4hr, additional per MD discretion -Check labs, daily weight, and gastric tolerance Plan of Care: RD following, monitoring for tolerance and adequacy, TF rec Nutrition reason for involvement: Nutrition Risk Trigger [facility] RD Assessment 12/20 68yo F, who was admitted after passing out at home. Pt is currently intubated and ventilated. No family on bedside. Levophed has turned down from 17 to 13mcg/min. Abd/ pel CT showed possible aspiration pneumonia. Will communicate TF rec with nursing staff. Principal Problems/Diagnoses: 1. Acute respiratory failure, intubated. 2. Shock distributive. 3. Abnormal chest radiography, possible aspiration, gram-negative pneumonia. 4. Acute on chronic kidney failure. 5. Critical hyperkalemia. 6. Metabolic acidosis. PMH: HTN, DM, CHF, hypercholesterolemia GI: abdomen soft, large, non-tender Skin: no pressure wound noted Labs: (12/20) K 5.2 H, BUN 49H, Creatinine 2.44 H, Glucose 193 H Meds: (12/20) sodium bicarb, propofol @34.2mL/hr, norepinephrine @13mcg/min Ht: 60in Wt: 220lb BMI: 43.0kg/m2 IBW: 100lb Malnutrition Evaluation (12/20/2018) Unable to evaluate at this time. Nutrition Prescription (Diet Order): NPO Estimated Nutritional Needs: Calories: 990 - 1125kcal(22 - 25kcal/kg/d) Weight used: IBW Protein: 68 113g (1.5-2.5g/kg/d) Weight used: IBW Diet Adequacy: Not meeting calorie needs, Not meeting protein needs Diet Education Needs Assessment: Diet education indicated, but patient not appropriate for education at this time. Nutrition Care Level: NPO Nutrition Diagnosis: Inadequate oral intake related to current medical status (intubated/ ventilated) as evidenced by pt requiring EN as main source of nutrition. Goal: Patient will meet 75-100% of estimated needs by follow up Progress: N/A Interventions: Composition, Rate, Route, IVF Monitoring/Evaluation: Total energy intake, Total protein intake, Formula/Solution, IVF, Weight change, Gastric tolerance, labs Signed: Riri Rivero MS, RD, LD
[2018-12-20] MEDS: METRONIDAZOLE 500MG/NS 100ML 100 ML IV SCH (18:39)
--- NOTE | 2018-12-20 19:22 | NUR ---
dr. arriaza rounded with new orders received. updated dr. mazariegos with patient current status. maintain +positive I&O balance for patient.
--- NOTE | 2018-12-20 19:30 | NUR ---
received patient sedated, on Levophed and bicarb drip
[2018-12-20] MEDS: AZITHROMYCIN 500MG/NS 250 ML 250 ML IV SCH (20:21)
[2018-12-20] MEDS: HEPARIN SOD (PORCINE) 5,000 UNIT/ML VIAL SC SCH (21:30)
[2018-12-20] MEDS: ACETAMINOPHEN 325 MG SUPP PR PRN (23:00)
[2018-12-21] VITALS (25 sets, daily range): BP systolic 93–131; BP diastolic 47–70
--- NOTE | 2018-12-21 00:08 | Consultation ---
DATE OF CONSULTATION: 12/20/2018 REASON FOR CONSULTATION: Recommendation for antibiotics. HISTORY OF PRESENT ILLNESS: This is a 68-year-old white female, who is currently intubated in ICU, does not really provide any meaningful information. According to the record and my discussion with the nursing team, it is not clear exactly what happened. The patient apparently was down on the floor until she called 911. She was brought here. She had to be intubated. She was hypotensive. Her white count was 29,000, lactic acid , creatinine 2.5. PAST MEDICAL HISTORY: The patient has history of hypertension, diabetes, probably congestive heart failure. PAST SURGICAL HISTORY: Some type of brain surgery by CAT scan. No family available. We cannot obtain family history or social history or allergies. all seems okay. MEDICATIONS: At home; digoxin 250 mcg daily, Lasix 40 daily, glipizide 2.5 b.i.d., metformin 1000 mg p.o. b.i.d., Zocor at bedtime, and verapamil. Her medication list reviewed. REVIEW OF SYSTEMS: Could not be obtained. LABORATORY DATA: Her blood culture is showing gram-negative rods so far. Her white count on admission 29.48, hemoglobin 9, hematocrit 31, and her platelets 278. Sodium 143, potassium 5.2, creatinine of 2.44. Her CK was 1289. Liver enzyme seems to be within normal limits. The patient had CT of abdomen and pelvis, showed right lower lobe pneumonia. PHYSICAL EXAMINATION: GENERAL: Noncommunicative. VITAL SIGNS: Stable, currently afebrile. HEENT: She is not icteric. NECK: Supple. CHEST: Few crackles bilateral. COR: S1 and S2. No S3, S4 or murmur. ABDOMEN: Soft. Bowel sounds present. No tenderness. EXTREMITIES: No edema. IMPRESSION: 1. Sepsis present on admission. Source is gram-negative bacteremia. Source is unclear. Continue cefepime as ordered. Further recommendations to follow. 2. Respiratory failure. 3. Acute kidney injury. 4. Hyperkalemia secondary to acute kidney injury. We will follow with you. MD ROBE Franco/MIGDALIA Bowman: 12/20/2018 18:17:59 /[id number]
[2018-12-21] MEDS ORDERED: SODIUM CHLORIDE 0.9% 250ML 250 ML ONE (00:31)
[2018-12-21] MEDS: METRONIDAZOLE 500MG/NS 100ML 100 ML IV SCH ×5 (00:51→23:58)
[2018-12-21] MEDS: SODIUM BICARBONATE 8.4% 150 ML in DEXTROSE 5% 1,000 ML IV SCH ×2 (00:51→21:21)
[2018-12-21] MEDS ORDERED: SODIUM CHLORIDE 0.9% 500ML 500 ML IV ONE (01:00)
[2018-12-21] MEDS: IPRATROPIUM BROMIDE 0.02% 2.5 ML NEB NEB SCH ×6 (03:00→19:30)
[2018-12-21] MEDS: ALBUTEROL SULF 0.083% NEB SOLN 3 ML NEB NEB SCH ×6 (03:15→19:30)
[2018-12-21] MEDS: PROPOFOL IV EMULSION 10MG/ML 100 ML IV SCH ×4 (03:46→23:58)
[2018-12-21 04:08] LABS: BASOPHILS % 0.3 % (0.0-1.0); EOSINOPHILS # (AUTO) 0.2 (0.0-0.4); EOSINOPHILS % 1.2 % (0.0-6.0); HEMATOCRIT 25.2 % (34.2-44.1); HEMOGLOBIN 7.5 g/dL (12.0-16.0); LYMPHOCYTES # (AUTO) 0.5 (1.0-3.2); LYMPHOCYTES % 3.9 % (18.0-39.1); MEAN CORPUSCULAR HGB CONC 29.8 g/dL (31-35); MONOCYTES # (AUTO) 0.4 (0.2-0.8); MONOCYTES % 3.2 % (4.4-11.3); NEUTROPHILS # (AUTO) 11.1 (2.1-6.9); PLATELET COUNT 186 x10e3/uL (140-360); RED BLOOD COUNT 2.59 x10e6/uL (3.6-5.1)
[2018-12-21 04:11] LABS: MEAN CORPUSCULAR VOLUME 97.3 fL (81-99)
[2018-12-21 04:33] LABS: ALBUMIN/GLOBULIN RATIO 0.6 (0.8-2.0); ANION GAP 16.1 mmol/L (8-16); CALCIUM 8.3 mg/dL (8.4-10.2); MAGNESIUM 1.4 MG/DL (1.3-2.1); PHOSPHORUS 4.5 MG/DL (2.3-4.7); POTASSIUM 4.1 mmol/L (3.5-5.1)
--- NOTE | 2018-12-21 05:30 | NUR ---
patient given a bed bath, linens changed
--- NOTE | 2018-12-21 06:57 | Diagnostic Imaging Report ---
EXAMINATION: CHEST SINGLE (PORTABLE) INDICATION: ^pneumonia ^[id number] ^[id number] COMPARISON: Chest CT dated 12/19/2018 FINDINGS: AP view TUBES and LINES: Endotracheal tube and left internal jugular central line in place. LUNGS: Limited by low lung volumes, rotation, and body habitus. Bilateral airspace opacities. PLEURA: No visible pneumothorax. Suspected small left pleural effusion. HEART AND MEDIASTINUM: The cardiomediastinal silhouette is enlarged. BONES AND SOFT TISSUES: No acute osseous lesion. Soft tissues are unremarkable. UPPER ABDOMEN: No free air under the diaphragm. IMPRESSION: Limited as above. Bilateral airspace opacities, representing mild to moderate pulmonary edema. Left lower lung field opacification, representing atelectasis or small to moderate size effusion. Underlying pneumonia cannot be excluded. Enlarged cardiomediastinal silhouette. Signed by: Dr. Buddy Pfeiffer MD on 12/21/2018 6:54 AM
[2018-12-21] MEDS: FAMOTIDINE 20 MG/2 ML VIAL IV SCH (08:23)
[2018-12-21] MEDS: HEPARIN SOD (PORCINE) 5,000 UNIT/ML VIAL SC SCH ×2 (08:24→21:00)
--- NOTE | 2018-12-21 12:42 | NUR ---
Pulmonary Medicine Consult DATE OF ENCOUNTER: 12/21/2018 SUBJECTIVE: Levophed weaned to 5 mcg/min. propofol 60/. CXR left effusion, bilateral pneumonia better. intubated, on ventilator 16/450/50/6. REVIEW OF SYSTEMS: Cannot get as the patient is intubated. PHYSICAL EXAMINATION: VITAL SIGNS: Current vital signs reviewed per EMR. HEENT: Normocephalic, atraumatic. NECK: Supple. Throat midline. LUNGS: Bilateral air entry, few rhonchi. CARDIOVASCULAR: S1, S2. No murmurs, rubs, or gallops. ABDOMEN: Soft, nontender. EXTREMITIES: No clubbing, no cyanosis. There is no edema. INTEGUMENT: No rash, no purpura. LABORATORY DATA: 142 na, 4.1 k, cr 2.0. wbc 12, 25 hct. 186 plt. IMPRESSION AND PLAN: 1. Acute respiratory failure, intubated. 2. Shock distributive. Improving 3. Abnormal chest radiography, possible aspiration, gram-negative pneumonia. 4. gram negative bacteremia 4. Acute on chronic kidney failure. 5. Critical hyperkalemia. 6. Metabolic acidosis. 7. Moderate hypoalbuminemia. 8. Mild anemia, microcytic. 9. Hypertension, diabetes, hyperlipidemia, asthma, history of brain surgery. 10. Post fall/trauma, reported Continue intubated state. Minimize sedation to least necessary Ventilator support. Wean Pressors as tolerated. -if pressor doses decrease dependably, we will start SBT as early as this evening -if no extubation expected tonight, will start low dose tube feeds Follow up chest x-ray, follow up left effusion/pleural opacity Broad-spectrum antibiotics for pneumonia and GNR Thank you very much, Dr. Maciel and Dr. Marcial for allowing me a chance to participate in the care of Ms. Chou. Please call for questions. Greater than 30 minutes in direct care over the last day, multiple evaluation and coordination.
[2018-12-21] MEDS ORDERED: POTASSIUM CHLORIDE 20MEQ/15ML UDC NG SCH (13:00)
[2018-12-21] MEDS ORDERED: FUROSEMIDE INJ 10 MG/ML 4 ML VIAL IV SCH (13:00)
[2018-12-21] MEDS: CEFEPIME 1GM/NS 0.9% 50 ML 50 ML IV SCH (13:11)
--- NOTE | 2018-12-21 13:43 | Diagnostic Imaging Report ---
Exam: Abdominal film Clinical History: Verify orogastric tube placement Comparison: None. DISCUSSION: Limited examination due to patient body habitus. Orogastric tube appears coiled over the region of the gastric fundus. No dilated air-filled loops of bowel are appreciated. Regional skeletal structures are intact. IMPRESSION: Orogastric tube is coiled and projects over the expected region of the gastric fundus. Signed by: Dr. Irineo Sheehan M.D. on 12/21/2018 1:40 PM
[2018-12-21] MEDS: ACETAMINOPHEN 325 MG SUPP PR PRN ×2 (18:45→20:29)
--- NOTE | 2018-12-21 18:53 | NUR ---
Report given to ANGELA Nguyễn.
[2018-12-21] MEDS: AZITHROMYCIN 500MG/NS 250 ML 250 ML IV SCH (21:21)
[2018-12-22] VITALS (24 sets, daily range): BP systolic 101–175; BP diastolic 50–95
[2018-12-22] MEDS: ACETAMINOPHEN 325 MG SUPP PR PRN ×2 (00:05→13:02)
[2018-12-22] MEDS: ALBUTEROL SULF 0.083% NEB SOLN 3 ML NEB NEB SCH ×7 (03:30→23:00)
[2018-12-22] MEDS: IPRATROPIUM BROMIDE 0.02% 2.5 ML NEB NEB SCH ×7 (03:30→23:00)
[2018-12-22 05:01] LABS: BASOPHILS % 0.5 % (0.0-1.0); EOSINOPHILS # (AUTO) 0.2 (0.0-0.4); EOSINOPHILS % 2.2 % (0.0-6.0); HEMATOCRIT 25.9 % (34.2-44.1); HEMOGLOBIN 7.8 g/dL (12.0-16.0); LYMPHOCYTES # (AUTO) 0.4 (1.0-3.2); LYMPHOCYTES % 5.3 % (18.0-39.1); MEAN CORPUSCULAR HEMOGLOBIN 28.8 pg (28-32); MEAN CORPUSCULAR HGB CONC 30.1 g/dL (31-35); MEAN CORPUSCULAR VOLUME 95.6 fL (81-99); MONOCYTES # (AUTO) 0.6 (0.2-0.8); MONOCYTES % 7.7 % (4.4-11.3); NEUTROPHILS % 82.5 % (38.7-80.0); PLATELET COUNT 151 x10e3/uL (140-360); RED BLOOD COUNT 2.71 x10e6/uL (3.6-5.1); RED CELL DISTRIBUTION WIDTH 17.9 % (11.7-14.4)
[2018-12-22 05:24] LABS: CALCIUM 8.7 mg/dL (8.4-10.2); CREATININE, SERUM 1.68 mg/dL (0.57-1.11); MAGNESIUM 1.6 MG/DL (1.3-2.1)
[2018-12-22] MEDS: METRONIDAZOLE 500MG/NS 100ML 100 ML IV SCH (06:42)
[2018-12-22] MEDS: FAMOTIDINE 20 MG/2 ML VIAL IV SCH (08:17)
[2018-12-22] MEDS: HEPARIN SOD (PORCINE) 5,000 UNIT/ML VIAL SC SCH ×2 (08:21→20:15)
[2018-12-22] MEDS: CEFTRIAXONE SOD 1 GM/NS 50 ML 50 ML IV SCH ×2 (09:14→20:14)
[2018-12-22 11:21] LABS: ANISOCYTOSIS SLIGHT; EOSINOPHILS % (MANUAL) 1 % (0-7); LYMPHOCYTES % (MANUAL) 9 % (19-48); MONOCYTES % (MANUAL) 4 % (3.4-9.0); NEUTROPHILS % (MANUAL) 86 % (40-74); PLATELET ESTIMATE ADEQUATE; PLATELET MORPHOLOGY COMMENT NORMAL; RBC MORPHOLOGY COMMENT NORMAL
[2018-12-22] MEDS ORDERED: FUROSEMIDE INJ 10 MG/ML 2 ML VIAL IV SCH (12:45)
[2018-12-22] MEDS ORDERED: SODIUM CHLORIDE 0.9% 250ML 250 ML IV ONE (12:45)
--- NOTE | 2018-12-22 12:50 | NUR ---
PT DISCUSSED IN [facility]RIER ROUNDS, PT EXTUBATED HAS SINUS RHYTHM AND HAS A CENTRAL LINE.
--- NOTE | 2018-12-22 12:55 | NUR ---
Pulmonary Medicine Consult DATE OF ENCOUNTER: 12/22/2018 SUBJECTIVE: Levophed weaned off at 2 am. patient with continued improvement and strengthening. she failed SBT yesterday due to weakness. today she was extubated and placed on NC oxygen. 98% saturation. ivf hco3 still ongoing. REVIEW OF SYSTEMS: No headaches, no double vision PHYSICAL EXAMINATION: VITAL SIGNS: Current vital signs reviewed per EMR. HEENT: Normocephalic, atraumatic. NECK: Supple. Throat midline. LUNGS: Bilateral air entry, few rhonchi. CARDIOVASCULAR: S1, S2. No murmurs, rubs, or gallops. ABDOMEN: Soft, nontender. EXTREMITIES: No clubbing, no cyanosis. 1+ edema. INTEGUMENT: No rash, no purpura. LABORATORY DATA: 4.0 k, 1.7 cr. 7.3 wbc. 26 hct. 151 plt. IMPRESSION AND PLAN: 1. Acute respiratory failure, intubated/extubated 2. Shock distributive. resolved 3. Abnormal chest radiography, aspiration, gram-negative pneumonia. 4. e coli bacteremia 4. Acute on chronic kidney failure, better 6. Metabolic acidosis. resolved 7. Moderate hypoalbuminemia. 8. Mild anemia, microcytic. 9. Hypertension, diabetes, hyperlipidemia, asthma, history of brain surgery. 10. Post fall/trauma, reported extubate dc sedation dc Ventilator support. dc Pressors as tolerated. Follow up chest x-ray, follow up left effusion/pleural opacity Broad-spectrum antibiotics for pneumonia and e coli PT/OT, fall cautions burgos out soon dc bicarbonate drip Thank you very much, Dr. Maciel and Dr. Marcial for allowing me a chance to participate in the care of Ms. Chou. Please call for questions.
[2018-12-22] MEDS ORDERED: CHLOROTHIAZIDE SODIUM 500 MG VIAL IV ONE ×2 (13:00→13:15)
[2018-12-22] MEDS: DEXTROSE 5% 1,000 ML IV SCH (13:02)
[2018-12-23] VITALS (33 sets, daily range): BP systolic 104–157; BP diastolic 59–118
[2018-12-23] MEDS: ALBUTEROL SULF 0.083% NEB SOLN 3 ML NEB NEB SCH ×6 (03:01→23:15)
[2018-12-23] MEDS: IPRATROPIUM BROMIDE 0.02% 2.5 ML NEB NEB SCH ×6 (03:01→23:15)
[2018-12-23] MEDS ORDERED: SODIUM CHLORIDE 0.9% 250ML 250 ML ONE (03:35)
--- NOTE | 2018-12-23 06:41 | Diagnostic Imaging Report ---
EXAMINATION: CHEST SINGLE (PORTABLE) INDICATION: ^pneumonia ^[id number] ^[id number] COMPARISON: 12/21/2018 FINDINGS: AP view TUBES and LINES: Stable left IJ central line. Interval extubation. LUNGS and pleura: Lungs are well inflated. Pulmonary vascular congestion Bilateral airspace opacities. Moderate size left pleural effusion. No visible pneumothorax. HEART AND MEDIASTINUM: The cardiomediastinal silhouette is enlarged. BONES AND SOFT TISSUES: No acute osseous lesion. Soft tissues are unremarkable. UPPER ABDOMEN: No free air under the diaphragm. IMPRESSION: Bilateral airspace opacities, representing moderate edema. Moderate left pleural effusion, slightly increased from prior exam. Underlying atelectasis/pneumonia cannot be excluded. Enlarged cardiomediastinal silhouette and pulmonary vascular congestion. Signed by: Dr. Buddy Pfeiffer MD on 12/23/2018 6:38 AM
[2018-12-23] MEDS: CEFTRIAXONE SOD 1 GM/NS 50 ML 50 ML IV SCH ×2 (08:03→21:18)
[2018-12-23] MEDS: FAMOTIDINE 20 MG/2 ML VIAL IV SCH (08:03)
[2018-12-23] MEDS: HEPARIN SOD (PORCINE) 5,000 UNIT/ML VIAL SC SCH ×2 (08:03→21:20)
[2018-12-23 08:15] LABS: BASOPHILS % 0.4 % (0.0-1.0); EOSINOPHILS # (AUTO) 0.2 (0.0-0.4); EOSINOPHILS % 3.3 % (0.0-6.0); HEMATOCRIT 32.8 % (34.2-44.1); HEMOGLOBIN 10.2 g/dL (12.0-16.0); LYMPHOCYTES % 14.2 % (18.0-39.1); MEAN CORPUSCULAR HGB CONC 31.1 g/dL (31-35); MEAN CORPUSCULAR VOLUME 93.2 fL (81-99); MONOCYTES # (AUTO) 0.9 (0.2-0.8); MONOCYTES % 13.3 % (4.4-11.3); NEUTROPHILS # (AUTO) 4.6 (2.1-6.9); NEUTROPHILS % 65.9 % (38.7-80.0); PLATELET COUNT 125 x10e3/uL (140-360); RED BLOOD COUNT 3.52 x10e6/uL (3.6-5.1); RED CELL DISTRIBUTION WIDTH 18.6 % (11.7-14.4)
[2018-12-23 08:33] LABS: ALBUMIN/GLOBULIN RATIO 0.5 (0.8-2.0); ANION GAP 14.7 mmol/L (8-16); CALCIUM 9.2 mg/dL (8.4-10.2); CREATININE, SERUM 1.25 mg/dL (0.57-1.11); MAGNESIUM 1.7 MG/DL (1.3-2.1); PHOSPHORUS 2.9 MG/DL (2.3-4.7); POTASSIUM 3.7 mmol/L (3.5-5.1)
--- NOTE | 2018-12-23 09:57 | NUR ---
ST NOTE: Att x 1 at 0930, with PT, will return later today. Handoff to ANGELA Stewart
[2018-12-23] MEDS: METOPROLOL TARTRATE 25 MG TAB PO SCH ×2 (10:32→16:04)
[2018-12-23] MEDS ORDERED: KETOROLAC TROMETHAMINE 30 MG/ML VIAL IV PRN (11:00)
--- NOTE | 2018-12-23 11:55 | NUR ---
informed dr shane that patients heart rate converted to A FIB 160-170's, orders received and entered
[2018-12-23] MEDS ORDERED: AMIODARONE HCL 150 MG in DEXTROSE 5% 100ML 100 ML IV STA (12:00)
[2018-12-23] MEDS ORDERED: FUROSEMIDE INJ 10 MG/ML 4 ML VIAL IV ONE (12:00)
--- NOTE | 2018-12-23 12:13 | Diagnostic Imaging Report ---
Exam: Abdominal film Clinical History: Abdominal pain Comparison: Chest radiograph 12/23/2018 DISCUSSION: Chest radiograph shows persistent pulmonary edema and suspected small left pleural effusion with unchanged position of left internal jugular central venous catheter. Abdominal radiographs show a nonobstructive bowel gas pattern. Gas and fecal material is noted within the large bowel and rectum. Advanced right and moderate left hip degenerative arthrosis with multilevel degenerative disc changes of the lumbar spine. No mass effect or organomegaly. IMPRESSION: Nonobstructive bowel gas pattern. No river pneumoperitoneum. Signed by: Dr. Irineo Sheehan M.D. on 12/23/2018 12:10 PM
[2018-12-23] MEDS: AMIODARONE HCL 900 MG in DEXTROSE 5 % 500ML BOTTLE 482 ML IV SCH (12:28)
[2018-12-23] MEDS: DEXTROSE 5% 1,000 ML IV SCH (12:57)
--- NOTE | 2018-12-23 17:14 | NUR ---
Nutrition Follow-up Note RD Recommendation(s) for Physician: -If PO is feasible, rec ADA 1400/ cardiac as medically appropriate; diet texture per REUSE TECHNICIAN -If PO is not feasible, rec to initiate continuous TF with Glucerna 1.2 @10mL/hr, advance as tolerated to goal rate of 50mL/hr (1440kcal, 72g protein, 966mL water) -100mL water flushes q 4hr, additional water per MD -Check labs, GI tolerance and weight daily Plan of Care: RD following, monitoring for tolerance and adequacy Nutrition reason for involvement: Follow up RD Assessment 12/13 Pt was discussed during AM rounds. Pt was extubated yesterday. OGT was removed. Pt complained of abdominal distention and hypoactive bowel sound noted. KUB showed nonobstructive bowel gas pattern; gas and fecal material is noted within the large bowel and rectum. REUSE TECHNICIAN was consulted; pending bedside swallow evaluation. No pressor meds. Renal function has improved. Will continue to monitor and follow. 12/20 68yo F, who was admitted after passing out at home. Pt is currently intubated and ventilated. No family on bedside. Levophed has turned down from 17 to 13mcg/min. Abd/ pel CT showed possible aspiration pneumonia. Will communicate TF rec with nursing staff. Principal Problems/Diagnoses: 1. Acute respiratory failure, intubated. 2. Shock distributive. 3. Abnormal chest radiography, possible aspiration, gram-negative pneumonia. 4. Acute on chronic kidney failure. 5. Critical hyperkalemia. 6. Metabolic acidosis. PMH: HTN, DM, CHF, hypercholesterolemia GI: abdomen soft, round, non-tender, flatus present Skin: no pressure wound noted Labs: (12/23) Na 148 H, BUN 33 H, Creatinine 1.25 H, Glucose 206 H, AST 1.4 H, ALT 37 H (12/20) K 5.2 H, BUN 49H, Creatinine 2.44 H, Glucose 193 H Meds: dextrose, pepcid, heparin, lasix Ht: 60in Wt: 220lb; 213lb BMI: 43.0kg/m2 IBW: 100lb Malnutrition Evaluation (12/20/2018) Unable to evaluate at this time. Nutrition Prescription (Diet Order): Jevity 1.2 @20mL/hr Estimated Nutritional Needs: Calories: 1125 - 1350kcal (25-30kcal/kg/d) Weight used: IBW Protein: 68 - 113g (1.5-2.5g/kg/d) Weight used: IBW Diet Adequacy: Not meeting calorie needs, Not meeting protein needs Diet Education Needs Assessment: Diet education indicated, but patient not appropriate for education at this time. Nutrition Care Level: mod Nutrition Diagnosis: No nutrition diagnosis at this time. Goal: Patient will meet 75-100% of estimated needs by follow up Progress: N/A Interventions: Composition, Rate, Route, IVF Monitoring/Evaluation: Total energy intake, Total protein intake, Formula/Solution, IVF, Weight change, Gastric tolerance, labs Signed: Riri Rivero, MS, RD, LD
--- NOTE | 2018-12-23 19:44 | NUR ---
Pulmonary Medicine Consult DATE OF ENCOUNTER: 12/23/2018 SUBJECTIVE: still exxtubated 9 L./min by NC, oxygen 93% saturation still weak CXR with left > right pneumonitis, left mild to mod effusion possible REVIEW OF SYSTEMS: No headaches, no double vision PHYSICAL EXAMINATION: VITAL SIGNS: Current vital signs reviewed per EMR. HEENT: Normocephalic, atraumatic. NECK: Supple. Throat midline. LUNGS: Bilateral air entry, few rhonchi. CARDIOVASCULAR: S1, S2. No murmurs, rubs, or gallops. ABDOMEN: Soft, nontender. EXTREMITIES: No clubbing, no cyanosis. 1+ edema. INTEGUMENT: No rash, no purpura. LABORATORY DATA: 3.7 k, 1.3 cr. 7 wbc, 33 hct, 125 plt IMPRESSION AND PLAN: 1. Acute respiratory failure, intubated/extubated 2. Shock distributive. resolved 3. Abnormal chest radiography, aspiration, gram-negative pneumonia. 4. e coli bacteremia 4. Acute on chronic kidney failure, better 6. Metabolic acidosis. resolved 7. Moderate hypoalbuminemia. 8. Mild anemia, microcytic. 9. Hypertension, diabetes, hyperlipidemia, asthma, history of brain surgery. 10. Post fall/trauma, reported Follow up chest x-ray, follow up left effusion/pleural opacity Broad-spectrum antibiotics for pneumonia and e coli wean oxygen as tolerated PT/OT, fall cautions burgos out soon low dose ivf swallow evaluation today Thank you very much, Dr. Maciel and Dr. Marcial for allowing me a chance to participate in the care of Ms. Chou. Please call for questions.
[2018-12-23] MEDS ORDERED: SALINE 0.65% NAS SOLN 1 SPRAY BTL PRN (20:00)
[2018-12-24] VITALS (25 sets, daily range): BP systolic 135–174; BP diastolic 69–105
[2018-12-24] MEDS: IPRATROPIUM BROMIDE 0.02% 2.5 ML NEB NEB SCH ×6 (02:22→23:15)
[2018-12-24] MEDS: ALBUTEROL SULF 0.083% NEB SOLN 3 ML NEB NEB SCH ×6 (02:22→23:15)
[2018-12-24 05:40] LABS: ALBUMIN/GLOBULIN RATIO 0.4 (0.8-2.0); ANION GAP 13.5 mmol/L (8-16); CALCIUM 9.2 mg/dL (8.4-10.2); CREATININE, SERUM 1.35 mg/dL (0.57-1.11); MAGNESIUM 1.5 MG/DL (1.3-2.1); POTASSIUM 3.5 mmol/L (3.5-5.1)
[2018-12-24] MEDS: METOPROLOL TARTRATE 25 MG TAB PO SCH ×5 (06:00→23:37)
--- NOTE | 2018-12-24 06:13 | Diagnostic Imaging Report ---
EXAMINATION: CHEST SINGLE (PORTABLE) INDICATION: ^chf ^[id number] ^[id number] COMPARISON: 12/23/2018 FINDINGS: AP view TUBES and LINES: Stable left internal jugular central line. LUNGS: Lungs are well inflated. Unchanged pulmonary vascular congestion and moderate interstitial edema. PLEURA: No pneumothorax. Moderate left and small right pleural effusions. HEART AND MEDIASTINUM: The cardiomediastinal silhouette is enlarged. BONES AND SOFT TISSUES: No acute osseous lesion. Unchanged densities projecting over right scapula. Soft tissues are unremarkable. UPPER ABDOMEN: No free air under the diaphragm. IMPRESSION: Unchanged pulmonary vascular congestion and moderate interstitial edema. Moderate left and small right pleural effusions, unchanged from prior x-ray. Signed by: Dr. Buddy Pfeiffer MD on 12/24/2018 6:09 AM
[2018-12-24] MEDS ORDERED: FUROSEMIDE INJ 10 MG/ML 2 ML VIAL ONE (07:54)
[2018-12-24] MEDS ORDERED: POTASSIUM CHLORIDE 20MEQ/100ML 100 ML IV ONE (08:00)
[2018-12-24] MEDS ORDERED: FUROSEMIDE INJ 10 MG/ML 2 ML VIAL IV ONE (08:00)
[2018-12-24] MEDS: FAMOTIDINE 20 MG/2 ML VIAL IV SCH (08:17)
[2018-12-24] MEDS: HEPARIN SOD (PORCINE) 5,000 UNIT/ML VIAL SC SCH ×2 (08:18→21:11)
[2018-12-24] MEDS: CEFTRIAXONE SOD 1 GM/NS 50 ML 50 ML IV SCH ×2 (09:01→20:30)
[2018-12-24] MEDS: DEXTROSE 5% 1,000 ML IV SCH (13:00)
--- NOTE | 2018-12-24 13:17 | Diagnostic Imaging Report ---
Exam: Modified barium swallow History: Pneumonia Comparison: None available Findings: Modified barium swallow was performed in conjunction with speech pathology. Patient was administered varying consistencies of subsidence impregnated with barium. Fluoroscopic evaluation in the lateral projection was performed and recorded to the medical record. There is silent trace penetration and aspiration with all substances. Fluoroscopy time: 1. 34 minutes Cumulative dose: 7.93 mGy Impression: Trace penetration and aspiration with all substances. Signed by: Dr. Sy Orellana DO on 12/24/2018 1:14 PM
--- NOTE | 2018-12-24 13:38 | NUR ---
putting on heel protectors, patient wishes to leave them off. patient without heel protectors at this time.
[2018-12-24] MEDS ORDERED: POTASSIUM CHLORIDE 20MEQ/100ML 300 ML IV ONE (14:45)
--- NOTE | 2018-12-24 16:46 | Diagnostic Imaging Report ---
Exam: Fluoroscopic guidance for Dobbhoff tube placement. History: Patient with aspiration requiring Dobbhoff tube. Nursing staff unable to place despite multiple try. Comparison: None available Findings: Utilizing fluoroscopic guidance Dobbhoff tube was placed without difficulty. Contrast was injected through the Dobbhoff tube confirming location in the fourth portion of the duodenum. Fluoroscopy time: 1.5 minutes Total dose: 11.4 mGy Impression: Fluoroscopic placement of a Dobbhoff feeding tube. Signed by: Dr. Sy Orellana DO on 12/24/2018 4:42 PM
[2018-12-24] MEDS: AMIODARONE HCL 900 MG in DEXTROSE 5 % 500ML BOTTLE 482 ML IV SCH (16:51)
[2018-12-24] MEDS ORDERED: DEXTROSE 50% SYRINGE 50 ML IV PRN ×2 (18:00)
[2018-12-24] MEDS: INSULIN REGULAR, HUMAN 100 UNIT/1 ML 3ML VIAL SQ SCH ×2 (18:17→21:20)
[2018-12-24] MEDS: FUROSEMIDE INJ 10 MG/ML 4 ML VIAL IV SCH (20:47)
[2018-12-24] MEDS ORDERED: INSULIN REGULAR, HUMAN 100 UNIT/1 ML 3ML VIAL SQ SCH (21:00)
--- NOTE | 2018-12-24 23:19 | NUR ---
Pulmonary Medicine Consult DATE OF ENCOUNTER: 12/24/2018 SUBJECTIVE: Patient had some respiratory distress. Patient was placed on transient BiPAP. Chest x-ray showed worsened effusions and overload. She was given lasix. Patie nt of note went into atrial fibrillation. [place] still with good urine output. Amiodarone was given and dripping now. Patient failed MBS. Dobbhoff feeding tube was placed later. REVIEW OF SYSTEMS: No rash, no double vision PHYSICAL EXAMINATION: VITAL SIGNS: Current vital signs reviewed per EMR. HEENT: Normocephalic, atraumatic. NECK: Supple. Throat midline. LUNGS: Bilateral air entry, few rhonchi. CARDIOVASCULAR: S1, S2. No murmurs, rubs, or gallops. ABDOMEN: Soft, nontender. EXTREMITIES: No clubbing, no cyanosis. 1+ edema. INTEGUMENT: No rash, no purpura. LABORATORY DATA: 3.5 potassium, 1.4 creatinine. 39 BUN. Some white count, 33 hematocrit, 125 platelets IMPRESSION AND PLAN: 1. Acute respiratory failure, intubated/extubated 2. Shock distributive. resolved 3. Abnormal chest radiography, aspiration, gram-negative pneumonia. 4. e coli bacteremia 4. Acute on chronic kidney failure, better 5. fluid overload 6. atrial fibrillation 6. Metabolic acidosis. resolved 7. Moderate hypoalbuminemia. 8. Mild anemia, microcytic. 9. Hypertension, diabetes, hyperlipidemia, asthma, history of brain surgery. 10. Post fall/trauma, reported Follow up chest x-ray, follow up left effusion/pleural opacity Trial Lasix Potassium replacement MBS today. Patient failed MBS, get Dobbhoff tube and start tube feeds Broad-spectrum antibiotics for pneumonia and e coli wean oxygen as tolerated, BiPAP for salvage PT/OT, fall cautions burgos out soon low dose ivf discontinue as tube feeds are improved Thank you very much, Dr. Maciel and Dr. Marcial for allowing me a chance to participate in the care of Ms. Chou. Please call for questions.
[2018-12-25] VITALS (25 sets, daily range): BP systolic 107–178; BP diastolic 56–130
[2018-12-25] MEDS: DEXTROSE 5% 1,000 ML IV SCH (02:51)
[2018-12-25] MEDS: ALBUTEROL SULF 0.083% NEB SOLN 3 ML NEB NEB SCH ×6 (03:05→23:20)
[2018-12-25] MEDS: IPRATROPIUM BROMIDE 0.02% 2.5 ML NEB NEB SCH ×6 (03:05→23:20)
[2018-12-25 04:50] LABS: BASOPHILS % 0.4 % (0.0-1.0); EOSINOPHILS # (AUTO) 0.3 (0.0-0.4); EOSINOPHILS % 3.4 % (0.0-6.0); HEMATOCRIT 31.8 % (34.2-44.1); HEMOGLOBIN 9.5 g/dL (12.0-16.0); LYMPHOCYTES # (AUTO) 1.4 (1.0-3.2); LYMPHOCYTES % 17.9 % (18.0-39.1); MEAN CORPUSCULAR HEMOGLOBIN 28.5 pg (28-32); MEAN CORPUSCULAR HGB CONC 29.9 g/dL (31-35); MEAN CORPUSCULAR VOLUME 95.5 fL (81-99); MONOCYTES # (AUTO) 0.9 (0.2-0.8); MONOCYTES % 11.4 % (4.4-11.3); NEUTROPHILS # (AUTO) 5.1 (2.1-6.9); NEUTROPHILS % 64.4 % (38.7-80.0); PLATELET COUNT 129 x10e3/uL (140-360); RED BLOOD COUNT 3.33 x10e6/uL (3.6-5.1); RED CELL DISTRIBUTION WIDTH 17.5 % (11.7-14.4)
[2018-12-25 05:12] LABS: ALBUMIN 1.9 g/dL (3.5-5.0); ALBUMIN/GLOBULIN RATIO 0.4 (0.8-2.0); ANION GAP 14.9 mmol/L (8-16); CREATININE, SERUM 1.29 mg/dL (0.57-1.11); POTASSIUM 3.9 mmol/L (3.5-5.1)
[2018-12-25] MEDS: METOPROLOL TARTRATE 25 MG TAB PO SCH ×4 (06:00→23:26)
[2018-12-25] MEDS: INSULIN REGULAR, HUMAN 100 UNIT/1 ML 3ML VIAL SQ SCH ×4 (07:55→20:30)
[2018-12-25] MEDS: HEPARIN SOD (PORCINE) 5,000 UNIT/ML VIAL SC SCH ×2 (08:02→20:17)
[2018-12-25] MEDS: FAMOTIDINE 20 MG/2 ML VIAL IV SCH (08:44)
[2018-12-25] MEDS: FUROSEMIDE INJ 10 MG/ML 4 ML VIAL IV SCH ×2 (08:44→20:16)
[2018-12-25] MEDS: CEFTRIAXONE SOD 1 GM/NS 50 ML 50 ML IV SCH ×2 (08:44→20:16)
--- NOTE | 2018-12-25 14:26 | NUR ---
Pulmonary Medicine Consult DATE OF ENCOUNTER: 12/25/2018 SUBJECTIVE: dobhoff in place tube feeds 40/hr walked amio .5/min 10 L/min oxygen, 95% sat some positional and sleep apnea desaturations, on intermittent bipap REVIEW OF SYSTEMS: No rash, no double vision PHYSICAL EXAMINATION: VITAL SIGNS: vital signs reviewed per EMR. HEENT: Normocephalic, atraumatic. NECK: Supple. Throat midline. LUNGS: Bilateral air entry, few rhonchi. CARDIOVASCULAR: S1, S2. No murmurs, rubs, or gallops. ABDOMEN: Soft, nontender. EXTREMITIES: No clubbing, no cyanosis. 1+ edema. INTEGUMENT: No rash, no purpura. LABORATORY DATA: 3.9 k, 1.3 cr. 8 wbc. 129 plt. IMPRESSION AND PLAN: 1. Acute respiratory failure, intubated/extubated 2. Shock distributive. resolved 3. Abnormal chest radiography, aspiration, gram-negative pneumonia. 4. e coli bacteremia 4. Acute on chronic kidney failure, better 5. fluid overload 6. atrial fibrillation 6. Metabolic acidosis. resolved 7. Moderate hypoalbuminemia. 8. Mild anemia, microcytic. 9. Hypertension, diabetes, hyperlipidemia, asthma, history of brain surgery. 10. Post fall/trauma, reported Follow up chest x-ray, follow up left effusion/pleural opacity continue Lasix, follow lytes Dobbhoff tube ; continue tube feeds antibiotics for pneumonia and e coli wean oxygen as tolerated, BiPAP prn PT/OT, fall cautions Thank you very much, Dr. Maciel and Dr. Marcial for allowing me a chance to participate in the care of Ms. Chou. Please call for questions.
[2018-12-25] MEDS: AMIODARONE HCL 900 MG in DEXTROSE 5 % 500ML BOTTLE 482 ML IV SCH ×2 (20:35→21:28)
[2018-12-25] MEDS ORDERED: AMIODARONE 900MG 500 ML IV ONE (21:20)
[2018-12-26] VITALS (25 sets, daily range): BP systolic 101–163; BP diastolic 51–109
[2018-12-26] MEDS: ALBUTEROL SULF 0.083% NEB SOLN 3 ML NEB NEB SCH ×6 (03:15→23:10)
[2018-12-26] MEDS: IPRATROPIUM BROMIDE 0.02% 2.5 ML NEB NEB SCH ×6 (03:15→23:10)
[2018-12-26] MEDS: DEXTROSE 5% 1,000 ML IV SCH (03:27)
[2018-12-26 04:54] LABS: BASOPHILS # (AUTO) 0.1 (0.0-0.1); BASOPHILS % 0.6 % (0.0-1.0); EOSINOPHILS # (AUTO) 0.4 (0.0-0.4); EOSINOPHILS % 4.8 % (0.0-6.0); HEMATOCRIT 33.4 % (34.2-44.1); HEMOGLOBIN 10.4 g/dL (12.0-16.0); LYMPHOCYTES # (AUTO) 1.6 (1.0-3.2); LYMPHOCYTES % 17.2 % (18.0-39.1); MEAN CORPUSCULAR HGB CONC 31.1 g/dL (31-35); MONOCYTES # (AUTO) 0.8 (0.2-0.8); MONOCYTES % 8.8 % (4.4-11.3); NEUTROPHILS % 66.6 % (38.7-80.0); PLATELET COUNT 172 x10e3/uL (140-360); RED BLOOD COUNT 3.59 x10e6/uL (3.6-5.1)
[2018-12-26 05:13] LABS: ALBUMIN 1.9 g/dL (3.5-5.0); ALBUMIN/GLOBULIN RATIO 0.4 (0.8-2.0); ANION GAP 13.7 mmol/L (8-16); CALCIUM 9.1 mg/dL (8.4-10.2); CREATININE, SERUM 1.18 mg/dL (0.57-1.11); POTASSIUM 3.7 mmol/L (3.5-5.1)
[2018-12-26] MEDS: METOPROLOL TARTRATE 25 MG TAB PO SCH ×4 (05:30→23:44)
[2018-12-26 05:32] LABS: MAGNESIUM 1.5 MG/DL (1.3-2.1); PHOSPHORUS 3.3 MG/DL (2.3-4.7)
--- NOTE | 2018-12-26 07:04 | Diagnostic Imaging Report ---
EXAMINATION: CHEST SINGLE (PORTABLE) INDICATION: ^pneumonis ^[id number] ^[id number] ^Y COMPARISON: 12/24/2018 FINDINGS: AP view TUBES and LINES: New feeding tube in place with tip extending beyond the inferior margin of the film. Stable left internal jugular central line. LUNGS and pleura: Lungs are well inflated. Moderate to severe pulmonary edema and left moderate size and small right pleural effusions unchanged. Underlying atelectasis/pneumonia cannot be excluded. HEART AND MEDIASTINUM: The cardiomediastinal silhouette is enlarged. BONES AND SOFT TISSUES: No acute osseous lesion. Soft tissues are unremarkable. UPPER ABDOMEN: No free air under the diaphragm. IMPRESSION: Interval feeding tube placement. Otherwise no significant interval change from prior exam. Signed by: Dr. Buddy Pfeiffer MD on 12/26/2018 7:00 AM
[2018-12-26] MEDS: FUROSEMIDE INJ 10 MG/ML 4 ML VIAL IV SCH ×2 (10:02→20:18)
[2018-12-26] MEDS: CEFTRIAXONE SOD 1 GM/NS 50 ML 50 ML IV SCH ×2 (10:02→20:18)
[2018-12-26] MEDS: FAMOTIDINE 20 MG/2 ML VIAL IV SCH (10:02)
[2018-12-26] MEDS: INSULIN REGULAR, HUMAN 100 UNIT/1 ML 3ML VIAL SQ SCH ×4 (10:02→22:33)
[2018-12-26] MEDS: HEPARIN SOD (PORCINE) 5,000 UNIT/ML VIAL SC SCH ×2 (10:03→20:18)
--- NOTE | 2018-12-26 13:11 | NUR ---
Pulmonary Medicine Consult DATE OF ENCOUNTER: 12/26/2018 SUBJECTIVE: burgos+ tube feeds 40/hr water 200 q 6 hrs bipap 12/6 intermittent fio2 65% amiodarone .5/min CXR still mod to severe pneumonia +/- effusions some anxiety REVIEW OF SYSTEMS: No rash, no double vision PHYSICAL EXAMINATION: VITAL SIGNS: vital signs reviewed per EMR. HEENT: Normocephalic, atraumatic. NECK: Supple. Throat midline. LUNGS: Bilateral air entry, few rhonchi. CARDIOVASCULAR: S1, S2. No murmurs, rubs, or gallops. ABDOMEN: Soft, nontender. EXTREMITIES: No clubbing, no cyanosis. 1+ edema. INTEGUMENT: No rash, no purpura. LABORATORY DATA: 3.7 k, 1.2 cr. 34 hco3. 9 wbc, 33 hct. IMPRESSION AND PLAN: 1. Acute respiratory failure, intubated/extubated 2. Shock distributive. resolved 3. Abnormal chest radiography, e coli pneumonia 4. e coli bacteremia 4. Acute on chronic kidney failure, better 5. fluid overload 6. atrial fibrillation 6. Metabolic acidosis. resolved 7. Moderate hypoalbuminemia. 8. Mild anemia, microcytic. 9. Hypertension, diabetes, hyperlipidemia, asthma, history of brain surgery. 10. Post fall/trauma, reported Follow up chest x-ray intermittently, follow up left effusion/pleural opacity continue Lasix, follow lytes Check chest US r/o effusions (no significant effusion on admit CT chest) Dobhoff tube; continue tube feeds antibiotics for pneumonia and e coli wean oxygen as tolerated, BiPAP prn PT/OT, fall cautions IS by RT Thank you very much, Dr. Maciel and Dr. Marcial for allowing me a chance to participate in the care of Ms. Chou. Please call for questions.
[2018-12-26] MEDS ORDERED: POTASSIUM CHLORIDE 20 MEQ TAB CR PO ONE (13:30)
[2018-12-26] MEDS: INSULIN GLARGINE 100 UNITS/ML VIAL SQ SCH (17:00)
[2018-12-26] MEDS ORDERED: POTASSIUM CHLORIDE 20MEQ/15ML UDC NG ONE (17:30)
[2018-12-26] MEDS: LORAZEPAM 0.5 MG TAB NG PRN (20:18)
[2018-12-26] MEDS ORDERED: ACETAMINOPHEN 325 MG TAB ONE (21:18)
[2018-12-26] MEDS: ACETAMINOPHEN 325 MG TAB NG PRN (22:00)
[2018-12-27] VITALS (23 sets, daily range): BP systolic 112–168; BP diastolic 46–97
[2018-12-27] MEDS: LORAZEPAM 0.5 MG TAB NG PRN ×3 (02:39→21:36)
[2018-12-27] MEDS: ALBUTEROL SULF 0.083% NEB SOLN 3 ML NEB NEB SCH ×6 (03:15→23:07)
[2018-12-27] MEDS: IPRATROPIUM BROMIDE 0.02% 2.5 ML NEB NEB SCH ×6 (03:15→23:07)
[2018-12-27] MEDS ORDERED: AMIODARONE 900MG 500 ML IV ONE (04:42)
[2018-12-27] MEDS: METOPROLOL TARTRATE 25 MG TAB PO SCH ×3 (05:21→17:08)
[2018-12-27] MEDS: AMIODARONE HCL 900 MG in DEXTROSE 5 % 500ML BOTTLE 482 ML IV SCH (05:22)
[2018-12-27 05:37] LABS: BASOPHILS # (AUTO) 0.1 (0.0-0.1); BASOPHILS % 0.6 % (0.0-1.0); EOSINOPHILS # (AUTO) 0.7 (0.0-0.4); EOSINOPHILS % 5.6 % (0.0-6.0); HEMATOCRIT 35.6 % (34.2-44.1); HEMOGLOBIN 11.1 g/dL (12.0-16.0); LYMPHOCYTES % 15.9 % (18.0-39.1); MEAN CORPUSCULAR HEMOGLOBIN 28.9 pg (28-32); MEAN CORPUSCULAR HGB CONC 31.2 g/dL (31-35); MEAN CORPUSCULAR VOLUME 92.7 fL (81-99); MONOCYTES # (AUTO) 0.9 (0.2-0.8); MONOCYTES % 7.4 % (4.4-11.3); NEUTROPHILS # (AUTO) 8.5 (2.1-6.9); NEUTROPHILS % 68.3 % (38.7-80.0); PLATELET COUNT 255 x10e3/uL (140-360); RED BLOOD COUNT 3.84 x10e6/uL (3.6-5.1); RED CELL DISTRIBUTION WIDTH 16.7 % (11.7-14.4)
[2018-12-27 05:54] LABS: ANION GAP 14.7 mmol/L (8-16); CALCIUM 9.4 mg/dL (8.4-10.2); CREATININE, SERUM 1.32 mg/dL (0.57-1.11); MAGNESIUM 1.6 MG/DL (1.3-2.1); POTASSIUM 3.7 mmol/L (3.5-5.1)
[2018-12-27] MEDS: INSULIN REGULAR, HUMAN 100 UNIT/1 ML 3ML VIAL SQ SCH ×4 (08:07→20:53)
[2018-12-27] MEDS: CEFTRIAXONE SOD 1 GM/NS 50 ML 50 ML IV SCH ×2 (08:08→20:53)
[2018-12-27] MEDS: FAMOTIDINE 20 MG/2 ML VIAL IV SCH (08:08)
[2018-12-27] MEDS: PAROXETINE HCL 20 MG TAB PO SCH (08:08)
[2018-12-27] MEDS: FUROSEMIDE INJ 10 MG/ML 4 ML VIAL IV SCH ×2 (08:08→20:53)
[2018-12-27] MEDS: INSULIN GLARGINE 100 UNITS/ML VIAL SQ SCH ×2 (08:09→17:08)
[2018-12-27] MEDS: HEPARIN SOD (PORCINE) 5,000 UNIT/ML VIAL SC SCH ×2 (08:09→20:54)
--- NOTE | 2018-12-27 10:55 | Diagnostic Imaging Report ---
Examination: Thoracic ultrasound. Clinical indication: Pleural effusion. Comparison examination: Chest radiograph 12/26/2018. Technique: Transverse and longitudinal sonographic images of the right and left thoracic cavities was performed. Findings: See impression. Impression: No right pleural effusion. Trace left pleural effusion. Signed by: Dr. Irineo Sheehan M.D. on 12/27/2018 10:52 AM
--- NOTE | 2018-12-27 11:03 | NUR ---
per MD, stop amio drip once bag completed
--- NOTE | 2018-12-27 12:15 | NUR ---
Pulmonary Medicine DATE OF ENCOUNTER: 12/27/2018 SUBJECTIVE: 1.3 L in, 1.8 L out. bm x 3. US trace pleural effusion only. tube feeds 40/hr gluceerna 12. water 200 q6hr. intermittent bipap for rapid desaturations CXR still mod to severe pneumonia REVIEW OF SYSTEMS: No rash, no double vision PHYSICAL EXAMINATION: VITAL SIGNS: vital signs reviewed per EMR. HEENT: Normocephalic, atraumatic. NECK: Supple. Throat midline. LUNGS: Bilateral air entry, few rhonchi. CARDIOVASCULAR: S1, S2. No murmurs, rubs, or gallops. ABDOMEN: Soft, nontender. EXTREMITIES: No clubbing, no cyanosis. 1+ edema. INTEGUMENT: No rash, no purpura. LABORATORY DATA: 3.7 k, 1.3 cr. 12 wbc. bnp 162 IMPRESSION AND PLAN: 1. Acute respiratory failure, intubated/extubated 2. Shock distributive. resolved 3. Abnormal chest radiography, e coli pneumonia 4. e coli bacteremia 4. Acute on chronic kidney failure, better 5. fluid overload 6. atrial fibrillation 6. Metabolic acidosis. resolved 7. Moderate hypoalbuminemia. 8. Mild anemia, microcytic. 9. Hypertension, diabetes, hyperlipidemia, asthma, history of brain surgery. 10. Post fall/trauma, reported Follow up chest x-ray intermittently, ensure improvement minimize water intake continue Lasix, follow lytes Dobhoff tube; continue tube feeds, change feeds due to loose stools antibiotics for pneumonia and e coli wean oxygen as tolerated, BiPAP prn PT/OT, fall cautions IS by RT Thank you very much, Dr. Maciel and Dr. Marcial for allowing me a chance to participate in the care of Ms. Chou. Please call for questions.
--- NOTE | 2018-12-27 12:15 | NUR ---
ORDER RECEIVED FOR [facility]. CM MET W THE PT AT THE BEDSIDE. DISCUSSED LTAC ORDER. PT STATES SHE WOULD GO ACROSS THE STREET TO [facility]. CHOICE LETTER WAS SIGNED AND COPY TO PT AND COPY TO CHART. MOT WAS INITIATED. NOTIFIED [facility] / [facility]
--- NOTE | 2018-12-27 12:22 | NUR ---
ST NOTE: Att tx with NMES to tx dysphagia x 1 at 1000, pt on bipap, will return later today. Handoff to Brenda
[2018-12-28] VITALS (25 sets, daily range): BP systolic 96–155; BP diastolic 51–84
[2018-12-28] MEDS: METOPROLOL TARTRATE 25 MG TAB PO SCH ×5 (00:10→23:36)
[2018-12-28] MEDS: IPRATROPIUM BROMIDE 0.02% 2.5 ML NEB NEB SCH ×6 (02:45→23:10)
[2018-12-28] MEDS: ALBUTEROL SULF 0.083% NEB SOLN 3 ML NEB NEB SCH ×6 (02:45→23:10)
[2018-12-28] MEDS: ACETAMINOPHEN 325 MG TAB NG PRN ×2 (02:52→20:23)
[2018-12-28 05:04] LABS: BASOPHILS # (AUTO) 0.1 (0.0-0.1); BASOPHILS % 0.4 % (0.0-1.0); EOSINOPHILS # (AUTO) 0.5 (0.0-0.4); EOSINOPHILS % 3.2 % (0.0-6.0); HEMATOCRIT 36.6 % (34.2-44.1); HEMOGLOBIN 11.1 g/dL (12.0-16.0); LYMPHOCYTES # (AUTO) 1.6 (1.0-3.2); LYMPHOCYTES % 10.2 % (18.0-39.1); MEAN CORPUSCULAR HEMOGLOBIN 28.2 pg (28-32); MEAN CORPUSCULAR HGB CONC 30.3 g/dL (31-35); MEAN CORPUSCULAR VOLUME 92.9 fL (81-99); MONOCYTES # (AUTO) 1.1 (0.2-0.8); MONOCYTES % 6.6 % (4.4-11.3); NEUTROPHILS # (AUTO) 12.4 (2.1-6.9); NEUTROPHILS % 78.3 % (38.7-80.0); PLATELET COUNT 310 x10e3/uL (140-360); RED BLOOD COUNT 3.94 x10e6/uL (3.6-5.1); RED CELL DISTRIBUTION WIDTH 16.4 % (11.7-14.4)
[2018-12-28 05:30] LABS: ALBUMIN 2.2 g/dL (3.5-5.0); ALBUMIN/GLOBULIN RATIO 0.4 (0.8-2.0); ANION GAP 16.4 mmol/L (8-16); CALCIUM 9.2 mg/dL (8.4-10.2); CREATININE, SERUM 1.32 mg/dL (0.57-1.11); POTASSIUM 3.4 mmol/L (3.5-5.1)
[2018-12-28] MEDS: CEFTRIAXONE SOD 1 GM/NS 50 ML 50 ML IV SCH ×2 (08:15→20:23)
[2018-12-28] MEDS: PAROXETINE HCL 20 MG TAB PO SCH (08:15)
[2018-12-28] MEDS: FUROSEMIDE INJ 10 MG/ML 4 ML VIAL IV SCH ×2 (08:15→20:23)
[2018-12-28] MEDS: FAMOTIDINE 20 MG/2 ML VIAL IV SCH (08:15)
[2018-12-28] MEDS: INSULIN REGULAR, HUMAN 100 UNIT/1 ML 3ML VIAL SQ SCH ×4 (08:16→20:24)
[2018-12-28] MEDS: INSULIN GLARGINE 100 UNITS/ML VIAL SQ SCH ×2 (08:16→17:20)
--- NOTE | 2018-12-28 09:54 | NUR ---
dr márquez on unit, aware of labs.
[2018-12-28] MEDS ORDERED: POTASSIUM CHLORIDE 20 MEQ TAB CR PO ONE (10:30)
--- NOTE | 2018-12-28 11:24 | Diagnostic Imaging Report ---
EXAMINATION: PA and lateral views of the chest. COMPARISON: Portable chest 12/26/2018 CLINICAL HISTORY: Anemia, CHF DISCUSSION: Lines/tubes: Enteric tube is noted below the left hemidiaphragm, tip not visualized. Lungs and pleura: Lungs are well-inflated. Diffuse bilateral interstitial opacities, which are slightly improved since the prior exam, consistent with slightly improved interstitial pulmonary edema. Partial obscuration of the left hemidiaphragm and increased retrocardiac density, likely reflecting left pleural effusion and associated atelectasis. Heart and mediastinum: Stable enlargement of the cardiac silhouette. Central pulmonary venous congestion. Bones and soft tissues: No acute bony abnormalities. Degenerative changes in the thoracic spine IMPRESSION: Enlarged cardiac silhouette, slight improvement in the bilateral interstitial pulmonary edema. Left pleural effusion and associated left lower lobe atelectasis. Findings likely represent CHF. Signed by: Dr. Simon Plata M.D. on 12/28/2018 11:20 AM
[2018-12-28] MEDS ORDERED: POTASSIUM CHLORIDE 20MEQ/15ML UDC NG ONE (11:45)
--- NOTE | 2018-12-28 12:12 | NUR ---
Pulmonary Medicine DATE OF ENCOUNTER: 12/28/2018 SUBJECTIVE: NGT in place tube feeds 50/hr water 100 q 6 hrs using bipap rescue about 1 per shift now 8 L/min oxygen by NC in day REVIEW OF SYSTEMS: No rash, no double vision PHYSICAL EXAMINATION: VITAL SIGNS: vital signs reviewed per EMR. HEENT: Normocephalic, atraumatic. NECK: Supple. Throat midline. LUNGS: Bilateral air entry, few rhonchi. CARDIOVASCULAR: S1, S2. No murmurs, rubs, or gallops. ABDOMEN: Soft, nontender. EXTREMITIES: No clubbing, no cyanosis. 1+ edema. INTEGUMENT: No rash, no purpura. LABORATORY DATA: 3.4, 1.3 cr. 36 hco3, 16 wbc, 37 hct. 1.38 inr. IMPRESSION AND PLAN: 1. Acute respiratory failure, intubated/extubated 2. Shock distributive. resolved 3. Abnormal chest radiography, e coli pneumonia 4. e coli bacteremia 4. Acute on chronic kidney failure, better 5. fluid overload 6. atrial fibrillation 6. Metabolic acidosis. resolved 7. Moderate hypoalbuminemia. 8. Mild anemia, microcytic. 9. Hypertension, diabetes, hyperlipidemia, asthma, history of brain surgery. 10. Post fall/trauma, reported Follow up chest x-ray intermittently, ensure improvement -check AM CXR minimize water intake continue Lasix, follow lytes Dobhoff tube; continue tube feeds antibiotics for pneumonia and e coli wean oxygen as tolerated, BiPAP prn which she is still using PT/OT, fall cautions rx K Thank you very much, Dr. Maciel and Dr. Marcial for allowing me a chance to participate in the care of Ms. Chou. Please call for questions.
[2018-12-28] MEDS: AMIODARONE HCL 200 MG TAB PO SCH ×2 (12:43→17:19)
--- NOTE | 2018-12-28 14:24 | NUR ---
PT DISCUSSED IN BARRIER ROUNDS BLOOD SUGARS IN 200'S, WAITING ON AUTH FOR [facility]
--- NOTE | 2018-12-28 16:08 | NUR ---
FC removed, DTV. pt also amb 10ft with PT with walker.
--- NOTE | 2018-12-28 16:11 | NUR ---
Nutrition Follow-up Note RD Recommendation(s) for Physician: - If BG continues to be over 200, rec switching tube feeding formula back to Glucerna 1.2 @ goal rate of 50mL/hr (1440kcal, 72g protein, 966mL water) - With Glucerna 1.2 (slowly digestible carbohydrate and fiber to help minimize blood glucose response), pt is getting 50g fewer carbohydrates than Osmolite 1.2 at the same rate; multiple BM are most likely due to side effects of medication Lasix, antibiotics - Rec probiotics if diarrhea is reported - Water flushes per MD - Check labs, GI tolerance and weight daily Plan of Care: RD following, monitoring for tolerance and adequacy, TF rec Nutrition reason for involvement: Follow up RD Assessment 12/28 Pt was discussed during AM rounds. MD changed TF formula from Glucerna 1.2 to Osmolite 1.2 as pt had multiple BM yesterday. Currently on BiPAP. BG has been running at 300+. No more frequent BM noted today. Pending placement. Will continue to monitor and follow. 12/13 Pt was discussed during AM rounds. Pt was extubated yesterday. OGT was removed. Pt complained of abdominal distention and hypoactive bowel sound noted. KUB showed nonobstructive bowel gas pattern; gas and fecal material is noted within the large bowel and rectum. WEAVER TIRE CORD was consulted; pending bedside swallow evaluation. No pressor meds. Renal function has improved. Will continue to monitor and follow. 12/20 68yo F, who was admitted after passing out at home. Pt is currently intubated and ventilated. No family on bedside. Levophed has turned down from 17 to 13mcg/min. Abd/ pel CT showed possible aspiration pneumonia. Will communicate TF rec with nursing staff. Principal Problems/Diagnoses: 1. Acute respiratory failure, intubated. 2. Shock distributive. 3. Abnormal chest radiography, possible aspiration, gram-negative pneumonia. 4. Acute on chronic kidney failure. 5. Critical hyperkalemia. 6. Metabolic acidosis. PMH: HTN, DM, CHF, hypercholesterolemia GI: abdomen soft, round, non-tender, flatus present Skin: no pressure wound noted Labs: (12/28) K 3.4 L, BUN 43 H, Creatinine 1.32 H, Glucose 304 H (12/23) Na 148 H, BUN 33 H, Creatinine 1.25 H, Glucose 206 H, AST 1.4 H, ALT 37 H (12/20) K 5.2 H, BUN 49H, Creatinine 2.44 H, Glucose 193 H Meds: insulin, lasix, antibiotics Ht: 60in Wt: 220lb; 213lb; 215lb BMI: 43.0kg/m2 IBW: 100lb Malnutrition Evaluation (12/20/2018) Unable to evaluate at this time. Nutrition Prescription (Diet Order): Osmolite 1.2 @50mL/hr Estimated Nutritional Needs: Calories: 1125 - 1350kcal (25-30kcal/kg/d) Weight used: IBW Protein: 68 - 113g (1.5-2.5g/kg/d) Weight used: IBW Diet Adequacy: meeting calorie needs, meeting protein needs Diet Education Needs Assessment: Diet education indicated, but patient not appropriate for education at this time. Nutrition Care Level: mod Nutrition Diagnosis: No nutrition diagnosis at this time. Goal: Patient will meet 75-100% of estimated needs by follow up Progress: Goal met Interventions: Composition, Rate, Route, IVF Monitoring/Evaluation: Total energy intake, Total protein intake, Formula/Solution, IVF, Weight change, Gastric tolerance, labs Signed: Riri Rivero, MS, RD, LD
[2018-12-29] VITALS (16 sets, daily range): BP systolic 90–136; BP diastolic 48–75
[2018-12-29] MEDS: IPRATROPIUM BROMIDE 0.02% 2.5 ML NEB NEB SCH ×6 (03:02→23:30)
[2018-12-29] MEDS: ALBUTEROL SULF 0.083% NEB SOLN 3 ML NEB NEB SCH ×6 (03:02→23:30)
--- NOTE | 2018-12-29 03:38 | NUR ---
Patient had large semi-liquid brown BM, assisted to cleaned and changed diaper/gown/pads and linens . Patient tolerated well. Will continued to monitor.
--- NOTE | 2018-12-29 03:40 | NUR ---
Dressing changed on Left IJ triple lumen with sterile technique at this time. Will continue to monitor.
[2018-12-29] MEDS: METOPROLOL TARTRATE 25 MG TAB PO SCH ×3 (05:18→18:04)
[2018-12-29 05:28] LABS: BASOPHILS # (AUTO) 0.1 (0.0-0.1); BASOPHILS % 0.5 % (0.0-1.0); EOSINOPHILS # (AUTO) 0.5 (0.0-0.4); EOSINOPHILS % 3.1 % (0.0-6.0); HEMATOCRIT 35.3 % (34.2-44.1); HEMOGLOBIN 10.6 g/dL (12.0-16.0); LYMPHOCYTES # (AUTO) 1.8 (1.0-3.2); LYMPHOCYTES % 11.8 % (18.0-39.1); MEAN CORPUSCULAR HEMOGLOBIN 28.2 pg (28-32); MEAN CORPUSCULAR VOLUME 93.9 fL (81-99); MONOCYTES # (AUTO) 1.1 (0.2-0.8); MONOCYTES % 7.4 % (4.4-11.3); NEUTROPHILS # (AUTO) 11.4 (2.1-6.9); NEUTROPHILS % 75.4 % (38.7-80.0); PLATELET COUNT 314 x10e3/uL (140-360); RED BLOOD COUNT 3.76 x10e6/uL (3.6-5.1); RED CELL DISTRIBUTION WIDTH 16.8 % (11.7-14.4)
[2018-12-29 05:44] LABS: ALBUMIN 2.2 g/dL (3.5-5.0); ALBUMIN/GLOBULIN RATIO 0.5 (0.8-2.0); ANION GAP 14.8 mmol/L (8-16); CALCIUM 9.2 mg/dL (8.4-10.2); CREATININE, SERUM 1.41 mg/dL (0.57-1.11); POTASSIUM 3.8 mmol/L (3.5-5.1)
--- NOTE | 2018-12-29 05:47 | Diagnostic Imaging Report ---
Examination: Single AP view of the chest. COMPARISON: December 28, 2018 INDICATION: Pneumonia DISCUSSION: Lines/tubes: Enteric tube with the distal tip below the field of view. Left IJ catheter with tip overlying the brachiocephalic vein. Lungs: Left lower lobe consolidation. Pulmonary venous congestion. Pleura: Probable left layering effusion. Heart and mediastinum: Increased heart size. Bones and soft tissues: No acute bony abnormalities. IMPRESSION: Left lower lobe consolidation may reflect pneumonia versus atelectasis. Pulmonary venous congestion. Signed by: Dr. Mikael Sharp M.D. on 12/29/2018 5:44 AM
--- NOTE | 2018-12-29 07:19 | NUR ---
Report given to oncoming nurse,walking round done. No issued noted.
[2018-12-29] MEDS: INSULIN REGULAR, HUMAN 100 UNIT/1 ML 3ML VIAL SQ SCH ×4 (08:13→20:52)
[2018-12-29] MEDS: CEFTRIAXONE SOD 1 GM/NS 50 ML 50 ML IV SCH ×2 (08:43→21:17)
[2018-12-29] MEDS ORDERED: SODIUM CHLORIDE 0.9% 250ML 250 ML ONE (08:55)
[2018-12-29] MEDS: AMIODARONE HCL 200 MG TAB PO SCH ×2 (09:00→17:36)
[2018-12-29] MEDS: PAROXETINE HCL 20 MG TAB PO SCH (09:00)
[2018-12-29] MEDS: FAMOTIDINE 20 MG/2 ML VIAL IV SCH (09:05)
[2018-12-29] MEDS: FUROSEMIDE INJ 10 MG/ML 4 ML VIAL IV SCH ×2 (09:05→21:17)
[2018-12-29] MEDS: INSULIN GLARGINE 100 UNITS/ML VIAL SQ SCH ×2 (09:07→17:40)
--- NOTE | 2018-12-29 11:19 | NUR ---
Pulmonary Medicine DATE OF ENCOUNTER: 12/29/2018 SUBJECTIVE: patient walked to [place] 2 person assist needed, she remains very weak could only sit for 10 minutes BM REVIEW OF SYSTEMS: No rash, no double vision PHYSICAL EXAMINATION: VITAL SIGNS: vital signs reviewed per EMR. HEENT: Normocephalic, atraumatic. NECK: Supple. Throat midline. LUNGS: Bilateral air entry, few rhonchi. CARDIOVASCULAR: S1, S2. No murmurs, rubs, or gallops. ABDOMEN: Soft, nontender. EXTREMITIES: No clubbing, no cyanosis. 1+ edema. INTEGUMENT: No rash, no purpura. LABORATORY DATA: k 3.8, hco3 36, 1.4 creatinine. 15 wbc, 35 hct, 314 plt. IMPRESSION AND PLAN: 1. Acute respiratory failure, intubated/extubated 2. Shock distributive. resolved 3. Abnormal chest radiography, e coli pneumonia 4. e coli bacteremia 4. Acute on chronic kidney failure, better 5. fluid overload 6. atrial fibrillation 6. Metabolic acidosis. resolved 7. Moderate hypoalbuminemia. 8. Mild anemia, microcytic. 9. Hypertension, diabetes, hyperlipidemia, asthma, history of brain surgery. 10. Post fall/trauma, reported Follow up chest x-ray intermittently, ensure improvement minimize water intake continue Lasix, follow lytes Dobhoff tube; continue tube feeds antibiotics for pneumonia and e coli wean oxygen as tolerated, BiPAP prn which she is still using PT/OT, mobilize as tolerated Thank you very much, Dr. Maciel and Dr. Marcial for allowing me a chance to participate in the care of Ms. Chou. Please call for questions.
--- NOTE | 2018-12-29 21:17 | NUR ---
patient has loose moderate bowel movement.
[2018-12-29] MEDS: LORAZEPAM 0.5 MG TAB NG PRN (21:33)
--- NOTE | 2018-12-29 21:33 | NUR ---
patient got agitated and upset because she cant have any drink. patient is still NPO.
[2018-12-30] VITALS (10 sets, daily range): BP systolic 105–141; BP diastolic 53–85
[2018-12-30] MEDS: METOPROLOL TARTRATE 25 MG TAB PO SCH ×5 (00:13→23:50)
[2018-12-30] MEDS: IPRATROPIUM BROMIDE 0.02% 2.5 ML NEB NEB SCH ×6 (03:30→23:30)
[2018-12-30] MEDS: ALBUTEROL SULF 0.083% NEB SOLN 3 ML NEB NEB SCH ×6 (03:30→23:30)
[2018-12-30] MEDS: INSULIN GLARGINE 100 UNITS/ML VIAL SQ SCH ×2 (08:36→18:09)
[2018-12-30] MEDS: INSULIN REGULAR, HUMAN 100 UNIT/1 ML 3ML VIAL SQ SCH ×4 (08:37→20:10)
[2018-12-30] MEDS: FUROSEMIDE INJ 10 MG/ML 4 ML VIAL IV SCH ×2 (08:41→20:51)
[2018-12-30] MEDS: CEFTRIAXONE SOD 1 GM/NS 50 ML 50 ML IV SCH ×2 (08:41→20:10)
[2018-12-30] MEDS: PAROXETINE HCL 20 MG TAB PO SCH (08:42)
[2018-12-30] MEDS: AMIODARONE HCL 200 MG TAB PO SCH ×2 (08:42→18:08)
[2018-12-30] MEDS: FAMOTIDINE 20 MG/2 ML VIAL IV SCH (09:06)
--- NOTE | 2018-12-30 10:34 | NUR ---
Pulmonary Medicine DATE OF ENCOUNTER: 12/30/2018 SUBJECTIVE: patient remains on oxygen sitting up to chair walked REVIEW OF SYSTEMS: No rash, no double vision PHYSICAL EXAMINATION: VITAL SIGNS: vital signs reviewed per EMR. HEENT: Normocephalic, atraumatic. NECK: Supple. Throat midline. LUNGS: Bilateral air entry, few rhonchi. CARDIOVASCULAR: S1, S2. No murmurs, rubs, or gallops. ABDOMEN: Soft, nontender. EXTREMITIES: No clubbing, no cyanosis. 1+ edema. INTEGUMENT: No rash, no purpura. LABORATORY DATA: k 3.8, 1.4 cr. 15 wbc. IMPRESSION AND PLAN: 1. Acute respiratory failure, intubated/extubated 2. Shock distributive. resolved 3. Abnormal chest radiography, LARGE e coli pneumonia with bacteremia 4. e coli bacteremia 4. Acute on chronic kidney failure, better 5. fluid overload 6. atrial fibrillation 6. Metabolic acidosis. resolved 7. Moderate hypoalbuminemia. 8. Mild anemia, microcytic. 9. Hypertension, diabetes, hyperlipidemia, asthma, history of brain surgery. 10. Post fall/trauma, reported Follow up chest x-ray intermittently, ensure improvement minimize water intake, dry lung strategy continue continue Lasix, follow lytes continue Dobhoff tube; continue tube feeds speech to see the patient again. Repeat MBS hopefully soon antibiotics for pneumonia and e coli wean oxygen as tolerated, BiPAP prn which she is still using PT/OT, mobilize as tolerated ready for LTAC. too sick for non-acute Thank you very much, Dr. Maciel and Dr. Marcial for allowing me a chance to participate in the care of Ms. Chou. Please call for questions.
--- NOTE | 2018-12-30 16:16 | Diagnostic Imaging Report ---
Exam: Modified barium swallow History: Dysphagia with silent trace aspiration on prior study. Comparison: 12/24/2018 modified barium swallow Findings: Evaluation of the swallowing mechanism in conjunction with speech pathology was performed where the patient was administered varying consistencies of barium impregnated liquids and semisolid's. Fluoroscopic evaluation in the lateral projection was obtained. There is minimal penetration into the laryngeal vestibule with all consistencies tested. There is river silent and overt aspiration of thin liquids during and after the swallowing mechanism. Silent aspiration of thick liquids after swallowing is also present. Fluoroscopy time: 3.9 minutes. Cumulative dose: 19.8 mGy Impression: 1. Penetration into the laryngeal vestibule with aspiration. 2. Please see the full report provided by Speech Pathology. Signed by: Dr. Sy Orellana DO on 12/30/2018 4:13 PM
--- NOTE | 2018-12-30 18:12 | NUR ---
Patient resting, watching TV. Dr Paula Marcial to bedside. Patient aware that she remains NPO after today's MBS.
[2018-12-31] VITALS (9 sets, daily range): BP systolic 124–140; BP diastolic 54–68
[2018-12-31] MEDS: ALBUTEROL SULF 0.083% NEB SOLN 3 ML NEB NEB SCH ×6 (03:00→23:45)
[2018-12-31] MEDS: IPRATROPIUM BROMIDE 0.02% 2.5 ML NEB NEB SCH ×6 (03:00→23:45)
[2018-12-31] MEDS: METOPROLOL TARTRATE 25 MG TAB PO SCH ×3 (06:56→17:02)
[2018-12-31] MEDS: INSULIN REGULAR, HUMAN 100 UNIT/1 ML 3ML VIAL SQ SCH ×4 (07:51→20:40)
[2018-12-31] MEDS: INSULIN GLARGINE 100 UNITS/ML VIAL SQ SCH ×2 (07:51→17:05)
[2018-12-31] MEDS: PAROXETINE HCL 20 MG TAB PO SCH (08:12)
[2018-12-31] MEDS: CEFTRIAXONE SOD 1 GM/NS 50 ML 50 ML IV SCH ×2 (08:12→20:47)
[2018-12-31] MEDS: FAMOTIDINE 20 MG/2 ML VIAL IV SCH (08:12)
[2018-12-31] MEDS: AMIODARONE HCL 200 MG TAB PO SCH (08:12)
[2018-12-31] MEDS: FUROSEMIDE INJ 10 MG/ML 4 ML VIAL IV SCH ×2 (08:12→20:35)
[2018-12-31] MEDS: LORAZEPAM 0.5 MG TAB NG PRN (08:12)
[2018-12-31] MEDS: ACETAMINOPHEN 325 MG TAB NG PRN ×2 (08:12→18:40)
--- NOTE | 2018-12-31 09:53 | NUR ---
Pulmonary Medicine DATE OF ENCOUNTER: 12/31/2018 SUBJECTIVE: tube feeds 50/hr 91% sat 5 L/min BM REVIEW OF SYSTEMS: No rash, no double vision PHYSICAL EXAMINATION: VITAL SIGNS: vital signs reviewed per EMR. HEENT: Normocephalic, atraumatic. NECK: Supple. Throat midline. LUNGS: Bilateral air entry, few rhonchi. CARDIOVASCULAR: S1, S2. No murmurs, rubs, or gallops. ABDOMEN: Soft, nontender. EXTREMITIES: No clubbing, no cyanosis. 1+ edema. INTEGUMENT: No rash, no purpura. LABORATORY DATA: k 3.8, 1.4 cr. 15 wbc. IMPRESSION AND PLAN: 1. Acute respiratory failure, intubated/extubated 2. Shock distributive. resolved 3. Abnormal chest radiography, LARGE e coli pneumonia with bacteremia 4. e coli bacteremia 4. Acute on chronic kidney failure, better 5. fluid overload 6. atrial fibrillation 6. Metabolic acidosis. resolved 7. Moderate hypoalbuminemia. 8. Mild anemia, microcytic. 9. Hypertension, diabetes, hyperlipidemia, asthma, history of brain surgery. 10. Post fall/trauma, reported Follow up chest x-ray intermittently, ensure improvement minimize water intake, dry lung strategy continue continue Lasix, follow lytes continue Dobhoff tube; continue tube feeds speech to see the patient again. Repeat MBS hopefully soon antibiotics for pneumonia and e coli wean oxygen as tolerated, BiPAP prn which she is still using PT/OT, mobilize as tolerated patient can leave the ICU ready for LTAC. too sick for non-acute Thank you very much, Dr. Maciel and Dr. Marcial for allowing me a chance to participate in the care of Ms. Chou. Please call for questions.
--- NOTE | 2018-12-31 10:08 | NUR ---
okay with DR. Lockett to discontinue Bipap orders for patient.
--- NOTE | 2018-12-31 10:24 | NUR ---
PATIENT ARRIVED ON THE UNIT AT 1019 PER BED FROM ROOM 194. PATIENT IS AWAKE AND IN STABLE CONDITION WITH NO S/S OF RESPIRATORY DISTRESS. NO PAIN VOICED. NG TUBE PLACED IN LEFT NARE. TELEMETRY APPLIED WITH CONTINUOUS PULSE. DIAPER APPLIED. BED ALARM ON. CALL LIGHT IS WITHIN REACH, PATIENT INSTRUCTED TO CALL FOR ASSISTANCE NEEDED.
--- NOTE | 2018-12-31 10:50 | NUR ---
PUREWICK APPLIED; AIR PUMP APPLIED; BED ALARM APPLIED. NG FEEDING RESUMED AT 50CC/HR.
--- NOTE | 2018-12-31 19:13 | NUR ---
PATIENT IS IN STABLE CONDITION WITH NO S/S RESPIRATORY DISTRESS. PO TYLENOL RECENTLY GIVEN TO PATIENT. NG TUBE FEEDING INFUSING. TELEMETRY APPLIED. DIAPER AND PUREWICK APPLIED. CALL LIGHT IS WITHIN REACH, PATIENT INSTRUCTED TO CALL FOR ASSISTANCE NEEDED. BED SIDE REPORT COMPLETED WITH ONCOMING NURSE.
[2019-01-01] VITALS (8 sets, daily range): BP systolic 115–146; BP diastolic 67–78
[2019-01-01] MEDS: METOPROLOL TARTRATE 25 MG TAB PO SCH ×4 (00:45→17:07)
[2019-01-01] MEDS: IPRATROPIUM BROMIDE 0.02% 2.5 ML NEB NEB SCH ×6 (02:24→23:15)
[2019-01-01] MEDS: ALBUTEROL SULF 0.083% NEB SOLN 3 ML NEB NEB SCH ×6 (02:25→23:15)
[2019-01-01 06:14] LABS: ALBUMIN 2.5 g/dL (3.5-5.0); ALBUMIN/GLOBULIN RATIO 0.5 (0.8-2.0); ANION GAP 14.1 mmol/L (8-16); CREATININE, SERUM 1.47 mg/dL (0.57-1.11); POTASSIUM 4.1 mmol/L (3.5-5.1)
--- NOTE | 2019-01-01 07:06 | NUR ---
PATIENT IS IN STABLE CONDITION WITH NO S/S RESPIRATORY DISTRESS. NO PAIN VOICED. TUBE FEEDING INFUSING INTO NG TUBE. BED ALARM ON. CALL LIGHT IS WITHIN REACH OF PATIENT, PATIENT INSTRUCTED TO CALL FOR ASSISTANCE NEEDED.
--- NOTE | 2019-01-01 07:14 | NUR ---
REPORT GIVEN TO ONCOMING NURSE.WALKING ROUNDS MADE.PT RESTING IN BED WITH NO S/S OF DISTRESS.
[2019-01-01] MEDS: INSULIN REGULAR, HUMAN 100 UNIT/1 ML 3ML VIAL SQ SCH ×4 (07:30→21:21)
[2019-01-01] MEDS: PAROXETINE HCL 20 MG TAB PO SCH (08:37)
[2019-01-01] MEDS: FUROSEMIDE INJ 10 MG/ML 4 ML VIAL IV SCH ×2 (08:37→21:18)
[2019-01-01] MEDS: INSULIN GLARGINE 100 UNITS/ML VIAL SQ SCH ×2 (08:37→17:09)
[2019-01-01] MEDS: FAMOTIDINE 20 MG/2 ML VIAL IV SCH (08:37)
[2019-01-01] MEDS: AMIODARONE HCL 200 MG TAB PO SCH (08:37)
[2019-01-01] MEDS: ACETAMINOPHEN 325 MG TAB NG PRN ×2 (11:23→21:19)
--- NOTE | 2019-01-01 11:45 | NUR ---
Pulmonary Medicine DATE OF ENCOUNTER: 01/01/2019 SUBJECTIVE: stable breathing ngt in place, tube feeds continued wick urine collection system REVIEW OF SYSTEMS: No rash, no double vision PHYSICAL EXAMINATION: VITAL SIGNS: vital signs reviewed per EMR. HEENT: Normocephalic, atraumatic. NECK: Supple. Throat midline. LUNGS: Bilateral air entry, few rhonchi. CARDIOVASCULAR: S1, S2. No murmurs, rubs, or gallops. ABDOMEN: Soft, nontender. EXTREMITIES: No clubbing, no cyanosis. 1+ edema. INTEGUMENT: No rash, no purpura. LABORATORY DATA: k 4.1, 1.5 cr. 15 wbc. 35 hct. IMPRESSION AND PLAN: 1. Acute respiratory failure, intubated/extubated 2. Shock distributive. resolved 3. Abnormal chest radiography, LARGE e coli pneumonia with bacteremia 4. e coli bacteremia 4. Acute on chronic kidney failure, better 5. fluid overload 6. atrial fibrillation 6. Metabolic acidosis. resolved 7. Moderate hypoalbuminemia. 8. Mild anemia, microcytic. 9. Hypertension, diabetes, hyperlipidemia, asthma, history of brain surgery. 10. Post fall/trauma, reported 11. weakness/debility, ICU polyneuropathy Follow up chest x-ray intermittently, ensure improvement continue Lasix, follow lytes continue Dobhoff tube; continue tube feeds speech to continue to work with patient, pt not ready to take PO diet yet antibiotics for pneumonia and e coli wean oxygen as tolerated, BiPAP prn which she is still using PT/OT, mobilize as tolerated ready for LTAC. too sick for non-acute Thank you very much, Dr. Maciel and Dr. Marcial for allowing me a chance to participate in the care of Ms. Chou. Please call for questions.
--- NOTE | 2019-01-01 13:11 | NUR ---
DR. GIBSON ON THE UNIT- SPOKE TO DR. GIBSON REGARDING PATIENT'S TUBE FEEDING DIET. RECOMMENDATION FROM EP TECH AFTER SPEAKING WITH HER REGARDING PATIENT'S BG WAS TO SWITCH THE TUBE FEEDING TO GLUCERNA 1.2; RECEIVED NEW ORDER FROM DR. GIBSON.
--- NOTE | 2019-01-01 13:34 | NUR ---
Tan NAVARRO. INFORMED BY RN THAT WOOD REACHED A STOP DATE OF TODAY, 01/01/19- AWAITING CALLBACK.
--- NOTE | 2019-01-01 15:19 | NUR ---
Nutrition Follow-up Note RD Recommendation(s) for Physician: - Rec switching tube feeding formula back to Glucerna 1.2 @ goal rate of 50mL/hr (1440kcal, 72g protein, 966mL water) for better blood glucose control - Rec probiotics if diarrhea is reported - Water flushes per MD - Check labs, GI tolerance and weight daily Plan of Care: RD following, monitoring for tolerance and adequacy, TF rec Nutrition reason for involvement: Follow up RD Assessment 01/01 Discussed case with ANGELA Augustine. TF has been tolerated well with minimal gastric residual. However, her BG has been running between 260 320 with insulin. LBM 12/31. No GI complains from pt. Order received from Dr. Marcial to change her back to Glucerna 1.2 for better blood glucose control. Speech bedside swallow eval and MBS pending on 01/03. Will continue to monitor and follow. 12/28 Pt was discussed during AM rounds. MD changed TF formula from Glucerna 1.2 to Osmolite 1.2 as pt had multiple BM yesterday. Currently on BiPAP. BG has been running at 300+. No more frequent BM noted today. Pending placement. Will continue to monitor and follow. 12/13 Pt was discussed during AM rounds. Pt was extubated yesterday. OGT was removed. Pt complained of abdominal distention and hypoactive bowel sound noted. KUB showed nonobstructive bowel gas pattern; gas and fecal material is noted within the large bowel and rectum. CONSERVATION OFFICER was consulted; pending bedside swallow evaluation. No pressor meds. Renal function has improved. Will continue to monitor and follow. 12/20 68yo F, who was admitted after passing out at home. Pt is currently intubated and ventilated. No family on bedside. Levophed has turned down from 17 to 13mcg/min. Abd/ pel CT showed possible aspiration pneumonia. Will communicate TF rec with nursing staff. Principal Problems/Diagnoses: 1. Acute respiratory failure, intubated. 2. Shock distributive. 3. Abnormal chest radiography, possible aspiration, gram-negative pneumonia. 4. Acute on chronic kidney failure. 5. Critical hyperkalemia. 6. Metabolic acidosis. PMH: HTN, DM, CHF, hypercholesterolemia GI: abdomen soft, round, non-tender, flatus present Skin: no pressure wound noted Labs: (01/01) Na 148 H, BUN 57 H, Creatinine 1.47 H, POC glucose 320 H (12/28) K 3.4 L, BUN 43 H, Creatinine 1.32 H, Glucose 304 H (12/23) Na 148 H, BUN 33 H, Creatinine 1.25 H, Glucose 206 H, AST 1.4 H, ALT 37 H (12/20) K 5.2 H, BUN 49H, Creatinine 2.44 H, Glucose 193 H Meds: insulin, lasix, antibiotics, pepcid Ht: 60in Wt: 220lb; 213lb; 215lb; 209.12lb (fluids loss from Lasix) BMI: 43.0kg/m2 IBW: 100lb Malnutrition Evaluation (01/01/2019) Pt is not meeting criteria for malnutrition at this time. Will re- evaluate as needed. Malnutrition Evaluation (12/20/2018) Unable to evaluate at this time. Nutrition Prescription (Diet Order): Osmolite 1.2 @50mL/hr Estimated Nutritional Needs: Calories: 1125 - 1350kcal (25-30kcal/kg/d) Weight used: IBW Protein: 68 - 113g (1.5-2.5g/kg/d) Weight used: IBW Diet Adequacy: meeting calorie needs, meeting protein needs Diet Education Needs Assessment: Diet education indicated, but patient not appropriate for education at this time. Nutrition Care Level: mod Nutrition Diagnosis: No nutrition diagnosis at this time. Goal: Patient will meet 75-100% of estimated needs by follow up Progress: Goal met Interventions: Composition, Rate, Route, IVF Monitoring/Evaluation: Total energy intake, Total protein intake, Formula/Solution, IVF, Weight change, Gastric tolerance, labs Signed: Riri Rivero, MS, RD, LD
--- NOTE | 2019-01-01 18:09 | Progress Note ---
DATE: 01/01/2019 SUBJECTIVE: The patient is still very weak. However, she is feeling stronger. She is having less shortness of breath. She is requiring less oxygen by nasal cannula. She still have her shortness of breath on minimal exertion. There is no chest pain. There is no orthopnea, no paroxysmal nocturnal dyspnea. The patient remains on tube feeding. She denied having any abdominal pain. She feels totally exhausted. REVIEW OF SYSTEMS: As per above. Cardiac park, relatively stable with shortness of breath, managed nicely with oxygen. PHYSICAL EXAMINATION: VITAL SIGNS: Height of 5 feet, weight of 209 pounds, blood pressure 138/70, heart rate of 70, respiratory rate of 22, and temperature of 97 Fahrenheit. HEENT: Pupils are reactive. NG tube Dobhoff is noted in place. CHEST: Decreased air entry with crackles. HEART: PMI 5th left intercostal space. Normal first and second heart sounds. ABDOMEN: Soft with good bowel sounds. Obesity is noted. EXTREMITIES: No cyanosis, no clubbing, no edema. NEUROLOGIC: Nonfocal. LABORATORY DATA: Sodium of 148, potassium 4.1, BUN 57, creatinine of 1.5. Bicarb is elevated at 39. Her latest CBC on 12/29, showed white blood cell count of 15.1, hemoglobin of 10.6, hematocrit of 35%. MEDICATIONS: Lasix 40 mg b.i.d., amiodarone 200 mg a day, metoprolol 25 mg every 6 hours, ceftriaxone 1 g every 12 hours, Pepcid 20 mg per day, nebulizer with albuterol, lorazepam p.r.n., Paxil 20 mg a day. Insulin sliding scale. IMPRESSION AND PLAN: 1. Escherichia coli bacteremia, resolving. 2. Respiratory failure, the patient extubated few days back. 3. Diastolic congestive heart failure. 4. Paroxysmal atrial fibrillation. 5. Chest x-ray finding out of proportion of her BNP level, which it was only at 100 level for several days. The patient had needed to have 2 unit blood transfusion few days back, her hemoglobin seems to be stabilized on the latest check on the 29 of December. 6. Swallowing. The patient on Dobhoff feeding. 7. Cardiac park, we will continue her medication. We will observe her renal function. The patient clinically on the dry side. Pending on her progression, further steps to be done. MD KOLE Agrawal/MIGDALIA /[id number]
--- NOTE | 2019-01-01 19:06 | NUR ---
PATIENT IS IN STABLE CONDITION WITH NO S/S RESPIRATORY DISTRESS. NO PAIN VOICED. PATIENT RECEIVING BREATHING TREATMENT. TUBE FEEDING INFUSING. BED ALARM ON. CALL LIGHT IS WITHIN REACH, PATIENT INSTRUCTED TO CALL FOR ASSISTANCE NEEDED. BEDSIDE REPORT COMPLETED WITH ONCOMING NURSE.
--- NOTE | 2019-01-01 20:00 | NUR ---
PT RESTING IN BED WITH HOB ELEVATED.NO S/S OF DISTRESS NOTED.RESPIRATIONS EVEN/NON LABORED.PT KEEPS ON TURNING IN BED AND NOTED TOO CLOSE TO THE SIDE RAILS WITH LEG PLACED OVER THE BOTTOM SIDE RAILS,ASSISTED PT TO REPOSITION IN THE CENTER OF BED.INSTRUCTED PT NOT TO TURN TOO CLOSE TO SIDE RAILS AND NOT TO PUT THE LEG OVER THE SIDE RAILS .PT STATED "BUT IM COMFORTABLE THAT WAY".INSTRUCTED PT THAT ITS NOT SAFE TO TURN TOO CLOSE TO THE SIDE RAILS AND COULD RESULT IN A FALL.PADDED SIDE RAILS WITH BLANKETS.BED ALARM ACTIVATED.CALL LIGHT WITHIN EASY REACH.WILL CONTINUE TO MONITOR.
[2019-01-01] MEDS: CEFTRIAXONE SOD 1 GM/NS 50 ML 50 ML IV SCH (21:20)
[2019-01-02] VITALS (8 sets, daily range): BP systolic 118–174; BP diastolic 60–78
[2019-01-02] MEDS: METOPROLOL TARTRATE 25 MG TAB PO SCH ×4 (00:16→16:23)
[2019-01-02] MEDS: IPRATROPIUM BROMIDE 0.02% 2.5 ML NEB NEB SCH ×6 (02:07→23:00)
[2019-01-02] MEDS: ALBUTEROL SULF 0.083% NEB SOLN 3 ML NEB NEB SCH ×6 (02:07→23:00)
[2019-01-02 05:53] LABS: BASOPHILS # (AUTO) 0.1 (0.0-0.1); EOSINOPHILS # (AUTO) 0.3 (0.0-0.4); EOSINOPHILS % 2.5 % (0.0-6.0); HEMATOCRIT 38.6 % (34.2-44.1); HEMOGLOBIN 11.4 g/dL (12.0-16.0); LYMPHOCYTES # (AUTO) 1.9 (1.0-3.2); LYMPHOCYTES % 15.8 % (18.0-39.1); MEAN CORPUSCULAR HEMOGLOBIN 28.4 pg (28-32); MEAN CORPUSCULAR HGB CONC 29.5 g/dL (31-35); MONOCYTES # (AUTO) 1.4 (0.2-0.8); NEUTROPHILS # (AUTO) 8.1 (2.1-6.9); NEUTROPHILS % 67.6 % (38.7-80.0); PLATELET COUNT 512 x10e3/uL (140-360); RED BLOOD COUNT 4.02 x10e6/uL (3.6-5.1); RED CELL DISTRIBUTION WIDTH 16.6 % (11.7-14.4)
[2019-01-02 06:15] LABS: ALBUMIN 2.6 g/dL (3.5-5.0); ALBUMIN/GLOBULIN RATIO 0.5 (0.8-2.0); ANION GAP 15.2 mmol/L (8-16); CALCIUM 10.1 mg/dL (8.4-10.2); CREATININE, SERUM 1.53 mg/dL (0.57-1.11); POTASSIUM 4.2 mmol/L (3.5-5.1)
--- NOTE | 2019-01-02 06:56 | NUR ---
BEDSIDE SHIFT REPORT GIVEN TO ONCOMING NURSE,PT RESTING IN BED WITH NO S/S OF DISTRESS.
--- NOTE | 2019-01-02 07:15 | NUR ---
PATIENT IS AWAKE AND IN STABLE CONDITION WITH NO S/S RESPIRATORY DISTRESS. NO PAIN VOICED. TUBE FEEDING INFUSING. BED ALARM ON. CALL LIGHT IS WITHIN REACH, PATIENT INSTRUCTED TO CALL FOR ASSISTANCE NEEDED.
[2019-01-02] MEDS: INSULIN REGULAR, HUMAN 100 UNIT/1 ML 3ML VIAL SQ SCH ×4 (07:30→21:00)
[2019-01-02] MEDS: PAROXETINE HCL 20 MG TAB PO SCH (08:57)
[2019-01-02] MEDS: CEFTRIAXONE SOD 1 GM/NS 50 ML 50 ML IV SCH ×2 (08:57→20:18)
[2019-01-02] MEDS: FAMOTIDINE 20 MG/2 ML VIAL IV SCH (08:57)
[2019-01-02] MEDS: AMIODARONE HCL 200 MG TAB PO SCH (08:57)
[2019-01-02] MEDS: INSULIN GLARGINE 100 UNITS/ML VIAL SQ SCH ×2 (08:57→17:04)
[2019-01-02] MEDS: FUROSEMIDE INJ 10 MG/ML 4 ML VIAL IV SCH (08:57)
--- NOTE | 2019-01-02 13:23 | NUR ---
Pulmonary Medicine DATE OF ENCOUNTER: 01/02/2019 SUBJECTIVE: stable breathing ngt in place, Tube feeds 50/hr. water 100 q 6 hrs 4 L/min oxygen, 97% saturation now BM+ REVIEW OF SYSTEMS: No rash, no double vision PHYSICAL EXAMINATION: VITAL SIGNS: vital signs reviewed per EMR. HEENT: Normocephalic, atraumatic. NECK: Supple. Throat midline. LUNGS: Bilateral air entry, few rhonchi. CARDIOVASCULAR: S1, S2. No murmurs, rubs, or gallops. ABDOMEN: Soft, nontender. EXTREMITIES: No clubbing, no cyanosis. 1+ edema. INTEGUMENT: No rash, no purpura. LABORATORY DATA: 12 k wbc, improved. last cr 1.53. IMPRESSION AND PLAN: 1. Acute respiratory failure, intubated/extubated 2. Shock distributive. resolved 3. Abnormal chest radiography, LARGE e coli pneumonia with bacteremia 4. e coli bacteremia 4. Acute on chronic kidney failure, better 5. fluid overload 6. atrial fibrillation 6. Metabolic acidosis. resolved 7. Moderate hypoalbuminemia. 8. Mild anemia, microcytic. 9. Hypertension, diabetes, hyperlipidemia, asthma, history of brain surgery. 10. Post fall/trauma, reported 11. weakness/debility, ICU polyneuropathy Follow up chest x-ray intermittently, ensure improvement --- repeat AM CXR continue Lasix (consider decreasing soon), follow lytes continue Dobhoff tube; continue tube feeds speech to continue to work with patient, pt not ready to take PO diet yet --patient for repeat swallow evaluation tomorrow per nursing antibiotics for pneumonia and e coli wean oxygen as tolerated, BiPAP prn which she is still using PT/OT, mobilize as tolerated ready for LTAC. Thank you very much, Dr. Maciel and Dr. Marcial for allowing me a chance to participate in the care of Ms. Chou. Please call for questions.
--- NOTE | 2019-01-02 15:06 | NUR ---
Biju NAVARRO INFORMED OF C.DIFF RESULTS- AWAITING CALLBACK/ORDERS.
--- NOTE | 2019-01-02 15:34 | NUR ---
PATIENT OFF THE UNIT TO RADIOLOGY- PATIENT IN STABLE CONDITION WITH NO S/S RESPIRATORY DISTRESS. 02 SET AT 5L NC. NG TUBE TO LEFT NARE INTACT AND DISCONNECTED. TELEMETRY AND CONTINUOUS PULSE OX APPLIED. DIAPER APPLIED.
--- NOTE | 2019-01-02 15:42 | NUR ---
RECEIVED ORDER FROM ANTHONY MANE, P.A. FOR VANCOMYCIN PO 250MG Q6H.
--- NOTE | 2019-01-02 16:04 | Diagnostic Imaging Report ---
Chest radiographs - AP and lateral COMPARISON: Chest radiograph 12/29/2018. INDICATION: Pulmonary edema and pneumonia follow-up. DISCUSSION: Lines/tubes: Enteric tube courses into the stomach, the tip is not seen. Left IJ catheter with tip overlying the brachiocephalic vein. Lungs: Pulmonary congestion with perihilar and interstitial opacities on the left. Patchy opacities in the left lower lung. Mild patchy right basilar opacity, likely atelectasis. Pleura: Small left pleural effusion. No evidence of pneumothorax. Heart and mediastinum: Mild cardiomegaly. Bones and soft tissues: No acute osseous abnormality. IMPRESSION: Similar appearance of multifocal left lung opacity which may reflect asymmetric pulmonary edema and/or pneumonia. Signed by: Dr. Ximena Mead MD on 01/02/2019 4:01 PM
--- NOTE | 2019-01-02 16:40 | NUR ---
Visit made by the Spiritual Care Department Pastoral Visitor, Nadir Montes. Pt out of room and no family at bedside. A card was left at the bedside to indicate a missed visit from a member of the Spiritual Care team and to inform the pt and family of the availability of a Car Worker Helper 24 hours a day/7 days a week. A laundry washer will follow up as able. HAILEY Garcialain Spiritual Care Department O: [phone] Pager: [phone] ([phone] number calling from)
[2019-01-02] MEDS: VANCOMYCIN 250MG/5ML ORAL SOLN PO SCH (17:04)
--- NOTE | 2019-01-02 18:55 | NUR ---
PATIENT IS RESTING IN BED-IN STABLE CONDITION WITH NO S/S RESPIRATORY DISTRESS. NO PAIN VOICED. TUBE FEEDING INFUSING. TELEMETRY AND CONTINUOUS PULSE OX APPLIED. BED ALARM ON. CALL LIGHT IS WITHIN REACH, PATIENT INSTRUCTED TO CALL FOR ASSISTANCE NEEDED. BEDSIDE REPORT GIVEN TO ONCOMING NURSE.
[2019-01-02] MEDS: ACETAMINOPHEN 325 MG TAB NG PRN (20:18)
--- NOTE | 2019-01-02 21:00 | NUR ---
blood sugar rechecked 73mg/dl.
--- NOTE | 2019-01-02 21:01 | NUR ---
correction from previous entry. Blood sugar 78.
[2019-01-03] VITALS (7 sets, daily range): BP systolic 121–166; BP diastolic 59–78
[2019-01-03] MEDS: VANCOMYCIN 250MG/5ML ORAL SOLN PO SCH ×4 (00:17→18:00)
[2019-01-03] MEDS: METOPROLOL TARTRATE 25 MG TAB PO SCH ×5 (00:17→23:54)
[2019-01-03] MEDS: ALBUTEROL SULF 0.083% NEB SOLN 3 ML NEB NEB SCH ×6 (02:30→23:00)
[2019-01-03] MEDS: IPRATROPIUM BROMIDE 0.02% 2.5 ML NEB NEB SCH ×6 (02:30→23:00)
[2019-01-03 06:27] LABS: BASOPHILS # (AUTO) 0.1 (0.0-0.1); BASOPHILS % 0.8 % (0.0-1.0); EOSINOPHILS # (AUTO) 0.4 (0.0-0.4); EOSINOPHILS % 4.1 % (0.0-6.0); HEMATOCRIT 33.5 % (34.2-44.1); LYMPHOCYTES # (AUTO) 1.7 (1.0-3.2); MEAN CORPUSCULAR HGB CONC 29.9 g/dL (31-35); MEAN CORPUSCULAR VOLUME 97.1 fL (81-99); MONOCYTES # (AUTO) 1.3 (0.2-0.8); MONOCYTES % 12.4 % (4.4-11.3); NEUTROPHILS % 65.3 % (38.7-80.0); RED BLOOD COUNT 3.45 x10e6/uL (3.6-5.1); RED CELL DISTRIBUTION WIDTH 16.6 % (11.7-14.4)
[2019-01-03 06:42] LABS: PLATELET COUNT 444 x10e3/uL (140-360)
[2019-01-03 06:54] LABS: ALBUMIN 2.6 g/dL (3.5-5.0); ALBUMIN/GLOBULIN RATIO 0.5 (0.8-2.0); ANION GAP 14.6 mmol/L (8-16); CALCIUM 10.2 mg/dL (8.4-10.2); CREATININE, SERUM 1.49 mg/dL (0.57-1.11); POTASSIUM 4.6 mmol/L (3.5-5.1)
[2019-01-03] MEDS: INSULIN REGULAR, HUMAN 100 UNIT/1 ML 3ML VIAL SQ SCH ×4 (07:30→21:00)
[2019-01-03] MEDS: CEFTRIAXONE SOD 1 GM/NS 50 ML 50 ML IV SCH ×2 (08:30→20:30)
--- NOTE | 2019-01-03 08:50 | Diagnostic Imaging Report ---
EXAMINATION: CHEST SINGLE (PORTABLE) INDICATION: Pneumonia. COMPARISON: Chest radiograph 12/29/2018. FINDINGS: TUBES and LINES: Enteric tube courses in the stomach, tip is not seen. Left IJ central venous catheter terminates location of the left brachiocephalic vein. LUNGS: Central vascular congestion. Mild perihilar and interstitial opacities. Persistent left retrocardiac opacity. PLEURA: Small left pleural effusion. No evidence of pneumothorax. HEART AND MEDIASTINUM: The cardiomediastinal silhouette is mildly enlarged. BONES AND SOFT TISSUES: No acute osseous abnormality. UPPER ABDOMEN: No free air under the diaphragm. IMPRESSION: Left lower lobe consolidation, which may reflect pneumonia in the appropriate clinical setting. Mild pulmonary interstitial edema. Signed by: Dr. Ximena Mead MD on 01/03/2019 8:46 AM
[2019-01-03] MEDS: FAMOTIDINE 20 MG/2 ML VIAL IV SCH (09:00)
[2019-01-03] MEDS: PAROXETINE HCL 20 MG TAB PO SCH (09:00)
[2019-01-03] MEDS: INSULIN GLARGINE 100 UNITS/ML VIAL SQ SCH ×2 (09:00→17:00)
[2019-01-03] MEDS: AMIODARONE HCL 200 MG TAB PO SCH (09:00)
--- NOTE | 2019-01-03 10:25 | NUR ---
ST Note: Order noted for swallow eval. Spoke with ANGELA Solis. Reported results of MBS completed January, which showed aspiration of multiple consistencies and unsafe swallow/high risk of aspiration. Reviewed recommendations. Plan to complete dysphagia therapy today and tomorrow. Recommend continued DHT feeds with repeat MBS Saturday, January 05, 2019.
--- NOTE | 2019-01-03 10:54 | NUR ---
Pulmonary Medicine DATE OF ENCOUNTER: 01/03/2019 SUBJECTIVE: stable breathing ngt in place tube feeds 50/hr water 100 q 6 hrs 4 L/min oxygen no BMs today, yesterday 1 BM recorded REVIEW OF SYSTEMS: No rash, no double vision PHYSICAL EXAMINATION: VITAL SIGNS: vital signs reviewed per EMR. HEENT: Normocephalic, atraumatic. NECK: Supple. Throat midline. LUNGS: Bilateral air entry, few rhonchi. CARDIOVASCULAR: S1, S2. No murmurs, rubs, or gallops. ABDOMEN: Soft, nontender. EXTREMITIES: No clubbing, no cyanosis. 1+ edema. INTEGUMENT: No rash, no purpura. LABORATORY DATA: 4.6 k, cr 1.5. 11 wbc. 34 hct. alb 2.6 IMPRESSION AND PLAN: 1. Acute respiratory failure, intubated/extubated 2. Shock distributive. resolved 3. Abnormal chest radiography, LARGE e coli pneumonia with bacteremia 4. e coli bacteremia 4. Acute on chronic kidney failure, better 5. fluid overload 6. atrial fibrillation 6. Metabolic acidosis. resolved 7. Moderate hypoalbuminemia. 8. Mild anemia, microcytic. 9. Hypertension, diabetes, hyperlipidemia, asthma, history of brain surgery. 10. Post fall/trauma, reported 11. weakness/debility, ICU polyneuropathy Follow up chest x-ray intermittently, ensure improvement decrease/hold diuretics for now, follow lytes continue Dobhoff tube; continue tube feeds speech to continue to work with patient, pt not ready to take PO diet yet --patient for repeat swallow therapy, future MBS likely antibiotics for pneumonia and e coli wean oxygen as tolerated PT/OT, mobilize as tolerated ready for LTAC. Thank you very much, Dr. Maciel and Dr. Marcial for allowing me a chance to participate in the care of Ms. Chou. Please call for questions.
--- NOTE | 2019-01-03 12:09 | Diagnostic Imaging Report ---
EXAMINATION: CHEST 2 VIEWS INDICATION: Pneumonia COMPARISON: Multiple prior chest radiograph, most recently earlier the same day FINDINGS: TUBES and LINES: Weighted tip feeding tube terminates in or beyond the stomach with tip not well visualized on AP projection. Nontunneled left IJ central venous catheter terminates in the brachiocephalic vein. LUNGS: The lungs are moderately inflated. Mild patchy bibasilar left greater than right airspace opacities. PLEURA: No pleural effusion or pneumothorax. HEART AND MEDIASTINUM: The cardiomediastinal silhouette is unremarkable. BONES AND SOFT TISSUES: No acute fracture or dislocation. Moderate degenerative changes of the visualized spine. UPPER ABDOMEN: No free air under the diaphragm. IMPRESSION: Bibasilar left greater than right patchy opacities may represent pneumonia in the proper clinical setting. Signed by: Humphrey Solomon MD on 01/03/2019 12:06 PM
[2019-01-03] MEDS: ENOXAPARIN SOD INJ 40 MG/0.4 ML SYR SC SCH (19:00)
--- NOTE | 2019-01-03 19:12 | NUR ---
PT IN BED DENIES P[AIN,NGT IN PLACE,NO DISTRESS NOTED.
--- NOTE | 2019-01-03 20:00 | NUR ---
Received change of shift report from AM nurse. Rounds completed.
[2019-01-04] VITALS (8 sets, daily range): BP systolic 116–155; BP diastolic 58–83
--- NOTE | 2019-01-04 | NUR ---
Patient AAOx3 with periods of confusion noted.. Patient denies pain at this time. IV to left IJ dry, intact and patent. 5L high flow O2. Continue monitor for changes in patient condition. Doubhoff to left nare with TF at 50cc/hr with 100cc water flush. Blood Glucose 128 pt received 4 units of insulin and tolerated it well. Asst to reposition in bed.
[2019-01-04] MEDS: ALBUTEROL SULF 0.083% NEB SOLN 3 ML NEB NEB SCH ×3 (03:00→11:05)
[2019-01-04] MEDS: IPRATROPIUM BROMIDE 0.02% 2.5 ML NEB NEB SCH ×3 (03:00→11:05)
--- NOTE | 2019-01-04 03:48 | NUR ---
Patient resting quitly with no c/o at this time. Continue monitor.
[2019-01-04] MEDS: METOPROLOL TARTRATE 25 MG TAB PO SCH ×2 (05:52→17:00)
[2019-01-04] MEDS: VANCOMYCIN 250MG/5ML ORAL SOLN PO SCH ×4 (05:53→18:00)
--- NOTE | 2019-01-04 06:06 | NUR ---
Patient resting quitly at this time. No c/o at this time.
--- NOTE | 2019-01-04 07:30 | NUR ---
PT IN BED SLEEPING NO S/S DISCOMFORT,NGT PATENT ,O2 5L NC HIGH ROQUE IN PLACE.
[2019-01-04] MEDS: INSULIN REGULAR, HUMAN 100 UNIT/1 ML 3ML VIAL SQ SCH ×4 (08:30→21:00)
[2019-01-04] MEDS: CEFTRIAXONE SOD 1 GM/NS 50 ML 50 ML IV SCH ×2 (08:42→20:43)
[2019-01-04] MEDS: FAMOTIDINE 20 MG/2 ML VIAL IV SCH (08:42)
[2019-01-04] MEDS: PAROXETINE HCL 20 MG TAB PO SCH (08:43)
[2019-01-04] MEDS: INSULIN GLARGINE 100 UNITS/ML VIAL SQ SCH ×2 (08:43→17:00)
[2019-01-04] MEDS: AMIODARONE HCL 200 MG TAB PO SCH (08:43)
--- NOTE | 2019-01-04 11:38 | NUR ---
DISCUSSED IN BARRIER ROUNDS, PT HAS NG TUBE, IS SCHEDULED FOR A MBS TOMORROW, ON 5 LITERS HIGH FLOW, PENDING LTAC DENIAL HAS BEEN FORWARDED TO [facility], SUPPOSED TO HAVE ANSWER TODAY.
--- NOTE | 2019-01-04 13:35 | NUR ---
Pulmonary Medicine DATE OF ENCOUNTER: 01/04/2019 SUBJECTIVE: tube feeds tolerated, 50/hr walked 30 ft x 2 3 L/min oxygen min assist almost REVIEW OF SYSTEMS: No rash, no double vision PHYSICAL EXAMINATION: VITAL SIGNS: vital signs reviewed per EMR. HEENT: Normocephalic, atraumatic. NECK: Supple. Throat midline. LUNGS: Bilateral air entry, few rhonchi. CARDIOVASCULAR: S1, S2. No murmurs, rubs, or gallops. ABDOMEN: Soft, nontender. EXTREMITIES: No clubbing, no cyanosis. 1+ edema. INTEGUMENT: No rash, no purpura. LABORATORY DATA: no new updates IMPRESSION AND PLAN: 1. Acute respiratory failure, intubated/extubated 2. Shock distributive. resolved 3. Abnormal chest radiography, LARGE e coli pneumonia with bacteremia 4. e coli bacteremia 4. Acute on chronic kidney failure, better 5. fluid overload 6. atrial fibrillation 6. Metabolic acidosis. resolved 7. Moderate hypoalbuminemia. 8. Mild anemia, microcytic. 9. Hypertension, diabetes, hyperlipidemia, asthma, history of brain surgery. 10. Post fall/trauma, reported 11. weakness/debility, ICU polyneuropathy Follow up chest x-ray intermittently, ensure improvement decrease/hold diuretics for now, follow lytes and fluid status continue Dobhoff tube; continue tube feeds speech to continue to work with patient, pt not ready to take PO diet yet --patient for repeat swallow therapy, future MBS likely antibiotics for pneumonia and e coli wean oxygen as tolerated PT/OT, mobilize as tolerated ready for LTAC. Thank you very much, Dr. Maciel and Dr. Marcial for allowing me a chance to participate in the care of Ms. Chou. Please call for questions.
[2019-01-04] MEDS ORDERED: ALBUTEROL SULF 0.083% NEB SOLN 3 ML NEB NEB PRN (15:15)
[2019-01-04] MEDS ORDERED: IPRATROPIUM BROMIDE 0.02% 2.5 ML NEB NEB PRN (15:15)
[2019-01-04] MEDS: ENOXAPARIN SOD INJ 40 MG/0.4 ML SYR SC SCH (17:00)
--- NOTE | 2019-01-04 18:01 | NUR ---
PT UP IN BED NO DISTRESS NTOED DENIES PAIN,NGT IN PLACE.
--- NOTE | 2019-01-04 19:30 | NUR ---
Received patient awake on bed, with ongoing tube feeding to the left nares, bed alarm on, call light within easy reach. Aspiration precaution observed at all times, patient advised, will continue to monitor
[2019-01-05] VITALS (8 sets, daily range): BP systolic 129–161; BP diastolic 60–72
[2019-01-05] MEDS: VANCOMYCIN 250MG/5ML ORAL SOLN PO SCH ×4 (00:02→18:12)
[2019-01-05] MEDS: INSULIN REGULAR, HUMAN 100 UNIT/1 ML 3ML VIAL SQ SCH ×4 (07:30→20:58)
[2019-01-05] MEDS: METOPROLOL TARTRATE 25 MG TAB PO SCH ×2 (08:36→17:00)
[2019-01-05] MEDS: AMIODARONE HCL 200 MG TAB PO SCH (08:37)
[2019-01-05] MEDS: PAROXETINE HCL 20 MG TAB PO SCH (08:37)
[2019-01-05] MEDS: FAMOTIDINE 20 MG/2 ML VIAL IV SCH (08:37)
[2019-01-05] MEDS: INSULIN GLARGINE 100 UNITS/ML VIAL SQ SCH ×2 (08:39→18:12)
[2019-01-05] MEDS: CEFTRIAXONE SOD 1 GM/NS 50 ML 50 ML IV SCH ×2 (08:46→20:58)
[2019-01-05] MEDS: ACETAMINOPHEN 325 MG TAB NG PRN ×2 (08:59→21:35)
[2019-01-05] MEDS ORDERED: AMIODARONE HCL 200 MG TAB PO SCH ×2 (09:00)
--- NOTE | 2019-01-05 12:58 | NUR ---
Pulmonary Medicine DATE OF ENCOUNTER: 01/05/2019 SUBJECTIVE: tube feeds 50/hr water 100 q6 hrs not able to eat still 4 L/min oxygen REVIEW OF SYSTEMS: No rash, no double vision PHYSICAL EXAMINATION: VITAL SIGNS: vital signs reviewed per EMR. HEENT: Normocephalic, atraumatic. NECK: Supple. Throat midline. LUNGS: Bilateral air entry, few rhonchi. CARDIOVASCULAR: S1, S2. No murmurs, rubs, or gallops. ABDOMEN: Soft, nontender. EXTREMITIES: No clubbing, no cyanosis. 1+ edema. INTEGUMENT: No rash, no purpura. LABORATORY DATA: no new updates IMPRESSION AND PLAN: 1. Acute respiratory failure, intubated/extubated 2. Shock distributive. resolved 3. Abnormal chest radiography, LARGE e coli pneumonia with bacteremia 4. e coli bacteremia 4. Acute on chronic kidney failure, better 5. fluid overload 6. atrial fibrillation 6. Metabolic acidosis. resolved 7. Moderate hypoalbuminemia. 8. Mild anemia, microcytic. 9. Hypertension, diabetes, hyperlipidemia, asthma, history of brain surgery. 10. Post fall/trauma, reported 11. weakness/debility, ICU polyneuropathy Follow up chest x-ray intermittently, ensure improvement decrease/hold diuretics for now, follow lytes and fluid status continue Dobhoff tube; continue tube feeds speech to continue to work with patient, pt not ready to take PO diet yet --patient for repeat swallow therapy, future MBS likely antibiotics for pneumonia and e coli wean oxygen as tolerated PT/OT, mobilize as tolerated ready for LTAC. Thank you very much, Dr. Maciel and Dr. Marcial for allowing me a chance to participate in the care of Ms. Chou. Please call for questions.
--- NOTE | 2019-01-05 14:55 | NUR ---
Nutrition Follow-up Note RD Recommendation(s) for Physician: - Continue Glucerna 1.2 @ goal rate of 50mL/hr (1440kcal, 72g protein, 966mL water) - Water flushes per MD - Check labs, GI tolerance and weight daily Plan of Care: RD following, monitoring for tolerance and adequacy, TF rec Nutrition reason for involvement: Follow up RD Assessment 01/05- Pt was discussed during AM rounds. Per RN, pt continues to tolerate TF. + C diff. Reviewed PRODUCT ASSURANCE ENGINEER notes today. PRODUCT ASSURANCE ENGINEER rec NPO with alternative means of nutrition and hydration. Per PRODUCT ASSURANCE ENGINEER, pt is admently opposed to remote computer terminal operator alternative means of nutrition. MBS pending. Pending placement. 01/01 Discussed case with ANGELA Augustine. TF has been tolerated well with minimal gastric residual. However, her BG has been running between 260 320 with insulin. LBM 12/31. No GI complains from pt. Order received from Dr. Marcial to change her back to Glucerna 1.2 for better blood glucose control. Speech bedside swallow eval and MBS pending on 01/03. Will continue to monitor and follow. 12/28 Pt was discussed during AM rounds. MD changed TF formula from Glucerna 1.2 to Osmolite 1.2 as pt had multiple BM yesterday. Currently on BiPAP. BG has been running at 300+. No more frequent BM noted today. Pending placement. Will continue to monitor and follow. 12/13 Pt was discussed during AM rounds. Pt was extubated yesterday. OGT was removed. Pt complained of abdominal distention and hypoactive bowel sound noted. KUB showed nonobstructive bowel gas pattern; gas and fecal material is noted within the large bowel and rectum. PRODUCT ASSURANCE ENGINEER was consulted; pending bedside swallow evaluation. No pressor meds. Renal function has improved. Will continue to monitor and follow. 12/20 68yo F, who was admitted after passing out at home. Pt is currently intubated and ventilated. No family on bedside. Levophed has turned down from 17 to 13mcg/min. Abd/ pel CT showed possible aspiration pneumonia. Will communicate TF rec with nursing staff. Principal Problems/Diagnoses: 1. Acute respiratory failure, intubated. 2. Shock distributive. 3. Abnormal chest radiography, possible aspiration, gram-negative pneumonia. 4. Acute on chronic kidney failure. 5. Critical hyperkalemia. 6. Metabolic acidosis. PMH: HTN, DM, CHF, hypercholesterolemia GI: abdomen soft, large, non-tender, flatus present Skin: no pressure wound noted Labs: (01/05) reviewed (01/01) Na 148 H, BUN 57 H, Creatinine 1.47 H, POC glucose 320 H (12/28) K 3.4 L, BUN 43 H, Creatinine 1.32 H, Glucose 304 H (12/23) Na 148 H, BUN 33 H, Creatinine 1.25 H, Glucose 206 H, AST 1.4 H, ALT 37 H (12/20) K 5.2 H, BUN 49H, Creatinine 2.44 H, Glucose 193 H Meds: abx, insulin, pepcid Ht: 60in Wt: 220lb; 213lb; 215lb; 209.12lb (fluids loss from Lasix); 207lb BMI: 43.0kg/m2 IBW: 100lb Malnutrition Evaluation (01/01/2019) Pt is not meeting criteria for malnutrition at this time. Will re- evaluate as needed. Malnutrition Evaluation (12/20/2018) Unable to evaluate at this time. Nutrition Prescription (Diet Order): Glucerna 1.2 @50mL/hr Estimated Nutritional Needs: Calories: 1125 - 1350kcal (25-30kcal/kg/d) Weight used: IBW Protein: 68 - 113g (1.5-2.5g/kg/d) Weight used: IBW Diet Adequacy: meeting calorie needs, meeting protein needs Diet Education Needs Assessment: Diet education indicated, but patient not appropriate for education at this time. Nutrition Care Level: low Nutrition Diagnosis: No nutrition diagnosis at this time. Goal: Patient will meet 75-100% of estimated needs by follow up Progress: Goal met Interventions: Composition, Rate, Route, IVF Monitoring/Evaluation: Total energy intake, Total protein intake, Formula/Solution, IVF, Weight change, Gastric tolerance, labs Signed: Riri Rivero MS, RD, LD
--- NOTE | 2019-01-05 16:29 | NUR ---
PT DISCUSSED IN ROUNDS IS NPO TAKING GLUCERNA, ON TELE AND IS ON ISO FOR C-DIFF.
[2019-01-05] MEDS: ENOXAPARIN SOD INJ 40 MG/0.4 ML SYR SC SCH (18:12)
--- NOTE | 2019-01-05 19:26 | NUR ---
PATIENT IS RESTING IN BED- IN STABLE CONDITION WITH NO S/S OF RESPIRATORY DISTRESS. NO PAIN VOICED. 02 APPLIED. TELEMETRY APPLIED. TUBE FEEDING INFUSING. DIAPER APPLIED. BED ALARM ON. CALL LIGHT IS WITHIN REACH, INSTRUCTED TO CALL FOR ASSISTANCE NEEDED. BEDSIDE REPORT GIVEN TO ONCOMING NURSE.
--- NOTE | 2019-01-05 19:40 | NUR ---
PT IS RESTING IN BED. RESPIRATION IS EVEN AND UNLABORED, NO DISTRESS NOTED. BED IN THE LOWEST POSITION, LOCKED, BED ALARM ON, AND CALL LIGHT WITHIN REACH. WILL CONTINUE TO MONITOR.
[2019-01-06] VITALS (8 sets, daily range): BP systolic 140–170; BP diastolic 73–93
[2019-01-06] MEDS: VANCOMYCIN 250MG/5ML ORAL SOLN PO SCH ×4 (00:11→18:00)
[2019-01-06] MEDS: INSULIN REGULAR, HUMAN 100 UNIT/1 ML 3ML VIAL SQ SCH ×4 (07:30→20:32)
--- NOTE | 2019-01-06 07:30 | NUR ---
Received patient this morning, alert and responsive, in bed and no respiratory distress, no c/o pains, call light within reach and rounds completed this morning, will monitor.
[2019-01-06] MEDS: FAMOTIDINE 20 MG/2 ML VIAL IV SCH (09:19)
[2019-01-06] MEDS: CEFTRIAXONE SOD 1 GM/NS 50 ML 50 ML IV SCH (09:19)
[2019-01-06] MEDS: AMIODARONE HCL 200 MG TAB PO SCH (09:19)
[2019-01-06] MEDS: PAROXETINE HCL 20 MG TAB PO SCH (09:19)
[2019-01-06] MEDS: METOPROLOL TARTRATE 25 MG TAB PO SCH ×2 (09:20→17:59)
[2019-01-06] MEDS: INSULIN GLARGINE 100 UNITS/ML VIAL SQ SCH ×2 (09:22→17:00)
--- NOTE | 2019-01-06 09:30 | NUR ---
NG tube in place and tube feeding running at ordered rate, HOB elevated and no aspirations. Patients keeps placing the HOB down and was educated to maintain elevated to avoid risk of aspirations.. Had 2 loose BMs this morning and call light within reach, will monitor
--- NOTE | 2019-01-06 10:43 | NUR ---
Patient alert and responsive, ambulated with PT this morning and they are recommending LTAC. Rounds by attending and wanted ST to be called for clearance to have popsicles. Called and spoke with Radha and she stated patient cannot have popsicles at this time. Will monitor.
--- NOTE | 2019-01-06 10:51 | NUR ---
Patient ambulated with PT about 32 feet slow steady gait and sitting on chair in the room, will monitor.
--- NOTE | 2019-01-06 11:23 | NUR ---
Changed dressing to IJ CVC line and tolerated well.
--- NOTE | 2019-01-06 13:49 | NUR ---
Pulmonary Medicine DATE OF ENCOUNTER: 01/06/2019 SUBJECTIVE: still on tube feeds water ongoing still needs lots of assist REVIEW OF SYSTEMS: No rash, no double vision PHYSICAL EXAMINATION: VITAL SIGNS: vital signs reviewed per EMR. HEENT: Normocephalic, atraumatic. NECK: Supple. Throat midline. LUNGS: Bilateral air entry, few rhonchi. CARDIOVASCULAR: S1, S2. No murmurs, rubs, or gallops. ABDOMEN: Soft, nontender. EXTREMITIES: No clubbing, no cyanosis. 1+ edema. INTEGUMENT: No rash, no purpura. LABORATORY DATA: no new updates IMPRESSION AND PLAN: 1. Acute respiratory failure, intubated/extubated 2. Shock distributive. resolved 3. Abnormal chest radiography, LARGE e coli pneumonia with bacteremia 4. e coli bacteremia 4. Acute on chronic kidney failure, better 5. fluid overload 6. atrial fibrillation 6. Metabolic acidosis. resolved 7. Moderate hypoalbuminemia. 8. Mild anemia, microcytic. 9. Hypertension, diabetes, hyperlipidemia, asthma, history of brain surgery. 10. Post fall/trauma, reported 11. weakness/debility, ICU polyneuropathy Follow up chest x-ray intermittently, ensure improvement decrease/hold diuretics for now, follow lytes and fluid status continue Dobhoff tube; continue tube feeds speech to continue to work with patient, pt not ready to take PO diet yet --patient for repeat swallow therapy, future MBS likely antibiotics for pneumonia and e coli wean oxygen as tolerated PT/OT, mobilize as tolerated ready for LTAC. patient still needs lots of rehabilitation Thank you very much, Dr. Maciel and Dr. Marcial for allowing me a chance to participate in the care of Ms. Chou. Please call for questions.
[2019-01-06] MEDS: ACETAMINOPHEN 325 MG TAB NG PRN ×2 (13:57→21:20)
[2019-01-06] MEDS: ENOXAPARIN SOD INJ 40 MG/0.4 ML SYR SC SCH (17:00)
--- NOTE | 2019-01-06 17:30 | NUR ---
Patient refused insulin Lantus because BS was 107, will monitor, NG tube running at ordered reate and will monitor
--- NOTE | 2019-01-06 19:00 | NUR ---
RECEIVED PATIENT IN BEDSIDE REPORT. PATIENT RESTING IN BED AT THIS TIME. ELEVATED HOB AND REMINDED PATIENT THAT WHEN SHE IS GETTING A TUBE FEED THROUGH THE NG TUBE, HER HOB NEEDS TO BE ELEVATED TO PREVENT ASPIRATION. GLUCERNA RUNNING AT 50 ML/HR, WITH 100 ML OF WATER Q6. NO PAIN REPORTED. NO S&S OF DISTRESS NOTED. BED LOCKED IN LOWEST POSITION, SIDE RAILS UPX2, CALL LIGHT IN REACH.
[2019-01-07] VITALS (8 sets, daily range): BP systolic 117–165; BP diastolic 51–80
[2019-01-07] MEDS: VANCOMYCIN 250MG/5ML ORAL SOLN PO SCH ×4 (06:25→17:52)
[2019-01-07] MEDS: ACETAMINOPHEN 325 MG TAB NG PRN ×2 (06:40→21:21)
[2019-01-07] MEDS: INSULIN REGULAR, HUMAN 100 UNIT/1 ML 3ML VIAL SQ SCH ×4 (07:30→21:00)
--- NOTE | 2019-01-07 07:30 | NUR ---
PATIENT IS AAOX3, NG TUBE TO THE LEFT NARE IS PATENT AND INTACT. NO IRRITATION TO LEFT NARE. GLUCERNA 1.2 RUNNING AT 50 ML/HR. FEEDINGS TOLERATED WELL. O2 RECEIVED VIA NC AT 4.5 L/MIN. LT. IJ PICC LINE TRIPLE LUMEN IS PATENT AND CLEAN. SIDE RAILS UP X2, BED IN LOWEST POSITION, AND BED IN LOWEST POSITION.
[2019-01-07] MEDS: INSULIN GLARGINE 100 UNITS/ML VIAL SQ SCH ×2 (09:00→17:00)
[2019-01-07] MEDS: AMIODARONE HCL 200 MG TAB PO SCH (11:17)
[2019-01-07] MEDS: METOPROLOL TARTRATE 25 MG TAB PO SCH ×2 (11:17→17:53)
[2019-01-07] MEDS: PAROXETINE HCL 20 MG TAB PO SCH (11:17)
[2019-01-07] MEDS: FAMOTIDINE 20 MG/2 ML VIAL IV SCH (11:17)
--- NOTE | 2019-01-07 15:41 | NUR ---
PT WAS DENIED FOR [facility] TEXTED DR GIBSON TO LET KNOW AND ASK IF WANTED A SNF ORDER, NO RESPONSE, CM TO FOLLOW UP AT LATER TIME.
--- NOTE | 2019-01-07 15:43 | Progress Note ---
DATE: 01/07/2019 I am covering for Dr. Parimnder Juares today. SUBJECTIVE: The patient has no new complaints. She is receiving enteral feedings. She is on nasal oxygen. PHYSICAL EXAMINATION: VITAL SIGNS: The patient is afebrile. The vital signs are stable. HEENT: Shows no facial swelling or erythema. CARDIAC: Reveals a regular rate and rhythm with normal S1, S2. There are no murmurs or rubs heard. LUNGS: Auscultation of lungs shows decreased breath sounds at the bases. ABDOMEN: Soft, nontender. IMPRESSION: 1. Acute respiratory failure. 2. Escherichia coli pneumonia with severe sepsis, present on admission. 3. Acute kidney injury. 4. Atrial fibrillation. 5. Hypertension. 6. Diabetes. 7. Neuropathy, related to critical illness. PLAN: 1. The patient will continue enteral feedings. 2. Speech therapy evaluation. 3. Wean oxygen. 4. Physical therapy and occupational therapy. 5. Complete antibiotics. 6. Possible transfer to [facility]. Andrey Angel MD [facility] /[id number]
[2019-01-07] MEDS: ENOXAPARIN SOD INJ 40 MG/0.4 ML SYR SC SCH (17:52)
--- NOTE | 2019-01-07 18:29 | Progress Note ---
DATE: 01/07/2019 Internal Medicine Progress Note SUBJECTIVE: The patient is doing well. Still having diarrhea, but less than before. PHYSICAL EXAMINATION: HEART: Showed regular rhythm. Normal S1 and S2 sound. LUNGS: Clear bilaterally. ABDOMEN: Soft. EXTREMITIES: Show no evidence of cyanosis, edema, or trauma. VITAL SIGNS: Blood pressure 123/64, temperature 97.1 degrees Fahrenheit, heart rate 68 per minute, respiratory rate 18 per minute, and oxygen saturation 99%. LABORATORY DATA: On the blood work, we have BMP; sodium 147, potassium 4.6, chloride 100, CO2 of 37, BUN 54, creatinine 1.49, and glucose 194. On the CBC; white blood count 10.6, hemoglobin 10.0, hematocrit 33.5, and platelet count 444,000. PT 17.6, INR 1.38, and PTT 27.9. AST 16, ALT 12, total bilirubin 0.3, and alkaline phosphatase 70. IMPRESSION: 1. Status post aspiration pneumonia. 2. Clostridium difficile colitis. 3. Uncontrolled diabetes mellitus type 2 with chronic renal insufficiency. 4. Acute on chronic renal failure, stage 4. 5. Hypertension, most likely hypertensive nephropathy. PLAN OF TREATMENT: Continue albuterol every 6 hours, Atrovent every 6 hours, Pepcid 20 mg daily, Tylenol 650 mg every 6 hours, all by NG tube, vancomycin 250 mg by NG tube every 6 hours. Continue furosemide post transfusion. Continue Lantus 20 units twice a day. Continue Lovenox 40 mg subcutaneous daily for DVT prophylaxis. Continue Pepcid 20 mg daily and metoprolol 25 mg twice a day. Continue monitoring blood sugar before meals and at bedtime. Continue Tylenol 650 mg every 6 hours as needed for pain or fever, amiodarone 100 mg daily. We are going to do a speech therapy evaluation to see the patient can swallow. Continue contact isolation. MD TUSHAR Benjamin/MIGDALIA /[id number]
--- NOTE | 2019-01-07 18:55 | NUR ---
PATIENT IS IN BED WITH NO S/S OF DISTRESS. BED IN LOWEST POSITION, SIDE RAILS UP X2, AND CALL QUIROZ WITHIN REACH.
--- NOTE | 2019-01-07 19:00 | NUR ---
RECEIVED PATIENT IN BEDSIDE REPORT. PATIENT IS RESTING IN BED AT THIS TIME. 02@ 4.5L. NG TUBE TO L NARE. TUBE FEED RUNNING AT 50 ML/HR WITH 100 ML WATER Q6. HOB ELEVATED. PATIENT IS ABLE TO TURN SELF. NO S&S OF DISTRESS NOTED. BED LOCKED IN LOWEST POSITION, SIDE RAILS UPX2, CALL LIGHT IN REACH.
--- NOTE | 2019-01-07 23:29 | NUR ---
PATIENT COMPLAINING OF HEADACHE FROM HEAD BEING ELEVATED. EXPLAINED WE ARE NOT SUPPOSED TO LOWER THE HOB WHEN TUBE FEED IS RUNNING. PATIENT STARTED YELLING THAT SHE IS IN PAIN AND CANT SLEEP, BUT UNABLE TO GIVE PAIN MEDS NOT ENOUGH TIME HAS PASSED SINCE LAST TYLENOL ADMINISTRATION. PATIENT CONTINUED YELLING. HOLDING TUBE FEED AT THIS TIME TO ALLOW FOR LOWERING HOB. WILL RESUME TUBE FEED LATER IN THE NIGHT AFTER ELEVATING HOB AGAIN.
--- NOTE | 2019-01-08 | NUR ---
PATIENT REFUSED MIDNIGHT VITALS. TOLD PATIENT WE WOULD BE BACK AT 0400 FOR VITALS AGAIN, PATIENT VERBALIZED UNDERSTANDING. ASKED PATIENT IF WE COULD ELEVATE HOB TO RESUME TUBE FEED, BUT PATIENT CONTINUES TO REFUSE, STATING SHE CANT SLEEP WHEN HER HEAD IS ELEVATED. TUBE FEED HELD.
[2019-01-08] MEDS: VANCOMYCIN 250MG/5ML ORAL SOLN PO SCH ×4 (00:32→18:00)
--- NOTE | 2019-01-08 03:40 | NUR ---
PATIENT ALLOWED VITALS TO BE TAKEN. REPORTS HEAD IS NOT HURTING ANYMORE AND AGREED TO ALLOW HOB TO BE ELEVATED TO ALLOW FOR TUBE FEED TO BE RESUMED. CHANGED PATIENT AND GOT HER COMFORTABLE IN BED WITH HOB AT 30 DEGREES. RESUMED TUBE FEED.
[2019-01-08 04:00] VITALS: BP 132/63
[2019-01-08] MEDS: ACETAMINOPHEN 325 MG TAB NG PRN (06:14)
[2019-01-08 07:30] VITALS: BP 136/67
[2019-01-08] MEDS: INSULIN REGULAR, HUMAN 100 UNIT/1 ML 3ML VIAL SQ SCH ×4 (07:30→20:42)
--- NOTE | 2019-01-08 07:30 | NUR ---
REC'D PATIENT AAOX3, RECEIVING O2 VIA NC AT 4.5 L/MIN. NO S/S OF DISTRESS. LEFT IJ PICC LINE INTACT AND PATENT. GLUCERNA 1.2 RUNNING AT 50ML/HR AN TOLERATING WELL. SIDE RAILS UP X2, BED IN LOWEST POSITION, AND CALL QUIROZ WITHIN REACH.
[2019-01-08 08:02] VITALS: BP 136/62
[2019-01-08] MEDS: METOPROLOL TARTRATE 25 MG TAB PO SCH ×2 (09:00→17:00)
[2019-01-08] MEDS: INSULIN GLARGINE 100 UNITS/ML VIAL SQ SCH ×2 (09:00→17:15)
[2019-01-08] MEDS: FAMOTIDINE 20 MG/2 ML VIAL IV SCH (09:18)
[2019-01-08] MEDS: AMIODARONE HCL 200 MG TAB PO SCH (09:21)
[2019-01-08] MEDS: PAROXETINE HCL 20 MG TAB PO SCH (09:21)
--- NOTE | 2019-01-08 11:31 | Progress Note ---
DATE: 01/08/2019 SUBJECTIVE: The patient is improved overall. She has no fever. She is not having diarrhea. PHYSICAL EXAMINATION: VITAL SIGNS: The patient is afebrile. The blood pressure is 136/62, pulse is 55, saturation is 95% on 4 L. HEENT: Shows no facial swelling or erythema. CARDIAC: Reveals regular rate and rhythm with normal S1, S2. There are no murmurs or rubs. LUNGS: Auscultation of lungs reveals decreased breath sounds at the bases. There is no wheezing. ABDOMEN: Soft, nontender. There is no rebound or guarding. EXTREMITIES: Shows no leg edema or calf tenderness. IMPRESSION: 1. Acute respiratory failure. 2. Escherichia coli pneumonia with severe sepsis, present on admission. 3. Clostridium difficile colitis. 4. Acute kidney injury. 5. Atrial fibrillation. 6. Diabetes. 7. Neuropathy related to critical illness. PLAN: 1. Repeat blood work today. 2. Continue enteral feedings. 3. Continue current antibiotics. 4. Wean oxygen. Andrey Angel MD [facility] /[id number]
[2019-01-08 12:52] VITALS: BP 131/63
[2019-01-08] MEDS ORDERED: LOPERAMIDE HCL 2 MG CAP PO PRN (14:45)
--- NOTE | 2019-01-08 16:10 | NUR ---
PATIENT PULLED DOBHOFF OUT OF LEFT NARE. DR. PAIGE HIDALGO (DR. TY COVERING) TO LET KNOW OF SITUATION. ICU NURSE SAGRARIO CALLED TO PLACE NEW DOBHOFF. Addendum: 01/08/19 at 1641 by YAIMA CLAIRE RN NO S/S OF ASPIRATION PER AUSCULTATION AND OBSERVATION.
--- NOTE | 2019-01-08 16:25 | NUR ---
ICU NURSE SAGRARIO CAME TO PLACE DOBHOFF INTO LEFT NARE. PATIENT TOLERATED PROCEDURE WELL. NO S/S OF ASPIRATION PER AUSCULTATION. KUB ORDERED STAT.
[2019-01-08 16:36] VITALS: BP 157/74
--- NOTE | 2019-01-08 16:38 | NUR ---
DR. TY RETURNED CALL. EXPLAINED SITUATION WITH DOBHOFF AND FURTHER STEPS THAT WERE TAKEN WITH NEW PLACEMENT OF DOBHOFF AND ORDER OF STAT KUB. DR. TY SAID IT WAS OKAY.
--- NOTE | 2019-01-08 16:39 | NUR ---
X-RAY IN ROOM TO PERFORM KUB TO CHECK FOR DOBHOFF PLACEMENT.
[2019-01-08] MEDS: ENOXAPARIN SOD INJ 40 MG/0.4 ML SYR SC SCH (17:15)
--- NOTE | 2019-01-08 17:21 | Diagnostic Imaging Report ---
EXAM: Abdomen 1 View INDICATION: ^new dobhoff in left nare COMPARISON: None FINDINGS: See impression. IMPRESSION: Dedicated x-ray to confirm Dobbhoff tube placement. Subdiaphragmatic Dobbhoff tube is visualized with tip extending to the right abdomen, projecting over the expected location of gastric antrum. The stomach is probably distended. Severe degenerative changes of lumbar spine. Signed by: Dr. Buddy Pfeiffer MD on 01/08/2019 5:17 PM
[2019-01-08] MEDS ORDERED: CLONAZEPAM 1 MG TAB PO PRN (17:30)
[2019-01-08] MEDS: CHOLESTYRAMINE 4 GM PACKET PO SCH (17:50)
--- NOTE | 2019-01-08 18:02 | NUR ---
called dr. wright to read patel lee (rey) results for dobhoff feeding tube. he said okay to con't feedings. Addendum: 01/08/19 at 1928 by YAIMA CLAIRE RN ABDOMEN
--- NOTE | 2019-01-08 18:13 | Progress Note ---
DATE: 01/08/2019 Internal Medicine Progress Note SUBJECTIVE: She is doing well except for diarrhea. PHYSICAL EXAMINATION: VITAL SIGNS: Blood pressure 131/63, temperature 97.7, heart rate 63 per minute, respiratory rate is 18 per minute, O2 saturation 96%. HEART: Showed regular rhythm. Normal S1, S2 sound. LUNGS: Clear bilaterally. ABDOMEN: Soft. LABORATORY DATA: On the BMP, sodium 147, potassium 4.6, chloride 100, CO2 of 37, BUN 54, creatinine 1.49, glucose 184. CBC; white blood count 10.6, hemoglobin 10.0, hematocrit 33.5, platelet count 444,000, PT 17.6, INR 1.38, PTT 27.9. AST 16, ALT 12, total bilirubin 0.3, alkaline phosphatase 70. FINAL IMPRESSION: 1. Aspiration pneumonia. 2. Colitis. 3. Anemia of chronic disease. 4. Acute on chronic renal failure stage 4. 5. Uncontrolled diabetes mellitus type 2 with chronic renal insufficiency. 6. Hypertension. PLAN 0F TREATMENT: Continue albuterol q.6 hours, Atrovent q.6 hours, Pepcid 20 mg daily, Tylenol 650 mg q.6 hours as needed for pain or fever, D50 IV push as needed for hypoglycemia, vancomycin 250 mg p.o. q.6 hours around the clock, furosemide has been given post transfusion. Continue Lantus 20 units twice a day, Lovenox 40 mg subcutaneously once a day, Pepcid 20 mg daily, metoprolol 25 mg twice a day. Continue monitoring blood sugar a.c. and h.s., Tylenol 650 mg q.6 hours as needed, amiodarone 100 mg daily. We are going to use Questran for diarrhea twice a day. The patient continue the NG tube feedings. She failed speech therapy evaluation. We are going to follow up if possible. If she does not pass the next swallowing study, then she is going to need a PEG tube. MD TUSHAR Benjamin/MIGDALIA /[id number]
--- NOTE | 2019-01-08 18:50 | NUR ---
PATIENT IS UP IN BED AT 90 DEGREES. FEEDINGS ARE RUNNING AND TOLERATING WELL. BED IN LOWEST POSITION, SIDE RAILS UP X2, AND CALL QUIROZ WITHIN REACH
--- NOTE | 2019-01-08 19:05 | NUR ---
Patient visited in room during nursing rounds. Patient alert and oriented x1-2. Pt NG tube to left nare and receiving Glucerna 1.2 karin at 50ml/hr. HOB elevated. On contact isolation for C. diff. Pt is diapered due to incontinence. Call torrez within reach. Bed alarm active.
[2019-01-08 20:00] VITALS: BP 99/59
--- NOTE | 2019-01-08 22:43 | Progress Note ---
DATE: 01/08/2019 SUBJECTIVE: Ms. Chou is stable. There are no new complaints. REVIEW OF SYSTEMS: HEENT: Negative. PULMONARY: Negative. CARDIAC: Negative. At the present time, seems to be doing well. PHYSICAL EXAMINATION: GENERAL: She is currently alert. VITAL SIGNS: Stable, afebrile. HEENT: She is not icteric. NECK: Supple. CHEST: Clear. HEART: S1, S2. No murmurs. ABDOMEN: Soft. Bowel sounds present. No tenderness. EXTREMITIES: No edema. SKIN: No rash. LABORATORY DATA: Reviewed. IMPRESSION AND PLAN: 1. Pneumonia, resolved. 2. Colitis, better. 3. Debility. 4. Acute on chronic kidney disease stage 4, stable from diabetes mellitus. 5. Hypertension. From Infectious Disease point of view, the patient is stable. Continue with Questran. Continue feeding tube. Physical therapy. We will follow. MD ROBE Franco/MIGDALIA /[id number]
[2019-01-09] VITALS (7 sets, daily range): BP systolic 111–157; BP diastolic 53–72
[2019-01-09] MEDS: VANCOMYCIN 250MG/5ML ORAL SOLN PO SCH ×5 (06:00→23:15)
[2019-01-09 06:06] LABS: BASOPHILS # (AUTO) 0.1 (0.0-0.1); BASOPHILS % 0.9 % (0.0-1.0); EOSINOPHILS # (AUTO) 0.4 (0.0-0.4); EOSINOPHILS % 3.4 % (0.0-6.0); HEMATOCRIT 36.4 % (34.2-44.1); HEMOGLOBIN 10.9 g/dL (12.0-16.0); LYMPHOCYTES % 15.8 % (18.0-39.1); MEAN CORPUSCULAR HEMOGLOBIN 28.5 pg (28-32); MEAN CORPUSCULAR HGB CONC 29.9 g/dL (31-35); MEAN CORPUSCULAR VOLUME 95.3 fL (81-99); MONOCYTES # (AUTO) 1.4 (0.2-0.8); MONOCYTES % 11.1 % (4.4-11.3); NEUTROPHILS # (AUTO) 8.6 (2.1-6.9); NEUTROPHILS % 68.2 % (38.7-80.0); PLATELET COUNT 424 x10e3/uL (140-360); RED BLOOD COUNT 3.82 x10e6/uL (3.6-5.1); RED CELL DISTRIBUTION WIDTH 15.9 % (11.7-14.4)
[2019-01-09 06:33] LABS: ALBUMIN 2.8 g/dL (3.5-5.0); ALBUMIN/GLOBULIN RATIO 0.6 (0.8-2.0); ANION GAP 12.4 mmol/L (8-16); CALCIUM 9.9 mg/dL (8.4-10.2); CREATININE, SERUM 1.51 mg/dL (0.57-1.11); POTASSIUM 5.4 mmol/L (3.5-5.1)
--- NOTE | 2019-01-09 08:00 | NUR ---
Paged to notify of potassium level. Awaiting for call back
[2019-01-09] MEDS: AMIODARONE HCL 200 MG TAB PO SCH (09:35)
[2019-01-09] MEDS: ACETAMINOPHEN 325 MG TAB NG PRN ×2 (09:36→23:20)
[2019-01-09] MEDS: PAROXETINE HCL 20 MG TAB PO SCH (09:36)
[2019-01-09] MEDS: METOPROLOL TARTRATE 25 MG TAB PO SCH ×2 (09:36→17:00)
[2019-01-09] MEDS: CHOLESTYRAMINE 4 GM PACKET PO SCH ×2 (09:36→17:43)
[2019-01-09] MEDS: INSULIN GLARGINE 100 UNITS/ML VIAL SQ SCH ×2 (09:37→17:43)
[2019-01-09] MEDS: INSULIN REGULAR, HUMAN 100 UNIT/1 ML 3ML VIAL SQ SCH ×4 (09:37→20:49)
--- NOTE | 2019-01-09 09:43 | NUR ---
Repaged , director consumer affairs for , to notify of K5.4
[2019-01-09] MEDS ORDERED: SOD POLYSTYRENE SULFONATE SUSP 15 GM/60 ML BTL PO ONE (11:00)
[2019-01-09] MEDS ORDERED: SOD POLYSTYRENE SULFONATE SUSP 15 GM/60 ML BTL PR ONE (13:15)
[2019-01-09] MEDS ORDERED: CLONAZEPAM 1 MG TAB PO PRN (13:45)
--- NOTE | 2019-01-09 14:22 | NUR ---
Pulmonary Medicine DATE OF ENCOUNTER: 01/09/2019 SUBJECTIVE: still on tube feeds water ongoing no resp distress REVIEW OF SYSTEMS: No rash, no double vision PHYSICAL EXAMINATION: VITAL SIGNS: vital signs reviewed per EMR. HEENT: Normocephalic, atraumatic. NECK: Supple. Throat midline. LUNGS: Bilateral air entry, few rhonchi. CARDIOVASCULAR: S1, S2. No murmurs, rubs, or gallops. ABDOMEN: Soft, nontender. EXTREMITIES: No clubbing, no cyanosis. trace edema. INTEGUMENT: No rash, no purpura. LABORATORY DATA: no new updates IMPRESSION AND PLAN: 1. Acute respiratory failure, intubated/extubated 2. Shock distributive. resolved 3. Abnormal chest radiography, LARGE e coli pneumonia with bacteremia 4. e coli bacteremia 4. Acute on chronic kidney failure, better 5. fluid overload 6. atrial fibrillation 6. Metabolic acidosis. resolved 7. Moderate hypoalbuminemia. 8. Mild anemia, microcytic. 9. Hypertension, diabetes, hyperlipidemia, asthma, history of brain surgery. 10. Post fall/trauma, reported 11. weakness/debility, ICU polyneuropathy Follow up chest x-ray intermittently, ensure improvement decrease/hold diuretics for now, follow lytes and fluid status speech to continue to work with patient, pt not ready to take PO diet yet --patient for repeat swallow therapy, future MBS antibiotics for pneumonia and e coli wean oxygen as tolerated PT/OT, mobilize as tolerated ready for LTAC. patient still needs lots of rehabilitation. continue tube feeds, dobhoff tube. Thank you very much, Dr. Maciel and Dr. Marcial for allowing me a chance to participate in the care of Ms. Chou. Please call for questions.
--- NOTE | 2019-01-09 16:32 | Progress Note ---
DATE: 01/09/2019 Internal Medicine Progress Note SUBJECTIVE: The patient is upset about the diarrhea and the fact that she woke at 6:00 early because her potassium was high. I explained to her that the Kayexalate has to be given to drop the potassium because high potassium can be very dangerous. OBJECTIVE: VITAL SIGNS: Blood pressure 145/66, temperature 97.1, heart rate 53 per minute, respiratory rate 20 per minute, oxygen saturation 96%. EXTREMITIES: Show no evidence of cyanosis or hematoma. ABDOMEN: Slightly distended. LABORATORY DATA: On the BMP; sodium was 139, potassium 5.4, chloride 101, CO2 31, BUN 39, creatinine 1.51, glucose 124. On the CBC, white count 12.5, hemoglobin 10.9, hematocrit 36.4, platelet count 424,000 PT 17.6, INR 1.38, PTT 27.9. AST 17, ALT 13, total bilirubin 0.4, alkaline phosphatase 57. 1. Clostridium difficile colitis. 2. Aspiration pneumonia. 3. Anemia of chronic disease. 4. Acute on chronic renal failure stage 4. 5. Hyperkalemia. 6. Diabetes mellitus type 2, which is uncontrolled, with chronic renal failure. 7. Hypertension. PLAN OF TREATMENT: Kayexalate 15 g has been given one time. Questran 1 pack twice a day, vancomycin 250 mg q.6 hours. Contact isolation. Continue monitoring blood sugar before meals and at bedtime. Continue Tylenol 650 mg p.o. q.6 hours as needed for pain or fever. She is on amiodarone 100 mg daily. She is on albuterol and Atrovent q.6 hours. She is on Lantus 20 units at bedtime twice a day, Lovenox 40 mg subcutaneously daily for DVT prophylaxis, We are going to increase the clonazepam to 1 mg q.6 hours as needed for anxiety, Pepcid 20 mg daily, metoprolol 25 mg twice a day. The patient is still very upset today because of diarrhea. We reassured the patient that we are treating the diarrhea, but she has to take Kayexalate for high potassium with 100 showed slightly high diarrhea to lower the potassium going to recheck the potassium level also. MD TUSHAR Benjamin/MIGDALIA /[id number]
--- NOTE | 2019-01-09 16:37 | Progress Note ---
DATE: 01/09/2019 SUBJECTIVE: Ms. Chou is doing better. No new complaint. PHYSICAL EXAMINATION: GENERAL: She is currently alert, oriented, does not seem to be in acute distress. VITAL SIGNS: Stable, afebrile. HEENT: Normocephalic, not icteric. NECK: Supple. CHEST: Clear. HEART: S1, S2 no murmur. ABDOMEN: Soft. Bowel sounds present. EXTREMITIES: No tenderness. No edema. SKIN: No . No edema. There is no erythema or edema. Skin no rash. IMPRESSION AND PLAN: Pneumonia aspiration, resolved. Continue with the same bacteremia with E coli and joined 16 status post 14 days of antibiotic C diff positive on January 02 finish three weeks of oral vancomycin. Continue with PT, OT. We will follow the other medical problem per Internal Medicine. MD ROBE Franco/MIGDALIA /[id number]
[2019-01-09] MEDS: ENOXAPARIN SOD INJ 40 MG/0.4 ML SYR SC SCH (17:43)
[2019-01-09 18:55] LABS: ALBUMIN 2.7 g/dL (3.5-5.0); ALBUMIN/GLOBULIN RATIO 0.5 (0.8-2.0); ANION GAP 12.3 mmol/L (8-16); CALCIUM 9.7 mg/dL (8.4-10.2); CREATININE, SERUM 1.3 mg/dL (0.57-1.11); POTASSIUM 5.3 mmol/L (3.5-5.1)
--- NOTE | 2019-01-09 19:05 | NUR ---
Report given to oncoming nurse of patient's status. Resting in bed mid fowlers position. NO s/s of acute distress noted. side rails upx3, call light within reach
--- NOTE | 2019-01-09 19:05 | NUR ---
Patient visited in room during nursing rounds. Patient alert and oriented x3. Pt NG tube to left nare and receiving Glucerna 1.2 karin at 50ml/hr. HOB elevated. On contact isolation for C. diff. Pt is diapered due to incontinence. Call torrez within reach. Bed alarm active.
[2019-01-10] VITALS (8 sets, daily range): BP systolic 121–167; BP diastolic 56–88
[2019-01-10] MEDS: VANCOMYCIN 250MG/5ML ORAL SOLN PO SCH ×3 (06:00→17:09)
[2019-01-10 06:08] LABS: BASOPHILS # (AUTO) 0.1 (0.0-0.1); BASOPHILS % 1.2 % (0.0-1.0); EOSINOPHILS # (AUTO) 0.5 (0.0-0.4); EOSINOPHILS % 4.2 % (0.0-6.0); HEMATOCRIT 35.2 % (34.2-44.1); HEMOGLOBIN 10.5 g/dL (12.0-16.0); LYMPHOCYTES # (AUTO) 1.8 (1.0-3.2); MEAN CORPUSCULAR HEMOGLOBIN 28.5 pg (28-32); MEAN CORPUSCULAR HGB CONC 29.8 g/dL (31-35); MEAN CORPUSCULAR VOLUME 95.7 fL (81-99); MONOCYTES # (AUTO) 1.4 (0.2-0.8); MONOCYTES % 12.5 % (4.4-11.3); NEUTROPHILS # (AUTO) 7.2 (2.1-6.9); NEUTROPHILS % 65.4 % (38.7-80.0); PLATELET COUNT 388 x10e3/uL (140-360); RED BLOOD COUNT 3.68 x10e6/uL (3.6-5.1); RED CELL DISTRIBUTION WIDTH 15.9 % (11.7-14.4)
[2019-01-10 06:35] LABS: ANION GAP 12.1 mmol/L (8-16); CALCIUM 9.7 mg/dL (8.4-10.2); CREATININE, SERUM 1.33 mg/dL (0.57-1.11); POTASSIUM 5.1 mmol/L (3.5-5.1)
--- NOTE | 2019-01-10 06:54 | NUR ---
RECEIVED PATIENT RESTING IN BED. NO ACUTE DISTRESS NOTED. NO S/S OF PAIN NOTED AT THIS TIME. CALL LIGHT WITHIN REACH. BED IN THE LOWEST POSITION.
[2019-01-10] MEDS: INSULIN REGULAR, HUMAN 100 UNIT/1 ML 3ML VIAL SQ SCH ×4 (07:30→21:00)
[2019-01-10] MEDS: AMIODARONE HCL 200 MG TAB PO SCH (08:48)
[2019-01-10] MEDS: CHOLESTYRAMINE 4 GM PACKET PO SCH ×2 (08:49→17:09)
[2019-01-10] MEDS: METOPROLOL TARTRATE 25 MG TAB PO SCH ×3 (08:49→16:02)
[2019-01-10] MEDS: PAROXETINE HCL 20 MG TAB PO SCH (08:49)
--- NOTE | 2019-01-10 08:50 | NUR ---
FEEDING TUBE RESIDUAL ASSESSED, NONE NOTED AT THIS TIME.
[2019-01-10] MEDS: INSULIN GLARGINE 100 UNITS/ML VIAL SQ SCH ×2 (09:08→16:30)
--- NOTE | 2019-01-10 11:30 | NUR ---
JUDITH SPOKE WITH FRIEND CJ GONGORA AND PT ON CONFERENCE CALL REGARDING DC PLAN EXPLAINED THAT PT HAS BEEN DENIED FOR [facility] ORDERS FOR SNF EVAL PT CHOSE [facility] [place] AND SIGNED CHOICE LETTER ON CHART PT'S FRIEND/CAREGIVER AGREES WITH [facility] JUDITH NOTIFIED MIRIAN AT [facility] AND SHE WILL COME GET CLINICAL INFORMATION AND EXPEDITE AUTH MIRIAN AWARE THAT PT HAS NG TUBE FOR FEEDS AND IS CURRENTLY WORKING WITH PT/NMES AND HOPES TO IMPROVE AND HAVE TUBE REMOVED IF NOT WILL NEED OP PEG DR Paula GIBSON AWARE AND AGREEABLE WITH PLAN I CALLED JUDITH FOR INSURANCE, [facility] [phone] AND NOTIFIED OF PT'S SNF CHOICE; SHE WILL EXPEDITE WHEN SHE RECEIVED CLINICAL INFORMATION
--- NOTE | 2019-01-10 12:17 | NUR ---
Pulmonary Medicine DATE OF ENCOUNTER: 01/10/2019 SUBJECTIVE: +voids +BMs, 16 recorded in computer NGT in place REVIEW OF SYSTEMS: No rash, no double vision PHYSICAL EXAMINATION: VITAL SIGNS: vital signs reviewed per EMR. HEENT: Normocephalic, atraumatic. NECK: Supple. Throat midline. LUNGS: Bilateral air entry, few rhonchi. CARDIOVASCULAR: S1, S2. No murmurs, rubs, or gallops. ABDOMEN: Soft, nontender. EXTREMITIES: No clubbing, no cyanosis. mostly resolved edema. INTEGUMENT: No rash, no purpura. LABORATORY DATA: no new updates IMPRESSION AND PLAN: 1. Acute respiratory failure, intubated/extubated 2. Shock distributive. resolved 3. Abnormal chest radiography, LARGE e coli pneumonia with bacteremia 4. e coli bacteremia 4. Acute on chronic kidney failure, better 5. fluid overload 6. atrial fibrillation 6. Metabolic acidosis. resolved 7. Moderate hypoalbuminemia. 8. Mild anemia, microcytic. 9. Hypertension, diabetes, hyperlipidemia, asthma, history of brain surgery. 10. Post fall/trauma, reported 11. weakness/debility, ICU polyneuropathy Follow up chest x-ray intermittently, ensure improvement decrease/hold diuretics for now, follow lytes and fluid status speech therapy to continue to work with patient. continue tube feeds antibiotics for pneumonia and e coli wean oxygen as tolerated PT/OT, mobilize as tolerated Thank you very much, Dr. Maciel and Dr. Marcial for allowing me a chance to participate in the care of Ms. Chou. Please call for questions.
--- NOTE | 2019-01-10 15:33 | NUR ---
PT AND CAREGIVER NOTIFIED THAT [facility] NOT IN NETWORK PT CHOSE [facility] CHOICE LETTER AMENDED AND INITIALED BY PT ELIANE WITH [facility] NOTIFIED OF CONSULT CLINICALS FAXED TO [phone] CONFIRMATION REC'D REQUEST TO EXPEDITE AND GAVE ELIANE [employer]'S CONTACT NUMBER CM FOR [facility]
--- NOTE | 2019-01-10 15:50 | NUR ---
PER DR. PIMENTEL CONTINUE VANCOMYCIN PO ORDERED.
--- NOTE | 2019-01-10 19:20 | NUR ---
REPORT GIVEN TO ONCOMING NURSE, WALKING ROUNDS DONE, PATIENT IS RESTING IN BED. NO ACUTE DISTRESS NOTED. NO S/S OF PAIN NOTED. CALL LIGHT WITHIN REACH. BED IN THE LOWEST POSITION.
--- NOTE | 2019-01-10 19:59 | NUR ---
RECEIVED PATIENT RESTING IN BED AOX3 NG TUBE IN PLACE . NO ACUTE DISTRESS NOTED LEFT IJ PICC LINE INTACT TELE SHOWS SINUS NANDA.CALL LIGHT WITH IN REACH .CONTINUE TO MONITOR
[2019-01-11] VITALS: BP 101/50
[2019-01-11 04:00] VITALS: BP 200/87
[2019-01-11] MEDS: VANCOMYCIN 250MG/5ML ORAL SOLN PO SCH ×3 (06:00→12:00)
--- NOTE | 2019-01-11 06:52 | NUR ---
RECEIVED PATIENT RESTING IN BED. RESPIRATIONS EVEN AND UNLABORED. NO ACUTE DISTRESS NOTED. CALL LIGHT WITHIN REACH. BED IN THE LOWEST POSITION.
--- NOTE | 2019-01-11 07:11 | NUR ---
PT RESTED DURING THE NIGHT .NG TUBE IN PLACE .REPORT GIVEN TO THE ON COMING NURSE
[2019-01-11] MEDS: PAROXETINE HCL 20 MG TAB PO SCH (08:00)
[2019-01-11] MEDS: INSULIN GLARGINE 100 UNITS/ML VIAL SQ SCH (08:00)
[2019-01-11] MEDS: INSULIN REGULAR, HUMAN 100 UNIT/1 ML 3ML VIAL SQ SCH ×2 (08:00→12:02)
[2019-01-11] MEDS: AMIODARONE HCL 200 MG TAB PO SCH (08:00)
[2019-01-11] MEDS: METOPROLOL TARTRATE 25 MG TAB PO SCH (08:00)
[2019-01-11 08:19] VITALS: BP 157/72
[2019-01-11] MEDS: CHOLESTYRAMINE 4 GM PACKET PO SCH (09:04)
[2019-01-11] MEDS: ACETAMINOPHEN 325 MG TAB NG PRN ×2 (09:04)
[2019-01-11 09:24] VITALS: BP 157/72
--- NOTE | 2019-01-11 09:25 | NUR ---
ST NOTE: Order acknowledged for repeat MBS. Pt has had MBS studies on 12/24, 12/30, 01/05 with slight improvement noted with each MBS. Pt continues to aspirate multiple consistencies. Recommend continue NMES to treat dysphagia. NMES has been used 8 times during this hospital stay from 25-60 minutes per session. A repeat MBS at this point would not be beneficial, recommend continued NMES to treat dysphagia in acute care and post acute care setting and repeat MBS in 4-6 weeks. Handoff to ANGELA Pandya
[2019-01-11 11:53] VITALS: BP 136/65
[2019-01-11] MEDS ORDERED: TRAMADOL HCL 50 MG TAB PO PRN (12:30)
--- NOTE | 2019-01-11 13:11 | NUR ---
PT ACCEPTED TO [facility] TO ROOM [address] Paula RASMUSSEN.
--- NOTE | 2019-01-11 13:18 | NUR ---
PASRR COMPLETED FILED IN CHART AND FILED IN PACKET TO GO TO FACILITY, RTF COMPLETED AND GIVEN TO NURSE TO COMPLETE TRANSFER.
--- NOTE | 2019-01-11 13:32 | NUR ---
Pulmonary Medicine DATE OF ENCOUNTER: 01/11/2019 SUBJECTIVE: tube feeds 50/hr water 100 q6 hrs 3 L/min oxygen REVIEW OF SYSTEMS: No rash, no double vision PHYSICAL EXAMINATION: VITAL SIGNS: vital signs reviewed per EMR. HEENT: Normocephalic, atraumatic. NECK: Supple. Throat midline. LUNGS: Bilateral air entry, few rhonchi. CARDIOVASCULAR: S1, S2. No murmurs, rubs, or gallops. ABDOMEN: Soft, nontender. EXTREMITIES: No clubbing, no cyanosis. mostly resolved edema. INTEGUMENT: No rash, no purpura. LABORATORY DATA: no new updates IMPRESSION AND PLAN: 1. Acute respiratory failure, intubated/extubated 2. Shock distributive. resolved 3. Abnormal chest radiography, LARGE e coli pneumonia with bacteremia 4. e coli bacteremia 4. Acute on chronic kidney failure, better 5. fluid overload 6. atrial fibrillation 6. Metabolic acidosis. resolved 7. Moderate hypoalbuminemia. 8. Mild anemia, microcytic. 9. Hypertension, diabetes, hyperlipidemia, asthma, history of brain surgery. 10. Post fall/trauma, reported 11. weakness/debility, ICU polyneuropathy Follow up chest x-ray intermittently, ensure improvement decrease/hold diuretics for now, follow lytes and fluid status speech therapy to continue to work with patient. continue tube feeds. follow k intermittently antibiotics for pneumonia and e coli wean oxygen as tolerated PT/OT, mobilize as tolerated Thank you very much, Dr. Maciel and Dr. Marcial for allowing me a chance to participate in the care of Ms. Chou. Please call for questions.
--- NOTE | 2019-01-11 13:47 | NUR ---
Paged Dr. Paula Marcial for DC order, waiting caisson worker back.
[2019-01-11 16:38] VITALS: BP 146/84
--- NOTE | 2019-01-11 16:41 | NUR ---
RECEIVED DC ORDER FROM MD FOR PATIENT TO TRANSFER TO [facility]. PATIENT IS IN STABLE CONDITION. NG TUBE IN PLACE, FLUSHED AND DISCONNECTED. LEFT IJ DCD WITH TIP INTACT AT 1545, PRESSURE APPLIED TO SITE, NO BLEEDING NOTED. REPORT CALLED TO BARRIE SAVAGE @ [phone]. TRANSFER MAR AND PAPERWORK GIVEN TO EMS PERSONNEL. PATIENT TRANSPORTED BY STRETCHER VIA AMBULANCE
[2019-01-11] MEDS ORDERED: ENOXAPARIN SOD INJ 40 MG/0.4 ML SYR SC SCH (17:00)
--- NOTE | 2019-01-13 14:50 | Diagnostic Imaging Report ---
PROCEDURE:X-RAY MODIFIED BARIUM SWALLOW COMPARISON:None. INDICATIONS:Not provided. Fluoroscopy time: 3.4 minutes DAP: 4.52 Gycm2 DISCUSSION:Fluoroscopic examination was performed in conjunction with speech pathology, during swallowing of a variety of thin and thick liquid consistencies. CONCLUSION:Laryngeal penetration was noted with all consistencies. Overt aspiration of thin liquids during the swallow was also noted. Refer to speech pathology report for further details and dietary recommendations. Dictated by: Irineo Sheehan M.D. on 01/13/2019 at 14:54 Electronically approved by: Irineo Sheehan M.D. on 01/13/2019 at 14:54
--- NOTE | 2019-02-07 21:00 | Discharge Summary ---
CHIEF COMPLAINT: Status post fall. FINAL DIAGNOSES: Sepsis resolved, respiratory failure, pulmonary edema, anemia, diastolic congestive heart failure. DISPOSITION: [facility]. HOSPITAL COURSE: A 68-year-old female with known history of COPD, diabetes type 2, hyperlipidemia, hypertension. Apparently, she fell at home and was down on the floor for several hours. She was brought to the emergency room where she was worked up and evaluated and she was admitted to ICU regarding status post syncope, status post fall, septic shock, rhabdomyolysis, diabetes type 2, respiratory failure. As stated, she was upgraded to ICU. She will be on IV antibiotics, she will continue vent protocols. We are monitoring the patient's blood sugar. In the ER, she was found to be in respiratory distress. She was extremely lethargic and septic. She was intubated. She was started on vasopressors, IV antibiotics. The patient already admitted to ICU. Consulted with admitting Cardiology, Dr. Short regarding laboratory findings and elevated troponin. With these findings, his diagnoses are septic/distributive shock with multiorgan failure, acute kidney injury or acute tubular necrosis, profound and anion gap lactic metabolic acidosis, elevated troponin, likely demand [id number] [place], megaloblastic anemia, acute hypoxic respiratory failure, history of seemingly brain surgery and perhaps organic brain injury. From a cardiovascular standpoint, presentation does not appear to be consistent with acute coronary syndrome, rather suspect the patient is with multiorgan failure related to distributive shock and has demand non STEMI with a troponin elevated due to this. Continue pulmonary followup. Agree with the antibiotics. Recommend renal followup and again, there was no ischemia noted on the EKG. Pulmonary follow with Dr. Cordova for respiratory failure. With his review, his impression was acute respiratory failure, intubated, shock distributive, abnormal chest x-ray, possible aspiration gram-negative pneumonia, acute on chronic kidney failure, critical hyperkalemia, metabolic acidosis, moderate hypoalbuminemia, mild anemia, macrocytic, hypertension, diabetes, hyperlipidemia, asthma, history of brain surgery. Recommend continue intubated state, vent support, pressors as tolerated. Apply more fluids. Noted to have decrease in urine output with trial of Lasix. Followup further chest x-rays could not rule out pneumonia. Infectious Disease consult, Dr. Heaton for recommendations of antibiotic coverage. His impression was all sepsis, source is gram-negative bacteremia. Source is unclear. Continue cefepime. Interventional Radiology follows, requested for Dobhoff tube placement due to nursing staff unable to place despite multiple trials. From the ER, the patient was placed in ICU and was put on routine ICU vent protocol orders. Started on n.p.o. status, on sedation with her . Laboratory studies have been reviewed. Antibiotics were being started and respiratory treatments were continued. Consultants were requested. Currently receiving azithromycin, cefepime, and Flagyl under the guidance of Dr. Heaton. She was resting comfortably while on vent. Tolerating the propofol drip. She was receiving Levophed for BP support. Her antibiotics were being adjusted. She is now being placed on Rocephin 1 g q.12 her leukocytosis was resolving. She has been taken off all pressors and taken off with bicarb drip and noted that her respiratory failure was resolved. She was noted to have some anemia issues and she was set for blood transfusions and following her transfusion of packed RBCs, her hemoglobin responded well. She is now undergoing a swallowing evaluation. She is noted to be awake and alert. She is stressing a few words. She is now on BiPAP. Continues to be alert and responsive. Continued on respiratory care. Her sepsis was resolved. She is showing low-grade fevers, continuing on the BiPAP due to hypoxia, having also some issues of atrial fib with rapid ventricular response. This was resolved with medication. Modified barium swallow was coming back with trace penetration and aspiration with all sepsis. Of note, did show the presentation of dysphagia, she will continue n.p.o. status. She will be maintained on tube feeding. Further continuation of BiPAP, she was now receiving O2 nasal cannula of 10 L. The patient will be requiring further long-term care, you know that she was feeling better, still being maintained in ICU. She is on Dobhoff care with BiPAP. Arrangements were made with assistance of Case Management to transfer the patient. She will be going to the [facility]. IMAGING: Chest x-ray findings revealed cardiomegaly and central venous congestion. CT chest shows extensive right lower lobe and to a lesser degree right lower lobe and lingula consolidation, may reflect aspiration pneumonia. Trace bilateral pleural effusion. Suspected left L3 transverse process without additional displaced fracture identified. Cervical CT shows no acute osseous abnormalities. Multilevel advanced degenerative changes. Brain CT shows no acute intracranial abnormalities, mild supratentorial chronic microvascular ischemic changes. Abdomen and pelvis CT reveals extensive right lower lobe and to a lesser degree of right lower lobe and lingular consolidation, may reflect aspiration pneumonia. Trace bilateral pleural effusion. Subcutaneous fat stranding in the low anterior abdominal wall may be related to trauma without hematoma. She underwent modified barium swallow study. She had three . Final study shows laryngeal penetration aspiration of thin liquids during the swallow was also noted. Cultures, blood studies were showing E coli, sputum culture is negative, and urine culture is negative. LABORATORY STUDIES: CBC showing initial white cell count of 28,900, H and H was 9.8 and 32.8, platelets were 277,000. White cell counts augusto to 29,400, H and H began to decline. On 12/22/2018, her white cell count was 7300, H and H was 7.8 and 25.9. The patient was then transfused with packed RBCs. White cell counts remained stable until 12/28/2018 with values of 15,800, H and H has augusto post transfusion to 11.4 and 38.6, final study 10.5 and 35.2, final white cell count 11,000. C diff was positive. Urinalysis shows 2+ protein, 3+ occult blood, 11 to 20 rbc's by high-power field, 0-5 wbc's by high-power field, moderate amount of bacteria. Chemistries: Initial panel electrolytes, sodium 143, potassium 5.6, BUN 39, creatinine 2.20, glucose 77, lactic acid of 62.9. Initial cardiac enzymes were showing CPK 466, CK-MB band 3.70, troponin one at 2.714. BNP 534.6. Third set of cardiac enzymes, CPK was 1789, CK-MB band was at 6.20, troponin one was at 1.935. On 12/20, potassium is a 6.1, glucose is high at 330. Final glucose 105, final potassium 5.1, final BUN 37, and creatinine 1.33. As mentioned, the patient will be requiring further medical care and the patient was able to be transferred to the [facility] for further long-term management of condition. The patient will continue on her Dobhoff feeding tube. Tube was still in place at discharge. Her IV access was still in place. She will continue to be bed down for now. Activity level minimal. She will be receiving some PT/OT at bedside. I will continue to monitor and manage the patient at that facility on a daily basis. We are evaluating her status routinely. Staff will be contacting me in my office as needed. Dictated by JOAN Vazquez Ankit Marcial MD CC/MIGDALIA /[id number]
== END 2019-01-11 16:42 | DRG 871 ==
LOC: ER 16:59 → MERGE 20:08 → ERHOLD 20:08 → ICU 22:43 → MED/SURG3 12-31 10:26
PROC: 0BH17EZ Insertion of Endotracheal Airway into Trachea, Via Natural or Artificial Opening (ICD-10-PCS; principal; 2018-12-19)
PROC: 5A1945Z Respiratory Ventilation, 24-96 Consecutive Hours (ICD-10-PCS; 2018-12-19)
PROC: 02HV33Z Insertion of Infusion Device into Superior Vena Cava, Percutaneous Approach (ICD-10-PCS; 2018-12-19)
PROC: 3E043XZ Introduction of Vasopressor into Central Vein, Percutaneous Approach (ICD-10-PCS; 2018-12-19)
PROC: 30233N1 Transfusion of Nonautologous Red Blood Cells into Peripheral Vein, Percutaneous Approach (ICD-10-PCS; 2018-12-23)
PROC: 0DH97UZ Insertion of Feeding Device into Duodenum, Via Natural or Artificial Opening (ICD-10-PCS; 2018-12-24)
PROC: 3E0H76Z Introduction of Nutritional Substance into Lower GI, Via Natural or Artificial Opening (ICD-10-PCS; 2018-12-24)
PROC: 5A09357 Assistance with Respiratory Ventilation, Less than 24 Consecutive Hours, Continuous Positive Airway Pressure (ICD-10-PCS; 2018-12-24)
DX: A41.51 Sepsis due to Escherichia coli [E. coli] (principal); R65.21 Severe sepsis with septic shock; J96.01 Acute respiratory failure with hypoxia; N17.0 Acute kidney failure with tubular necrosis; J69.0 Pneumonitis due to inhalation of food and vomit; J15.5 Pneumonia due to Escherichia coli; G93.41 Metabolic encephalopathy; I21.A1 Myocardial infarction type 2; I50.33 Acute on chronic diastolic (congestive) heart failure; S32.039A Unspecified fracture of third lumbar vertebra, initial encounter for closed fracture; E87.2 Acidosis; G62.81 Critical illness polyneuropathy; I13.0 Hypertensive heart and chronic kidney disease with heart failure and stage 1 through stage 4 chronic kidney disease, or unspecified chronic kidney disease; N18.4 Chronic kidney disease, stage 4 (severe); Z68.41 Body mass index [BMI] 40.0-44.9, adult; J44.0 Chronic obstructive pulmonary disease with (acute) lower respiratory infection; A04.72 Enterocolitis due to Clostridium difficile, not specified as recurrent; M62.82 Rhabdomyolysis; E11.22 Type 2 diabetes mellitus with diabetic chronic kidney disease; D63.8 Anemia in other chronic diseases classified elsewhere; E11.65 Type 2 diabetes mellitus with hyperglycemia; E78.00 Pure hypercholesterolemia, unspecified; E66.9 Obesity, unspecified; M47.812 Spondylosis without myelopathy or radiculopathy, cervical region; E87.5 Hyperkalemia; R55 Syncope and collapse; I48.0 Paroxysmal atrial fibrillation; R53.1 Weakness; R53.81 Other malaise; L89.151 Pressure ulcer of sacral region, stage 1; R13.10 Dysphagia, unspecified; F41.9 Anxiety disorder, unspecified; Y92.009 Unspecified place in unspecified non-institutional (private) residence as the place of occurrence of the external cause; W01.0XXA Fall on same level from slipping, tripping and stumbling without subsequent striking against object, initial encounter; Z79.84 Long term (current) use of oral hypoglycemic drugs; Z86.73 Personal history of transient ischemic attack (TIA), and cerebral infarction without residual deficits
CPT/HCPCS: 36415; 36600; 49441; 51700; 70450; 71045; 71046; 71250; 72125; 74018; 74176; 74230; 74470; 76604; 80048; 80053; 80061; 81001; 82550; 82553; 82805; 82948; 83605; 83690; 83735; 83880; 84100; 84484; 85025; 85610; 85730; 86850; 86870; 86880; 86900; 86905; 86920; 87040; 87070; 87071; 87086; 87186; 87205; 87449; 87493; 93005; 93306; 94002; 94003; 94640; 94660; 96372; 97139; 99001; 99285; J0456; J0692; J0696; J1644; J1650; J1815; J1817; J1885; J1940; J3370; J3480; J7030; J7040; J7050; J7070; P9016

== ENCOUNTER 2019-01-24 18:04 | Emergency (ER) | payer MEDICARE, OTHER ==
[~2019-01-24] VITALS: Ht 304.8 cm; Wt 93.9 kg
[~2019-01-24 18:04] MED LIST changes: +GLIPIZIDE ER5 MG PO
--- OUTSIDE RECORDS SUMMARY | 2019-01-24 18:09 | XMS REPORT | Continuity of Care Document ---
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 [facility] SOB Active 11/08/2016 [facility] ACUTE RENAL FAILURE, DIABETIC HYPOGLYCEM Active 11/08/2016 [facility] CHF, PULMONARY FIBROSIS Active 05/16/2015 [facility] ACUTE SEVERE LOW BACK PAIN - POSSIBLE SCIATICA Active 09/29/2011 [facility] CHF - Congestive heart failure Resolved Problem 06/26/2017 [facility] COPD Active Problem 06/26/2017 [facility] Diabetes Active Problem 06/26/2017 [facility] Diabetes mellitus Active Problem 06/26/2017 [facility] HTN (Confirmed) Resolved Problem 06/26/2017 [facility] Hypertension Active Problem 06/26/2017 [facility] Pneumonia Resolved Problem 06/26/2017 [facility] COPD Active Problem 10/09/2011 [facility] Diabetes mellitus Active Problem 10/09/2011 [facility] Hypertension Active Problem 10/09/2011 [facility] Right ureteral stone Active Problem 06/26/2017 [facility] COPD (Confirmed) Active Problem 06/26/2017 [facility] Interstitial lung disease Active Problem 06/26/2017 [facility] Sleep apnea Active Problem 06/26/2017 [facility] Bacteremia due to Klebsiella pneumoniae Active Diagnosis 12/26/2016 [id number]. Severe sepsis without septic shock Active Diagnosis 12/26/2016 [id number]. Acute pyelonephritis Active Diagnosis 12/26/2016 [id number]. Other Gram-negative sepsis Active Diagnosis 12/26/2016 [id number] Right ureteral stone Active Diagnosis 12/26/2016 [id number] BACKACHE NOS Active [facility] XRAY Active [facility] LUMBOSACRAL NEURITIS NOS Active [facility] OTHER PULMONARY EMBOLISM WITHOUT ACUTE C Active [facility] HEART FAILURE, UNSPECIFIED Active [facility] ACUTE KIDNEY FAILURE, UNSPECIFIED Active [facility] TYPE 2 DIABETES MELLITUS WITH HYPOGLYCEM Active [facility] ELEVATED WHITE BLOOD CELL COUNT, UNSPECI Active [facility] CALCULUS OF KIDNEY Active [facility] Medications Medication Details Route Status Patient Instructions Ordering Provider Order Date Source Diphenhydramine 12.5 mg, Route: IVP, Drug form: INJ, Q6H, Dosing Weight 90, kg, PRN Itching, Start date: 06/23/17 12:00:00 MOBILE MECHANIC, Duration: 30 day, Stop date: 07/23/17 11:59:00 MOBILE MECHANIC Inactive 06/23/2017 [facility] Ondansetron 4 mg, Route: IVP, ONCE, Dosing Weight 90, kg, PRN Nausea & Vomiting, Start date: 06/23/17 12:00:00 MOBILE MECHANIC Inactive 06/23/2017 [facility] Fentanyl 25 microgram, Route: IVP, Q5Min, Dosing Weight 90, kg, PRN Pain Score 4-6, Priority: Routine, Start date: 06/23/17 12:00:00 MOBILE MECHANIC, Duration: 4 doses or times, Stop date: Limited # of times Inactive 06/23/2017 [facility] Acetaminophen 1,000 mg, Route: PO, Drug form: TAB, ONCE, Dosing Weight 90, kg, PRN Pain Score 1-3, Start date: 06/23/17 12:00:00 MOBILE MECHANIC Inactive 06/23/2017 [facility] Hydromorphone 0.5 mg, Route: IVP, Q5Min, Dosing Weight 90, kg, PRN Pain Score 7-10, Start date: 06/23/17 12:00:00 MOBILE MECHANIC, Duration: 4 doses or times, Stop date: Limited # of times Inactive 06/23/2017 [facility] Albuterol 0.83 MG/ML Inhalant Solution 2.49 mg, Route: NEB, Q20Min, Dosing Weight 90, kg, PRN Wheezing, Priority: STAT, Start date: 06/23/17 12:00:00 MOBILE MECHANIC, Duration: 30 day, Stop date: 07/23/17 11:59:00 MOBILE MECHANIC Inactive 06/23/2017 [facility] Naloxone 0.4 mg, Route: IVP, Q2MIN, Dosing Weight 90, kg, PRN Narcotic Reversal, Start date: 06/23/17 12:00:00 MOBILE MECHANIC, Duration: 8 doses or times, Stop date: Limited # of times Inactive 06/23/2017 [facility] Flumazenil 0.2 mg, Route: IVP, PRN, Dosing Weight 90, kg, PRN Benzodiazepine Reversal, Initial dose, Start date: 06/23/17 12:00:00 MOBILE MECHANIC, Duration: 30 day, Stop date: 07/23/17 11:59:00 MOBILE MECHANIC Inactive 06/23/2017 [facility] Labetalol 10 mg, Route: IVP, Q5Min, Dosing Weight 90, kg, PRN Elevated BP, Start date: 06/23/17 12:00:00 MOBILE MECHANIC, Duration: 5 doses or times, Stop date: Limited # of times Inactive 06/23/2017 [facility] Hydralazine 10 mg, Route: IVP, Q20Min, Dosing Weight 90, kg, PRN Elevated BP, Start date: 06/23/17 12:00:00 MOBILE MECHANIC, Duration: 2 doses or times, Stop date: Limited # of times Inactive 06/23/2017 [facility] Ketorolac 30 mg, 1 mL, Route: IVP, Drug form: INJ, ONCE, Dosing Weight 90, kg, Start date: 06/23/17 12:00:00 MOBILE MECHANIC, Stop date: 06/23/17 12:00:00 CSTNotes: (Same as:Toradol) IV bolus must be given >15 seconds. Give IM administration slowly and deeply into the muscle. Not for use > 4 days MEDICATION WASTE Product Size: 30 mg Product Wasted: ___ mg Inactive 06/23/2017 [facility] ondansetron (ANES) Route: IV, Drug form: INJ, ONCE, Stop date: 06/23/17 11:31:00 MOBILE MECHANIC Inactive 06/23/2017 [facility] famotidine (ANES) Route: IV, Drug form: INJ, ONCE, Stop date: 06/23/17 11:31:00 MOBILE MECHANIC Inactive 06/23/2017 [facility] fentaNYL (ANES) Route: IV, Drug form: INJ, ONCE, Stop date: 06/23/17 11:26:00 MOBILE MECHANIC Inactive 06/23/2017 [facility] ciprofloxacin (ANES) Route: IV, Drug form: INJ, ONCE, Stop date: 06/23/17 11:26:00 MOBILE MECHANIC Inactive 06/23/2017 [facility] lidocaine (ANES) Route: IV, Drug form: INJ, ONCE, Stop date: 06/23/17 11:26:00 MOBILE MECHANIC Inactive 06/23/2017 [facility] midazolam (ANES) Route: IV, Drug form: SOLN, ONCE, Stop date: 06/23/17 11:26:00 MOBILE MECHANIC Inactive 06/23/2017 [facility] propofol (ANES) Route: IV, Drug form: INJ, ONCE, Stop date: 06/23/17 11:26:00 MOBILE MECHANIC Inactive 06/23/2017 [facility] Lactated Ringers Injection IV (ANES) 1000 mL Route: IV, Total Volume: 1,000, Start date: 06/23/17 10:36:00 MOBILE MECHANIC, Stop date: 06/23/17 11:36:00 MOBILE MECHANIC Inactive 06/23/2017 [facility] oxybutynin 5 mg oral tablet 5 mg=1 tab, PO, TID, PRN Bladder Spasm, # 30 tab, 1 Refill(s) Active 06/23/2017 [facility] tramadol hydrochloride 50 MG Oral Tablet 50 mg=1 tab, PO, Q8H, PRN Pain, X 20 day, # 30 tab, 0 Refill(s) Active 06/23/2017 [facility] Ciprofloxacin 500 MG Oral Tablet [Cipro] 500 mg=1 tab, PO, Q12H, for UTI, X 3 day, # 6 tab, 0 Refill(s) Active 06/23/2017 [facility] Calcium Chloride 0.0014 MEQ/ML / Potassium Chloride 0.004 MEQ/ML / Sodium Chloride 0.103 MEQ/ML / Sodium Lactate 0.028 MEQ/ML Injectable Solution 1,000 mL, Rate: 25 ml/hr, Infuse over: 40 hr, Route: IV, Dosing Weight 90 kg, Total Volume: 1,000, Start date: 06/23/17 8:23:00 MOBILE MECHANIC, Duration: 30 day, Stop date: 07/23/17 8:22:00 MOBILE MECHANIC, 1.99, m2 Inactive 06/23/2017 [facility] Furosemide Daily, 0 Refill(s) Active 06/15/2017 [facility] Digoxin Daily, 0 Refill(s) Active 06/15/2017 [facility] Ofirmev 1,000 mg, Route: IV, Drug form: INJ, ONCE, Dosing Weight 90, kg, PRN Pain Score 1-3, for > or=50 kg, Start date: 05/21/17 15:42:00 MOBILE MECHANIC Inactive 05/21/2017 [facility] Meperidine 12.5 mg, Route: IVP, Q30Min, Dosing Weight 90, kg, PRN Other -See Comment, For shivering, Start date: 05/21/17 15:40:00 MOBILE MECHANIC, Duration: 2 doses or times, Stop date: Limited # of times No Longer Active 05/21/2017 [facility] Ondansetron 4 mg, Route: IVP, ONCE, Dosing Weight 90, kg, PRN Nausea & Vomiting, Start date: 05/21/17 15:40:00 MOBILE MECHANIC No Longer Active 05/21/2017 [facility] Naloxone 0.1 mg, Route: SUB-Q, Q6H, Dosing Weight 90, kg, PRN Itching, Start date: 05/21/17 15:40:00 MOBILE MECHANIC, Duration: 30 day, Stop date: 06/20/17 15:39:00 MOBILE MECHANIC No Longer Active 05/21/2017 [facility] Hydromorphone 0.5 mg, Route: IVP, Q5Min, Dosing Weight 90, kg, PRN Pain Score 7-10, Start date: 05/21/17 15:40:00 MOBILE MECHANIC, Duration: 4 doses or times, Stop date: Limited # of times No Longer Active 05/21/2017 [facility] Oxycodone 10 mg, Route: NG, Drug form: LIQ, Q4H, Dosing Weight 90, kg, PRN Pain Score 7-10, Start date: 05/21/17 15:40:00 MOBILE MECHANIC, Duration: 30 day, Stop date: 06/20/17 15:39:00 MOBILE MECHANIC No Longer Active 05/21/2017 [facility] Fentanyl 25 microgram, Route: IVP, Q5Min, Dosing Weight 90, kg, PRN Pain Score 4-6, Priority: Routine, Start date: 05/21/17 15:40:00 MOBILE MECHANIC, Duration: 4 doses or times, Stop date: Limited # of times No Longer Active 05/21/2017 [facility] Morphine 2 mg, Route: IVP, Q5Min, Dosing Weight 90, kg, PRN Pain Score 4-6, Start date: 05/21/17 15:40:00 MOBILE MECHANIC, Duration: 5 doses or times, Stop date: Limited # of times No Longer Active 05/21/2017 [facility] Albuterol 0.83 MG/ML Inhalant Solution 2.49 mg, Route: NEB, Q20Min, Dosing Weight 90, kg, PRN Wheezing, Priority: STAT, Start date: 05/21/17 15:40:00 MOBILE MECHANIC, Duration: 30 day, Stop date: 06/20/17 15:39:00 MOBILE MECHANIC No Longer Active 05/21/2017 [facility] Diphenhydramine 12.5 mg, Route: IVP, Drug form: INJ, Q6H, Dosing Weight 90, kg, PRN Itching, Start date: 05/21/17 15:40:00 MOBILE MECHANIC, Duration: 30 day, Stop date: 06/20/17 15:39:00 MOBILE MECHANIC No Longer Active 05/21/2017 [facility] Flumazenil 0.2 mg, Route: IVP, PRN, Dosing Weight 90, kg, PRN Benzodiazepine Reversal, Initial dose, Start date: 05/21/17 15:40:00 MOBILE MECHANIC, Duration: 30 day, Stop date: 06/20/17 15:39:00 MOBILE MECHANIC No Longer Active 05/21/2017 [facility] Acetaminophen 1,000 mg, Route: IVPB, Drug form: INJ, ONCE, Dosing Weight 90, kg, PRN Pain Score 1-3, Start date: 05/21/17 15:40:00 MOBILE MECHANIC No Longer Active 05/21/2017 [facility] Ketorolac 30 mg, Route: IVP, ONCE, Dosing Weight 90, kg, Start date: 05/21/17 15:40:00 MOBILE MECHANIC, Stop date: 05/21/17 15:40:00 MOBILE MECHANIC Inactive 05/21/2017 [facility] Hydralazine 10 mg, Route: IVP, Q20Min, Dosing Weight 90, kg, PRN Elevated BP, Start date: 05/21/17 15:40:00 MOBILE MECHANIC, Duration: 2 doses or times, Stop date: Limited # of times No Longer Active 05/21/2017 [facility] esmolol 10 mg, Route: IVP, Q5Min, Dosing Weight 90, kg, PRN Other -See Comment, Start date: 05/21/17 15:40:00 MOBILE MECHANIC, Duration: 5 doses or times, Stop date: Limited # of times No Longer Active 05/21/2017 [facility] Labetalol 10 mg, Route: IVP, Q5Min, Dosing Weight 90, kg, PRN Elevated BP, Start date: 05/21/17 15:40:00 MOBILE MECHANIC, Duration: 5 doses or times, Stop date: Limited # of times No Longer Active 05/21/2017 [facility] ePHEDrine (ANES) Route: IV, Drug form: INJ, ONCE, Stop date: 05/21/17 15:03:00 MOBILE MECHANIC Inactive 05/21/2017 [facility] ondansetron (ANES) Route: IV, Drug form: INJ, ONCE, Stop date: 05/21/17 14:53:00 MOBILE MECHANIC Inactive 05/21/2017 [facility] fentaNYL (ANES) Route: IV, Drug form: INJ, ONCE, Stop date: 05/21/17 14:53:00 MOBILE MECHANIC Inactive 05/21/2017 [facility] lidocaine (ANES) Route: IV, Drug form: INJ, ONCE, Stop date: 05/21/17 14:53:00 MOBILE MECHANIC Inactive 05/21/2017 [facility] propofol (ANES) Route: IV, Drug form: INJ, ONCE, Stop date: 05/21/17 14:53:00 MOBILE MECHANIC Inactive 05/21/2017 [facility] famotidine (ANES) Route: IV, Drug form: INJ, ONCE, Stop date: 05/21/17 14:48:00 MOBILE MECHANIC Inactive 05/21/2017 [facility] midazolam (ANES) Route: IV, Drug form: SOLN, ONCE, Stop date: 05/21/17 14:43:00 MOBILE MECHANIC Inactive 05/21/2017 [facility] Lactated Ringers Injection IV (ANES) 1000 mL Route: IV, Total Volume: 1,000, Start date: 05/21/17 14:02:00 MOBILE MECHANIC, Stop date: 05/21/17 15:02:00 MOBILE MECHANIC Inactive 05/21/2017 [facility] ciprofloxacin (ANES) 2 mg Route: IV, Drug form: INJ, Start date: 05/21/17 14:02:00 MOBILE MECHANIC, Stop date: 05/21/17 15:02:00 MOBILE MECHANIC Inactive 05/21/2017 [facility] Calcium Chloride 0.0014 MEQ/ML / Potassium Chloride 0.004 MEQ/ML / Sodium Chloride 0.103 MEQ/ML / Sodium Lactate 0.028 MEQ/ML Injectable Solution 1,000 mL, Rate: 25 ml/hr, Infuse over: 40 hr, Route: IV, Dosing Weight 90 kg, Total Volume: 1,000, Start date: 05/21/17 13:45:00 MOBILE MECHANIC, Duration: 30 day, Stop date: 06/20/17 13:44:00 MOBILE MECHANIC, 1.99, m2 Inactive 05/21/2017 [facility] oxybutynin 5 mg oral tablet 5 mg=1 tab, PO, TID, PRN Bladder Spasm, # 30 tab, 0 Refill(s) Active 05/21/2017 [facility] tramadol hydrochloride 50 MG Oral Tablet 50 mg=1 tab, PO, Q8H, PRN Pain, X 10 day, # 30 tab, 0 Refill(s) Active 05/21/2017 [facility] Ciprofloxacin 500 MG Oral Tablet [Cipro] 500 mg=1 tab, PO, Q12H, for UTI, X 3 day, # 6 tab, 0 Refill(s) Active 05/21/2017 [facility] Fentanyl 50 microgram, Route: IVP, ONCE, Dosing Weight 87.273, kg, Start date: 02/26/17 13:49:00 CDT, Stop date: 02/26/17 13:49:00 CDT Inactive 02/26/2017 [facility] lidocaine (ANES) Route: IV, Drug form: INJ, ONCE, Stop date: 02/26/17 13:04:00 CDT Inactive 02/26/2017 [facility] ondansetron (ANES) Route: IV, Drug form: INJ, ONCE, Stop date: 02/26/17 13:04:00 CDT Inactive 02/26/2017 [facility] fentaNYL (ANES) Route: IV, Drug form: INJ, ONCE, Stop date: 02/26/17 12:59:00 CDT Inactive 02/26/2017 [facility] metoclopramide (ANES) Route: IV, Drug form: INJ, ONCE, Stop date: 02/26/17 12:59:00 CDT Inactive 02/26/2017 [facility] propofol (ANES) Route: IV, Drug form: INJ, ONCE, Stop date: 02/26/17 12:59:00 CDT Inactive 02/26/2017 [facility] ciprofloxacin (ANES) Route: IV, Drug form: INJ, ONCE, Stop date: 02/26/17 12:59:00 CDT Inactive 02/26/2017 [facility] midazolam (ANES) Route: IV, Drug form: SOLN, ONCE, Stop date: 02/26/17 12:59:00 CDT Inactive 02/26/2017 [facility] LR 1000 mL INJ (ANES) Route: IV, Total Volume: 1,000, Start date: 02/26/17 12:17:00 CDT, Stop date: 02/26/17 13:17:00 CDT Inactive 02/26/2017 [facility] tramadol hydrochloride 50 MG Oral Tablet 50 mg=1 tab, PO, Q8H, PRN Pain, X 10 day, # 20 tab, 0 Refill(s) Active 02/26/2017 [facility] oxybutynin 5 mg oral tablet 5 mg=1 tab, PO, TID, PRN Bladder Spasm, # 30 tab, 0 Refill(s) Active 02/26/2017 [facility] Lactated Ringers Injection IV 1000 mL 1,000 mL, Rate: 25 ml/hr, Infuse over: 40 hr, Route: IV, Dosing Weight 87.273 kg, Total Volume: 1,000, Start date: 02/26/17 10:32:00 CDT, Duration: 30 day, Stop date: 03/28/17 10:31:00 CDT Inactive 02/26/2017 [facility] verapamil 120 mg/24 hours oral capsule, extended release 0 Refill(s) Active 02/02/2017 [facility] 3 ML insulin detemir 100 UNT/ML Prefilled Syringe [Levemir] 68 units, SUB-Q, Bedtime, # 3 mL, 3 Refill(s) Active 02/02/2017 [facility] Budesonide 0.25 MG/ML Inhalant Solution 0.5 mg=2 mL, NEB, RBID, # 120 mL, 0 Refill(s) Active 11/26/2016 [facility] levofloxacin 750 mg oral tablet 750 mg=1 tab, PO, Q24H, X 3 day, # 3 tab, 0 Refill(s) Active 11/26/2016 [facility] Sodium Chloride 0.154 MEQ/ML Injectable Solution 1,000 mL, Rate: 25 ml/hr, Infuse over: 40 hr, Route: IV, Dosing Weight 95 kg, Total Volume: 1,000, Start date: 11/25/16 13:52:00 CDT, Duration: 30 day, Stop date: 12/25/16 13:51:00 CDT Inactive 11/25/2016 [facility] Levofloxacin 750 mg, Route: IVPB, Drug form: SOLN, [id number], Dosing Weight 95, kg, For CrCl=20 -49ml/min, Start date: 11/25/16 12:00:00 CDT, Duration: 7 day, Stop date: 12/01/16 12:00:00 CDT, ABX Indication: Urinary Tract Infection Inactive 11/25/2016 [facility] Dulcolax Laxative 10 mg, 1 supp, Route: [place], Drug form: SUPP, ONCE, Dosing Weight 95, kg, PRN as needed for constipation, Start date: 11/24/16 14:05:00 CDTNotes: (Same As: Dulcolax, Bisco-Lax) No Longer Active 11/24/2016 [facility] Golytely 4,000 ml, Route: PO, Drug Form: PDR/REC, Dosing Weight 95, kg, ONCE, Start date: 11/24/16 14:05:00 CDT, Duration: 1 doses or times, Stop date: 11/24/16 14:05:00 CDTNotes: (polyethylene glycol electrolyte solution 4 Liter bottle) (Same as: Golytely, Colyte) Inactive 11/24/2016 [facility] Levofloxacin 750 mg, 150 mL, Route: IVPB, Drug form: SOLN, [id number], Dosing Weight 95, kg, For CrCl=20 -49ml/min, Start date: 11/22/16 16:00:00 CDT, Duration: 7 day, Stop date: 11/28/16 16:00:00 CDT, ABX Indication: Urinary Tract InfectionNotes: (Same as:Levaquin) No Longer Active 11/22/2016 [facility] Benadryl 25 mg, 1 tab, Route: PO, Drug form: TAB, QID, Dosing Weight 95, kg, PRN Allergic reaction, Start date: 11/22/16 15:39:00 CDT, Duration: 30 day, Stop date: 12/22/16 15:38:00 CDT No Longer Active 11/22/2016 [facility] Levsin SL 0.125 mg, 1 tab, Route: SL, Drug form: TAB, Q6H, Dosing Weight 95, kg, PRN Bladder Spasm, Start date: 11/22/16 9:49:00 CDT, Duration: 30 day, Stop date: 12/22/16 9:48:00 CDTNotes: (Same as: Levsin) Take 30 min before meal No Longer Active 11/22/2016 [facility] propofol (ANES) Route: IV, Drug form: INJ, ONCE, Stop date: 11/22/16 8:52:00 CDT Inactive 11/22/2016 [facility] fentaNYL (ANES) Route: IV, Drug form: INJ, ONCE, Stop date: 11/22/16 8:52:00 CDT Inactive 11/22/2016 [facility] lidocaine (ANES) Route: IV, Drug form: INJ, ONCE, Stop date: 11/22/16 8:52:00 CDT Inactive 11/22/2016 [facility] phenylephrine (ANES) Route: IV, Drug form: INJ, ONCE, Stop date: 11/22/16 8:52:00 CDT Inactive 11/22/2016 [facility] ondansetron (ANES) Route: IV, Drug form: INJ, ONCE, Stop date: 11/22/16 8:52:00 CDT Inactive 11/22/2016 [facility] LR 1000 mL INJ (ANES) Route: IV, Total Volume: 1,000, Start date: 11/22/16 7:55:00 CDT, Stop date: 11/22/16 8:55:00 CDT Inactive 11/22/2016 [facility] Lactulose 667 MG/ML Oral Solution 20 gm, 30 ml, Route: PO, Drug form: SYRP, ONCE, Dosing Weight 95, kg, Start date: 11/19/16 12:23:00 CDT, Stop date: 11/19/16 12:23:00 CDTNotes: (Same as:Chronulac) Inactive 11/19/2016 [facility] Docusate Sodium 100 MG Oral Capsule 100 mg, 1 cap, Route: PO, Drug form: CAP, BID, Dosing Weight 95, kg, Start date: 11/19/16 9:00:00 CDT, Duration: 30 day, Stop date: 12/18/16 17:00:00 CDTNotes: (Same as: Colace) (Do Not Crush) No Longer Active 11/19/2016 [facility] Miralax 17 gm, 1 pkt, Route: PO, Drug form: PWDR, ONCE, Dosing Weight 95, kg, Start date: 11/19/16 8:56:00 CDT, Duration: 1 doses or times, Stop date: 11/19/16 8:56:00 CDTNotes: Dissolve in 8 oz of water or juice. (Same as: Miralax) Inactive 11/19/2016 [facility] Zosyn 3.375 gm, Route: IVPB, [id number], Dosing Weight 95, kg, CrCl >=20 ml/min infuse over 4 hours, Priority: NOW, Start date: 11/18/16 22:48:00 CDT, Duration: 30 day, Stop date: 12/18/16 14:48:00 CDTNotes: (Same as: Zosyn) Dosing based on Piperacillin component MEDICATION WASTE Product Size: 3375 mg Product Wasted: ___ mg No Longer Active 11/19/2016 [facility] Simvastatin 40 mg, 1 tab, Route: PO, Drug form: TAB, Bedtime, Dosing Weight 95, kg, Start date: 11/17/16 21:00:00 CDT, Duration: 30 day, Stop date: 12/16/16 21:00:00 CDTNotes: (Same as: Zocor) No Longer Active 11/18/2016 [facility] pantoprazole 40 mg, 1 tab, Route: PO, Drug form: ECTAB, Before Dinner, Dosing Weight 95, kg, Start date: 11/16/16 16:30:00 CDT, Duration: 30 day, Stop date: 12/15/16 16:30:00 CDTNotes: Tablet should not be chewed or crushed. (Same as: Protonix) No Longer Active 11/16/2016 [facility] Compazine 5 mg, 1 tab, Route: PO, Drug form: TAB, TID, Dosing Weight 95, kg, PRN Hiccups, Start date: 11/16/16 11:27:00 CDT, Duration: 30 day, Stop date: 12/16/16 11:26:00 CDTNotes: (Same as: Compazine) No Longer Active 11/16/2016 [facility] Acetaminophen 325 MG / Hydrocodone Bitartrate 5 MG Oral Tablet [Mentone 5/325] 1 tab, Route: PO, Drug Form: TAB, Dosing Weight 95, kg, Q6H, PRN Pain Score 7-10, Start date: 11/14/16 11:41:00 CDT, Duration: 30 day, Stop date: 12/14/16 11:40:00 CDTNotes: (Same as: Mentone 325/5) Do not exceed 4gm/day of acetaminophen. No Longer Active 11/14/2016 [facility] Levemir 5 unit, 0.05 mL, Route: SUB-Q, Drug form: SOLN, BID, Dosing Weight 95, kg, Start date: 11/13/16 21:00:00 CDT, Duration: 30 day, Stop date: 12/13/16 9:00:00 CDTNotes: Same as Levemir Do not hold insulin without contacting prescriber WASTE: F/P - Black; E - Municipal Trash Bin "single patient use only" No Longer Active 11/14/2016 [facility] Insulin, Aspart, Human 15 unit, 0.15 [...] days from Date No Longer Active 11/13/2016 [facility] Levemir 6 unit, 0.06 mL, Route: SUB-Q, Drug form: SOLN, Daily, Dosing Weight 95, kg, Start date: 11/12/16 9:00:00 CDT, Duration: 30 day, Stop date: 12/11/16 9:00:00 CDTNotes: Same as Levemir Do not hold insulin without contacting prescriber WASTE: F/P - Black; E - Municipal Trash Bin "single patient use only" No Longer Active 11/12/2016 [facility] Tobramycin 250 mg, 6.25 mL, Route: IV, ONCE, Dosing Weight 95, kg, Start date: 11/11/16 18:16:00 CDT, Stop date: 11/11/16 18:16:00 CDTNotes: TIME CRITICAL MEDICATION (Same As: Nebcin) Inactive 11/11/2016 [facility] Water 1,000 mL, Rate: 40 ml/hr, Infuse over: 28.8 hr, Dosing Weight 95, kg, Route: IV, Total Volume: 1,150, Start Date: 11/10/16 17:28:00 CDT, Duration: 30 day, Stop date: 12/10/16 17:27:00 CDT, Replace Every: 24 hrNotes: (sodium bicarb 8.4% (1 mEq/ml) 50 ml VL) No Longer Active 11/10/2016 [facility] Ceftriaxone 2 gm, Route: IVPB, [id number], Dosing Weight 95, kg, Start date: 11/10/16 14:00:00 CDT, Duration: 30 day, Stop date: 12/09/16 14:00:00 CDTNotes: (Same As: Rocephin). Use with 100 mL NS and infuse over 30 min MEDICATION WASTE Product Size: 2000 mg Product Wasted: ___ mg No Longer Active 11/10/2016 [facility] Levemir 10 unit, 0.1 mL, Route: SUB-Q, Drug form: SOLN, Daily, Dosing Weight 95, kg, Priority: NOW, Start date: 11/10/16 11:46:00 CDT, Duration: 30 day, Stop date: 12/10/16 9:00:00 CDTNotes: Same as Levemir Do not hold insulin without contacting prescriber WASTE: F/P - Black; E - Municipal Trash Bin "single patient use only" No Longer Active 11/10/2016 [facility] Insulin, Aspart, Human 20 unit, 0.2 [...] Expires in days from Date Inactive 11/09/2016 [facility] Famotidine 20 mg, 1 tab, Route: PO, Drug form: TAB, Daily, Dosing Weight 95, kg, PRN Heartburn, Start date: 11/09/16 10:55:00 CDT, Duration: 30 day, Stop date: 12/09/16 10:54:00 CDTNotes: (Same as: Pepcid) No Longer Active 11/09/2016 [facility] insulin detemir 10 unit, Route: SUB-Q, Daily, Dosing Weight 95, kg, Start date: 11/09/16 10:48:00 CDT, Duration: 30 day, Stop date: 12/09/16 9:00:00 CDT Inactive 11/09/2016 [facility] Dextrose 50% Syringe 12.5 gm, 25 mL, Route: IVP, Drug Form: INJ, Dosing Weight 95, kg, PRN, PRN Blood Glucose Results, Start date: 11/09/16 9:17:00 CDT, Duration: 30 day, Stop date: 12/09/16 9:16:00 CDT No Longer Active 11/09/2016 [facility] Glucagon 1 mg, Route: IM, Drug form: PDR/INJ, PRN, Dosing Weight 95, kg, PRN Blood Glucose Results, Start date: 11/09/16 9:17:00 CDT, Duration: 30 day, Stop date: 12/09/16 9:16:00 CDT No Longer Active 11/09/2016 [facility] Insulin, Aspart, Human 4 unit, 0.04 [...] days from Date No Longer Active 11/09/2016 [facility] sodium bicarbonate 8.4% 50 mEq, 50 ml, Route: IVP, Drug Form: INJ, Dosing Weight 95, kg, ONCE, Start date: 11/09/16 9:17:00 CDT, Stop date: 11/09/16 9:17:00 CDTNotes: (sodium bicarb 8.4% (1 mEq/ml) 50 ml syringe) Inactive 11/09/2016 [facility] Water 1,000 mL, Rate: 70 ml/hr, Infuse over: 16.4 hr, Dosing Weight 95, kg, Route: IV, Total Volume: 1,150, Start Date: 11/09/16 9:15:00 CDT, Duration: 30 day, Stop date: 12/09/16 9:14:00 CDT, Replace Every: 16.4 hrNotes: (sodium bicarb 8.4% (1 mEq/ml) 50 ml VL) No Longer Active 11/09/2016 [facility] Paroxetine 20 mg, 2 tab, Route: PO, Drug form: TAB, Daily, Dosing Weight 95, kg, Start date: 11/09/16 9:00:00 CDT, Stop date: 12/08/16 9:00:00 CDTNotes: (Same as: Paxil) No Longer Active 11/09/2016 [facility] heparin 5,000 unit, 1 mL, Route: SUB-Q, Drug form: INJ, Q8H, Dosing Weight 95.455, kg, Start date: 11/09/16 0:00:00 CDT, Duration: 30 day, Stop date: 12/08/16 16:00:00 CDTNotes: porcine heparin No Longer Active 11/09/2016 [facility] Saline Flush 0.9% 10 ml, Route: IVP, Drug Form: INJ, Dosing Weight 95, kg, Q12H, Start date: 11/08/16 21:00:00 CDT, Duration: 30 day, Stop date: 12/08/16 9:00:00 CDTNotes: Same as: BD Posiflush Sterile No Longer Active 11/09/2016 [facility] Tylenol 650 mg, 2 tab, Route: PO, Drug form: TAB, Q6H, Dosing Weight 95, kg, PRN Pain 1-3/Temp > 100.4 F, Start date: 11/08/16 18:56:00 CDT, Duration: 30 day, Stop date: 12/08/16 18:55:00 CDTNotes: Do not exceed 4 gm/day. (Same as: Tylenol) No Longer Active 11/08/2016 [facility] Tramadol 50 mg, 1 tab, Route: PO, Drug form: TAB, Q6H, Dosing Weight 95, kg, PRN Pain Score 4-6, Start date: 11/08/16 18:56:00 CDT, Stop date: 12/08/16 18:55:00 CDTNotes: Not to exceed 200mg/day. (Same As: Ul tram) No Longer Active 11/08/2016 [facility] Zofran 4 mg, 2 mL, Route: IV, Drug form: INJ, Q6H, Dosing Weight 95, kg, PRN Nausea, Start date: 11/08/16 18:56:00 CDT, Duration: 30 day, Stop date: 12/08/16 18:55:00 CDTNotes: (Same as: Zofran) MEDICATION WASTE Product Size: 4 mg Product Wasted: ___ mg No Longer Active 11/08/2016 [facility] Ceftriaxone 1 gm, Route: IVPB, [id number], Dosing Weight 95.455, kg, Start date: 11/08/16 18:00:00 CDT, Duration: 30 day, Stop date: 12/07/16 18:00:00 CDTNotes: (Same As: Rocephin). Use with 100 mL NS and infuse over 30 min MEDICATION WASTE Product Size: 1000 mg Product Wasted: ___ mg No Longer Active 11/08/2016 [facility] Saline Flush 0.9% 10 ml, Route: IVP, Drug Form: INJ, Dosing Weight 95, kg, PRN, PRN Line Flush, Start date: 11/08/16 17:51:00 CDT, Duration: 30 day, Stop date: 12/08/16 17:50:00 CDT Inactive 11/08/2016 [facility] Albuterol 0.833 MG/ML / Ipratropium Hope 0.167 MG/ML Inhalant Solution 3 ml, Route: NEB, Dosing Weight 95, kg, PRN, PRN Respiratory Protocol, Start date: 11/08/16 17:51:00 CDT, Duration: 30 day, Stop date: 12/08/16 17:50:00 CDT Inactive 11/08/2016 [facility] Nystatin 100 UNT/MG Topical Powder 1 appl, Route: TOP, PRN, Drug form: PWDR, PRN For Fungal Prophylaxis, Start date: 11/08/16 17:51:00 CDT, Duration: 30 day, Stop date: 12/08/16 17:50:00 CDTNotes: (Same as:Mycostatin, Nilstat) For external use only. No Longer Active 11/08/2016 [facility] Budesonide 0.5 mg, 2 mL, Route: NEB, Drug form: SUSP, RBID, Dosing Weight 95.455, kg, Start date: 11/08/16 17:40:00 CDT, Duration: 30 day, Stop date: 12/08/16 8:00:00 CDTNotes: (Same As: Pulmicort) No Longer Active 11/08/2016 [facility] Albuterol 0.833 MG/ML / Ipratropium Hope 0.167 MG/ML Inhalant Solution [DuoNeb] 3 ml, Route: NEB, Drug Form: SOLN, Dosing Weight 95.455, kg, PRN, PRN Respiratory Protocol, Start date: 11/08/16 17:40:00 CDT, Duration: 30 day, Stop date: 12/08/16 17:39:00 CDTNotes: (Same as: Duoneb) No Longer Active 11/08/2016 [facility] Insulin, Aspart, Human 2 unit, 0.02 [...] days from Date No Longer Active 11/08/2016 [facility] Dextrose 50% Syringe 12.5 gm, 25 mL, Route: IVP, Drug Form: INJ, Dosing Weight 95.455, kg, PRN, PRN Blood Glucose Results, Start date: 11/08/16 17:25:00 CDT, Duration: 30 day, Stop date: 12/08/16 17:24:00 CDT No Longer Active 11/08/2016 [facility] Glucagon 1 mg, Route: IM, Drug form: PDR/INJ, PRN, Dosing Weight 95.455, kg, PRN Blood Glucose Results, Start date: 11/08/16 17:25:00 CDT, Duration: 30 day, Stop date: 12/08/16 17:24:00 CDT No Longer Active 11/08/2016 [facility] verapamil 120 mg/24 hours oral capsule, extended release 120 mg=1 cap, PO, Daily, 0 Refill(s) No Longer Active 11/08/2016 [facility] Ceftriaxone 1 gm, Route: IVPB, ONCE, Dosing Weight 95.455, kg, Priority: STAT, Start date: 11/08/16 15:42:00 CDT, Stop date: 11/08/16 15:42:00 CDTNotes: (Same As: Rocephin). Use with 100 mL NS and infuse over 30 m in MEDICATION WASTE Product Size: 1000 mg Product Wasted: ___ mg Inactive 11/08/2016 [facility] methylPREDNISolone SODium SUCCinate 125 mg, 2 mL, Route: IVP, Drug form: INJ, ONCE, Dosing Weight 95.455, kg, Priority: STAT, Start date: 11/08/16 15:42:00 CDT, Stop date: 11/08/16 15:42:00 CDTNotes: (Same as:Solu-MEDROL, A-Methapred) Inactive 11/08/2016 [facility] digoxin antibodies Jamey fragments 200 mg, Route: IVPB, Drug form: INJ, ONCE, Dosing Weight 95.455, kg, Start date: 11/08/16 15:33:00 CDT, Stop date: 11/08/16 15:33:00 CDTNotes: (Same as:Digifab) Inactive 11/08/2016 [facility] digoxin antibodies Jamey fragments 2,000 microgram, Route: IVPB, ONCE, Dosing Weight 95.455, kg, Start date: 11/08/16 15:27:00 CDT, Stop date: 11/08/16 15:27:00 CDT Inactive 11/08/2016 [facility] D5NS 1,000 mL 1,000 mL, Rate: 75 ml/hr, Infuse over: 13.3 hr, Route: IV, Dosing Weight 95.455 kg, Total Volume: 1,000, Start date: 11/08/16 14:37:00 CDT, Duration: 30 day, Stop date: 12/08/16 14:36:00 CDT No Longer Active 11/08/2016 [facility] d50 syringe 1 amp, Route: IV, Dosing Weight 95.455, kg, ONCE, Start date: 11/08/16 14:29:00 CDT, Stop date: 11/08/16 14:29:00 CDT Inactive 11/08/2016 [facility] Sodium Chloride 0.154 MEQ/ML Injectable Solution 500 mL, 500 ml/hr, Infuse Over: 1 hr, Route: IV, 500, Drug form: INJ, ONCE, Priority: STAT, Dosing Weight 95.455 kg, Start date: 11/08/16 13:36:00 CDT, Duration: 1 doses or times, Stop date: 11/08/16 13:36:00 CDT Inactive 11/08/2016 [facility] Albuterol 0.833 MG/ML / Ipratropium Hope 0.167 MG/ML Inhalant Solution 3 mL, Route: NEB, Drug Form: SOLN, Dosing Weight 95.455, kg, ONCE, STAT, Start date: 11/08/16 13:33:00 CDT, Stop date: 11/08/16 13:33:00 CDT Inactive 11/08/2016 [facility] Saline Flush 0.9% 10 mL, Route: IVP, Drug Form: INJ, Dosing Weight 95.455, kg, PRN, PRN Line Flush, Start date: 11/08/16 13:33:00 CDT, Duration: 30 day, Stop date: 12/08/16 13:32:00 CDTNotes: (Same as: BD Posiflush) No Longer Active 11/08/2016 [facility] Cipro 500 mg, 1 tab, Route: PO, Drug form: TAB, [id number], Dosing Weight 108.008, kg, Start date: 05/22/15 14:00:00, Duration: 30 day, Stop date: 06/21/15 2:00:00Notes: May interfere w/enteral feedings - Take 1 hr before or 2 hrs after antacids, dairy pdt & minerals. On empty stomach. No Longer Active 05/22/2015 [facility] Lasix 40 mg, 4 mL, Route: IVP, Drug form: INJ, Daily, Dosing Weight 95.568, kg, Start date: 05/20/15 9:00:00, Duration: 30 day, Stop date: 06/18/15 9:00:00Notes: (Same as: Lasix) MEDICATION WASTE Product Size: 40 mg Product Wasted: ___ mg No Longer Active 05/20/2015 [facility] Lasix 40 mg, 4 mL, Route: IVP, Drug form: INJ, ONCE, Dosing Weight 95.568, kg, Start date: 05/19/15 12:38:00, Stop date: 05/19/15 12:38:00Notes: (Same as: Lasix) MEDICATION WASTE Product Size: 40 mg Product Wasted: ___ mg Inactive 05/19/2015 [facility] Lovenox 40 mg, 0.4 mL, Route: SUB-Q, Drug form: INJ, Daily, Dosing Weight 95.568, kg, Start date: 05/18/15 20:00:00, Duration: 30 day, Stop date: 06/16/15 20:00:00Notes: (Same as: Lovenox) No Longer Active 05/19/2015 [facility] Glucagon 1 mg, Route: IM, Drug form: PDR/INJ, PRN, Dosing Weight 95.568, kg, PRN Blood Glucose Results, Start date: 05/17/15 18:42:00, Duration: 30 day, Stop date: 06/16/15 18:41:00 No Longer Active 05/18/2015 [facility] Dextrose 50% Syringe 12.5 gm, 25 mL, Route: IVP, Drug Form: INJ, Dosing Weight 95.568, kg, PRN, PRN Blood Glucose Results, Start date: 05/17/15 18:42:00, Duration: 30 day, Stop date: 06/16/15 18:41:00 No Longer Active 05/18/2015 [facility] Insulin, Aspart, Human 3 unit, 0.03 [...] days from Date No Longer Active 05/18/2015 [facility] Acetaminophen 650 mg, 2 tab, Route: PO, Drug form: TAB, Q6H, Dosing Weight 95.568, kg, PRN Pain 1-3/Temp > 100.4 F, Start date: 05/17/15 18:41:00, Duration: 30 day, Stop date: 06/16/15 18:40:00Notes: Do not exceed 4 gm/day. (Same as: Tylenol) No Longer Active 05/18/2015 [facility] Nitroglycerin 0.4 mg, 1 tab, Route: SL, Drug form: TAB, Q5Min, Dosing Weight 95.568, kg, PRN Chest Pain, Start date: 05/17/15 14:10:00, Duration: 3 doses or times, Stop date: Limited # of timesNotes: (Same as:Nitr oquick, Nitrostat) "Do Not Crush" Sublingual tablet No Longer Active 05/17/2015 [facility] digoxin 250 mcg (0.25 mg) oral tablet 0.25 mg, 1 tab, Route: PO, Drug form: TAB, Daily, Dosing Weight 95.568, kg, Start date: 05/17/15 9:00:00, Duration: 30 day, Stop date: 06/15/15 9:00:00Notes: Take on an Empty Stomach (Same as: Lanoxin) No Longer Active 05/17/2015 [facility] Lasix 40 mg, Route: IVP, Drug form: INJ, Daily, Dosing Weight 95.568, kg, Start date: 05/17/15 9:00:00, Duration: 30 day, Stop date: 06/15/15 9:00:00 No Longer Active 05/17/2015 [facility] Verapamil 120 mg, 1 tab, Route: PO, Drug form: ERTAB, Daily, Dosing Weight 95.568, kg, Start date: 05/17/15 9:00:00, Duration: 30 day, Stop date: 06/15/15 9:00:00Notes: Do not crush or chew. (Same As: Calan SR, Isoptin SR) "Avoid grapefruit and grapefruit juice" No Longer Active 05/17/2015 [facility] GlipiZIDE XL 2.5 mg oral tablet, extended release 2.5 mg, 1 tab, Route: PO, Drug form: ERTAB, BID, Dosing Weight 95.568, kg, Start date: 05/17/15 9:00:00, Duration: 30 day, Stop date: 06/15/15 17:00:00Notes: (Same as: Glucotrol XL) "Do Not Crush" 30 min before meals. No Longer Active 05/17/2015 [facility] Atropine 0.5 mg, 5 mL, Route: IVP, Drug form: INJ, ONCE, Dosing Weight 95.568, kg, PRN Bradycardia, Start date: 05/17/15 7:52:00, symptomatic bradycardia of No Longer Active 05/17/2015 [facility] Nitroglycerin 0.4 MG Sublingual Tablet 0.4 mg, 1 tab, Route: SL, Drug form: TAB, Q5Min, Dosing Weight 95.568, kg, PRN Chest Pain, Start date: 05/17/15 7:52:00, Duration: 30 day, Stop date: 06/16/15 7:51:00Notes: (Same as:Nitroquick, Nitrostat) "Do Not Crush" Sublingual tablet No Longer Active 05/17/2015 [facility] albuterol 1.25 mg, 3 mL, Route: NEB, Drug form: SOLN, RQ6H, Start date: 05/17/15 2:00:00, Duration: 30 day, Stop date: 06/15/15 20:00:00Notes: SEE RT DOCUMENTATION (Same as: Proventil) No Longer Active 05/17/2015 [facility] Xopenex 0.63 mg, Route: NEB, Q6H, Dosing Weight 95.568, kg, Start date: 05/17/15 0:00:00, Duration: 30 day, Stop date: 06/15/15 18:00:00 No Longer Active 05/17/2015 [facility] Enoxaparin 40 mg, 0.4 mL, Route: SUB-Q, Drug form: INJ, [id number], Dosing Weight 95.568, kg, Start date: 05/16/15 22:00:00, Duration: 30 day, Stop date: 06/14/15 22:00:00Notes: (Same as: Lovenox) No Longer Active 05/17/2015 [facility] Verapamil 120 mg, 1 tab, Route: PO, Drug form: TAB, Q8H, Dosing Weight 95.568, kg, Start date: 05/16/15 21:46:00, Duration: 30 day, Stop date: 06/15/15 16:00:00Notes: (Same As: Calblanche Isoptin) "Avoid grapefruit and grapefruit juice" No Longer Active 05/17/2015 [facility] Simvastatin 40 mg, 1 tab, Route: PO, Drug form: TAB, Bedtime, Dosing Weight 95.568, kg, Start date: 05/16/15 21:00:00, Duration: 30 day, Stop date: 06/14/15 21:00:00Notes: (Same as: Zocor) No Longer Active 05/17/2015 [facility] Ambien 5 mg, 1 tab, Route: PO, Drug form: TAB, Bedtime, Dosing Weight 95.568, kg, PRN as needed for sleep, Start date: 05/16/15 20:50:00, Duration: 30 day, Stop date: 06/15/15 20:49:00Notes: (Same As: Ambien) No Longer Active 05/17/2015 [facility] 200 ACTUAT Albuterol 0.09 MG/ACTUAT Metered Dose Inhaler [ProAir HFA] 180 microgram, Route: INHALER, Drug Form: AERO/A, Dosing Weight 95.568, kg, Q4H, PRN Wheezing, Start date: 05/16/15 20:44:00, Duration: 30 day, Stop date: 06/15/15 20:43:00Notes: Albuterol 90 microgram/inh 8gm HFA Same as: Ventolin, Proventil No Longer Active 05/17/2015 [facility] 200 ACTUAT Albuterol 0.09 MG/ACTUAT Metered Dose Inhaler [ProAir HFA] 2 puff, INHALER, Q4H, PRN for wheezing, # 8.5 gm, 0 Refill(s) Active 05/17/2015 [facility] Paroxetine 20 mg, 1 tab, Route: PO, Drug form: TAB, Daily, Dosing Weight 95.568, kg, Start date: 05/16/15 20:30:00, Duration: 30 day, Stop date: 06/15/15 9:00:00Notes: (Same as: Paxil) No Longer Active 05/17/2015 [facility] Insulin, Aspart, Human 4 unit, 0.04 [...] days from Date No Longer Active 05/17/2015 [facility] Dextrose 50% Syringe 12.5 gm, 25 mL, Route: IVP, Drug Form: INJ, Dosing Weight 95.568, kg, PRN, PRN Blood Glucose Results, Start date: 05/16/15 19:00:00, Duration: 30 day, Stop date: 06/15/15 18:59:00 No Longer Active 05/17/2015 [facility] Glucagon 1 mg, Route: IM, Drug form: PDR/INJ, PRN, Dosing Weight 95.568, kg, PRN Blood Glucose Results, Start date: 05/16/15 19:00:00, Duration: 30 day, Stop date: 06/15/15 18:59:00 No Longer Active 05/17/2015 [facility] Lisinopril 20 mg, 1 tab, Route: PO, Drug form: TAB, Daily, Dosing Weight 95.568, kg, Start date: 05/16/15 18:32:00, Duration: 30 day, Stop date: 06/15/15 17:00:00Notes: (Same as: Prinivil, Zestril) No Longer Active 05/17/2015 [facility] methylPREDNISolone SODium SUCCinate 40 mg, 1 mL, Route: IVP, Drug form: INJ, Q8H, Dosing Weight 95.568, kg, Start date: 05/16/15 16:00:00, Duration: 30 day, Stop date: 06/15/15 2:00:00Notes: (Same as:Solu- MEDROL, A-Methapred) No Longer Active 05/16/2015 [facility] Lasix 40 mg, 4 mL, Route: IVP, Drug form: INJ, Q8H, Dosing Weight 95.568, kg, Priority: STAT, Start date: 05/16/15 15:45:00, Duration: 3 doses or times, Stop date: 05/17/15 2:00:00Notes: (Same as: Lasix) MEDICATION WASTE Product Size: 40 mg Product Wasted: ___ mg No Longer Active 05/16/2015 [facility] predniSONE 10 mg oral tablet 10 mg, 1 tab, PO, Daily, 10 tab, Substitution Allowed, 2 tabs daily for 5 days, 1 tab daily for 5 days, then stop, TAB2 tabs daily for 5 days, 1 tab daily for 5 days, then stop PO Active Rahim 10/07/2011 [facility] Neurontin 300 mg oral capsule 300 mg, 1 cap, PO, TID, 90 cap, Substitution Allowed PO Active Rahim 10/07/2011 [facility] Ultram 50 mg oral tablet 50 mg, 1 tab, PO, TID, PRN, 90 tab, pain, Substitution Allowed PO Active Rahim 10/07/2011 [facility] Vitamin D 50,000 IntlUnit, 1 cap, Route: PO, Drug form: CAP, qWeek, Start date: 10/06/11 22:30:00, Duration: 4 doses or times, Stop date: 10/27/11 9:00:00 PO No Longer Active Albert 10/07/2011 [facility] predniSONE 20 mg, 1 tab, Route: PO, Drug form: TAB, ONCE, Start date: 10/06/11 16:00:00, Stop date: 10/06/11 16:00:00 PO No Longer Active [facility] 10/06/2011 [facility] insulin detemir 5 unit, 0.05 mL, Route: SUB-Q, Drug form: INJ, ONCE, Start date: 10/04/11 10:01:00, Stop date: 10/04/11 10:01:00 SUB-Q No Longer Active [facility] 10/04/2011 [facility] pneumococcal 23-valent vaccine 0.5 ml, Route: IM, Drug Form: INJ, Start date: 10/04/11 9:00:00, Stop date: 10/04/11 9:00:00 IM No Longer Active [facility] 10/04/2011 [facility] Lactated Ringers IV 1,000 mL 1,000 mL, Rate: 25 ml/hr, Infuse over: 40 hr, Route: IV, Dosing Weight 125 kg, Total Volume: 1,000, Start date: 10/02/11 11:46:00, Duration: 30 day, Stop date: 11/01/11 11:45:00 IV No Longer Active [facility] 10/02/2011 [facility] Levemir FlexPen 15 unit, 0.15 mL, Route: SUB-Q, Drug form: INJ, Daily, Start date: 10/02/11 10:00:00, Stop date: 11/01/11 9:00:00 SUB-Q No Longer Active [facility] 10/02/2011 [facility] Vitamin D3 5000 intl units oral capsule 5,000 IntlUnit, 5 tab, Route: PO, Drug form: TAB, Daily, Start date: 10/02/11 9:00:00, Duration: 30 day, Stop date: 10/31/11 9:00:00 PO No Longer Active [facility] 10/02/2011 [facility] Lantus 10 unit, Route: SUB-Q, Drug form: SOLN, Daily, Start date: 10/02/11 9:00:00, Duration: 30 day, Stop date: 10/31/11 9:00:00 SUB-Q No Longer Active [facility] 10/02/2011 [facility] Lovenox 40 mg, 0.4 mL, Route: SUB-Q, Drug form: INJ, [id number], Start date: 10/01/11 15:00:00, Duration: 30 day, Stop date: 10/30/11 15:00:00 SUB-Q No Longer Active [facility] 10/01/2011 [facility] NovoLog FlexPen 12 unit, 0.12 mL, Route: SUB-Q, Drug form: SOLN, Sliding Scale, PRN Blood Glucose Results, Start date: 09/30/11 17:21:00, Duration: 30 day, Stop date: 10/30/11 17:20:00 SUB-Q No Longer Active [facility] 09/30/2011 [facility] NovoLog FlexPen 4 unit, 0.04 mL, Route: SUB-Q, Drug form: SOLN, Sliding Scale, PRN Blood Glucose Results, Start date: 09/30/11 17:20:00, Duration: 30 day, Stop date: 10/30/11 17:19:00 SUB-Q No Longer Active [facility] 09/30/2011 [facility] Ativan 1 mg, 0.5 mL, Route: IVP, Drug form: INJ, ONCALL, Start date: 09/30/11 15:00:00, Duration: 1 doses or times IVP No Longer Active [facility] 09/30/2011 [facility] Robaxin 750 mg, 1 tab, Route: PO, Drug form: TAB, TID, Start date: 09/30/11 9:00:00, Duration: 30 day, Stop date: 10/29/11 17:00:00 PO No Longer Active [facility] 09/30/2011 [facility] metFORmin 1000 mg oral tablet 1,000 mg, 2 tab, Route: PO, Drug form: TAB, BID-Meals, Start date: 09/30/11 8:00:00, Duration: 30 day, Stop date: 10/29/11 17:00:00 PO No Longer Active [facility] 09/30/2011 [facility] Valium 5 mg, 1 tab, Route: PO, Drug form: TAB, Q8H, Start date: 09/30/11 0:00:00, Duration: 30 day, Stop date: 10/29/11 16:00:00 PO No Longer Active [facility] 09/30/2011 [facility] NovoLog FlexPen 4 unit, 0.04 mL, Route: SUB-Q, Drug form: SOLN, Bedtime, PRN Blood Glucose Results, Start date: 09/29/11 21:59:00, Duration: 30 day, Stop date: 10/29/11 21:58:00 SUB-Q No Longer Active [facility] 09/30/2011 [facility] NovoLog FlexPen 5 unit, 0.05 mL, Route: SUB-Q, Drug form: SOLN, Sliding Scale, PRN Blood Glucose Results, Start date: 09/29/11 21:58:00, Duration: 30 day, Stop date: 10/29/11 21:57:00 SUB-Q No Longer Active [facility] 09/30/2011 [facility] temazepam 15 mg, 1 cap, Route: PO, Drug form: CAP, Bedtime, PRN Insomnia, Start date: 09/29/11 21:11:00, Duration: 30 day, Stop date: 10/29/11 21:10:00 PO No Longer Active [facility] 09/30/2011 [facility] acetaminophen 650 mg, 2 tab, Route: PO, Drug form: TAB, Q4H, PRN Pain/Fever, Start date: 09/29/11 21:11:00, Duration: 30 day, Stop date: 10/29/11 21:10:00 PO No Longer Active [facility] 09/30/2011 [facility] docusate 100 mg, 1 cap, Route: PO, Drug form: CAP, BID, PRN Constipation, Start date: 09/29/11 21:11:00, Duration: 30 day, Stop date: 10/29/11 21:10:00 PO No Longer Active [facility] 09/30/2011 [facility] Saline Flush 0.9% 5 ml, Route: IVP, Drug Form: INJ, PRN, PRN Line Flush, Start date: 09/29/11 21:11:00, Duration: 30 day, Stop date: 10/29/11 21:10:00 IVP No Longer Active Raarm 09/30/2011 [facility] NS + KCL 20mEq/L 1000ml (Premix) 1,000 mL 1,000 mL 1,000 mL, Rate: 100 ml/hr, Infuse over: 10 hr, Route: IV, Dosing Weight 125 kg, Total Volume: 1,000, Start date: 09/29/11 21:11:00, Duration: 30 day, Stop date: 10/29/11 21:10:00 IV No Longer Active Rahim 09/30/2011 [facility] Celebrex 200 mg, 1 cap, Route: PO, Drug form: CAP, Q12H, Start date: 09/29/11 21:00:00, Duration: 30 day, Stop date: 10/29/11 9:00:00 PO No Longer Active Hector 09/30/2011 [facility] metoprolol tartrate 50 mg, 1 tab, Route: PO, Drug form: TAB, Q12H, Start date: 09/29/11 21:00:00, Stop date: 10/29/11 9:00:00 PO No Longer Active Raarm 09/30/2011 [facility] methylPREDNISolone 40 mg, 1 mL, Route: IV, Drug form: INJ, Q8H, Start date: 09/29/11 19:00:00, Duration: 30 day, Stop date: 10/29/11 11:00:00 IV No Longer Active Rahim 09/30/2011 [facility] Mentone 10/325 oral tablet 1 tab, Route: PO, Drug Form: TAB, Q4H, PRN Pain, Start date: 09/29/11 18:36:00, Duration: 30 day, Stop date: 10/29/11 18:35:00 PO No Longer Active Hamid 09/29/2011 [facility] Dilaudid 2 mg, 1 mL, Route: IVP, Drug form: INJ, Q4H, PRN Pain, Start date: 09/29/11 18:25:00, Duration: 30 day, Stop date: 10/29/11 18:24:00 IVP No Longer Active Hector 09/29/2011 [facility] paroxetine 20 mg oral tablet 20 mg, 1 tab, PO, Daily, 30 tab, Substitution Allowed, TAB PO Active 09/29/2011 [facility] simvastatin 40 mg oral tablet 40 mg, 1 tab, PO, Daily, 30 tab, Substitution Allowed, TAB PO Active 09/29/2011 [facility] furosemide 40 mg oral tablet 40 mg, 1 tab, PO, Daily, 30 tab, Substitution Allowed, TAB PO Active 09/29/2011 [facility] verapamil 120 mg oral tablet See Instructions, Substitution Allowed, 1 tab PO Daily, TAB1 tab PO Daily Active 09/29/2011 [facility] digoxin 250 mcg (0.25 mg) oral tablet 0.25 mg, 1 tab, PO, Daily, 30 tab, Substitution Allowed, TAB PO Active 09/29/2011 [facility] metoprolol 50 mg oral tablet 50 mg, 1 tab, PO, Daily, Substitution Allowed, TAB PO No Longer Active 09/29/2011 [facility] GlipiZIDE XL 2.5 mg oral tablet, extended release 2.5 mg, 1 tab, PO, BID, Substitution Allowed, TAB PO Active 09/29/2011 [facility] metoprolol 50 mg oral tablet 50 mg, 1 tab, PO, Daily, Substitution Allowed, TAB PO Active 09/29/2011 [facility] metFORmin 500 mg oral tablet 1,000 mg, 2 tab, PO, Substitution Allowed, bedtime, TABbedtime PO Active 09/29/2011 [facility] Dextrose 50% Syringe 25 mL, Route: IVP, PRN, PRN Blood Glucose Results, Start date: 09/29/11 17:31:00, Duration: 30 day, Stop date: 10/29/11 17:30:00 IVP No Longer Active [facility] 09/29/2011 [facility] glucagon 1 mg, Route: IM, PRN, PRN Blood Glucose Results, Start date: 09/29/11 17:31:00, Duration: 30 day, Stop date: 10/29/11 17:30:00 IM No Longer Active [facility] 09/29/2011 [facility] glucagon 1 mg, Route: IM, PRN, PRN Blood Glucose Results, Start date: 09/29/11 17:30:00, Duration: 30 day, Stop date: 10/29/11 17:29:00 IM No Longer Active [facility] 09/29/2011 [facility] Dextrose 50% Syringe 50 mL, Route: IVP, PRN, PRN Blood Glucose Results, Start date: 09/29/11 17:30:00, Duration: 30 day, Stop date: 10/29/11 17:29:00 IVP No Longer Active Raarm 09/29/2011 [facility] NS + KCL 20mEq/L 1000ml (Premix) 1,000 mL 1,000 mL, Rate: 75 ml/hr, Infuse over: 13.3 hr, Route: IV, Dosing Weight 125 kg, Total Volume: 1,000, Start date: 09/29/11 17:28:00, Duration: 30 day, Stop date: 10/29/11 17:27:00 IV No Longer Active [facility]im 09/29/2011 [facility] Dextrose 50% Syringe 12.5 gm, 25 mL, Route: IVP, Drug Form: INJ, PRN, PRN Blood Glucose Results, Start date: 09/29/11 17:28:00, Duration: 30 day, Stop date: 10/29/11 17:27:00 IVP No Longer Active [facility] 09/29/2011 [facility] glucagon 1 mg, Route: IM, Drug form: PDR/INJ, PRN, PRN Blood Glucose Results, Start date: 09/29/11 17:28:00, Duration: 30 day, Stop date: 10/29/11 17:27:00 IM No Longer Active Ra[facility] 09/29/2011 [facility] temazepam 30 mg, 2 cap, Route: PO, Drug form: CAP, Bedtime, PRN Sleep, Start date: 09/29/11 17:27:00, Duration: 30 day, Stop date: 10/29/11 17:26:00 PO No Longer Active Raarm 09/29/2011 [facility] Docusate Sodium 1 capsule as needed Orally Active 100 MG Orally Once a day [place] [id number] Levofloxacin 1 tablet Orally Active 750 MG Orally Once a day [place] [id number]. Simvastatin 1 tablet in the evening Orally Active 40 MG Orally Once a day [place] [id number] Pantoprazole Sodium 1 tablet Orally Active 40 MG Orally Once a day [place] [id number] paroxetine 20 mg Tab not defined NA Active [place] [id number] Allergies, Adverse Reactions, Alerts Substance Category Reaction Severity Reaction type Status Date Reported Comments Source N.K.D.A. Adverse Reaction Info Not Available Adverse Reaction Active 12/23/2016 [id number] Immunizations Immunization Date Given Site Status Last Updated Comments Source pneumococcal 23-valent vaccine 10/04/2011 Right deltoid completed [place] [facility] pneumococcal 23-valent vaccine 10/04/2011 completed [place] [facility] Results Order Name Results Value Reference Range Date Interpretation Comments Source CHEM PANEL eGFR 59 06/15/2017 Result Comment: The eGFR is calculated [...] should be multiplied by the estimated BMI. [facility] CHEM PANEL Glucose Lvl 181 70 - 99 06/15/2017 [facility] CHEM PANEL CO2 27 24 - 32 06/15/2017 [facility] CHEM PANEL Calcium Lvl 8.8 8.5 - 10.5 06/15/2017 [facility] CHEM PANEL BUN 17 7 - 22 06/15/2017 [facility] CHEM PANEL Creatinine Lvl 0.99 0.50 - 1.40 06/15/2017 [facility] CHEM PANEL Sodium Lvl 139 135 - 145 06/15/2017 [facility] CHEM PANEL Potassium Lvl 4.8 3.5 - 5.1 06/15/2017 [facility] CHEM PANEL Chloride Lvl 103 95 - 109 06/15/2017 [facility] CHEM PANEL AGAP 13.8 10.0 - 20.0 06/15/2017 [facility] HEMATOLOGY Segs-Bands # 11.5 1.5 - 8.1 06/15/2017 [facility] HEMATOLOGY Lymphocytes # 2.2 1.0 - 5.5 06/15/2017 [facility] HEMATOLOGY Lymphocytes 14.2 20.0 - 40.0 06/15/2017 [facility] HEMATOLOGY Basophils 0.7 0.0 - 1.0 06/15/2017 [facility] HEMATOLOGY Monocytes 7.9 2.0 - 12.0 06/15/2017 [facility] HEMATOLOGY Eosinophils 2.2 0.0 - 4.0 06/15/2017 [facility] HEMATOLOGY Eosinophils # 0.3 0.0 - 0.5 06/15/2017 [facility] HEMATOLOGY Monocytes # 1.2 0.0 - 0.8 06/15/2017 [facility] HEMATOLOGY Basophils # 0.1 0.0 - 0.2 06/15/2017 [facility] HEMATOLOGY Segs 75.0 45.0 - 75.0 06/15/2017 [facility] HEMATOLOGY MPV 9.4 7.4 - 10.4 06/15/2017 [facility] HEMATOLOGY Platelet 228 133 - 450 06/15/2017 [facility] HEMATOLOGY MCV 93.6 80.0 - 98.0 06/15/2017 [facility] HEMATOLOGY RDW 15.6 11.5 - 14.5 06/15/2017 [facility] HEMATOLOGY MCHC 32.5 32.0 - 36.0 06/15/2017 [facility] HEMATOLOGY Hct 37.2 36.0 - 48.0 06/15/2017 [facility] MCH 30.4 27.0 - 31.0 06/15/2017 [facility] HEMATOLOGY WBC 15.3 3.7 - 10.4 06/15/2017 [facility] HEMATOLOGY RBC 3.98 4.20 - 5.40 06/15/2017 [facility] HEMATOLOGY Hgb 12.1 12.0 - 16.0 06/15/2017 [facility] URINE AND STOOL UA Color Ltyellow 06/15/2017 [facility] URINE AND STOOL UA Urobilinogen <=1.0 mg/dL 0.1 - 1.0 06/15/2017 [facility] URINE AND STOOL UA Sq Epi Few /LPF Few /LPF 06/15/2017 [facility] URINE AND STOOL UA Leuk Est Small *ABN* (06/15/17 3:15 PM) Negative 06/15/2017 [facility] URINE AND STOOL UA RBC 50 0 - 2 06/15/2017 [facility] URINE AND STOOL UA WBC 20 0 - 5 06/15/2017 [facility] URINE AND STOOL UA Bacteria Occasional /HPF None Seen /HPF 06/15/2017 [facility] URINE AND STOOL UA Mucus Few /LPF None Seen /LPF 06/15/2017 [facility] URINE AND STOOL UA Glucose Negative mg/dL Negative mg/dL 06/15/2017 [facility] URINE AND STOOL UA Bili Negative *NA* (06/15/17 3:15 PM) Negative 06/15/2017 [facility] URINE AND STOOL UA Ketones Negative mg/dL Negative mg/dL 06/15/2017 [facility] URINE AND STOOL UA Nitrite Negative (06/15/17 3:15 PM) Negative 06/15/2017 [facility] URINE AND STOOL UA Blood Moderate *ABN* (06/15/17 3:15 PM) Negative 06/15/2017 [facility] URINE AND STOOL UA pH 5.0 5.0 - 8.0 06/15/2017 [facility] URINE AND STOOL UA Spec Grav 1.019 <=1.030 06/15/2017 [facility] URINE AND STOOL UA Protein 30 mg/dL Negative mg/dL 06/15/2017 [facility] URINE AND STOOL UA Turbidity Clear (06/15/17 3:15 PM) Clear 06/15/2017 [facility] URINE AND STOOL UA Urobilinogen <=1.0 mg/dL 0.1 - 1.0 05/11/2017 [facility] URINE AND STOOL UA WBC 63 0 - 5 05/11/2017 [facility] URINE AND STOOL UA Sq Epi Few /LPF Few /LPF 05/11/2017 [facility] URINE AND STOOL UA RBC >182 0 - 2 05/11/2017 [facility] URINE AND STOOL UA Bacteria Occasional /HPF None Seen /HPF 05/11/2017 [facility] URINE AND STOOL UA Mucus Few /LPF None Seen /LPF 05/11/2017 [facility] URINE AND STOOL UA Blood Large *ABN* (05/11/17 3:43 PM) Negative 05/11/2017 [facility] URINE AND STOOL UA Bili Negative *NA* (05/11/17 3:43 PM) Negative 05/11/2017 [facility] URINE AND STOOL UA Leuk Est Large *ABN* (05/11/17 3:43 PM) Negative 05/11/2017 [facility] URINE AND STOOL UA Nitrite Negative (05/11/17 3:43 PM) Negative 05/11/2017 [facility] URINE AND STOOL UA Color Yellow *NA* (05/11/17 3:43 PM) Yellow 05/11/2017 [facility] URINE AND STOOL UA Turbidity Slight *ABN* (05/11/17 3:43 PM) Clear 05/11/2017 [facility] URINE AND STOOL UA pH 5.0 5.0 - 8.0 05/11/2017 [facility] URINE AND STOOL UA Spec Grav 1.026 <=1.030 05/11/2017 [facility] URINE AND STOOL UA Ketones Negative mg/dL Negative mg/dL 05/11/2017 [facility] URINE AND STOOL UA Glucose Negative mg/dL Negative mg/dL 05/11/2017 [facility] URINE AND STOOL UA Protein 100 mg/dL Negative mg/dL 05/11/2017 [facility] CHEM PANEL eGFR 47 05/11/2017 Result Comment: The eGFR is calculated [...] should be multiplied by the estimated BMI. [facility] CHEM PANEL CO2 28 24 - 32 05/11/2017 [facility] CHEM PANEL Calcium Lvl 9.4 8.5 - 10.5 05/11/2017 [facility] CHEM PANEL Chloride Lvl 105 95 - 109 05/11/2017 [facility] CHEM PANEL Sodium Lvl 141 135 - 145 05/11/2017 [facility] CHEM PANEL Potassium Lvl 4.9 3.5 - 5.1 05/11/2017 [facility] CHEM PANEL Glucose Lvl 211 70 - 99 05/11/2017 [facility] CHEM PANEL BUN 18 7 - 22 05/11/2017 [facility] CHEM PANEL Creatinine Lvl 1.20 0.50 - 1.40 05/11/2017 [facility] CHEM PANEL AGAP 12.9 10.0 - 20.0 05/11/2017 [facility] HEMATOLOGY Lymphocytes # 2.5 1.0 - 5.5 05/11/2017 [facility] HEMATOLOGY Monocytes # 1.4 0.0 - 0.8 05/11/2017 [facility] HEMATOLOGY Eosinophils # 0.4 0.0 - 0.5 05/11/2017 [facility] HEMATOLOGY Basophils # 0.1 0.0 - 0.2 05/11/2017 [facility] HEMATOLOGY Basophils 0.7 0.0 - 1.0 05/11/2017 [facility] HEMATOLOGY Segs-Bands # 12.8 1.5 - 8.1 05/11/2017 [facility] HEMATOLOGY Eosinophils 2.2 0.0 - 4.0 05/11/2017 [facility] HEMATOLOGY Segs 74.5 45.0 - 75.0 05/11/2017 [facility] HEMATOLOGY Lymphocytes 14.4 20.0 - 40.0 05/11/2017 [facility] HEMATOLOGY Monocytes 8.2 2.0 - 12.0 05/11/2017 [facility] HEMATOLOGY INR 0.99 0.85 - 1.17 05/11/2017 [facility] HEMATOLOGY PTT 22.6 22.9 - 35.8 05/11/2017 [facility] HEMATOLOGY PT 13.1 12.0 - 14.7 05/11/2017 [facility] HEMATOLOGY MPV 9.3 7.4 - 10.4 05/11/2017 [facility] HEMATOLOGY RDW 17.6 11.5 - 14.5 05/11/2017 [facility] HEMATOLOGY MCHC 32.3 32.0 - 36.0 05/11/2017 [facility] HEMATOLOGY Platelet 268 133 - 450 05/11/2017 [facility] HEMATOLOGY Hgb 12.0 12.0 - 16.0 05/11/2017 [facility] HEMATOLOGY Hct 37.0 36.0 - 48.0 05/11/2017 [facility] HEMATOLOGY MCV 94.1 80.0 - 98.0 05/11/2017 [facility] HEMATOLOGY MCH 30.4 27.0 - 31.0 05/11/2017 [facility] HEMATOLOGY WBC 17.2 3.7 - 10.4 05/11/2017 [facility] HEMATOLOGY RBC 3.93 4.20 - 5.40 05/11/2017 [facility] ELECTROLYTES Potassium Lvl 5.1 3.5 - 5.1 02/02/2017 [facility] ELECTROLYTES Chloride Lvl 107 95 - 109 02/02/2017 [facility] ELECTROLYTES CO2 28 24 - 32 02/02/2017 [facility] ELECTROLYTES Calcium Lvl 9.1 8.5 - 10.5 02/02/2017 [facility] ELECTROLYTES Sodium Lvl 142 135 - 145 02/02/2017 [facility] ELECTROLYTES AGAP 12.1 10.0 - 20.0 02/02/2017 [facility] ELECTROLYTES eGFR 52 02/02/2017 Result Comment: The eGFR is calculated [...] should be multiplied by the estimated BMI. [facility] ELECTROLYTES Glucose Lvl 208 70 - 99 02/02/2017 [facility] ELECTROLYTES BUN 26 7 - 22 02/02/2017 [facility] ELECTROLYTES Creatinine Lvl 1.10 0.50 - 1.40 02/02/2017 [facility] HEMATOLOGY Monocytes 9.5 2.0 - 12.0 02/02/2017 [facility] HEMATOLOGY Segs 67.3 45.0 - 75.0 02/02/2017 [facility] HEMATOLOGY Lymphocytes 19.9 20.0 - 40.0 02/02/2017 [facility] HEMATOLOGY Basophils 1.1 0.0 - 1.0 02/02/2017 [facility] HEMATOLOGY Eosinophils 2.2 0.0 - 4.0 02/02/2017 [facility] HEMATOLOGY Basophils # 0.1 0.0 - 0.2 02/02/2017 [facility] HEMATOLOGY Eosinophils # 0.3 0.0 - 0.5 02/02/2017 [facility] HEMATOLOGY Monocytes # 1.3 0.0 - 0.8 02/02/2017 [facility] HEMATOLOGY Lymphocytes # 2.7 1.0 - 5.5 02/02/2017 [facility] HEMATOLOGY Segs-Bands # 9.1 1.5 - 8.1 02/02/2017 [facility] HEMATOLOGY RBC 3.45 4.20 - 5.40 02/02/2017 [facility] HEMATOLOGY MPV 8.9 7.4 - 10.4 02/02/2017 [facility] HEMATOLOGY Hgb 10.8 12.0 - 16.0 02/02/2017 [facility] HEMATOLOGY Hct 33.4 36.0 - 48.0 02/02/2017 [facility] HEMATOLOGY Platelet 327 133 - 450 02/02/2017 [facility] HEMATOLOGY RDW 15.2 11.5 - 14.5 02/02/2017 [facility] MCHC 32.3 32.0 - 36.0 02/02/2017 [facility] HEMATOLOGY MCV 96.7 80.0 - 98.0 02/02/2017 [facility] MCH 31.2 27.0 - 31.0 02/02/2017 [facility] WBC 13.5 3.7 - 10.4 02/02/2017 [facility] URINE AND STOOL UA Urobilinogen <=1.0 mg/dL 0.1 - 1.0 02/02/2017 [facility] URINE AND STOOL UA Leuk Est Large *ABN* (02/02/17 3:49 PM) Negative 02/02/2017 [facility] URINE AND STOOL UA Protein 100 mg/dL Negative mg/dL 02/02/2017 [facility] URINE AND STOOL UA pH 5.0 5.0 - 8.0 02/02/2017 [facility] URINE AND STOOL UA WBC >182 0 - 5 02/02/2017 [facility] URINE AND STOOL UA Sq Epi Occasional /LPF Few /LPF 02/02/2017 [facility] URINE AND STOOL UA Nitrite Negative (02/02/17 3:49 PM) Negative 02/02/2017 [facility] URINE AND STOOL UA Blood Large *ABN* (02/02/17 3:49 PM) Negative 02/02/2017 [facility] URINE AND STOOL UA Mucus Few /LPF None Seen /LPF 02/02/2017 [facility] URINE AND STOOL UA Bacteria Many /HPF None Seen /HPF 02/02/2017 [facility] URINE AND STOOL UA RBC 77 0 - 2 02/02/2017 [facility] URINE AND STOOL UA Turbidity Marked *ABN* (02/02/17 3:49 PM) Clear 02/02/2017 [facility] URINE AND STOOL UA Spec Grav 1.018 <=1.030 02/02/2017 [facility] URINE AND STOOL UA Color Yellow *NA* (02/02/17 3:49 PM) Yellow 02/02/2017 [facility] URINE AND STOOL UA Glucose Negative mg/dL Negative mg/dL 02/02/2017 [facility] URINE AND STOOL UA Bili Negative *NA* (02/02/17 3:49 PM) Negative 02/02/2017 [facility] URINE AND STOOL UA Ketones Negative mg/dL Negative mg/dL 02/02/2017 [facility] ELECTROLYTES AGAP 9.6 10.0 - 20.0 11/25/2016 [facility] ELECTROLYTES eGFR 59 11/25/2016 Result Comment: The eGFR is calculated [...] should be multiplied by the estimated BMI. [facility] ELECTROLYTES Calcium Lvl 8.2 8.5 - 10.5 11/25/2016 [facility] ELECTROLYTES CO2 28 24 - 32 11/25/2016 [facility] ELECTROLYTES BUN 10 7 - 22 11/25/2016 [facility] ELECTROLYTES Glucose Lvl 181 70 - 99 11/25/2016 [facility] ELECTROLYTES Chloride Lvl 109 95 - 109 11/25/2016 [facility] ELECTROLYTES Sodium Lvl 143 135 - 145 11/25/2016 [facility] ELECTROLYTES Potassium Lvl 3.6 3.5 - 5.1 11/25/2016 [facility] ELECTROLYTES Creatinine Lvl 1.00 0.50 - 1.40 11/25/2016 [facility] HEMATOLOGY RDW 14.5 11.5 - 14.5 11/25/2016 [facility] HEMATOLOGY MCHC 33.3 32.0 - 36.0 11/25/2016 [facility] MPV 8.4 7.4 - 10.4 11/25/2016 [facility] Platelet 334 133 - 450 11/25/2016 [facility] MCH 30.1 27.0 - 31.0 11/25/2016 [facility] Hgb 8.4 12.0 - 16.0 11/25/2016 [facility] MCV 90.4 80.0 - 98.0 11/25/2016 [facility] Hct 25.1 36.0 - 48.0 11/25/2016 [facility] RBC 2.78 4.20 - 5.40 11/25/2016 [facility] WBC 10.8 3.7 - 10.4 11/25/2016 [facility] Segs-Bands # 7.3 1.5 - 8.1 11/25/2016 [facility] Eosinophils 3.4 0.0 - 4.0 11/25/2016 [facility] Basophils 0.5 0.0 - 1.0 11/25/2016 [facility] Lymphocytes # 2.0 1.0 - 5.5 11/25/2016 [facility] Monocytes # 1.0 0.0 - 0.8 11/25/2016 [facility] Monocytes 9.7 2.0 - 12.0 11/25/2016 [facility] Segs 67.8 45.0 - 75.0 11/25/2016 [facility] Lymphocytes 18.6 20.0 - 40.0 11/25/2016 [facility] Eosinophils # 0.4 0.0 - 0.5 11/25/2016 [facility] Basophils # 0.1 0.0 - 0.2 11/25/2016 [facility] CHEM PANEL BUN 15 7 - 22 11/24/2016 [facility] CHEM PANEL Creatinine Lvl 1.40 0.50 - 1.40 11/24/2016 [facility] CHEM PANEL Glucose Lvl 169 70 - 99 11/24/2016 [facility] CHEM PANEL eGFR 39 11/24/2016 Result Comment: The eGFR is calculated [...] should be multiplied by the estimated BMI. [facility] CHEM PANEL CO2 24 24 - 32 11/24/2016 [facility] CHEM PANEL Potassium Lvl 4.2 3.5 - 5.1 11/24/2016 [facility] CHEM PANEL Calcium Lvl 8.0 8.5 - 10.5 11/24/2016 [facility] CHEM PANEL Chloride Lvl 108 95 - 109 11/24/2016 [facility] CHEM PANEL Sodium Lvl 145 135 - 145 11/24/2016 [facility] CHEM PANEL AGAP 17.2 10.0 - 20.0 11/24/2016 [facility] HEMATOLOGY Eosinophils 2.8 0.0 - 4.0 11/24/2016 [facility] Lymphocytes # 2.0 1.0 - 5.5 11/24/2016 [facility] Monocytes # 1.1 0.0 - 0.8 11/24/2016 [facility] HEMATOLOGY Basophils 0.3 0.0 - 1.0 11/24/2016 [facility] HEMATOLOGY Segs-Bands # 9.5 1.5 - 8.1 11/24/2016 [facility] Eosinophils # 0.4 0.0 - 0.5 11/24/2016 [facility] Segs 72.7 45.0 - 75.0 11/24/2016 [facility] Lymphocytes 15.4 20.0 - 40.0 11/24/2016 [facility] Monocytes 8.8 2.0 - 12.0 11/24/2016 [facility] WBC 13.0 3.7 - 10.4 11/24/2016 [facility] MPV 8.7 7.4 - 10.4 11/24/2016 [facility] Platelet 321 133 - 450 11/24/2016 [facility] RDW 14.8 11.5 - 14.5 11/24/2016 [facility] MCHC 32.6 32.0 - 36.0 11/24/2016 [facility] MCH 29.7 27.0 - 31.0 11/24/2016 [facility] MCV 91.1 80.0 - 98.0 11/24/2016 [facility] HEMATOLOGY Hct 26.1 36.0 - 48.0 11/24/2016 [facility] HEMATOLOGY Hgb 8.5 12.0 - 16.0 11/24/2016 [facility] HEMATOLOGY RBC 2.87 4.20 - 5.40 11/24/2016 [facility] ELECTROLYTES AGAP 9.8 10.0 - 20.0 11/23/2016 [facility] ELECTROLYTES Calcium Lvl 7.9 8.5 - 10.5 11/23/2016 [facility] ELECTROLYTES CO2 28 24 - 32 11/23/2016 [facility] ELECTROLYTES Chloride Lvl 109 95 - 109 11/23/2016 [facility] ELECTROLYTES eGFR 36 11/23/2016 Result Comment: The eGFR is calculated [...] should be multiplied by the estimated BMI. [facility] ELECTROLYTES Potassium Lvl 3.8 3.5 - 5.1 11/23/2016 [facility] ELECTROLYTES Sodium Lvl 143 135 - 145 11/23/2016 [facility] ELECTROLYTES Creatinine Lvl 1.50 0.50 - 1.40 11/23/2016 [facility] ELECTROLYTES BUN 18 7 - 22 11/23/2016 [facility] ELECTROLYTES Glucose Lvl 117 70 - 99 11/23/2016 [facility] URINE AND STOOL UA Color Red 11/23/2016 [facility] URINE AND STOOL UA Urobilinogen <=1.0 mg/dL 0.1 - 1.0 11/23/2016 [facility] URINE AND STOOL UA Renal Epi 7 <=0 /LPF 11/23/2016 [facility] URINE AND STOOL UA Amorph Bridget Few /HPF None Seen /HPF 11/23/2016 [facility] URINE AND STOOL UA Glucose 50 mg/dL Negative mg/dL 11/23/2016 [facility] URINE AND STOOL UA Blood Large *ABN* (11/22/16 10:00 PM) Negative 11/23/2016 [facility] URINE AND STOOL UA Bili Negative *NA* (11/22/16 10:00 PM) Negative 11/23/2016 [facility] URINE AND STOOL UA Mucus Few /LPF None Seen /LPF 11/23/2016 [facility] URINE AND STOOL UA Sq Epi Moderate /LPF Few /LPF 11/23/2016 [facility] URINE AND STOOL UA WBC >182 0 - 5 11/23/2016 [facility] URINE AND STOOL UA RBC >182 0 - 2 11/23/2016 [facility] URINE AND STOOL UA Bacteria Occasional /HPF None Seen /HPF 11/23/2016 [facility] URINE AND STOOL UA Leuk Est Large *ABN* (11/22/16 10:00 PM) Negative 11/23/2016 [facility] URINE AND STOOL UA Nitrite Negative (11/22/16 10:00 PM) Negative 11/23/2016 [facility] URINE AND STOOL UA Spec Grav 1.011 <=1.030 11/23/2016 [facility] URINE AND STOOL UA Protein 100 mg/dL Negative mg/dL 11/23/2016 [facility] URINE AND STOOL UA pH 6.0 5.0 - 8.0 11/23/2016 [facility] URINE AND STOOL UA Ketones Negative mg/dL Negative mg/dL 11/23/2016 [facility] URINE AND STOOL UA Turbidity Marked *ABN* (11/22/16 10:00 PM) Clear 11/23/2016 [facility] HEMATOLOGY Segs 84.0 45.0 - 75.0 11/21/2016 [facility] HEMATOLOGY Lymphocytes 6.5 20.0 - 40.0 11/21/2016 [facility] HEMATOLOGY Monocytes 7.4 2.0 - 12.0 11/21/2016 [facility] HEMATOLOGY Eosinophils 1.6 0.0 - 4.0 11/21/2016 [facility] HEMATOLOGY Basophils 0.5 0.0 - 1.0 11/21/2016 [facility] HEMATOLOGY Segs-Bands # 15.7 1.5 - 8.1 11/21/2016 [facility] HEMATOLOGY Lymphocytes # 1.2 1.0 - 5.5 11/21/2016 [facility] HEMATOLOGY Monocytes # 1.4 0.0 - 0.8 11/21/2016 [facility] HEMATOLOGY Basophils # 0.1 0.0 - 0.2 11/21/2016 [facility] HEMATOLOGY Eosinophils # 0.3 0.0 - 0.5 11/21/2016 [facility] HEMATOLOGY MPV 8.4 7.4 - 10.4 11/21/2016 [facility] HEMATOLOGY Platelet 275 133 - 450 11/21/2016 [facility] MCHC 32.1 32.0 - 36.0 11/21/2016 [facility] HEMATOLOGY RDW 14.5 11.5 - 14.5 11/21/2016 [facility] HEMATOLOGY MCV 93.3 80.0 - 98.0 11/21/2016 [facility] HEMATOLOGY MCH 29.9 27.0 - 31.0 11/21/2016 [facility] HEMATOLOGY Hct 26.9 36.0 - 48.0 11/21/2016 [facility] HEMATOLOGY Hgb 8.6 12.0 - 16.0 11/21/2016 [facility] HEMATOLOGY WBC 18.7 3.7 - 10.4 11/21/2016 [facility] HEMATOLOGY RBC 2.88 4.20 - 5.40 11/21/2016 [facility] HEMATOLOGY Basophils # 0.1 0.0 - 0.2 11/20/2016 [facility] TOXICOLOGY Digoxin Lvl 1.9 0.8 - 2.0 11/17/2016 [facility] CHEM PANEL ALT 9 0 - 65 11/16/2016 [facility] CHEM PANEL Albumin Lvl 1.9 3.5 - 5.0 11/16/2016 [facility] CHEM PANEL Total Protein 6.8 6.4 - 8.4 11/16/2016 [facility] CHEM PANEL Bili Total 0.4 0.2 - 1.3 11/16/2016 [facility] CHEM PANEL Alk Phos 134 39 - 136 11/16/2016 [facility] CHEM PANEL AST 8 0 - 37 11/16/2016 [facility] CHEM PANEL A/G Ratio 0.4 0.7 - 1.6 11/16/2016 [facility] CHEM PANEL Globulin 4.9 2.7 - 4.2 11/16/2016 [facility] CHEM PANEL B/C Ratio 22 6 - 25 11/16/2016 [facility] TOXICOLOGY Digoxin Lvl 2.7 0.8 - 2.0 11/15/2016 Result Comment: Critical Result(s) called to Angelita Wheeler at 11/15/2016 07:33 byHA. Read back OK[facility] CHEM PANEL Phosphorus 5.0 2.5 - 4.5 11/13/2016 [facility] CHEM PANEL Magnesium Lvl 2.0 1.8 - 2.4 11/13/2016 [facility] BACTERIAL - SEROLOGY MRSA by PCR Positive 1 *ABN* (11/11/16 5:47 PM) 11/11/2016 Result Comment: "Significant Findings called to Bull Jamisonat 11/12/2016 05:58 by CO.Read Back OK." [facility] TOXICOLOGY Digoxin Lvl 6.2 0.8 - 2.0 11/11/2016 Result Comment: Critical Result(s) called to shaila francois at 11/11/2016 06:18 by hp. Read back OK. [facility] IMMUNOLOGY Hep Bs Ag Negative *NA* (11/10/16 6:00 PM) Negative 11/10/2016 [facility] CHEM PANEL Magnesium Lvl 1.6 1.8 - 2.4 11/10/2016 [facility] CHEM PANEL Phosphorus 5.6 2.5 - 4.5 11/10/2016 [facility] HEMATOLOGY Plt Morph Normal (11/10/16 2:56 AM) 11/10/2016 [facility] HEMATOLOGY RBC Morph Normal (11/10/16 2:56 AM) 11/10/2016 [facility] HEMATOLOGY Atypical Lymphs 0.0 <=0.0 % 11/10/2016 [facility] HEMATOLOGY Bands 32.0 0.0 - 11.0 11/10/2016 [facility] URINE AND STOOL UA Protein 100 mg/dL Negative mg/dL 11/09/2016 [facility] URINE AND STOOL UA Ketones Negative mg/dL Negative mg/dL 11/09/2016 [facility] URINE AND STOOL UA Bili Negative *NA* (11/09/16 5:22 PM) Negative 11/09/2016 [facility] URINE AND STOOL UA RBC 106 0 - 2 11/09/2016 [facility] URINE AND STOOL UA Blood Large *ABN* (11/09/16 5:22 PM) Negative 11/09/2016 [facility] URINE AND STOOL UA WBC 142 0 - 5 11/09/2016 [facility] URINE AND STOOL UA Nitrite Negative (11/09/16 5:22 PM) Negative 11/09/2016 [facility] URINE AND STOOL UA Turbidity Marked *ABN* (11/09/16 5:22 PM) Clear 11/09/2016 [facility] URINE AND STOOL UA Spec Grav 1.015 <=1.030 11/09/2016 [facility] URINE AND STOOL UA pH 5.0 5.0 - 8.0 11/09/2016 [facility] URINE AND STOOL UA Glucose 150 mg/dL Negative mg/dL 11/09/2016 [facility] URINE AND STOOL UA Urobilinogen <=1.0 mg/dL 0.1 - 1.0 11/09/2016 [facility] URINE AND STOOL UA Gran Cast 4 11/09/2016 [facility] URINE AND STOOL UA Leuk Est Large *ABN* (11/09/16 5:22 PM) Negative 11/09/2016 [facility] URINE AND STOOL UA Sq Epi Occasional /LPF Few /LPF 11/09/2016 [facility] URINE AND STOOL UA Color Zehra 11/09/2016 [facility] URINE AND STOOL UA Amorph Bridget Few /HPF None Seen /HPF 11/09/2016 [facility] URINE AND STOOL UA Bacteria Many /HPF None Seen /HPF 11/09/2016 [facility] URINE AND STOOL UA Mucus Few /LPF None Seen /LPF 11/09/2016 [facility] URINE AND STOOL UA Renal Epi 24 <=0 /LPF 11/09/2016 [facility] URINE CHEM U Protein 214.0 11/09/2016 [facility] URINE CHEM U Creatinine 110.00 11/09/2016 [facility] URINE CHEM U Sodium 51 11/09/2016 [facility] CHEM PANEL Lactic Acid Lvl 3.6 0.5 - 2.2 11/09/2016 [facility] HEMATOLOGY Atypical Lymphs 0.0 <=0.0 % 11/09/2016 [facility] HEMATOLOGY Plt Morph Normal (11/09/16 2:36 AM) 11/09/2016 [facility] HEMATOLOGY RBC Morph Normal (11/09/16 2:36 AM) 11/09/2016 [facility] HEMATOLOGY Tot Cell Ct 100 11/09/2016 [facility] HEMATOLOGY Bands 32.0 0.0 - 11.0 11/09/2016 [facility] CARDIAC ENZYMES Troponin-I 0.05 0.00 - 0.40 11/09/2016 [facility] CARDIAC ENZYMES Total CK 54 12 - 191 11/09/2016 [facility] CHEM PANEL Lactic Acid Lvl 3.8 0.5 - 2.2 11/09/2016 [facility] BACTERIAL - SEROLOGY MRSA by PCR Positive 2 *ABN* (11/08/16 10:15 PM) 11/09/2016 Result Comment: "Significant Findings called to Adrianne Jo_at 610pm___by _FG__.Read Back OK." [facility] URINE AND STOOL UA Sq Epi None Seen 11/09/2016 [facility] URINE AND STOOL UA Urobilinogen <=1.0 mg/dL 0.1 - 1.0 11/09/2016 [facility] URINE AND STOOL UA Nitrite Negative (11/08/16 10:15 PM) Negative 11/09/2016 [facility] URINE AND STOOL UA Blood Large *ABN* (11/08/16 10:15 PM) Negative 11/09/2016 [facility] URINE AND STOOL UA Leuk Est Small *ABN* (11/08/16 10:15 PM) Negative 11/09/2016 [facility] URINE AND STOOL UA Bili Negative *NA* (11/08/16 10:15 PM) Negative 11/09/2016 [facility] URINE AND STOOL UA Amorph Bridget Occasional /HPF None Seen /HPF 11/09/2016 [facility] URINE AND STOOL UA RBC 127 0 - 2 11/09/2016 [facility] URINE AND STOOL UA Bacteria Many /HPF None Seen /HPF 11/09/2016 [facility] URINE AND STOOL UA Ketones Negative mg/dL Negative mg/dL 11/09/2016 [facility] URINE AND STOOL UA Glucose Negative mg/dL Negative mg/dL 11/09/2016 [facility] URINE AND STOOL UA pH 5.0 5.0 - 8.0 11/09/2016 [facility] URINE AND STOOL UA Turbidity Marked *ABN* (11/08/16 10:15 PM) Clear 11/09/2016 [facility] URINE AND STOOL UA Spec Grav 1.013 <=1.030 11/09/2016 [facility] URINE AND STOOL UA Protein 100 mg/dL Negative mg/dL 11/09/2016 [facility] URINE AND STOOL UA WBC 6 0 - 5 11/09/2016 [facility] URINE AND STOOL UA Color Yellow *NA* (11/08/16 10:15 PM) Yellow 11/09/2016 [facility] CARDIAC ENZYMES Troponin-I 0.06 0.00 - 0.40 11/09/2016 [facility] CARDIAC ENZYMES Total CK 54 12 - 191 11/09/2016 [facility] CHEM PANEL Lactic Acid Lvl 3.4 0.5 - 2.2 11/09/2016 [facility] CHEM PANEL Osmolality 314 280 - 300 11/08/2016 [facility] URINE CHEM U Chloride 56 11/08/2016 [facility] URINE CHEM U Sodium 60 11/08/2016 [facility] URINE CHEM U Potassium 20.1 11/08/2016 [facility] CARDIAC ENZYMES Troponin-I 0.07 0.00 - 0.40 11/08/2016 [facility] CARDIAC ENZYMES BNP 179 <=100 pg/mL 11/08/2016 [facility] CHEM PANEL ALT 10 0 - 65 11/08/2016 [facility] CHEM PANEL A/G Ratio 0.5 0.7 - 1.6 11/08/2016 [facility] CHEM PANEL Globulin 4.5 2.7 - 4.2 11/08/2016 [facility] CHEM PANEL AST 16 0 - 37 11/08/2016 [facility] CHEM PANEL Alk Phos 126 39 - 136 11/08/2016 [facility] CHEM PANEL Bili Total 0.5 0.2 - 1.3 11/08/2016 [facility] CHEM PANEL Albumin Lvl 2.4 3.5 - 5.0 11/08/2016 [facility] CHEM PANEL Total Protein 6.9 6.4 - 8.4 11/08/2016 [facility] CHEM PANEL B/C Ratio 15 6 - 25 11/08/2016 [facility] HEMATOLOGY Bands 8.0 0.0 - 11.0 11/08/2016 [facility] HEMATOLOGY Plt Morph Normal (11/08/16 1:46 PM) 11/08/2016 [facility] HEMATOLOGY RBC Morph Normal (11/08/16 1:46 PM) 11/08/2016 [facility] HEMATOLOGY Atypical Lymphs 0.0 <=0.0 % 11/08/2016 [facility] HEMATOLOGY INR 1.18 0.85 - 1.17 11/08/2016 [facility] HEMATOLOGY PT 15.2 12.0 - 14.7 11/08/2016 [facility] HEMATOLOGY PTT 26.9 22.9 - 35.8 11/08/2016 [facility] CHEM PANEL Magnesium Lvl 1.9 1.8 - 2.4 05/20/2015 [facility] ELECTROLYTES Sodium Lvl 139 135 - 145 05/20/2015 [facility] ELECTROLYTES AGAP 10.8 10.0 - 20.0 05/20/2015 [facility] ELECTROLYTES CO2 36 24 - 32 05/20/2015 [facility] ELECTROLYTES Chloride Lvl 96 95 - 109 05/20/2015 [facility] ELECTROLYTES Potassium Lvl 3.8 3.5 - 5.1 05/20/2015 [facility] ELECTROLYTES BUN 24 7 - 22 05/20/2015 [facility] ELECTROLYTES Calcium Lvl 8.4 8.5 - 10.5 05/20/2015 [facility] ELECTROLYTES Glucose Lvl 323 70 - 99 05/20/2015 [facility] ELECTROLYTES Creatinine Lvl 0.92 0.50 - 1.40 05/20/2015 [facility] ELECTROLYTES eGFR 66 05/20/2015 Result Comment: The eGFR is calculated [...] should be multiplied by the estimated BMI. [facility] ELECTROLYTES Chloride Lvl 97 95 - 109 05/18/2015 [facility] ELECTROLYTES Potassium Lvl 3.6 3.5 - 5.1 05/18/2015 [facility] ELECTROLYTES eGFR 45 05/18/2015 Result Comment: The eGFR is calculated [...] should be multiplied by the estimated BMI. [facility] ELECTROLYTES Calcium Lvl 8.5 8.5 - 10.5 05/18/2015 [facility] ELECTROLYTES AGAP 13.6 10.0 - 20.0 05/18/2015 [facility] ELECTROLYTES CO2 31 24 - 32 05/18/2015 [facility] ELECTROLYTES Sodium Lvl 138 135 - 145 05/18/2015 [facility] ELECTROLYTES Creatinine Lvl 1.25 0.50 - 1.40 05/18/2015 [facility] ELECTROLYTES BUN 26 7 - 22 05/18/2015 [facility] ELECTROLYTES Glucose Lvl 315 70 - 99 05/18/2015 [facility] CARDIAC ENZYMES CK MB Index 1.7 0.0 - 2.5 05/17/2015 [facility] CARDIAC ENZYMES BNP 163 <=100 pg/mL 05/17/2015 [facility] CARDIAC ENZYMES CK MB 0.6 0.5 - 3.6 05/17/2015 [facility] CARDIAC ENZYMES Total CK 36 12 - 191 05/17/2015 [facility] CARDIAC ENZYMES Troponin-I <0.02 0.00 - 0.40 05/17/2015 [facility] CHEM PANEL Albumin Lvl 3.5 3.5 - 5.0 05/17/2015 [facility] CHEM PANEL Total Protein 6.8 6.4 - 8.4 05/17/2015 [facility] CHEM PANEL A/G Ratio 1.1 0.7 - 1.6 05/17/2015 [facility] CHEM PANEL Globulin 3.3 2.0 - 4.0 05/17/2015 [facility] CHEM PANEL B/C Ratio 18 6 - 25 05/17/2015 [facility] CHEM PANEL Calcium Lvl 8.8 8.5 - 10.5 05/17/2015 [facility] CHEM PANEL Alk Phos 52 39 - 136 05/17/2015 [facility] CHEM PANEL AST 7 0 - 37 05/17/2015 [facility] CHEM PANEL Bili Total 0.9 0.2 - 1.3 05/17/2015 [facility] CHEM PANEL ALT 18 0 - 65 05/17/2015 [facility] CHEM PANEL eGFR 81 05/17/2015 Result Comment: The eGFR is calculated [...] should be multiplied by the estimated BMI. [facility] CHEM PANEL AGAP 14.6 10.0 - 20.0 05/17/2015 [facility] CHEM PANEL CO2 29 24 - 32 05/17/2015 [facility] CHEM PANEL Glucose Lvl 349 70 - 99 05/17/2015 [facility] CHEM PANEL Creatinine Lvl 0.77 0.50 - 1.40 05/17/2015 [facility] CHEM PANEL BUN 14 7 - 22 05/17/2015 [facility] CHEM PANEL Chloride Lvl 98 95 - 109 05/17/2015 [facility] CHEM PANEL Potassium Lvl 3.6 3.5 - 5.1 05/17/2015 [facility] CHEM PANEL Sodium Lvl 138 135 - 145 05/17/2015 [facility] CHEM PANEL Procalcitonin Lvl <0.05 ng/mL 0.00 - 0.10 05/17/2015 [facility] CHEM PANEL Magnesium Lvl 1.8 1.8 - 2.4 05/17/2015 [facility] HEMATOLOGY Lymphocytes # 0.8 1.0 - 5.5 05/17/2015 [facility] HEMATOLOGY Monocytes # 0.3 0.0 - 0.8 05/17/2015 [facility] HEMATOLOGY Basophils # 0.1 0.0 - 0.2 05/17/2015 [facility] HEMATOLOGY Segs-Bands # 12.8 1.5 - 8.1 05/17/2015 [facility] HEMATOLOGY Basophils 0.9 0.0 - 1.0 05/17/2015 [facility] HEMATOLOGY Segs 91.4 45.0 - 75.0 05/17/2015 [facility] HEMATOLOGY Monocytes 2.1 2.0 - 12.0 05/17/2015 [facility] HEMATOLOGY Lymphocytes 5.6 20.0 - 40.0 05/17/2015 [facility] HEMATOLOGY MCHC 31.5 32.0 - 36.0 05/17/2015 [facility] HEMATOLOGY Platelet 217 133 - 450 05/17/2015 [facility] HEMATOLOGY RDW 16.0 11.5 - 14.5 05/17/2015 [facility] HEMATOLOGY MPV 9.8 7.4 - 10.4 05/17/2015 [facility] MCH 29.7 27.0 - 31.0 05/17/2015 [facility] HEMATOLOGY RBC 3.93 4.20 - 5.40 05/17/2015 [facility] HEMATOLOGY Hct 37.1 36.0 - 48.0 05/17/2015 [facility] HEMATOLOGY Hgb 11.7 12.0 - 16.0 05/17/2015 [facility] HEMATOLOGY MCV 94.5 80.0 - 98.0 05/17/2015 [facility] HEMATOLOGY WBC 14.0 3.7 - 10.4 05/17/2015 [facility] HEMATOLOGY D-Dimer 1.07 05/17/2015 [facility] HEMATOLOGY PT 14.4 12.0 - 14.7 05/17/2015 [facility] HEMATOLOGY PTT 26.4 22.9 - 35.8 05/17/2015 [facility] HEMATOLOGY INR 1.09 0.85 - 1.17 05/17/2015 [facility] LIPIDS VLDL 28 05/17/2015 [facility] LIPIDS LDL (Calculated) 102 <=99 mg/dL 05/17/2015 [facility] LIPIDS HDL 43 >=61 mg/dL 05/17/2015 [facility] LIPIDS Chol 173 <=199 mg/dL 05/17/2015 [facility] LIPIDS Trig 140 <=149 mg/dL 05/17/2015 [facility] LIPIDS CHD Risk 4.02 3.90 - 5.80 05/17/2015 [facility] TOXICOLOGY Digoxin Lvl 1.1 0.8 - 2.0 05/17/2015 [facility] CARDIAC ENZYMES BNP 110 <=100 pg/mL 05/16/2015 [facility] CHEM PANEL Total Protein 6.8 6.4 - 8.4 05/16/2015 [facility] CHEM PANEL Albumin Lvl 3.8 3.5 - 5.0 05/16/2015 [facility] CHEM PANEL Alk Phos 52 39 - 136 05/16/2015 [facility] CHEM PANEL ALT 18 0 - 65 05/16/2015 [facility] CHEM PANEL AST 16 0 - 37 05/16/2015 [facility] CHEM PANEL Bili Total 1.0 0.2 - 1.3 05/16/2015 [facility] CHEM PANEL B/C Ratio 22 6 - 25 05/16/2015 [facility] CHEM PANEL Globulin 3.0 2.0 - 4.0 05/16/2015 [facility] CHEM PANEL A/G Ratio 1.3 0.7 - 1.6 05/16/2015 [facility] HEMATOLOGY Lymphocytes # 2.0 1.0 - 5.5 05/16/2015 [facility] HEMATOLOGY Monocytes # 1.0 0.0 - 0.8 05/16/2015 [facility] Eosinophils # 0.2 0.0 - 0.5 05/16/2015 [facility] Basophils 0.2 0.0 - 1.0 05/16/2015 [facility] Segs-Bands # 8.8 1.5 - 8.1 05/16/2015 [facility] Segs 73.3 45.0 - 75.0 05/16/2015 [facility] Lymphocytes 16.8 20.0 - 40.0 05/16/2015 [facility] Monocytes 8.5 2.0 - 12.0 05/16/2015 [facility] Eosinophils 1.2 0.0 - 4.0 05/16/2015 [facility] Plt Morph Normal (05/16/15 4:20 PM) 05/16/2015 [facility] RBC Morph Normal (05/16/15 4:20 PM) 05/16/2015 [facility] MCH 29.1 27.0 - 31.0 05/16/2015 [facility] Hct 37.7 36.0 - 48.0 05/16/2015 [facility] MCV 95.4 80.0 - 98.0 05/16/2015 [facility] MPV 10.6 7.4 - 10.4 05/16/2015 [facility] RDW 16.4 11.5 - 14.5 05/16/2015 [facility] Platelet 215 133 - 450 05/16/2015 [facility] MCHC 30.6 32.0 - 36.0 05/16/2015 [facility] Hgb 11.5 12.0 - 16.0 05/16/2015 [facility] WBC 12.1 3.7 - 10.4 05/16/2015 [facility] RBC 3.95 4.20 - 5.40 05/16/2015 [facility] CHEM PANEL eGFR 96 05/16/2015 Result Comment: The eGFR is calculated [...] should be multiplied by the estimated BMI. [facility] CHEM PANEL POC Creatinine 0.6 0.5 - 1.4 05/16/2015 [facility] BEDSIDE GLUCOSE TESTING Gluc POC Lifscn 216 70 - 99 10/07/2011 [place] <sup>1</sup>Interpretive Data: Upper Reportable Limit: 200 mg/dL. [facility] BEDSIDE GLUCOSE TESTING Comment1 Notify RN/ 10/07/2011 NA [facility] BEDSIDE GLUCOSE TESTING Comment1 Notify RN/ 10/07/2011 NA [facility] BEDSIDE GLUCOSE TESTING Gluc POC Lifscn 173 70 - 99 10/07/2011 [place] <sup>2</sup>Interpretive Data: Upper Reportable Limit: 200 mg/dL. [facility] BEDSIDE GLUCOSE TESTING Gluc POC Lifscn 195 70 - 99 10/07/2011 [place] <sup>3</sup>Interpretive Data: Upper Reportable Limit: 200 mg/dL. [facility] BEDSIDE GLUCOSE TESTING Comment1 Notify RN/ 10/07/2011 NA [facility] CHEMISTRY Glucose Lvl 329 70 - 99 10/01/2011 [place] <sup>6</sup>Interpretive Data: Adult reference range values reflect the clinical guidelines of the [employer]. [facility] CHEMISTRY Chloride Lvl 106 95 - 109 10/01/2011 Normal [facility] CHEMISTRY BUN 23 7 - 22 10/01/2011 HI [facility] CHEMISTRY Sodium Lvl 141 135 - 145 10/01/2011 Normal [facility] CHEMISTRY Creatinine Lvl 0.9 0.5 - 1.4 10/01/2011 Normal [facility] CHEMISTRY eGFR >60 10/01/2011 NA <sup>4</sup>Result Comment: Expected eGFR for >20 yr. age group: >=60 ml/min/1.73 sq m The eGFR calculation is not valid in or for persons < 18 years of age. From [employer] (NKDEP) [facility] CHEMISTRY Calcium Lvl 8.9 8.5 - 10.5 10/01/2011 Normal [facility] CHEMISTRY CO2 23 24 - 32 10/01/2011 LOW [facility] CHEMISTRY AGAP 17.1 10.0 - 20.0 10/01/2011 Normal [facility] CHEMISTRY Potassium Lvl 5.1 3.5 - 5.1 10/01/2011 Normal [facility] URINALYSIS UA Leuk Est Negative (09/30/2011 03:00:00) Negative 09/30/2011 Normal [facility] URINALYSIS UA Urobilinogen 0.2 0.1 - 1.0 09/30/2011 Normal [facility] URINALYSIS UA Nitrite Negative (09/30/2011 03:00:00) Negative 09/30/2011 Normal [facility] URINALYSIS UA Bili Negative *NA* (09/30/2011 03:00:00) Negative 09/30/2011 NA [facility] URINALYSIS UA Protein Negative (09/30/2011 03:00:00) Negative 09/30/2011 Normal [facility] URINALYSIS UA Glucose >=1000 mg/dL *ABN* (09/30/2011 03:00:00) Negative 09/30/2011 ABN [facility] URINALYSIS UA Ketones 40 mg/dL *ABN* (09/30/2011 03:00:00) Negative 09/30/2011 ABN [facility] URINALYSIS UA Blood Moderate *ABN* (09/30/2011 03:00:00) Negative 09/30/2011 ABN [facility] URINALYSIS UA Color Yellow *NA* (09/30/2011 03:00:00) Yellow 09/30/2011 NA [facility] URINALYSIS UA Turbidity Clear (09/30/2011 03:00:00) Clear 09/30/2011 Normal [facility] URINALYSIS UA Spec Grav 1.025 <=1.030 09/30/2011 Normal [facility] URINALYSIS UA pH 5.5 5.0 - 8.0 09/30/2011 Normal [facility] CHEMISTRY Alk Phos 39 39 - 136 09/30/2011 Normal [facility] CHEMISTRY Bili Total 0.3 0.2 - 1.3 09/30/2011 Normal [facility] CHEMISTRY AST 5 0 - 37 09/30/2011 Normal [facility] CHEMISTRY ALT 19 0 - 65 09/30/2011 Normal [facility] CHEMISTRY Albumin Lvl 3.3 3.5 - 5.0 09/30/2011 LOW [facility] CHEMISTRY BUN 23 7 - 22 09/30/2011 [facility] CHEMISTRY Creatinine Lvl 0.9 0.5 - 1.4 09/30/2011 Normal [facility] CHEMISTRY Total Protein 5.9 6.4 - 8.4 09/30/2011 LOW [facility] CHEMISTRY Sodium Lvl 142 135 - 145 09/30/2011 Normal [facility] CHEMISTRY Chloride Lvl 103 95 - 109 09/30/2011 Normal [facility] CHEMISTRY Potassium Lvl 4.4 3.5 - 5.1 09/30/2011 Normal [facility] CHEMISTRY CO2 30 24 - 32 09/30/2011 Normal [facility] CHEMISTRY Calcium Lvl 8.7 8.5 - 10.5 09/30/2011 Normal [facility] CHEMISTRY Glucose Lvl 235 70 - 99 09/30/2011 [place] <sup>7</sup>Interpretive Data: Adult reference range values reflect the clinical guidelines of the [place] [employer]. [facility] CHEMISTRY B/C Ratio 26 6 - 25 09/30/2011 [facility] CHEMISTRY AGAP 13.4 10.0 - 20.0 09/30/2011 Normal [facility] CHEMISTRY Globulin 2.6 2.0 - 4.0 09/30/2011 Normal [facility] CHEMISTRY A/G Ratio 1.3 0.7 - 1.6 09/30/2011 Normal [facility] HEMATOLOGY RDW 14.2 11.5 - 14.5 09/30/2011 Normal [facility] HEMATOLOGY MPV 10.7 7.4 - 10.4 09/30/2011 [facility] HEMATOLOGY Platelet 164 133 - 450 09/30/2011 Normal [facility] HEMATOLOGY RBC 3.92 4.20 - 5.40 09/30/2011 LOW [facility] HEMATOLOGY Hct 37.7 36.0 - 48.0 09/30/2011 Normal [facility] HEMATOLOGY Hgb 12.4 12.0 - 16.0 09/30/2011 Normal [facility] HEMATOLOGY MCH 31.6 27.0 - 31.0 09/30/2011 [facility] HEMATOLOGY MCV 96.1 81.0 - 99.0 09/30/2011 Normal [facility] HEMATOLOGY WBC 10.4 3.7 - 10.4 09/30/2011 Normal [facility] HEMATOLOGY MCHC 32.9 32.0 - 36.0 09/30/2011 Normal [facility] HEMATOLOGY Monocytes 7.7 2.0 - 12.0 09/30/2011 Normal [facility] HEMATOLOGY Basophils # 0.1 0.0 - 0.2 09/30/2011 Normal [facility] HEMATOLOGY Eosinophils # 0.2 0.0 - 0.5 09/30/2011 Normal [facility] HEMATOLOGY Monocytes # 0.8 0.0 - 0.8 09/30/2011 Normal [facility] HEMATOLOGY Segs-Bands # 7.3 1.5 - 8.1 09/30/2011 Normal [facility] HEMATOLOGY Lymphocytes # 2.0 1.0 - 5.5 09/30/2011 Normal [facility] HEMATOLOGY Basophils 0.9 0.0 - 1.0 09/30/2011 Normal [facility] HEMATOLOGY Eosinophils 2.2 0.0 - 4.0 09/30/2011 Normal [facility] HEMATOLOGY Segs 70.3 45.0 - 75.0 09/30/2011 Normal [facility] Lymphocytes 18.9 20.0 - 40.0 09/30/2011 LOW [facility] CHEMISTRY Vitamin D2 1,25 (OH)2 <8 09/30/2011 NA <sup>11</sup>Result Comment: Reference ranges are established for total 1,25-dihydroxy vitamin D. Values for subcomponents D2 (derived from plant or fungal sources) and D3 (derived from human or animal sources) are provided for informational purposes only. This test was developed and its performance characteristics have been determined by [facility]. Performance characteristics refer to the analytical performance of the test. Test Performed at: [facility] [address] [id number] Bull Enriquez MD, PhD [facility] CHEMISTRY Vitamin D3 1,25 (OH)2 70 09/30/2011 NA [facility] CHEMISTRY Vitamin D 1,25 (OH)2 Total 70 18 - 72 09/30/2011 NA [facility] Vitamin D, 25-OH, Total 18 30 - 100 09/30/2011 LOW <sup>9</sup>Result Comment: 25-OHD3 indicates both endogenous production and supplementation. 25-OHD2 is an indicator of exogenous sources such as diet or supplementation. Therapy is based on measurement of Total 25- OHD, with levels <20 ng/mL indicative of Vitamin D deficiency, while levels between 20 ng/mL and 30 ng/mL suggest insufficiency. Optimal levels are >=30 ng/mL. [facility] CHEMISTRY Vitamin D3 25-OH 18 09/30/2011 NA [facility] Vitamin D2 25-OH <4 09/30/2011 NA <sup>10</sup>Result Comment: Test Performed at: [facility] [address] [place] [address] Bull Enriquez MD, PhD [facility] CHEMISTRY eGFR >60 09/29/2011 NA <sup>5</sup>Result Comment: Expected eGFR for >20 yr. age group: >=60 ml/min/1.73 sq m The eGFR calculation is not valid in or for persons < 18 years of age. From [employer] (NKDEP) [facility] CHEMISTRY Creatinine Lvl 0.9 0.5 - 1.4 09/29/2011 Normal [facility] CHEMISTRY BUN 22 7 - 22 09/29/2011 Normal [facility] CHEMISTRY ALT 20 0 - 65 09/29/2011 Normal [facility] CHEMISTRY Sodium Lvl 144 135 - 145 09/29/2011 Normal [facility] CHEMISTRY Chloride Lvl 105 95 - 109 09/29/2011 Normal [facility] CHEMISTRY Potassium Lvl 4.0 3.5 - 5.1 09/29/2011 Normal [facility] CHEMISTRY Glucose Lvl 214 70 - 99 09/29/2011 [place] <sup>8</sup>Interpretive Data: Adult reference range values reflect the clinical guidelines of the [place] [employer]. [facility] CHEMISTRY AGAP 15.0 10.0 - 20.0 09/29/2011 Normal [facility] CHEMISTRY AST 6 0 - 37 09/29/2011 Normal [facility] CHEMISTRY Bili Total 0.4 0.2 - 1.3 09/29/2011 Normal [facility] CHEMISTRY Alk Phos 39 39 - 136 09/29/2011 Normal [facility] CHEMISTRY Globulin 3.1 2.0 - 4.0 09/29/2011 Normal [facility] CHEMISTRY B/C Ratio 24 6 - 25 09/29/2011 Normal [facility] CHEMISTRY A/G Ratio 1.3 0.7 - 1.6 09/29/2011 Normal [facility] CHEMISTRY Total Protein 7.0 6.4 - 8.4 09/29/2011 Normal [facility] CHEMISTRY Calcium Lvl 9.1 8.5 - 10.5 09/29/2011 Normal [facility] CHEMISTRY CO2 28 24 - 32 09/29/2011 Normal [facility] CHEMISTRY Albumin Lvl 3.9 3.5 - 5.0 09/29/2011 Normal [facility] HEMATOLOGY MPV 11.5 7.4 - 10.4 09/29/2011 HI [facility] HEMATOLOGY Platelet 187 133 - 450 09/29/2011 Normal [facility] HEMATOLOGY RDW 14.1 11.5 - 14.5 09/29/2011 Normal [facility] HEMATOLOGY WBC 11.4 3.7 - 10.4 09/29/2011 HI [facility] HEMATOLOGY RBC 4.27 4.20 - 5.40 09/29/2011 Normal [facility] HEMATOLOGY MCHC 32.8 32.0 - 36.0 09/29/2011 Normal [facility] HEMATOLOGY MCH 31.4 27.0 - 31.0 09/29/2011 [facility] HEMATOLOGY Hgb 13.4 12.0 - 16.0 09/29/2011 Normal [facility] HEMATOLOGY MCV 95.6 81.0 - 99.0 09/29/2011 Normal [facility] HEMATOLOGY Hct 40.8 36.0 - 48.0 09/29/2011 Normal [facility] HEMATOLOGY Monocytes 9.2 2.0 - 12.0 09/29/2011 Normal [facility] HEMATOLOGY Lymphocytes 19.2 20.0 - 40.0 09/29/2011 LOW [facility] HEMATOLOGY Segs-Bands # 7.9 1.5 - 8.1 09/29/2011 Normal [facility] HEMATOLOGY Eosinophils 1.9 0.0 - 4.0 09/29/2011 Normal [facility] HEMATOLOGY Monocytes # 1.0 0.0 - 0.8 09/29/2011 [facility] HEMATOLOGY Basophils # 0.0 0.0 - 0.2 09/29/2011 Normal [facility] HEMATOLOGY Basophils 0.4 0.0 - 1.0 09/29/2011 Normal [facility] HEMATOLOGY Lymphocytes # 2.2 1.0 - 5.5 09/29/2011 Normal [facility] Eosinophils # 0.2 0.0 - 0.5 09/29/2011 Normal [facility] HEMATOLOGY Segs 69.3 45.0 - 75.0 09/29/2011 Normal [facility] Pathology Reports No Data Provided for This Section Diagnostic Reports Report Value Date Source Renal Stone CT CT ABDOMEN PELVIS WITHOUT [...] CT abnormalities in the abdomen or pelvis. [id number] 06/03/2017 [facility] Abdomen AP DX Patient Name: SAGRARIO SINGLETON : 1950; Age: 67 years Female MR: [id number] Study: Abdomen AP DX 05/21/2017 5:00 AM [employer] CLINICAL INDICATION: Flank Pain COMPARISON: KUB on 04/02/2017 FINDINGS: Nonspecific bowel gas pattern without evidence of dilatation, pneumatosis, or pneumoperitoneum. Stable position of the right ureteral stent. No definitive urinary calculus. Multiple pelvic phleboliths. Degenerative changes of the right hip and lumbar spine. IMPRESSION: Stable position of the right ureteral stent. No definitive urinary calculus. : [id number] 05/21/2017 [facility] Abdomen AP DX KUB: The right ureteral stent is in satisfactory position. There is no visible urinary tract calculus. Small phleboliths are seen in the pelvis. The abdominal gas pattern is normal. Extensive degenerative changes in lumbar spine are noted. There is no other significant change compared to 01/23/2017. [id number] 04/02/2017 [facility] Abdomen AP DX KUB: The right ureteral stent is in satisfactory position. A small stone fragment along the distal stent at the UVJ could not be excluded. There is no other other definite urinary tract calculus. Multiple phleboliths are noted in the pelvis. The abdominal gas pattern is normal. Degenerative changes in the lumbar spine and right hip are noted. [id number] 01/23/2017 [facility] Renal pyelogram retrograde DX Patient Name: SAGRARIO SINGLETON : 1950; Age: 66 years Female MR: [id number] Study: Renal pyelogram retrograde DX 11/22/2016 8:00 AM CDT Clinical Indication: - ST 0750;ET ;FT ;DOSE ;TECH: Bull LOGAN. COMPARISON: None FINDINGS: 1 image is submitted which demonstrates partial distention of the mid right ureter. Catheter/stent device traverses the right ureter. There is thoracic and lumbar spondylosis. : [id number] 11/22/2016 [facility] Abdomen/Pelvis wo IV contrast CT Patient Name: SAGRARIO SINGLETON : 1950; Age: 66 years Female MR: [id number] Study: Abdomen/Pelvis wo IV contrast CT 11/19/2016 [...] 10. Lumbar spinal stenosis incompletely evaluated. SL: JOSWALD 11/21/2016 [facility] Chest 1view DX Patient Name: SAGRARIO SINGLETON : 1950; Age: 66 years y/o Female MR: [id number] * CHEST, portable, 1 view 11/11/2016 @ [...] The regional skeleton is otherwise unremarkable. SL: [id number] 11/15/2016 [facility] Ext Lower Venous Doppler Unilat US Patient Name: SAGRARIO SINGLETON : 1950; Age: 66 years y/o Female MR: [id number] Study: Ext Lower Venous Doppler Unilat US [...] cyst at the right popliteal fossa. SL: PJOHJAZMYNE 11/14/2016 [facility] 1view DX Portable chest: The right jugular dialysis tempcath is in satisfactory position. The cardiac silhouette is mildly enlarged. There is improving pulmonary venous congestion and edema compared to the exam on 11/11/2016. There is no significant effusion. There is no other change. [id number] 11/13/2016 [facility] 1 v for Placement DX Patient Name: SAGRARIO SINGLETON : 1950; Age: 66 years y/o Female MR: [id number] * CHEST, portable, 1 view 11/11/2016 @ [...] spine. The regional skeleton is otherwise unremarkable. SL: [id number] 11/11/2016 [facility] CVC insert non-tunnel age 5+ yrs VR Patient Name: SAGRARIO SINGLETON : 1950; Age: 66 years y/o Female MR: [id number] Study: CVC insert non-tunnel age 5+ yrs [...] PACS. Utilizing Seldinger technique a 15 cm, 13-Georgian temporary dialysis catheter was placed into the SVC. The catheter demonstrated good flow dynamics and was flushed and saline locked. An appropriate dressing was applied. Procedure well-tolerated clinically. SL: [id number] 11/11/2016 [facility] Retroperitoneal Complete US Patient Name: SAGRARIO SINGLETON : 1950; Age: 66 years Female MR: [id number] Study: Retroperitoneal Complete US 11/09/2016 8:18 PM [...] decompressed bladder. IMPRESSION: Mild right hydronephrosis. SL: [id number] 11/09/2016 [facility] US Chest US TECHNIQUE: Grayscale and color Doppler images of the lower chest were performed with a curvilinear transducer. Static images are submitted for review. CLINICAL HX: Absent of breath sounds - evaluate for pleural effusions; COMPARISON: Chest one view 11/08/2016 FINDINGS/IMPRESSION: No large effusion is present in the lower chest on either side on the submitted images. SL: [id number] 11/08/2016 [facility] Chest 1view DX CLINICAL HISTORY:Shortness of Breath COMPARISON: 11/08/2016, 1633 hours FINDINGS/IMPRESSION: Limited AP portable study. Support Lines/Devices: none Lungs: Patchy infiltrate in the right lower lobe persists without significant interval change. Cardiomediastinum: Cardiomediastinal silhouette is stable. Bone and Soft Tissues: No significant abnormality is evident. Multiple EKG leads and other wires project over the patient's chest. SL: MACY-PC 11/08/2016 [facility] 1view DX Study: Chest 1view DX portable 11/08/2016 1633 hours Clinical Indication: hypoxia Comparison: Chest 1358 hours FINDINGS: Image quality is compromised by the large patient size. The cardiac silhouette is top normal in size. The lungs are incompletely inflated. Ill-defined right infrahilar infiltrate has developed suggesting pneumonitis. No vascular congestion or significant pleural effusion is seen. SL: JUAN JOSE-PC 11/08/2016 [facility] 1view DX Chest 1view DX CLINICAL HISTORY:Dyspnea - copd COMPARISON: 05/29/2015 FINDINGS/IMPRESSION: Limited AP portable study. Support Lines/Devices: none Lungs: No consolidation, effusion or any significant pulmonary edema. Cardiomediastinum: Mild stable cardiac silhouette enlargement. Bone and Soft Tissues: No significant abnormality is evident. Multiple EKG leads and other wires project over the patient's chest. SL: MOHIT 11/08/2016 [facility] Chest 2 views DX PROCEDURE: Chest 2 views REASON FOR EXAM: See Clinic Indication CLINICAL INDICATION: Absent of breath sounds COMPARISON: 09/30/2011. FINDINGS: Mildly enlarged cardiac silhouette. Mild vascular congestive change and pulmonary edema. Small bilateral pleural effusions are present. Moderate to severe thoracic spondylosis. SL: 12 05/19/2015 [facility] Chest CTA EXAM: CTA pulmonary arteries and [...] 2. Findings suggest heart failure. SL:13 05/16/2015 [facility] Spine lumbar minimum 4 views HISTORY: Back pain. Lumbar spine 5 views. Scoliosis convex to the left. Multilevel disc space degenerative change with disc space narrowing, endplate sclerosis and osteophytes. There is mild anterolisthesis of L4 upon L5. Facet degenerative changes L4-L5 and L5-S1 bilaterally. Chronic degenerative changes are noted in the right acetabulum. IMPRESSION: Lumbar spine degenerative changes. Mild levoscoliosis SL:13 10/28/2013 [facility] Consultation Notes No Data Provided for This Section Discharge Summaries No Data Provided for This Section History and Physicals No Data Provided for This Section Vital Signs Vital Sign Value Date Comments Source Respitory Rate 16 06/23/2017 [facility] Heart Rate 72 06/23/2017 [facility] Systolic (mm Hg) 140 06/23/2017 [facility] Diastolic (mm Hg) 68 06/23/2017 [facility] Respitory Rate 14 06/23/2017 [facility] Heart Rate 70 06/23/2017 [facility] Systolic (mm Hg) 156 06/23/2017 [facility] Diastolic (mm Hg) 70 06/23/2017 [facility] Systolic (mm Hg) 156 06/23/2017 [facility] Diastolic (mm Hg) 70 06/23/2017 [facility] Respitory Rate 13 06/23/2017 [facility] Heart Rate 75 06/15/2017 [facility] Temperature Oral (F) 97.7 F 06/15/2017 [facility] Height 152.4 cm 06/15/2017 [facility] Weight 90 06/15/2017 [facility] BMI Calculated 38.75 06/15/2017 [facility] Heart Rate 64 05/21/2017 [facility] Systolic (mm Hg) 125 05/21/2017 [facility] Diastolic (mm Hg) 81 05/21/2017 [facility] Systolic (mm Hg) 144 05/21/2017 [facility] Diastolic (mm Hg) 64 05/21/2017 [facility] Heart Rate 64 05/21/2017 [facility] Systolic (mm Hg) 143 05/21/2017 [facility] Diastolic (mm Hg) 64 05/21/2017 [facility] Respitory Rate 12 05/21/2017 [facility] Heart Rate 66 05/21/2017 [facility] Respitory Rate 12 05/21/2017 [facility] Temperature Oral (F) 98.4 F 05/11/2017 [facility] BMI Calculated 38.75 05/11/2017 [facility] Weight 90 05/11/2017 [facility] Height 152.4 cm 05/11/2017 [facility] Systolic (mm Hg) 102 02/26/2017 [facility] Diastolic (mm Hg) 48 02/26/2017 [facility] Systolic (mm Hg) 115 02/26/2017 [facility] Diastolic (mm Hg) 45 02/26/2017 [facility] Respitory Rate 16 02/26/2017 [facility] Systolic (mm Hg) 128 02/26/2017 [facility] Diastolic (mm Hg) 70 02/26/2017 [facility] Respitory Rate 14 02/26/2017 [facility] Respitory Rate 16 02/26/2017 [facility] Heart Rate 63 02/26/2017 [facility] Temperature Oral (F) 97.7 F 02/02/2017 [facility] Heart Rate 72 02/02/2017 [facility] Weight 87.273 02/02/2017 [facility] BMI Calculated 37.58 02/02/2017 [facility] Height 152.4 cm 02/02/2017 [facility] Weight 196 12/23/2016 [id number] Height 60 12/23/2016 [id number] Temperature Oral (F) 98.2 F 12/23/2016 [id number] Systolic (mm Hg) 152 11/26/2016 [facility] Diastolic (mm Hg) 75 11/26/2016 [facility] Heart Rate 81 11/26/2016 [facility] Temperature Oral (F) 98.2 F 11/26/2016 [facility] Respitory Rate 18 11/26/2016 [facility] Systolic (mm Hg) 132 11/26/2016 [facility] Diastolic (mm Hg) 64 11/26/2016 [facility] Heart Rate 80 11/26/2016 [facility] Respitory Rate 18 11/26/2016 [facility] Temperature Oral (F) 98.7 F 11/26/2016 [facility] Heart Rate 69 11/26/2016 [facility] Temperature Oral (F) 98.5 F 11/26/2016 [facility] Respitory Rate 18 11/26/2016 [facility] Systolic (mm Hg) 165 11/26/2016 [facility] Diastolic (mm Hg) 78 11/26/2016 [facility] Height 157.48 cm 11/08/2016 [facility] BMI Calculated 38.31 11/08/2016 [facility] Weight 95 11/08/2016 [facility] Weight 95.455 11/08/2016 [facility] BMI Calculated 41.1 11/08/2016 [facility] Height 152.4 cm 11/08/2016 [facility] Systolic (mm Hg) 144 05/23/2015 [facility] Diastolic (mm Hg) 83 05/23/2015 [facility] Respitory Rate 18 05/23/2015 [facility] Heart Rate 69 05/23/2015 [facility] Temperature Oral (F) 97.6 F 05/23/2015 [facility] Systolic (mm Hg) 166 05/23/2015 [facility] Diastolic (mm Hg) 94 05/23/2015 [facility] Respitory Rate 19 05/23/2015 [facility] Heart Rate 76 05/23/2015 [facility] Temperature Oral (F) 97.3 F 05/23/2015 [facility] Respitory Rate 16 05/23/2015 [facility] Temperature Oral (F) 98.5 F 05/23/2015 [facility] Systolic (mm Hg) 126 05/23/2015 [facility] Diastolic (mm Hg) 76 05/23/2015 [facility] Heart Rate 72 05/23/2015 [facility] Weight 108.008 05/22/2015 [facility] Weight 101.8 05/22/2015 [facility] Weight 95.568 05/16/2015 [facility] Height 152.4 cm 05/16/2015 [facility] BMI Calculated 41.15 05/16/2015 [facility] Systolic (mm Hg) 132 10/07/2011 [facility] Respitory Rate 20 10/07/2011 [facility] Heart Rate 67 10/07/2011 [facility] Diastolic (mm Hg) 81 10/07/2011 [facility] Temperature Oral (F) 98.8 F 10/07/2011 [facility] Systolic (mm Hg) 154 10/07/2011 [facility] Respitory Rate 20 10/07/2011 [facility] Diastolic (mm Hg) 79 10/07/2011 [facility] Temperature Oral (F) 97.6 F 10/07/2011 [facility] Heart Rate 63 10/07/2011 [facility] Respitory Rate 20 10/07/2011 [facility] Temperature Oral (F) 97.5 F 10/07/2011 [facility] Heart Rate 60 10/07/2011 [facility] Systolic (mm Hg) 174 10/07/2011 [facility] Diastolic (mm Hg) 98 10/07/2011 [facility] Weight 125.000 09/29/2011 [facility] Height 152.40 cm 09/29/2011 [facility] Weight 125.000 09/29/2011 [facility] Height 152.40 cm 09/29/2011 [facility] Encounters Location Location Details Encounter Type Encounter Number Reason For Visit Attending Provider ADM Date DC Date Status Source [facility] Inpatient [id number] ACUTE SEVERE LOW BACK PAIN - POSSIBLE SCIATICA STELLA SINGH 09/29/2011 10/07/2011 Active [facility] Outpatient [id number] Shanna Ramachandran 10/28/2013 10/29/2013 [facility] Outpatient [id number] Gumaro Young 05/16/2015 05/16/2015 [facility] Inpatient [id number] Gumaro Young 05/19/2015 05/23/2015 [facility] Inpatient [id number] Ministerio Howell 11/08/2016 11/26/2016 [id number] [facility]2017 01/24/2017 [facility] [id number] [facility] 02/26/2017 02/26/2017 [facility] [id number] [facility] 04/02/2017 04/03/2017 [facility] Day [facility] [id number] [facility] 05/21/2017 05/21/2017 [facility] [id number] [facility] 06/03/2017 06/04/2017 [facility] Day Surgery [id number] [facility] 06/23/2017 06/23/2017 [facility] Procedures Procedure Code Date Perfomer Comments Source Brain operations [id number] 07/06/1959 [facility] section [id number] [facility] Catheterization of left heart [id number] [facility] Cystoscopy<sup>1</sup> [id number] w/stent 11/2016 [facility] ESWL of kidney<sup>2</sup> [id number] 2009 [facility] Assessment and Plan Assessment and Plan Date Source Extracted from:Title: Clinical Document Author: Yg Patterson MD Date: 11/26/16 Progress Note - Daily Completed: Saturday, NOVEMBER 26, 2016, 14:34 by Yg Patterson MD RM: 138 - 1P, SE C1A SAGRARIO SINGLETON 66y (: 1950) F Attending: Ministerio Howell DO Service: Internal Medicine Reason for Admission: ACUTE RENAL FAILURE, DIABETIC HYPOGLYCEMIA,LEUKOCYTOSIS Working DRG: Septicemia or severe sepsis w/o MV 96+ hours w LONG-TERM Code status: Full Code [Ordered] Current diet: Isolation: Contact [Ordered] Allergies: nkda SUBJECTIVE Tolerating PO OBJECTIVE 24hr Labs 11/26 1043 Glucose POC 297 H 11/26 0627 Glucose POC 195 H 11/25 2116 Glucose POC 260 H 11/25 1613 Glucose POC 146 H Flynn still necessary (Yes/No): Line still necessary (Yes/No): Vitals Tmp(F) Pulse BP RR SpO2 FIO2 11/26 11:20 98.7 80 132/64 18 95 --- 11/26 08:43 98.5 69 165/78 18 98 --- 11/26 07:40 ---- --- ----- 16 95 3.0L/m 11/26 04:00 98.0 70 146/84 18 95 --- 11/26 01:00 ---- --- 149/84 -- --- --- 24 Hr Tmax: 99.4F (37.44c) at 11/25 20:00 Vital Signs are the last 5 in the past 48 hours. Date Wt(kg) Wt(lb) Ht(cm) Ht(in) Method 11/21 94.18 207.19 Measured 11/20 99.09 218.00 Measured 11/18 98.64 217.00 Measured 11/17 97.73 215.00 Measured 11/16 96.82 213.00 Measured 11/08 (initial) 95.45 210.00 Estimated 11/08 152.40 60.00 Stated I&O Record In Out Bal 11/26 24hr Tot 10 0 10 11/25 24hr Tot 120 0 120 Medications (31) Active Scheduled Meds (8): 11/09/16 PARoxetine 20 mg PO Daily 11/08/16 budesonide 0.5 mg NEB RBID 11/19/16 docusate (docusate sodium 100 mg oral capsule) 100 mg PO BID 11/13/16 insulin detemir (Levemir) 5 unit SUB-Q BID 0 ml/hr 11/25/16 levofloxacin 750 mg PO [id number] 11/16/16 pantoprazole 40 mg PO Before Dinner 11/17/16 simvastatin 40 mg PO Bedtime 11/08/16 sodium chloride (Saline Flush 0.9%) 10 ml IVP Q12H Unscheduled Meds: None PRN Meds (23): 11/09/16 Dextrose 50% in Water IV (Dextrose 50% Syringe) 12.5 gm IVP PRN 11/09/16 Dextrose 50% in Water IV (Dextrose 50% Syringe) 25 gm IVP PRN 11/14/16 acetaminophen-hydrocodone (Mentone 5/325 oral tablet) 1 tab PO Q6H [...] Home or NH. 5. Bx noted Extracted from:Title: Urology Author: Zelalem Chavira MD Date: 11/21/16 [...] Nkda- No reactions were documented., Allergies (1) Active Reaction nkda None Documented Current medications: (Selected) Inpatient Medications Ordered Compazine: 5 mg, 1 tab, PO, TID, PRN: Hiccups Dextrose 50% Syringe: 12.5 gm, 25 mL, IVP, PRN, PRN: Blood Glucose Results Dextrose 50% Syringe: 25 gm, 50 mL, IVP, PRN, PRN: Blood Glucose Results DuoNeb inhalation solution: 3 ml, NEB, PRN, PRN: Respiratory Protocol Levemir: 5 unit, 0.05 mL, 0 ml/hr, SUB-Q, BID Mentone 5/325 oral tablet: 1 tab, PO, Q6H, [...] list: All Problems MRSA / SNOMED CT [id number] / Confirmed Problem added by Discern Expert. nasal swab (PCR+), 11/11/2016 Hypertension / SNOMED CT 90250983 / Confirmed Diabetes mellitus / SNOMED CT 059278441 / Confirmed COPD / SNOMED CT 19431297 / Confirmed Histories Past Medical History: Resolved HTN (hypertension) ([id number]): Resolved. CHF - Congestive heart failure (609367408): Resolved. Pneumonia ([id number]): Resolved. Diabetes ([id number]): Resolved. Family History: Heart disease Mother Procedure history: Brain operations ([id number]) in 1960 at 10 Years. section ([id number]). Physical Examination VS/Measurements Measurements from flowsheet : Measurements 11/21/2016 04:56 Weight Collection Method Measured Current Weight 94.176 kg Weight Difference Percent -4.96 % 11/20/2016 05:08 Weight Collection Method Measured Current Weight 99.091 kg Weight Difference Percent 0.461 % , Vital Signs (last 24 hrs) Last Charted Temp Oral 98.6 DegF (NOVEMBER 21 10:46) Heart Rate Peripheral 77 bpm (NOVEMBER 21 10:46) Resp Rate 16 BRMIN (NOVEMBER 21 10:46) SBP H 142mmHg (NOVEMBER 21 10:46) DBP L 53mmHg (NOVEMBER 21 10:46) SpO2 L 93% (NOVEMBER 21 10:46) General: Alert and oriented. Eye: Extraocular movements are intact. HENT: Normocephalic. Neck: Supple. Respiratory: Respirations are non-labored. Cardiovascular: Normal rate, Regular rhythm. Gastrointestinal: Soft, Non-tender, Non-distended, Normal bowel sounds. Genitourinary: No costovertebral angle tenderness. Integumentary: Warm. Neurologic: Alert, Oriented, No focal deficits. Cognition and Speech: Oriented, Speech clear and coherent. Psychiatric: Cooperative, Appropriate mood and affect. Review / Management Results review: Labs (Last four charted values) WBC H 18.7 (NOVEMBER 21) H 18.6 (NOVEMBER 20) H 19.2 (NOVEMBER 19) H 19.7 (NOVEMBER 18) Hgb L 8.6 (NOVEMBER 21) L 9.0 (NOVEMBER 20) L 8.6 (NOVEMBER 19) L 9.2 (NOVEMBER 18) Hct L 26.9 (NOVEMBER 21) L 28.0 (NOVEMBER 20) L 26.9 (NOVEMBER 19) L 28.7 (NOVEMBER 18) Plt 275 (NOVEMBER 21) 243 (NOVEMBER 20) 217 (NOVEMBER 19) 190 (NOVEMBER 18) Na 141 (NOVEMBER 21) 139 (NOVEMBER 20) 142 (NOVEMBER 19) 140 (NOVEMBER 18) K 3.7 (NOVEMBER 21) 4.2 (NOVEMBER 20) 4.5 (NOVEMBER 19) 4.5 (NOVEMBER 18) CO2 27 (NOVEMBER 21) 27 (NOVEMBER 20) 30 (NOVEMBER 19) 29 (NOVEMBER 18) Cl 107 (NOVEMBER 21) 105 (NOVEMBER 20) 103 (NOVEMBER 19) 103 (NOVEMBER 18) Cr H 2.10 (NOVEMBER 21) H 2.20 (NOVEMBER 20) H 2.40 (NOVEMBER 19) H 2.40 (NOVEMBER 18) BUN H 27 (NOVEMBER 21) H 33 (NOVEMBER 20) H 42 (NOVEMBER 19) H 47 (NOVEMBER 18) Glucose Random H 129 (NOVEMBER 21) H 220 (NOVEMBER 20) H 172 (NOVEMBER 19) H 212 (NOVEMBER 18) Mg 2.0 (NOVEMBER 13) L 1.6 (NOVEMBER 10) Phos H 5.0 (NOVEMBER 13) H 5.6 (NOVEMBER 10) Ca L 8.2 (NOVEMBER 21) L 8.0 (NOVEMBER 20) L 7.9 (NOVEMBER 19) L 8.4 (NOVEMBER 18) PT H 15.2 (NOVEMBER 08) INR H 1.18 (NOVEMBER 08) PTT 26.9 (NOVEMBER 08) Troponin 0.05 (NOVEMBER 08) 0.06 (NOVEMBER 08) 0.07 (NOVEMBER 08) Total CK 54 (NOVEMBER 08) 54 (NOVEMBER 08) . Patient Name: SAGRARIO SINGLETON : 1950; Age: 66 years Female MR: [id number] Study: Abdomen/Pelvis wo IV contrast CT 11/19/2016 [...] Abx per ID Zelalem Chavira MD Addendum by Judah Betts MD on 11/22/2016 07:53 Patient seen and examined, agree with H&P, plan as per Dr. Chavira -B renal stones, largest R 1.8cm- no current intervention -R distal 8mm stone with obstruction and infection - to OR for cysto, R RPG, R stent -Will treat calculi once infection resolves. I personally reveiwed the patient's labs and imaging reports, looked at the images themselves, and contacted the consulting physician to discuss the above plan. Judah Betts MD [facility] Office: [phone] 11/26/2016 [facility] Extracted from:Title: Clinical Document Author: Peter Tran MD Date: [...] bowel or bladder complaints. Vitals and Temp: Vitals Tmp(F) Pulse BP RR SpO2 FIO2 05/22 11:58 98.3 74 109/74 20 --- --- 05/22 09:13 ---- --- ----- 20 97 32% 05/22 08:45 ---- 71 ----- -- --- --- 05/22 07:51 97.6 82 137/77 18 --- --- 05/22 04:09 97.4 70 112/71 17 92 --- 24 Hr Tmax: 99.2F (37.33c) at 05/21 20:29 Vital Signs are the last 5 in the [...] Labs (Last four charted values) WBC H 14.0 (MAY 17) H 12.1 (MAY 16) Hgb L 11.7 (MAY 17) L 11.5 (MAY 16) Hct 37.1 (MAY 17) 37.7 (MAY 16) Plt 217 (MAY 17) 215 (MAY 16) Na 139 (MAY 19) 138 (MAY 18) 138 (MAY 17) 141 (MAY 16) K 3.8 (MAY 19) 3.6 (MAY 18) 3.6 (MAY 17) 4.2 (MAY 16) CO2 H 36 (MAY 19) 31 (MAY 18) 29 (MAY 17) 31 (MAY 16) Cl 96 (MAY 19) 97 (MAY 18) 98 (MAY 17) 103 (MAY 16) Cr 0.92 (MAY 19) 1.25 (MAY 18) 0.77 (MAY 17) 0.67 (MAY 16) BUN H 24 (MAY 19) H 26 (MAY 18) 14 (MAY 17) 15 (MAY 16) Glucose Random H 323 (MAY 19) H 315 (MAY 18) H 349 (MAY 17) H 175 (MAY 16) Mg 1.9 (MAY 19) 1.8 (MAY 17) Ca L 8.4 (MAY 19) 8.5 (MAY 18) 8.8 (MAY 17) 9.0 (MAY 16) PT 14.4 (MAY 17) INR 1.09 (MAY 17) PTT 26.4 (MAY 17) Troponin <0.02 (MAY 17) CK MB 0.6 (MAY 17) Total CK 36 (MAY 17) DIAGNOSTIC IMAGING No new imaging. ASSESSMENT [...] as decreasing her oxygen needs supplementally Addendum by Peter Tran MD on 05/22/2015 15:18 Defer to primary attending, but may be agood candidate for a "Home Cardiopulmonary Life Program." in the setting of limited mobility, chronic but frequently decompensating status, and high functional and medical risk patient. 05/23/2015 [facility] Plan of Care No Data Provided for This Section Social History Social History Date Source Social History TypeResponse Substance Abuse Use: None. Alcohol Never Smoking Status Never smoker; Exposure to Tobacco Smoke None; Cigarette Smoking Last 365 Days No; Reg Smoking Cessation Counseling No 05/11/2017 [facility] Family History No Data Provided for This Section Advance Directives No Data Provided for This Section Functional Status No Data Provided for This Section
[2019-01-24] MEDS ORDERED: OXYMETAZOLINE HCL 0.05% NAS 1 SPRAY BTL ONE (19:00)
--- NOTE | 2019-01-24 20:39 | NUR ---
[facility] WAS CALLED AND SPOKE WITH [facility] FOR TX BACK TO [facility]
--- NOTE | 2019-01-24 21:49 | NUR ---
[facility]; ETA APPROX. 5-10 MIN.
== END 2019-01-24 22:12 | disposition home or self-care (01) ==
LOC: MERGE 18:04 → ER 18:04
DX: R04.0 Epistaxis (principal)
CPT/HCPCS: 99284

== ENCOUNTER → 2020-01-02 | Outpatient (CLI) | payer MEDICARE, OTHER ==
--- NOTE | 2020-01-02 13:35 | Diagnostic Imaging Report ---
EXAM: CT Chest WITHOUT intravenous contrast 01/02/2020 10:30 AM INDICATION: Asthma, lung nodule COMPARISON: CT Chest of 07/19/2019 TECHNIQUE: Chest was scanned utilizing a multidetector helical scanner from the lung apex through the level of the adrenal glands WITHOUT administration of IV contrast. Coronal and sagittal reformations were obtained. Routine protocol was performed. IV CONTRAST: None RADIATION DOSE: Total DLP: 212.8 mGy*cm. Dose modulation, iterative reconstruction, and/or weight based adjustment of the mA/kV was utilized to reduce the radiation dose to as low as reasonably achievable. COMPLICATIONS: None FINDINGS: LINES/ TUBES: None. LUNGS AND AIRWAYS: The central airways are patent. No focal consolidation or pulmonary edema. Subsegmental atelectasis, most notably at the left lower lobe. Geographic areas of groundglass opacity are likely related to air trapping. Unchanged left lower lobe 6mm pulmonary nodule. PLEURA: The pleural spaces are clear. HEART AND MEDIASTINUM: Multiple subcentimeter thyroid nodules in both lobes of the thyroid measure up to 6 mm. These are likely clinically insignificant and do require further follow-up imaging. No mediastinal, hilar or axillary lymphadenopathy. The heart is normal in size.. Stable trace pericardial effusion. Scattered atherosclerotic calcifications involve the coronary arteries, aorta, and proximal great vessels. UPPER ABDOMEN: No acute findings in the upper abdomen. BONES: No acute osseous injury. No suspicious lytic or blastic lesions. Degenerative changes of the visualized spine. Severe degenerative changes of both glenohumeral joints left greater than right. SOFT TISSUES: Unremarkable. IMPRESSION: Stable left lower lobe 6mm pulmonary nodule. In this high risk patient, followup chest CT is optional at 12 months. Signed by: Humphrey Solomon MD on 01/02/2020 1:32 PM
== END ==
LOC: CT 08:31
PROVIDERS: ATTEND Internal Medicine Critical Care Medicine
DX: R09.02 Hypoxemia (principal); J18.9 Pneumonia, unspecified organism; J47.9 Bronchiectasis, uncomplicated; R91.8 Other nonspecific abnormal finding of lung field; J45.909 Unspecified asthma, uncomplicated
CPT/HCPCS: 71250